=== PATIENT | male | born 1960 | race Caucasian/White ===

== ENCOUNTER → 2016-04-21 | Outpatient (CLI) | payer BC ==
[~2016-04-21] MED LIST: ADVAI100I PO; JEVILIQ12 PEG; KANGAROO JOEY P1 MIS; NICO14DI TD; OXYC1TAB36 PO; PROT40TA G-TUBE; SENN1TAB PO; SUCR1S PO; XANA1TAB2 PO; [UNRECOGNIZED DRUG - CODE]
[2016-04-21 14:05] LABS: BLOOD GAS BASE EXCESS 0.2 mmol/L (-2-2); BLOOD GAS HCO3 24 mmol/L (22-26); BLOOD GAS METHEMOGLOBIN 0.9 % (0-2); BLOOD GAS O2 HGB SATURATION 91 % (90-100); BLOOD GAS OXYGEN CONTENT 15.3 Vol % (12.0-20.0); BLOOD GAS PCO2 35 mmHg (38-42); BLOOD GAS PO2 86 mmHg (61-120); BLOOD GAS TOTAL HGB 11.9 G/DL (12.0-16.0); CRITICAL VALUE YES; TEMP CORR TO 98.6
[2016-04-21 14:06] LABS: DRAW SITE RT RADIAL; FIO2 21 %; NUMBER OF ARTERIAL PUNCTURES 1; STAT NO; ULNAR PULSE PRESENT
--- NOTE | 2016-05-09 11:06 | RSPPFT ---
DATE OF PROCEDURE: 04/21/16 COMMENTS: Spirometry with FVC of 3.1 predicted 4.1, FEV1 of 1.3 predicted 3.0, FEV1/FVC ratio 43% predicted 73%. Post-bronchodilator FEV1 increases to 1.6. Severe air trapping is present with RV at 4.0 predicted 2.0. DLCO is within the predicted range. IMPRESSION: On the basis of the above, patient has an obstructive lung defect with responsiveness to acutely inhaled bronchodilator.
== END ==
LOC: HRSP 13:41
PROVIDERS: ATTEND Internal Medicine Pulmonary Disease
DX: J44.9 Chronic obstructive pulmonary disease, unspecified (principal)
CPT/HCPCS: 36600; 82805; 94620

== ENCOUNTER 2016-04-29 10:17 | Inpatient (IN) | payer BC ==
[2016-04-29] VITALS (7 sets, daily range): BP systolic 82–114; BP diastolic 50–68; PULSE 65–75; RESP 16–20; TEMP 97.3–97.7; O2SAT 93–100
[~2016-04-29] VITALS: Ht 170.2 cm; Wt 46.5 kg
[~2016-04-29 10:17] MED LIST changes: -JEVILIQ12 PEG; -KANGAROO JOEY P1 MIS; -NICO14DI TD; -OXYC1TAB36 PO; -PROT40TA G-TUBE; -SENN1TAB PO; -SUCR1S PO; -XANA1TAB2 PO; -[UNRECOGNIZED DRUG - CODE]
[2016-04-29] MEDS ORDERED: XANA1TAB2 PO (10:36)
--- NOTE | 2016-04-29 10:37 | PD ---
HPI Chief Complaint: General Weakness Time Seen by Provider: 10:27 Travel History International Travel<30 days: No Contact w/Intl Traveler<30days: No Traveled to known affect area: No History of Present Illness HPI Patient is a 55-year-old male with a history of esophageal and stomach cancer presents emergency department for evaluation of inability to tolerate by mouth. Patient has been followed by Dr. Etienne Moe who is planning to do surgery for his cancer but unfortunately has been out of town and they've not been able to reach him. They were instructed that he needs to gain weight for the procedure but unfortunately he's lost "10 pounds over the last 7 days". Patient states that is not that he is having difficulty swallowing but there is significant pain when the food reaches lower esophagus and stomach so much so that he is having trouble to eat. He denies any fever denies any diarrhea denies any blood in the stool. He has also been followed by Dr. Reyna who is planning for an endoscopy prior to having the surgery done. His oncologist is Dr. Abdief will be gotten touch with the day and stated that he probably should come in emerged Department for consideration of admission. PFSH Past Medical History Cancer: Yes (ESOPHAGEAL) Cardiovascular Problems: No Chemotherapy: Yes (2011) Diabetes: No Diminished Hearing: No Endocrine: No Genitourinary: No Hepatitis: No Immune Disorder: No Musculoskeletal: No Neurologic: No Psychiatric: No Reproductive: No Respiratory: No Thyroid Disease: No Past Surgical History Abdominal Surgery: No AICD: No Cardiac Surgery: No Endocrine Surgery: No Eye Surgery: Yes (RETINA) Genitourinary Surgery: No Joint Replacement: No Pacemaker: No Thoracic Surgery: No Other Surgery: Yes Social History Alcohol Use: No Tobacco Use: Yes (quit a week ago, still takes a few drags) Substance Use: Yes (MARIJUANA) Allergies-Medications (Allergen,Severity, Reaction): Coded Allergies: No Known Allergies (Unverified , 04/29/16) Reported Meds & Prescriptions Reported Meds & Active Scripts Active Reported Xanax (Alprazolam) 1 Mg Tab 1 Mg PO Q8H PRN Review of Systems Except as stated in HPI: all other systems reviewed are Neg Physical Exam Narrative GENERAL: Well-developed under nourished and bordering on cachectic male who is quite pleasant and in no apparent distress. SKIN: Warm and dry. HEAD: Atraumatic. Normocephalic. EYES: Pupils equal and round. No scleral icterus. No injection or drainage. ENT: No nasal bleeding or discharge. Mucous membranes pink and moist. NECK: Trachea midline. No JVD. CARDIOVASCULAR: Regular rate and rhythm. No murmur appreciated. RESPIRATORY: No accessory muscle use. Clear to auscultation. Breath sounds equal bilaterally. GASTROINTESTINAL: Abdomen soft, non-tender, nondistended. Hepatic and splenic margins not palpable. MUSCULOSKELETAL: No obvious deformities. No clubbing. No cyanosis. No edema. NEUROLOGICAL: Awake and alert. No obvious cranial nerve deficits. Motor grossly within normal limits. Normal speech. PSYCHIATRIC: Appropriate mood and affect; insight and judgment normal. Data Data Last Documented VS Vital Signs Date Time Temp Pulse Resp B/P Pulse Ox O2 Delivery O2 Flow Rate FiO2 04/29/16 12:01 71 20 91/60 93 Room Air 04/29/16 10:18 97.6 Orders Complete Blood Count With Diff (04/29/16 10:34) Comprehensive Metabolic Panel (04/29/16 10:34) Lipase (04/29/16 10:34) Lactic Acid (04/29/16 10:34) Prothrombin Time / Inr (Pt) (04/29/16 10:34) Act Partial Throm Time (Ptt) (04/29/16 10:34) Urinalysis - C+S If Indicated (04/29/16 10:34) Iv Access Insert/Monitor (04/29/16 10:34) Ecg Monitoring (04/29/16 10:34) Oximetry (04/29/16 10:34) Morphine Inj (Morphine Inj) (04/29/16 10:45) Ondansetron Inj (Zofran Inj) (04/29/16 10:45) Sodium Chloride 0.9% Flush (Ns Flush) (04/29/16 10:45) Electrocardiogram (04/29/16 10:34) Sodium Chlorid 0.9% 500 Ml Inj (Ns 500 M (04/29/16 10:45) Al-Mag Hy-Si 40-40-4 Mg/Ml Liq (Mag-Al P (04/29/16 11:15) Lidocaine 2% Viscous (Xylocaine 2% Visco (04/29/16 11:15) Hydromorphone Pf Inj (Dilaudid Pf Inj) (04/29/16 12:45) Admit Order (Ed Use Only) (04/29/16 ) Sodium Chlor 0.9% 1000 Ml Inj (Ns 1000 M (04/29/16 13:15) Labs Laboratory Tests Test 04/29/16 10:55 White Blood Count 7.3 TH/MM3 Red Blood Count 4.11 MIL/MM3 Hemoglobin 11.6 GM/DL Hematocrit 35.8 % Mean Corpuscular Volume 87.0 FL Mean Corpuscular Hemoglobin 28.3 PG Mean Corpuscular Hemoglobin 32.5 % Concent Red Cell Distribution Width 14.5 % Platelet Count 298 TH/MM3 Mean Platelet Volume 7.4 FL Neutrophils (%) (Auto) 78.1 % Lymphocytes (%) (Auto) 13.3 % Monocytes (%) (Auto) 7.1 % Eosinophils (%) (Auto) 1.0 % Basophils (%) (Auto) 0.5 % Neutrophils # (Auto) 5.7 TH/MM3 Lymphocytes # (Auto) 1.0 TH/MM3 Monocytes # (Auto) 0.5 TH/MM3 Eosinophils # (Auto) 0.1 TH/MM3 Basophils # (Auto) 0.0 TH/MM3 CBC Comment DIFF FINAL Differential Comment Prothrombin Time 10.8 SEC Prothromb Time International 1.0 RATIO Ratio Activated Partial 27.3 SEC Thromboplast Time Sodium Level 137 MEQ/L Potassium Level 4.7 MEQ/L Chloride Level 101 MEQ/L Carbon Dioxide Level 30.0 MEQ/L Anion Gap 6 MEQ/L Blood Urea Nitrogen 8 MG/DL Creatinine 0.90 MG/DL Estimat Glomerular Filtration 88 ML/MIN Rate Random Glucose 125 MG/DL Lactic Acid Level 1.2 mmol/L Calcium Level 8.6 MG/DL Total Bilirubin 0.2 MG/DL Aspartate Amino Transf 19 U/L (AST/SGOT) Alanine Aminotransferase 23 U/L (ALT/SGPT) Alkaline Phosphatase 71 U/L Total Protein 7.2 GM/DL Albumin 3.3 GM/DL Lipase 259 U/L [facility] Medical Decision Making Medical Screen Exam Complete: Yes Emergency Medical Condition: Yes Interpretation(s) EKG shows normal sinus rhythm normal axis and normal R-wave progression. No concerning ST T changes, intervals within normal limits. This normal EKG. Differential Diagnosis Malnourishment, advanced malignancy, dehydration, electrolyte imbalance, abdominal pain, acute abdomen highly unlikely. Narrative Course Patient roomed in ED, in good spirits. Abdomen is benign. He is cachetic. Patient labs are reassuring (CBC, CMP). Patient given pain medication, fluids by slow infusion, beginning to feel better. Discussed with Dr. Soriano who agrees for admission. May not be surgical candidate though.. Discussed with residents and will be admitted. Diagnosis Primary Impression: Abdominal pain Qualified Code: R10.13 - Epigastric pain Additional Impression: Esophageal cancer Admitting Information Admitting Physician Requests: Admit Condition: Stable Wilbert Pradhan MD Apr 29, 2016 10:36
[2016-04-29] MEDS ORDERED: ONDANSETRON HCL 4 MG/2 ML VIAL IVP ONE (10:45)
[2016-04-29] MEDS ORDERED: SODIUM CHLORIDE 0.9% FLUSH 5 ML FLUSH IVF PRN (10:45)
[2016-04-29] MEDS ORDERED: SODIUM CHLORID 0.9% 500 ML INJ 500 ML IV ONE ×3 (10:45→21:00)
[2016-04-29] MEDS ORDERED: MORPHINE SULFATE 4 MG/ML INJ IV PUSH ONE (10:45)
[2016-04-29 11:05] LABS: AUTOMATED NEUTROPHIL # 5.7 TH/MM3 (1.8-7.7); BASOPHIL % 0.5 % (0.0-2.0); EOSINOPHIL # 0.1 TH/MM3 (0-0.4); HEMATOCRIT 35.8 % (39.0-51.0); HEMO FLAGS DIFF FINAL; LYMPH % 13.3 % (9.0-44.0); MEAN CORPUSCULAR HEMOGLOBIN 28.3 PG (27.0-34.0); MEAN CORPUSCULAR HGB CONC 32.5 % (32.0-36.0); MONO % 7.1 % (0.0-8.0); NEUT % 78.1 % (16.0-70.0); PLATELET COUNT 298 TH/MM3 (150-450); RED BLOOD COUNT 4.11 MIL/MM3 (4.50-5.90); RED CELL DISTRIBUTION WIDTH 14.5 % (11.6-17.2); WHITE BLOOD COUNT 7.3 TH/MM3 (4.0-11.0)
[2016-04-29 11:13] LABS: APTT (PATIENT) 27.3 SEC (24.3-30.1); PROTHROMBIN TIME - PATIENT 10.8 SEC (9.8-11.6)
[2016-04-29] MEDS ORDERED: LIDOCAINE VISCOUS 2% SOLN 15 ML UDC PO ONE (11:15)
[2016-04-29] MEDS ORDERED: ALUMINUM/MAGNESIUM/SIMETH 30 ML CUP PO ONE (11:15)
[2016-04-29 11:29] LABS: ANION GAP 6 MEQ/L (5-15); AST (GOT) 19 U/L (15-37); BLOOD UREA NITROGEN 8 MG/DL (7-18); CHLORIDE 101 MEQ/L (98-107); GLOMERULAR FILTRATION RATE 88 ML/MIN (>89); POTASSIUM 4.7 MEQ/L (3.5-5.1); SODIUM (NA) 137 MEQ/L (136-145)
[2016-04-29 11:33] LABS: ALKALINE PHOSPHATASE 71 U/L (45-117); ALT (GPT) 23 U/L (12-78); TOTAL BILIRUBIN ADULT 0.2 MG/DL (0.2-1.0)
[2016-04-29] MEDS ORDERED: HYDROmorphone HCL PF 1 MG/ML VIAL IV PUSH ONE ×2 (12:45→21:00)
[2016-04-29] MEDS ORDERED: SODIUM CHLOR 0.9% 1000 ML INJ 1,000 ML IV SCH (13:15)
[2016-04-29 14:29] LABS: BACTERIA, URINE RARE /hpf; BLOOD, URINE NEG (NEG); GLUCOSE,URINE NEG (NEG); HYALINE CAST, URINE 2 /lpf (RARE); KETONE, URINE NEG (NEG); MUCUS URINE FEW /lpf (OCC); NITRITE,URINE NEG (NEG); URINE COLOR YELLOW (YELLW/STRAW)
[2016-04-29 14:30] LABS: COMMENT (UR) CULT NOT INDICATED; CULTURE IF INDICATED CULT NOT INDICATED
--- NOTE | 2016-04-29 15:16 | HHI.HP ---
[facility] Service Family Medicine Primary Care Physician No Primary Care Physician Admission Diagnosis Epigastric Pain Diagnoses: International Travel<30 Days: No Contact w/Intl Traveler<30days: No Known Affected Area: No History of Present Illness Patient is a 55-year-old male with a past medical history significant for esophageal cancer and GERD who presents to the ED due to poor by mouth intake due to abdominal pain. He states that he has been having abdominal pain after eating. Occurs approximately 15-30min after eating. The pain after onset does not stop. The pain is located is in the abdomen and radiates to the back. Lost 10 pounds in the last week due to poor intake. He was first diagnosed with esophageal cancer in July 2013. He had chemotherapy and radiation at that time. Pet scan was clear thereafter and patient went on with his life until September 2013, when PET scan showed that cancer had recurred. He then underwent chemotherapy (THC and CBD) 4 year in [place]. He returned to [facility] in November 2015. At time he established care and got a PET scan which showed that the cancer had spread outside of the esophagus and into the stomach. Said the cancer was originally located in the distal esophagus. He notes he has never had lymph node involvement. Patient is established with Dr. Bruner who per patient report has agreed to perform surgery. He is currently undergoing evaluation as an outpatient, which has included cardiac and pulmonary clearance which is completed. He'll pending the GI pre-op evaluation which is to include an endoscopy. He was seen in an outpatient GI clinic (Dr. Lagunas) today but was told to come in to hospital by his oncologist Dr. Soriano and covering nurse at Dr. Bruner's ( general surgery) office due to his poor by mouth intake and reported weight loss. He also notices Dr. Blanco (CT surgery) is aware of his case. He has nausea but no vomiting. He denies dysphasia, but notes he has abdominal pain 15-20 minutes after every meal. Has not eaten for the last 6-7 days due to the pain. Has been taking Maalox and Tums which helped some. Has gone through a couple of bottles in the last. No difficulty swallowing solids or liquids. Irritation of the stomach after eaten, pain in the stomach and back. He notes normal bowel movements. He notes he has had no sleep in the last week due to this pain and hunger (still has appetite). (Rebecca Davila MD R1) Review of Systems Constitutional: COMPLAINS OF: Weight loss, Dizziness, DENIES: Fever, Chills, Change in appetite Eyes: DENIES: Blurred vision, Diplopia, Vision loss Ears, nose, mouth, throat: DENIES: Tinnitus, Oral lesions, Throat pain, Hoarseness, Odynophagia Respiratory: DENIES: Cough, Wheezing, Shortness of breath Cardiovascular: DENIES: Chest pain, Palpitations Gastrointestinal: COMPLAINS OF: Black stools (after Pepto), Nausea, DENIES: Bloody stools, Constipation, Diarrhea, Vomiting Genitourinary: DENIES: Dysuria Musculoskeletal: DENIES: Joint pain, Neck pain Integumentary: DENIES: Rash Hematologic/lymphatic: DENIES: Lymphadenopathy Neurologic: DENIES: Headache, Localized weakness, Paresthesias (Rebecca Davila MD R1) Past Family Social History Past Medical History Denies other PMH Past Surgical History Tib-fib fracture left leg Reconstruction of ankle Detached retina left eye Reported Medications Reported Meds & Active Scripts Active Reported Xanax (Alprazolam) 1 Mg Tab 1 Mg PO Q8H PRN (Rebecca Davila MD R1) Allergies: Coded Allergies: No Known Allergies (Unverified , 04/29/16) Family History Significant family history reported Social History Cigarettes: 1 pack per week, previous 3-4 PPD until cancer diagnosis Alcohol: None Endorses Marijuana Lives with in (Rebecca Davila MD R1) Physical Exam Vital Signs Vital Signs Date Time Temp Pulse Resp B/P Pulse Ox O2 Delivery O2 Flow Rate FiO2 04/29/16 13:18 18 04/29/16 12:01 71 20 91/60 93 Room Air 04/29/16 11:04 98 Room Air 04/29/16 10:55 18 04/29/16 10:29 18 Room Air 04/29/16 10:18 97.6 74 20 114/54 100 Room Air Physical Exam GENERAL: Very thin male patient sitting up in bed. at bedside SKIN: No rashes, ecchymoses. Scattered seborrheic keratoses. Skin is warm and dry. HEAD: Atraumatic. Normocephalic. No temporal or scalp tenderness. EYES: Left eye with notable surgical abnormality of the pupil, right eye normal and pupil reactive. Extraocular motions intact. No scleral icterus. No injection or drainage. ENT: Nose without bleeding, purulent drainage or septal hematoma. Throat and mucous membranes very dry. Throat without erythema, tonsillar hypertrophy or exudate. Uvula midline. Airway patent. TMs clear with normal light reflex. NECK: Trachea midline. No JVD or lymphadenopathy. Supple, nontender, no meningeal signs. CARDIOVASCULAR: Regular rate and rhythm without murmurs, gallops, or rubs. RESPIRATORY: Clear to auscultation without wheezes or rhonchi. Breath sounds equal bilaterally GASTROINTESTINAL: Abdomen soft, thin. Patient is tender to palpation globally, worse in the right upper quadrant and epigastric area. No rebound tenderness. No distention. Spleen and liver not obviously palpable. No guarding. MUSCULOSKELETAL: Extremities without clubbing, cyanosis, or edema. No joint tenderness, effusion, or edema noted. No calf tenderness. Negative Homans sign bilaterally. NEUROLOGICAL: Awake and alert. Cranial nerves II through XII intact. Motor and sensory grossly within normal limits. Five out of 5 muscle strength in all muscle groups. Normal speech. Laboratory Laboratory Tests Test 04/29/16 04/29/16 10:55 14:15 White Blood Count 7.3 Red Blood Count 4.11 Hemoglobin 11.6 Hematocrit 35.8 Mean Corpuscular Volume 87.0 Mean Corpuscular Hemoglobin 28.3 Mean Corpuscular Hemoglobin 32.5 Concent Red Cell Distribution Width 14.5 Platelet Count 298 Mean Platelet Volume 7.4 Neutrophils (%) (Auto) 78.1 Lymphocytes (%) (Auto) 13.3 Monocytes (%) (Auto) 7.1 Eosinophils (%) (Auto) 1.0 Basophils (%) (Auto) 0.5 Neutrophils # (Auto) 5.7 Lymphocytes # (Auto) 1.0 Monocytes # (Auto) 0.5 Eosinophils # (Auto) 0.1 Basophils # (Auto) 0.0 CBC Comment DIFF FINAL Differential Comment Prothrombin Time 10.8 Prothromb Time International 1.0 Ratio Activated Partial 27.3 Thromboplast Time Sodium Level 137 Potassium Level 4.7 Chloride Level 101 Carbon Dioxide Level 30.0 Anion Gap 6 Blood Urea Nitrogen 8 Creatinine 0.90 Estimat Glomerular Filtration 88 Rate Random Glucose 125 Lactic Acid Level 1.2 Calcium Level 8.6 Total Bilirubin 0.2 Aspartate Amino Transf 19 (AST/SGOT) Alanine Aminotransferase 23 (ALT/SGPT) Alkaline Phosphatase 71 Total Protein 7.2 Albumin 3.3 Lipase 259 Urine Color YELLOW Urine Turbidity HAZY Urine pH 7.0 Urine Specific [place] 1.012 Urine Protein NEG Urine Glucose (UA) NEG Urine Ketones NEG Urine Occult Blood NEG Urine Nitrite NEG Urine Bilirubin NEG Urine Urobilinogen LESS THAN 2.0 Urine Leukocyte Esterase NEG Urine RBC 2 Urine WBC LESS THAN 1 Urine Amorphous Sediment RARE Urine Bacteria RARE Urine Hyaline Casts 2 Urine Mucus FEW Microscopic Urinalysis Comment CULT NOT INDICATED (Rebecca Davila MD R1) Result Diagram: 04/29/16 1055 04/29/16 1055 Assessment and Plan Assessment and Plan 55-year-old male is here for esophageal cancer who is admitted for cancer- related weight loss, inpatient monitoring and workup, and abdominal pain management. Admission labs showing mild anemia, otherwise unremarkable. Code Status Full code Discussed Condition With SDW Dr. Willi Ray WDW Dr. Fabian Vu (Rebecca Davila MD R1) Attending Attestation THIS CASE WAS DISCUSSED WITH THE RESIDENT PHYSICIANS. I HAVE REVIEWED THE RECORD AND AGREE WITH THE ABOVE NOTE AND PLAN OF CARE WAS DISCUSSED. I HAVE AUTHORIZED THE ORDER FOR ADMISSION TO AN IN-PATIENT STATUS. (Fabian Vu MD) Problem List: (1) Esophageal cancer Status: Acute Plan: History of esophageal cancer since 2013. He is known to Dr. Soriano ( oncology), Dr. Bruner (general surgery), and Dr. Mittal (GI). He is possibly also known to Dr. Blanco (CT surgery). He states that he has been told to come in for inpatient workup and possible surgical intervention this hospital stay. -Gen. surgery consulted, known to Dr. Bruner -GI consulted -Oncology (Dr. Soriano) consulted -Pain control with acetaminophen, Percocet, Dilaudid -On Xanax 1 mg every 8 when necessary for anxiety, continue and hold for sedation (2) Abdominal pain Status: Acute Plan: Exam is notable for epigastric tenderness without any signs of surgical abdomen. The symptoms are possibly related to GERD as well as esophageal/ stomach mass but no signs of obstruction. -GI consulted -Pain control as above -Protonix 20 mg IV daily -Add lipase and amylase -Reasonable to obtain KUB if symptoms do not improve or if they worsen (e.g., nausea, vomiting, obstructive signs) (3) Weight loss, unintentional Status: Acute Plan: Related to poor intake. Possibly related to cancer pain. No dysphagia or indications that there is an obstruction. Patient continues to have appetite but has pain with eating. Weight on admission 45 kg Plan: GI consulted Daily weights Regular diet as tolerated Zofran and Reglan when necessary Add Boost if patient desires (4) Fluids/Electrolytes/Nutrition/Prophylaxis Status: Acute Plan: Fluids: NS @ 75ml/hr Electrolytes: monitor and replete as needed Nutrition: Regular diet DVT Prophylaxis: Lovenox 40mg subQ q24hr/bilateral SCDs GI Prophylaxis: Protonix 40 mg IV daily (Rebecca Davila MD R1) Problem Qualifiers (1) Abdominal pain: Qualified Code: R10.13 - Epigastric pain Rebecca Davila MD R1 Apr 29, 2016 15:16 Fabian Vu MD Apr 30, 2016 09:42
[2016-04-29] MEDS ORDERED: METOCLOPRAMIDE HCL 10 MG/2 ML VIAL IV PUSH PRN (15:30)
[2016-04-29] MEDS ORDERED: ONDANSETRON HCL 4 MG/2 ML VIAL IVP PRN (15:30)
[2016-04-29] MEDS ORDERED: ACETAMINOPHEN 325 MG TAB PO PRN (15:30)
[2016-04-29] MEDS ORDERED: SODIUM CHLORIDE 0.9% FLUSH 5 ML FLUSH FLUSH PRN (15:30)
[2016-04-29] MEDS ORDERED: NALOXONE HCL 0.4 MG/ML AMP IV PRN (15:30)
[2016-04-29] MEDS ORDERED: oxyCODONE/ACETAMINOPHEN 5 MG/325 MG TAB PO PRN (15:45)
[2016-04-29] MEDS: SODIUM CHLOR 0.45% 1000 ML INJ 1,000 ML IV SCH (16:36)
[2016-04-29] MEDS: PANTOPRAZOLE SODIUM 40 MG VIAL IV PUSH SCH (16:36)
[2016-04-29] MEDS: ENOXAPARIN SODIUM 40 MG/0.4 ML SYRINGE SQ SCH (16:37)
[2016-04-29] MEDS: HYDROmorphone HCL PF 1 MG/ML VIAL IV PRN ×3 (16:37→23:52)
--- NOTE | 2016-04-29 18:02 | EKG ---
Date Performed: 04/29/2016 Time Performed: 08:48:06 PTAGE: 55 years EKG: Sinus rhythm NORMAL ECG NO SIGNIFICANT CHANGE FROM PRIOR ELECTROCARDIOGRAM. PREVIOUS TRACING : 10/03/2014 16.46 DOCTOR: Chan Jacobson Interpretating Date/Time 04/29/2016 18:00:27
[2016-04-29] MEDS: ALPRAZolam 1 MG TAB PO PRN (20:39)
[2016-04-29] MEDS: SODIUM CHLORIDE 0.9% FLUSH 5 ML FLUSH FLUSH SCH (21:00)
[2016-04-30] VITALS (8 sets, daily range): BP systolic 89–100; BP diastolic 50–66; PULSE 48–71; RESP 16–19; TEMP 96.5–97.7; O2SAT 94–96
[2016-04-30] MEDS: HYDROmorphone HCL PF 1 MG/ML VIAL IV PRN ×8 (01:56→21:21)
[2016-04-30 07:46] LABS: AUTOMATED NEUTROPHIL # 3.2 TH/MM3 (1.8-7.7); BASOPHIL # 0.1 TH/MM3 (0-0.2); BASOPHIL % 1.9 % (0.0-2.0); EOSINOPHIL # 0.2 TH/MM3 (0-0.4); HEMATOCRIT 36.7 % (39.0-51.0); HEMO FLAGS DIFF FINAL; LYMPH % 24.8 % (9.0-44.0); LYMPHOCYTE # 1.4 TH/MM3 (1.0-4.8); MEAN CELL VOLUME 87.8 FL (80.0-100.0); MEAN CORPUSCULAR HEMOGLOBIN 28.6 PG (27.0-34.0); MEAN CORPUSCULAR HGB CONC 32.6 % (32.0-36.0); MONO % 13.2 % (0.0-8.0); NEUT % 56.1 % (16.0-70.0); PLATELET COUNT 301 TH/MM3 (150-450); RED BLOOD COUNT 4.18 MIL/MM3 (4.50-5.90); RED CELL DISTRIBUTION WIDTH 14.4 % (11.6-17.2); WHITE BLOOD COUNT 5.8 TH/MM3 (4.0-11.0)
[2016-04-30 08:03] LABS: POTASSIUM 4.1 MEQ/L (3.5-5.1)
--- NOTE | 2016-04-30 08:04 | PD.CONS ---
HPI History of Present Illness This is a 55 year old who we were asked to see for abdominal pain and inability to eat. He was diagnosed with distal esophageal/gastroesophageal junctional adenocarcinoma in 2013. It was recommended that he undergo preoperative concurrent chemoradiotherapy followed by surgical resection. He underwent the concurrent chemoradiotherapy, but refused surgery. He initially had a good response to this and his endoscopic biopsies and PET scans after treatment did not show any evidence of disease. In 2014, he relocated to [place], where her participated in holistic/herbal medication. He had a relapse in his disease in spring. He recieved a couple of doses of FOLFOX but discontinued this because of his side effects. He then relocated to this area in the summer. He had signs of recurrent disease without evidence of metastases at that time. Surgery was discussed, but the patient again refused. He was seen at the [facility] and cryoablation/laser therapy was discussed, but the patient did not pursue this. He was also seen at the [facility] as a third opinion regarding surgical resection and it was recommended that he undergo salvage surgical resection. He has decided to undergo this surgery with Dr. Bruner. He was seen in the office yesterday to have EGD prior to his surgery. He complained of gas, bloating, abdominal pressure x 1 week and reported that he has not been able to eat for the past 3 days, with a 10 lb weight loss in 1 week. He also reported some dark stools, although he has been taking pepto bismol for his symptoms. He was started on a trial of prilosec and was in the process of being scheduled for an EGD with possible dilatation vs. stent placement. However, because of his symptoms and his inability to eat , he was sent to the ER for further evaluation and treatment. He tells me that he has been having difficulty eating for the past 7-10 days because every time he eats, he has severe reflux with burning up his esophagus. He has tried Maalox, Pepto Bismol, and TUMS without any relief. He denies any nausea and vomiting. He states that he has not been able to take anything by mouth for a few days prior to this hospitalization. He has been smoking marijuana and states this really helps with his appetite, although he has not had this recently because it became too expensive. He denies any constipation, diarrhea , or red blood in his stool. He does report that he had some black stool, but only when he was taking pepto bismol. EGD/Colonoscopy (10/07/14)----> Single ulcer measuring 10 x 15 mm in size was found in the upper third of the esophagus , LA Class C esophagitis noted, long stricture in the distal esophagus, s/p dilatation using 16 mm savary dilator over guidewire, retroflexed views revealed no abnormalities; small pedunculated polyp was found in the rectum, polypectomy was performed with cold forceps, retroflexed views revealed no abnormalities, rectal exam revealed no abnormalities of the anus. Pathology revealed poorly differentiated adenocarcinoma in distal and proximal esophagus, serrated adenoma (rectal polyp). (Jessica Marie) PFSH Past Medical History Esophageal cancer Colon polyps GERD Atherosclerosis of abdominal aorta Dysphagia Lesion of spleen Vitamin D insufficiency Kidney stones Past Surgical History EGD/Colonoscopy ORIF Tib/Fib fx (Jessica Marie) Coded Allergies: No Known Allergies (Unverified , 04/29/16) Medications Allergies Coded Allergies Type Severity Reaction Last Updated Verified No Known Allergies 04/29/16 No Active Scripts Medications Dose Route/Sig Days Date Category Xanax (Alprazolam) 1 Mg Tab 1 Mg PO Q8H PRN 04/29/16 Reported Family History Father with hx of cardiac disease Social History No tobacco, ETOH (Jessica Marie) Review of Systems Constitutional: COMPLAINS OF: Fatigue, Weight loss, Change in appetite Respiratory: COMPLAINS OF: Cough Cardiovascular: DENIES: Chest pain Gastrointestinal: COMPLAINS OF: Abdominal pain, Anorexia, Odynophagia, Heartburn, DENIES: Black stools, Bloody stools, Constipation, Diarrhea, Nausea , Difficulty Swallowing Musculoskeletal: DENIES: Joint pain Hematologic/lymphatic: COMPLAINS OF: Bruising Neurologic: DENIES: Headache Psychiatric: COMPLAINS OF: Anxiety, DENIES: Confusion (Jessica Marie) GI Exam Vitals I&O Vital Signs Date Time Temp Pulse Resp B/P Pulse Ox O2 Delivery O2 Flow Rate FiO2 04/30/16 05:02 20 04/30/16 04:00 96.7 62 16 100/59 95 04/30/16 03:18 19 04/30/16 00:00 96.5 61 17 93/60 96 04/29/16 20:00 97.3 65 16 93/68 97 04/29/16 18:30 97.7 70 16 82/50 96 04/29/16 17:00 65 20 105/58 97 Room Air 04/29/16 14:00 75 20 98/67 93 Room Air 04/29/16 13:18 18 04/29/16 12:01 71 20 91/60 93 Room Air 04/29/16 11:04 98 Room Air 04/29/16 10:55 18 04/29/16 10:29 18 Room Air 04/29/16 10:18 97.6 74 20 114/54 100 Room Air I/O 04/29/16 04/29/16 04/29/16 04/30/16 04/30/16 04/30/16 07:00 15:00 23:00 07:00 15:00 23:00 Intake Total 480 ml 480 ml Balance 480 ml 480 ml Intake Oral 480 ml 480 ml # Voids 2 2 Laboratory Test 04/29/16 04/29/16 04/30/16 10:55 14:15 06:55 White Blood Count 7.3 TH/MM3 5.8 TH/MM3 Red Blood Count 4.11 MIL/MM3 4.18 MIL/MM3 Hemoglobin 11.6 GM/DL 11.9 GM/DL Hematocrit 35.8 % 36.7 % Mean Corpuscular Volume 87.0 FL 87.8 FL Mean Corpuscular Hemoglobin 28.3 PG 28.6 PG Mean Corpuscular Hemoglobin 32.5 % 32.6 % Concent Red Cell Distribution Width 14.5 % 14.4 % Platelet Count 298 TH/MM3 301 TH/MM3 Mean Platelet Volume 7.4 FL 8.1 FL Neutrophils (%) (Auto) 78.1 % 56.1 % Lymphocytes (%) (Auto) 13.3 % 24.8 % Monocytes (%) (Auto) 7.1 % 13.2 % Eosinophils (%) (Auto) 1.0 % 4.0 % Basophils (%) (Auto) 0.5 % 1.9 % Neutrophils # (Auto) 5.7 TH/MM3 3.2 TH/MM3 Lymphocytes # (Auto) 1.0 TH/MM3 1.4 TH/MM3 Monocytes # (Auto) 0.5 TH/MM3 0.8 TH/MM3 Eosinophils # (Auto) 0.1 TH/MM3 0.2 TH/MM3 Basophils # (Auto) 0.0 TH/MM3 0.1 TH/MM3 CBC Comment DIFF FINAL DIFF FINAL Differential Comment Prothrombin Time 10.8 SEC Prothromb Time International 1.0 RATIO Ratio Activated Partial 27.3 SEC Thromboplast Time Sodium Level 137 MEQ/L Potassium Level 4.7 MEQ/L Chloride Level 101 MEQ/L Carbon Dioxide Level 30.0 MEQ/L Anion Gap 6 MEQ/L Blood Urea Nitrogen 8 MG/DL Creatinine 0.90 MG/DL Estimat Glomerular Filtration 88 ML/MIN Rate Random Glucose 125 MG/DL Lactic Acid Level 1.2 mmol/L Calcium Level 8.6 MG/DL Total Bilirubin 0.2 MG/DL Aspartate Amino Transf 19 U/L (AST/SGOT) Alanine Aminotransferase 23 U/L (ALT/SGPT) Alkaline Phosphatase 71 U/L Total Protein 7.2 GM/DL Albumin 3.3 GM/DL Amylase Level 85 U/L Lipase 259 U/L Urine Color YELLOW Urine Turbidity HAZY Urine pH 7.0 Urine Specific [place] 1.012 Urine Protein NEG mg/dL Urine Glucose (UA) NEG mg/dL Urine Ketones NEG mg/dL Urine Occult Blood NEG Urine Nitrite NEG Urine Bilirubin NEG Urine Urobilinogen LESS THAN 2.0 MG/DL Urine Leukocyte Esterase NEG Urine RBC 2 /hpf Urine WBC LESS THAN 1 /hpf Urine Amorphous Sediment RARE Urine Bacteria RARE /hpf Urine Hyaline Casts 2 /lpf Urine Mucus FEW /lpf Microscopic Urinalysis Comment CULT NOT INDICATED Physical Examination GEN: Malnourished appearing HEENT: Normocephalic; atraumatic; no jaundice. CHEST: CTA CARDIAC: RRR ABDOMEN: Soft, nondistended, nontender; no hepatosplenomegaly; bowel sounds are present in all four quadrants. EXTREMITIES: No clubbing, cyanosis, or edema. SKIN: Normal; no rash; no jaundice. 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 (Jessica Marie) Assessment and Plan Plan ASSESSMENT: - Severe GERD, Odynophagia, Inability to tolerate po. PT reports that he was able to control this with marijuana until recently. He has tried Maalox, Pepto Bismol, and TUMs but has not had any relief and states that this has worsened to the point that he has not been able to eat in a few days. This is much improved here in hospital while on PPI. - Esophageal Cancer. Dx with distal esophageal/gastroesophageal junctional adenocarcinoma in 2013. It was recommended that he undergo preoperative concurrent chemoradiotherapy followed by surgical resection. He underwent the concurrent chemoradiotherapy, but refused surgery. He initially had a good response to this and his endoscopic biopsies and PET scans after treatment did not show any evidence of disease. In 2014, he relocated to [place], where her participated in holistic/herbal medication. He had a relapse in his disease in spring. He received a couple of doses of FOLFOX but discontinued this because of his side effects. He then relocated to this area in the summer. He had signs of recurrent disease without evidence of metastases at that time. Surgery was discussed, but the patient again refused. He was seen at the [facility] and cryoablation/ laser therapy was discussed, but the patient did not pursue this. He was also seen at the [facility] as a third opinion regarding surgical resection and it was recommended that he undergo salvage surgical resection. He has decided to undergo this surgery with Dr. Bruner. EGD was recommended. - Malnutrition, Wt. Loss. Pt reports one week hx of difficulty eating- more from severe odynophagia, gerd. Denies dysphagia. This has improved with PPI here in hospital. Did d/w if PEG tube was mentioned and he states that he was told at some point, he will likely need one, but that would be addressed later. - Anemia. 11.9/36.7. Last EGD/Colonoscopy (10/06/14)----> Single ulcer measuring 10 x 15 mm in size was found in the upper third of the esophagus, LA Class C esophagitis noted, long stricture in the distal esophagus, s/p dilatation using 16 mm savary dilator over guidewire, retroflexed views revealed no abnormalities; small pedunculated polyp was found in the rectum, polypectomy was performed with cold forceps, retroflexed views revealed no abnormalities, rectal exam revealed no abnormalities of the anus. Pathology revealed poorly differentiated adenocarcinoma in distal and proximal esophagus, serrated adenoma (rectal polyp). PLAN: - Plan for EGD on Monday - Obtain consents - DUANE - NPO after MN Monday night - Ensure with all meals - Hold Lovenox after MN - Cont. PPI - Monitor labs - Supportive care - Further recommendations to follow based on results of above - Pt seen and examined by Dr. Naqvi and myself and this note is written on his behalf (Jessica Marie) Physician Comments Patient seen and examined Agree with above Continue with current supportive care Monitor labs EGD on Monday with possible EUS we will clarify with surgical oncology ([place] Naqvi MD) Jessica Marie Apr 30, 2016 08:04 [place] Naqvi MD Apr 30, 2016 17:27
--- NOTE | 2016-04-30 08:57 | HHI.FPPN ---
Subjective Remarks No acute events overnight and patient feels relatively well this morning. His pain has been well-controlled with Dilaudid and he has been able to eat/drink without significant pain. The Magic mouthwash and IV Protonix seemed to be controlling his abdominal discomfort. He has been up and walking around without difficulty and has no complaints this morning. He was seen by GI this morning and plan is for EGD on Monday. In summary this is a 55-year-old male with history significant for esophageal cancer who was sent in for further management by the GI doctors. He was seen in the GI office for progressive abdominal pain and pain with eating yesterday prior to being sent to the emergency department. At that time it was found out that he has not eaten or drinking anything for the last 3 days and had a significant drop in weight. He has been being worked up as an outpatient for definitive management of his distal esophageal cancer with likely surgical resection, however with his progressive decline and he was sent to the hospital for further management. Past Medical History Esophageal cancer GERD Past Surgical History Tib-fib fracture left leg Reconstruction of ankle Detached retina left eye Family History Significant family history reported Social History Cigarettes: 1 pack per week, previous 3-4 PPD until cancer diagnosis Alcohol: None Endorses Marijuana Lives with in RV Objective Vitals Vital Signs Date Time Temp Pulse Resp B/P Pulse Ox O2 Delivery O2 Flow Rate FiO2 04/30/16 08:49 96.6 48 16 96/51 96 04/30/16 05:02 20 04/30/16 04:00 96.7 62 16 100/59 95 04/30/16 03:18 19 04/30/16 00:00 96.5 61 17 93/60 96 04/29/16 20:00 97.3 65 16 93/68 97 04/29/16 18:30 97.7 70 16 82/50 96 04/29/16 17:00 65 20 105/58 97 Room Air 04/29/16 14:00 75 20 98/67 93 Room Air 04/29/16 13:18 18 04/29/16 12:01 71 20 91/60 93 Room Air 04/29/16 11:04 98 Room Air 04/29/16 10:55 18 04/29/16 10:29 18 Room Air 04/29/16 10:18 97.6 74 20 114/54 100 Room Air I/O 04/29/16 04/29/16 04/29/16 04/30/16 04/30/16 04/30/16 07:00 15:00 23:00 07:00 15:00 23:00 Intake Total 480 ml 480 ml Balance 480 ml 480 ml Intake Oral 480 ml 480 ml # Voids 2 2 Result Diagram: 04/30/16 0655 04/30/16 0655 Objective Remarks GENERAL: Cachectic appearing male, appears comfortable and in good spirits SKIN: No rashes, ecchymoses. Scattered seborrheic keratoses. Skin is warm and dry. NECK: Trachea midline. No JVD or lymphadenopathy. CARDIOVASCULAR: Regular rate and rhythm without murmurs, gallops, or rubs. RESPIRATORY: Clear to auscultation without wheezes or rhonchi. Breath sounds equal bilaterally GASTROINTESTINAL: Abdomen soft, thin. Nontender to palpation with some firmness in the left upper quadrant. No rebound or guarding. MUSCULOSKELETAL: Extremities without clubbing, cyanosis, or edema. A/P Assessment and Plan 55-year-old male is here for esophageal cancer who is admitted for cancer- related weight loss, inpatient monitoring and workup, and abdominal pain management. Problem List: (1) Esophageal cancer Status: Acute Plan: GI has evaluated the patient and plans for EGD on Monday - Gen. surgery consult to Dr. Bruner and oncology consult to Dr. Soriano pending Symptom control with medications as below: - Magic mouthwash by mouth as needed - Dilaudid 1 mg IV every 3 hours as needed for pain - Protonix 40 mg IV every 24 hours Continue home Xanax 1 mg every 8 hours by mouth Continue regular diet as tolerated (2) Abdominal pain Status: Acute Plan: Abdominal pain secondary to distal esophageal cancer that has spread to the stomach - PET/CT done in 01/2016 shows evidence of local recurrence of esophageal tumor extending in excess of 6 cm in length and crossing the diaphragmatic hiatus involving a portion of the gastric fundus. No evidence of metastatic disease. Workup for other sources of pain were negative: Lipase and amylase within normal limits Liver function testing is normal Lactic acid within normal limits at 1.2 (3) Weight loss, unintentional Status: Acute Plan: Related to poor intake. Possibly related to cancer pain. No dysphagia or indications that there is an obstruction. Weight on admission 45 kg Plan: GI consulted Daily weights Regular diet as tolerated Zofran and Reglan when necessary Add Boost if patient desires (4) Fluids/Electrolytes/Nutrition/Prophylaxis Status: Acute Plan: Fluids: NS @ 75ml/hr Electrolytes: monitor and replete as needed Nutrition: Regular diet DVT Prophylaxis: Lovenox 40mg subQ q24hr/bilateral SCDs GI Prophylaxis: Protonix 40 mg IV daily Problem Qualifiers (1) Abdominal pain: Qualified Code: R10.13 - Epigastric pain Fabian Vu MD Apr 30, 2016 08:57
[2016-04-30] MEDS: DOCUSATE SODIUM 50 MG/SENNA 8.6 MG TAB PO SCH (09:00)
[2016-04-30] MEDS: SODIUM CHLOR 0.45% 1000 ML INJ 1,000 ML IV SCH ×2 (09:00→17:46)
[2016-04-30] MEDS: ALPRAZolam 1 MG TAB PO PRN ×2 (09:06→18:26)
[2016-04-30] MEDS: SODIUM CHLORIDE 0.9% FLUSH 5 ML FLUSH FLUSH SCH ×2 (09:07→21:00)
--- NOTE | 2016-04-30 10:53 | MB ---
cc: VAMSHI CASTILLO MD DATE OF CONSULTATION: 04/30/2016 Consult requested by the hospitalist service. 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 Initially diagnosed in September of 2013. STAGE AT THE TIME OF DIAGNOSIS T3 N2 M0, stage III disease. TREATMENT HISTORY TO DATE The patient underwent concurrent chemoradiotherapy with weekly carboplatin and Taxol which was initiated in October of 2013, he completed treatment in late November of 2013. He has essentially been off treatment ever since then, he declined immediate surgical resection in 2014 even though he was evaluated extensively by our surgical oncologist. He did receive a short course of palliative systemic therapy with FOLFOX when the patient left this area and traveled to [place], FOLFOX was delivered in the spring. CURRENT DISEASE STATUS Locally recurrent disease. CHIEF COMPLAINT Increasing difficulty swallowing which had been ongoing for the past one week. The patient reports having a concomitant 8-10 pound weight loss over the past 10 days. HISTORY OF PRESENT ILLNESS Mr. Momin is a very pleasant 55-year-old male who is well-known to me from my outpatient practice. Mr. Momin was initially diagnosed in the summer with a distal esophageal/gastroesophageal junctional adenocarcinoma. He underwent initial staging with PET-CT imaging as well as endoscopic ultrasound and was assessed to have a T3 N2 adenocarcinoma of the distal esophagus. He was recommended preoperative concurrent chemoradiotherapy followed by surgical resection. He underwent the concurrent chemoradiotherapy part but declined surgery. He initially had a complete response to treatment with post chemoradiotherapy endoscopic biopsies negative for residual malignancy. He continued to follow with me consistently up until 2014 and had been undergoing PET-CT imaging while on observation. He had no evidence of disease recurrence. He at that point chose to relocate to [place] where he participated in holistic medicine and herbal medication including cannabinoid use. He became a firm believer in the anticancer effects of cannabinoids. Unfortunately, his disease began to relapse in the spring and he was seen by an oncologist in the [place], [place] area. He received two or three cycles of FOLFOX but the side effects were too great and he discontinued treatment. In the summer, he chose to relocate to [place]. He reestablished followup with me. Restaging imaging scans indicated recurrent disease. He had no evidence of metastases. We revisited the option of undergoing surgical resection at that time but the patient declined. He wanted to go seek out additional opinions with regards to endoscopic management with laser ablation versus cryoablation. I did send him to the [facility] where he met with a GI specialist in interventional procedures such as cryoablation and laser therapy but he chose not to pursue this. He has also been seen at the [facility] as a third opinion or perhaps even a fourth opinion regarding surgical resection and was recommended salvage surgical resection. He has ultimately chosen to undergo this procedure if it is feasible at [facility]. His surgeon if this is possible will be Dr. Bruner. Over the course of hospitalization, Mr. Momin's dysphagia has improved. He tells me the Maalox and lidocaine suspension has helped. PAST MEDICAL HISTORY 1. Distal esophageal/gastroesophageal junctional adenocarcinoma. 2. Protein calorie malnutrition. 3. Kidney stones. 4. Personal history of tobaccoism. 5. Solitary pulmonary nodule. PAST SURGICAL HISTORY 6. Left leg surgery. 7. Colonoscopy and EGD. 8. Infusion port placement. 9. Resection of multiple nonmelanoma skin carcinomas. SOCIAL HISTORY The patient is , lives at home with his Maria Isabel. He has children of his own. 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 Please note this patient has been an on and off smoker much of his life. He also reports recreational and medicinal use of marijuana. FAMILY HISTORY Mom is alive, father of coronary artery disease at 54. ALLERGIES NO KNOWN DRUG ALLERGIES. CURRENT INPATIENT MEDICATIONS 1. Half-normal saline 75 cc/hr. 2. Tylenol 650 mg p.o. q.4 hours as needed for fever. 3. Alprazolam 1 mg p.o. q.8 hours as needed for anxiety. 4. Colace/Senna one tablet p.o. daily. 5. Lovenox 40 mg subcu q.24. 6. Dilaudid IV 1 mg IV q.3 hours as needed for pain. 7. Metoclopramide 5 mg IV q.6 hours as needed for nausea and vomiting. 8. Zofran 4 mg IV q.6 hours 9. Oxycodone 5/325 one tablet p.o. q.6 hours as needed for pain scale 3-5. 10. Pantoprazole 40 mg IV q.24. REVIEW OF SYSTEMS A 13-point review of systems were obtained, the following are the pertinent positives and negatives: CONSTITUTIONAL: The patient reports fatigue, weight loss and a decreased appetite. HEENT: Denies headaches, blurry vision, difficulty swallowing or soreness in the throat. RESPIRATORY: Denies difficulty breathing, has a chronic cough producing scant phlegm. Denies hemoptysis or pleuritic chest pain. CARDIOVASCULAR: Denies angina-like chest pain, PND, orthopnea or lower extremity swelling. GASTROINTESTINAL: Reports dysphagia, tells me his food "gets stuck" before it goes in the stomach. He reports vomiting. Denies hematochezia or melena. UROGENITAL: No complaints. MANAGER OF CORPORATE: No complaints. MUSCULOSKELETAL: Chronic hip and back pain. PHYSICAL EXAMINATION VITAL SIGNS: Temperature 96.6 degrees Fahrenheit, heart rate 48 beats per minute, blood pressure 96/51, O2 sats 96% on room air. GENERAL PHYSICAL APPEARANCE: Mr. Momin is a middle-aged male, he is short, thin built and appears to be near cachectic. He is however not acutely distressed. He has a pleasant disposition. HEENT: Head is atraumatic, normocephalic. Conjunctivae are non-pale. Sclerae are anicteric. EOMI. PERRLA. He has a fixed pupil in the left eye, I believe this eye was subject to trauma in the past and he is blind out of it. Oral exam - no pharyngeal erythema. NECK EXAM: No palpable cervical or supraclavicular lymphadenopathy. RESPIRATORY EXAM: Good air movement bilaterally. No added breath sounds. CARDIOVASCULAR EXAM: Regular rate and rhythm. S1, S2. No obvious murmurs, rubs or gallops. ABDOMINAL EXAM: Thin belly, soft, nontender, nondistended. No palpable organ enlargement. LOWER EXTREMITIES: No pretibial edema. No calf tenderness. MANAGER OF CORPORATE: No focal sensory or motor deficits. MUSCULOSKELETAL: Decreased muscle mass, tone and strength. LABORATORY FINDINGS Blood work dated 04/30/2016: WBC count 5.8, hemoglobin 11.9 g/dL, hematocrit 36.7%, platelet count 301, absolute neutrophil count 3.2. Chemistries: Sodium 138, potassium 4.1, chloride 103, bicarb 30, BUN 7, creatinine 0.77, EGFR 105, random glucose 93, calcium 8.3. ASSESSMENT Mr. Momin is a very pleasant 55-year-old male who was diagnosed in the summer of 2013 with a locally advanced adenocarcinoma of the gastroesophageal junction. He was treated with concurrent chemoradiotherapy with the expectation that he would proceed with surgical resection immediately afterwards. He however declined surgical resection in favor of observation and indeed remained in remission up until the early part of 2015. He at that point developed recurrent disease and did receive palliative systemic therapy with FOLFOX while living in [place]. He then relocated to [place] in the summer and reestablished followup with me as I had coordinated his initial treatment. He underwent restaging imaging scans and was noted to have clear local progression of disease without evidence of distal metastases. He chose to delay surgical resection and unfortunately the disease has progressed along its natural course and has resulted in distal esophageal obstruction. This has caused dysphagia. The patient came into the hospital with complaints of dysphagia, weight loss and dehydration. He is currently being evaluated by our surgical oncology team for possible surgical resection. He is scheduled to undergo an endoscopic ultrasound early next week to identify the depth of invasion of the tumor so we can discuss the possibility of resection. The patient tells me that he has reluctantly come to terms with the need for surgical resection. RECOMMENDATIONS Distal esophageal adenocarcinoma: Mr. Momin's options are to undergo surgical resection if this is feasible. If he undergoes surgical resection, he may have a long-term survival rate of approximately 15% at five years. The only other option for him would be to undergo palliative systemic chemotherapy. It seems he is reluctant to accept any additional systemic palliative therapy and I am limited by what I can offer this man. He certainly is a very pleasant and well-informed individual but he has a very unique world view and tells me he wishes to proceed with treatment on his own terms rather than to follow predetermined algorithms. I have on many previous occasions talked to the patient about standard of care. However, the patient has chosen his own path as far as treatment is concerned and as a medical professional I have tried to support him as much as I can. From an oncologic standpoint, I would like to highlight the importance of proper nutrition and good nutritional status prior to undergoing a distal esophagectomy with gastric pull-through. I anticipate he will have significant postoperative complications in the absence of optimal nutrition. Additionally, I anticipate his surgery will be more complicated than most because of the time that has elapsed since completion of radiation and surgical intervention due to the likely development of adhesions and scar tissue in the distal esophageal area. The oncology service will follow along with you. Please let me know if I can help in any which way. Again, the therapeutic options I can offer this man will include palliative systemic chemotherapy but because he declines this I am unable to really offer disease directed therapy at this time. MD NORMAN Alexander/BJOumou /9:06 AM /9:36 AM
[2016-04-30] MEDS: PANTOPRAZOLE SODIUM 40 MG VIAL IV PUSH SCH (15:24)
[2016-04-30] MEDS: ENOXAPARIN SODIUM 40 MG/0.4 ML SYRINGE SQ SCH (15:25)
--- NOTE | 2016-04-30 16:04 | HHI.PR ---
Subjective Subjective Notes Late entry note; patient seen MondayApril 29 at 5:15pm Patient resting in bed; at bedside Objective Vitals/I&O Vital Signs Date Time Temp Pulse Resp B/P Pulse Ox O2 Delivery O2 Flow Rate FiO2 04/30/16 15:07 95 21 04/30/16 12:04 96.6 56 16 96/62 04/29/16 17:00 Room Air Labs Laboratory Tests Test 04/30/16 06:55 White Blood Count 5.8 Red Blood Count 4.18 Hemoglobin 11.9 Hematocrit 36.7 Mean Corpuscular Volume 87.8 Mean Corpuscular Hemoglobin 28.6 Mean Corpuscular Hemoglobin 32.6 Concent Red Cell Distribution Width 14.4 Platelet Count 301 Mean Platelet Volume 8.1 Neutrophils (%) (Auto) 56.1 Lymphocytes (%) (Auto) 24.8 Monocytes (%) (Auto) 13.2 Eosinophils (%) (Auto) 4.0 Basophils (%) (Auto) 1.9 Neutrophils # (Auto) 3.2 Lymphocytes # (Auto) 1.4 Monocytes # (Auto) 0.8 Eosinophils # (Auto) 0.2 Basophils # (Auto) 0.1 CBC Comment DIFF FINAL Differential Comment Sodium Level 138 Potassium Level 4.1 Chloride Level 103 Carbon Dioxide Level 30.0 Anion Gap 5 Blood Urea Nitrogen 7 Creatinine 0.77 Estimat Glomerular Filtration 105 Rate Random Glucose 93 Calcium Level 8.2 Cardiovascular: Regular Lungs: Clear Abdomen: Non-distended, Non-tender Extremities: No edema A/P Assessment and Plan 55 year old male with esophagus cancer; patient known to Dr. Bruner and completing outpatient work up -Diet as tolerated -Pain control -GI following -Dr. Bruner to see Monday and dictate consult at that time Dahlia Sanford Apr 30, 2016 16:04 Wilner Martin MD May 04, 2016 14:36
[2016-05-01] VITALS (11 sets, daily range): BP systolic 85–103; BP diastolic 54–67; PULSE 49–78; RESP 18–20; TEMP 96.1–98.7; O2SAT 95–99
[2016-05-01] MEDS ORDERED: ALPRAZolam 1 MG TAB PO ONE
[2016-05-01] MEDS ORDERED: SODIUM CHLORID 0.9% 500 ML INJ 500 ML IV ONE (00:15)
[2016-05-01] MEDS: HYDROmorphone HCL PF 1 MG/ML VIAL IV PRN ×4 (00:34→11:42)
[2016-05-01] MEDS: SODIUM CHLOR 0.45% 1000 ML INJ 1,000 ML IV SCH ×2 (07:26→21:20)
[2016-05-01] MEDS: SODIUM CHLORIDE 0.9% FLUSH 5 ML FLUSH FLUSH SCH ×2 (08:03→21:47)
[2016-05-01] MEDS: ALPRAZolam 1 MG TAB PO PRN (08:03)
[2016-05-01] MEDS: DOCUSATE SODIUM 50 MG/SENNA 8.6 MG TAB PO SCH ×3 (08:05→21:41)
[2016-05-01] MEDS ORDERED: oxyCODONE/ACETAMINOPHEN 10 MG/325 MG TAB PO PRN (08:15)
[2016-05-01] MEDS ORDERED: fentaNYL 50 MCG/HR PATCH TD SCH (08:15)
[2016-05-01] MEDS ORDERED: ALPRAZolam 1 MG TAB PO PRN (08:15)
--- NOTE | 2016-05-01 08:56 | HHI.FPPN ---
Subjective Remarks Patient very upset this morning and threatening to leave. RN found him propping open the door to sneak down the stairwell to "meet up with friends". He reports that at home his Xanax is 1 mg PRN "whenever I want" and is upset that he has only been getting this q 8 hr PRN anxiety. On admission he told us that his dose was q 8 hrs. He also is reporting pain in his epigastric region that is worse than yesterday and unbearable. The Dilaudid q 3 hrs only last for 1-2 hrs and he is has not been taking his oral pain medication 2/2 indigestion and dysphagia. Objective Vitals Vital Signs Date Time Temp Pulse Resp B/P Pulse Ox O2 Delivery O2 Flow Rate FiO2 05/01/16 04:00 97.1 66 19 98/61 97 05/01/16 00:00 97.6 77 20 93/59 95 04/30/16 20:00 97.5 71 19 90/62 96 04/30/16 17:13 90/50 04/30/16 16:00 97.7 66 16 89/66 96 04/30/16 15:07 95 21 04/30/16 12:04 96.6 56 16 96/62 94 I/O 04/30/16 04/30/16 04/30/16 05/01/16 05/01/16 05/01/16 07:00 15:00 23:00 07:00 15:00 23:00 Intake Total 480 ml 480 ml 720 ml Balance 480 ml 480 ml 720 ml Intake Oral 480 ml 480 ml 720 ml # Voids 2 2 2 Result Diagram: 04/30/16 0655 04/30/16 0655 Objective Remarks GENERAL: Cachectic appearing male, appears agitated and in pain. There was a primer charging tool setter in his hand. SKIN: No rashes, ecchymoses. Scattered seborrheic keratoses. Skin is warm and dry. NECK: Trachea midline. No JVD or lymphadenopathy. CARDIOVASCULAR: Regular rate and rhythm without murmurs, gallops, or rubs. RESPIRATORY: Clear to auscultation without wheezes or rhonchi. Breath sounds equal bilaterally GASTROINTESTINAL: Abdomen soft, thin. Nontender to palpation with some firmness in the left upper quadrant. No rebound or guarding. MUSCULOSKELETAL: Extremities without clubbing, cyanosis, or edema. A/P Assessment and Plan 55-year-old male is here for esophageal cancer who is admitted for cancer- related weight loss, inpatient monitoring and workup, and abdominal pain management. Problem List: (1) Hypotension Status: Acute Plan: BP consistently low since admission: 90s/50s. Lowest BP was 89/66 on 04/30. Careful with pain medications. Recieved IVF bolus 500 on 04/30 without much improvement of BP. Continue to monitor given high doses of narcotic pain medications. (2) Esophageal cancer Status: Acute Plan: GI has evaluated the patient and plans for EGD on Monday - Gen. surgery consult to Dr. Bruner and oncology consult to Dr. Soriano pending Symptom control with medications as below: - Magic mouthwash by mouth as needed - Add carafate q ACHS -Pain control as below: - Fentanyl patch 50 mcg q 3 days started 05/01 - Percocet 10/325 mg 1 tab pain 1-5, Percocet 10/325 mg 2 tabs 6-10 - Dilaudid 1 mg IV every 3 hours as needed for breakthrough pain - Protonix 40 mg IV every 24 hours Increase home Xanax from 1 mg every 8 hours by mouth to every 4 hrs by mouth. Continue regular diet as tolerated - yesterday ate eggs without difficulty. (3) Abdominal pain Status: Acute Plan: Abdominal pain secondary to distal esophageal cancer that has spread to the stomach - PET/CT done in 01/2016 shows evidence of local recurrence of esophageal tumor extending in excess of 6 cm in length and crossing the diaphragmatic hiatus involving a portion of the gastric fundus. No evidence of metastatic disease. Workup for other sources of pain were negative: Lipase and amylase within normal limits Liver function testing is normal Lactic acid within normal limits at 1.2 (4) Weight loss, unintentional Status: Acute Plan: Related to poor intake. Possibly related to cancer pain. No dysphagia or indications that there is an obstruction. Weight on admission 45 kg Plan: GI consulted Daily weights Regular diet as tolerated Zofran and Reglan when necessary Add Boost if patient desires (5) Fluids/Electrolytes/Nutrition/Prophylaxis Status: Acute Plan: Fluids: NS @ 75ml/hr for hypotension. Electrolytes: monitor and replete as needed Nutrition: Regular diet DVT Prophylaxis: Lovenox 40mg subQ q24hr/bilateral SCDs GI Prophylaxis: Protonix 40 mg IV daily wdw Dr. Vu Problem Qualifiers (1) Abdominal pain: Qualified Code: R10.13 - Epigastric pain Willi Ray MD R2 May 01, 2016 08:56
--- NOTE | 2016-05-01 10:08 | HHI.GIFU ---
Subjective Remarks Pt reports that currently his pain is better controlled. This morning he had increased pain and anxiety and his medication regimen was changed around. (Danni Sepulveda) Objective Vitals I&O Vital Signs Date Time Temp Pulse Resp B/P Pulse Ox O2 Delivery O2 Flow Rate FiO2 05/01/16 09:28 97 21 05/01/16 04:00 97.1 66 19 98/61 97 05/01/16 00:00 97.6 77 20 93/59 95 04/30/16 20:00 97.5 71 19 90/62 96 04/30/16 17:13 90/50 04/30/16 16:00 97.7 66 16 89/66 96 04/30/16 15:07 95 21 04/30/16 12:04 96.6 56 16 96/62 94 I/O 04/30/16 04/30/16 04/30/16 05/01/16 05/01/16 05/01/16 07:00 15:00 23:00 07:00 15:00 23:00 Intake Total 480 ml 480 ml 720 ml Balance 480 ml 480 ml 720 ml Intake Oral 480 ml 480 ml 720 ml # Voids 2 2 2 Laboratory Laboratory Tests Test 04/29/16 04/29/16 04/30/16 10:55 14:15 06:55 White Blood Count 7.3 TH/MM3 5.8 TH/MM3 Red Blood Count 4.11 MIL/MM3 4.18 MIL/MM3 Hemoglobin 11.6 GM/DL 11.9 GM/DL Hematocrit 35.8 % 36.7 % Mean Corpuscular Volume 87.0 FL 87.8 FL Mean Corpuscular Hemoglobin 28.3 PG 28.6 PG Mean Corpuscular Hemoglobin 32.5 % 32.6 % Concent Red Cell Distribution Width 14.5 % 14.4 % Platelet Count 298 TH/MM3 301 TH/MM3 Mean Platelet Volume 7.4 FL 8.1 FL Neutrophils (%) (Auto) 78.1 % 56.1 % Lymphocytes (%) (Auto) 13.3 % 24.8 % Monocytes (%) (Auto) 7.1 % 13.2 % Eosinophils (%) (Auto) 1.0 % 4.0 % Basophils (%) (Auto) 0.5 % 1.9 % Neutrophils # (Auto) 5.7 TH/MM3 3.2 TH/MM3 Lymphocytes # (Auto) 1.0 TH/MM3 1.4 TH/MM3 Monocytes # (Auto) 0.5 TH/MM3 0.8 TH/MM3 Eosinophils # (Auto) 0.1 TH/MM3 0.2 TH/MM3 Basophils # (Auto) 0.0 TH/MM3 0.1 TH/MM3 CBC Comment DIFF FINAL DIFF FINAL Differential Comment Prothrombin Time 10.8 SEC Prothromb Time International 1.0 RATIO Ratio Activated Partial 27.3 SEC Thromboplast Time Sodium Level 137 MEQ/L 138 MEQ/L Potassium Level 4.7 MEQ/L 4.1 MEQ/L Chloride Level 101 MEQ/L 103 MEQ/L Carbon Dioxide Level 30.0 MEQ/L 30.0 MEQ/L Anion Gap 6 MEQ/L 5 MEQ/L Blood Urea Nitrogen 8 MG/DL 7 MG/DL Creatinine 0.90 MG/DL 0.77 MG/DL Estimat Glomerular Filtration 88 ML/MIN 105 ML/MIN Rate Random Glucose 125 MG/DL 93 MG/DL Lactic Acid Level 1.2 mmol/L Calcium Level 8.6 MG/DL 8.2 MG/DL Total Bilirubin 0.2 MG/DL Aspartate Amino Transf 19 U/L (AST/SGOT) Alanine Aminotransferase 23 U/L (ALT/SGPT) Alkaline Phosphatase 71 U/L Total Protein 7.2 GM/DL Albumin 3.3 GM/DL Amylase Level 85 U/L Lipase 259 U/L Urine Color YELLOW Urine Turbidity HAZY Urine pH 7.0 Urine Specific [place] 1.012 Urine Protein NEG mg/dL Urine Glucose (UA) NEG mg/dL Urine Ketones NEG mg/dL Urine Occult Blood NEG Urine Nitrite NEG Urine Bilirubin NEG Urine Urobilinogen LESS THAN 2.0 MG/DL Urine Leukocyte Esterase NEG Urine RBC 2 /hpf Urine WBC LESS THAN 1 /hpf Urine Amorphous Sediment RARE Urine Bacteria RARE /hpf Urine Hyaline Casts 2 /lpf Urine Mucus FEW /lpf Microscopic Urinalysis Comment CULT NOT INDICATED Physical Exam HEENT: Pupils round and reactive to light; normocephalic; atraumatic; no jaundice. Throat is clear. NECK: Neck is supple, no JVD, no lymphadenopathy. CHEST: CTA CARDIAC: Regular ABDOMEN: +BS, soft, nondistended, nontender EXTREMITIES: No clubbing, cyanosis, or edema. SKIN: Normal; no rash; no jaundice. HANDSTITCHING MACHINE ARMHOLE FELLER: No focal deficits; alert and oriented times three. (Danni Sepulveda) Assessment and Plan Plan ASSESSMENT: - Severe GERD, Odynophagia, Inability to tolerate po. PT reports that he was able to control this with marijuana until recently. He has tried Maalox, Pepto Bismol, and TUMs but has not had any relief and states that this has worsened to the point that he has not been able to eat in a few days. This is much improved here in hospital while on PPI. - Esophageal Cancer. Dx with distal esophageal/gastroesophageal junctional adenocarcinoma in 2013. It was recommended that he undergo preoperative concurrent chemoradiotherapy followed by surgical resection. He underwent the concurrent chemoradiotherapy, but refused surgery. He initially had a good response to this and his endoscopic biopsies and PET scans after treatment did not show any evidence of disease. In 2014, he relocated to [place], where he participated in holistic/herbal medication. He had a relapse in his disease in spring. He received a couple of doses of FOLFOX but discontinued this because of his side effects. He then relocated to this area in the summer. He had signs of recurrent disease without evidence of metastases at that time. Surgery was discussed, but the patient again refused. He was seen at the [facility] and cryoablation/ laser therapy was discussed, but the patient did not pursue this. He was also seen at the [facility] as a third opinion regarding surgical resection and it was recommended that he undergo salvage surgical resection. He has decided to undergo this surgery with Dr. Bruner. EGD was recommended. - Malnutrition, Wt. Loss. Pt reports one week hx of difficulty eating- more from severe odynophagia, GERD. Denies dysphagia. This has improved with PPI here in hospital. Did d/w if PEG tube was mentioned and he states that he was told at some point, he will likely need one, but that would be addressed later. - Anemia. 11.9/36.7. Last EGD/Colonoscopy (10/06/14)----> Single ulcer measuring 10 x 15 mm in size was found in the upper third of the esophagus, LA Class C esophagitis noted, long stricture in the distal esophagus, s/p dilatation using 16 mm Savary dilator over guidewire, retroflexed views revealed no abnormalities; small pedunculated polyp was found in the rectum, polypectomy was performed with cold forceps, retroflexed views revealed no abnormalities, rectal exam revealed no abnormalities of the anus. Pathology revealed poorly differentiated adenocarcinoma in distal and proximal esophagus, serrated adenoma (rectal polyp). PLAN: - Plan for EGD with possible EUS tomorrow, to be determined by Dr. Naqvi later today pending conversation with surgical oncology - Consents obtained - DUANE today, Ensure with all meals - NPO after MN - Hold Lovenox after MN tonight - Cont. PPI - Carafate added on 05/01 - Monitor labs - Supportive care - Further recommendations to follow based on results of above - Pt seen and examined by Dr. Naqvi and myself and this note is written on his behalf (Danni Sepulveda) Physician Comments Patient seen and examined Agree with above Continue with current supportive care Monitor labs Plan for an EGD tomorrow with possible EUS this case will be discussed further with surgical oncology ([place] Naqvi MD) Danni Sepulveda May 01, 2016 10:07 [place] Naqvi MD May 01, 2016 19:15
[2016-05-01] MEDS: SUCRALFATE 1 GM/10 ML CUP PO SCH ×4 (11:41→23:21)
[2016-05-01] MEDS: PANTOPRAZOLE SODIUM 40 MG VIAL IV PUSH SCH (15:56)
[2016-05-01] MEDS: ENOXAPARIN SODIUM 40 MG/0.4 ML SYRINGE SQ SCH (15:56)
[2016-05-01] MEDS: NICOTINE 14 MG/24 HR PATCH TD SCH (21:42)
[2016-05-02] VITALS: BP 121/72; PULSE 67; RESP 18; TEMP 98; O2SAT 95
[2016-05-02] MEDS: SODIUM CHLOR 0.45% 1000 ML INJ 1,000 ML IV SCH ×3 (00:07→21:03)
[2016-05-02 04:00] VITALS: BP 103/62; PULSE 70; RESP 20; TEMP 97.9; O2SAT 97
[2016-05-02] MEDS: HYDROmorphone HCL PF 1 MG/ML VIAL IV PRN ×6 (05:40→23:07)
[2016-05-02] MEDS: LACTATED RINGER'S 1000 ML IV SCH (06:12)
[2016-05-02] MEDS: SODIUM CHLORID 0.9% 500 ML IV SCH ×2 (06:12→21:05)
[2016-05-02] MEDS ORDERED: INSULIN HUMAN REGULAR 1,000 UNITS/10 ML VIAL SQ PRN (06:15)
[2016-05-02] MEDS ORDERED: METOPROLOL TARTRATE 25 MG TAB PO PRN (06:15)
[2016-05-02 06:52] LABS: APTT (PATIENT) 28.3 SEC (24.3-30.1); PROTHROMBIN TIME - PATIENT 10.6 SEC (9.8-11.6)
[2016-05-02 07:21] LABS: ALKALINE PHOSPHATASE 62 U/L (45-117); ALT (GPT) 17 U/L (12-78); ANION GAP 10 MEQ/L (5-15); AST (GOT) 13 U/L (15-37); BICARBONATE 26.3 MEQ/L (21.0-32.0); BLOOD UREA NITROGEN 5 MG/DL (7-18); CHLORIDE 105 MEQ/L (98-107); GLOMERULAR FILTRATION RATE 121 ML/MIN (>89); POTASSIUM 3.9 MEQ/L (3.5-5.1); SODIUM (NA) 141 MEQ/L (136-145); TOTAL BILIRUBIN ADULT 0.3 MG/DL (0.2-1.0)
[2016-05-02 08:00] VITALS: BP 106/71; PULSE 74; RESP 18; TEMP 98.4; O2SAT 97
[2016-05-02] MEDS: DOCUSATE SODIUM 50 MG/SENNA 8.6 MG TAB PO SCH ×2 (08:17→20:31)
[2016-05-02] MEDS: SODIUM CHLORIDE 0.9% FLUSH 5 ML FLUSH FLUSH SCH ×2 (08:17→20:30)
[2016-05-02] MEDS: NICOTINE 14 MG/24 HR PATCH TD SCH (08:29)
[2016-05-02] MEDS: REMOVE OLD PATCH TD SCH (08:29)
--- NOTE | 2016-05-02 09:29 | HHI.FPPN ---
Subjective Remarks Patient reports that overnight he felt confused and agitated. Before meals went to another patient's room thinking that his that called him from there. He apologized for any issues he caused overnight. The fentanyl patch was discontinued overnight. He states his pain is well controlled with the IV Dilaudid he is receiving. Then nothing by mouth pending possible EGD this morning pending GI and general surgery planning. He denies any nausea or vomiting but states that he does have epigastric pain when he moves around. He is urinating without difficulty. He does pass some gas but has not had bowel movements this hospital stay. Objective Vitals Vital Signs Date Time Temp Pulse Resp B/P Pulse Ox O2 Delivery O2 Flow Rate FiO2 05/02/16 04:00 97.9 70 20 103/62 97 05/02/16 00:00 98.0 67 18 121/72 95 05/01/16 20:00 96.9 49 18 90/64 96 05/01/16 17:24 96 21 05/01/16 15:00 96.8 74 20 103/64 96 05/01/16 13:55 50 96/67 05/01/16 13:45 96.1 56 20 85/64 99 05/01/16 11:00 96.7 60 20 92/54 97 05/01/16 09:28 97 21 I/O 05/01/16 05/01/16 05/01/16 05/02/16 05/02/16 05/02/16 07:00 15:00 23:00 07:00 15:00 23:00 Intake Total 720 ml 802 ml 480 ml 450 ml Balance 720 ml 802 ml 480 ml 450 ml Intake Oral 720 ml 802 ml 480 ml IV Total 450 ml # Voids 2 2 3 # Bowel Movements 0 Result Diagram: 04/30/16 0655 05/02/16 0510 Objective Remarks GENERAL: Cachectic appearing male, lying in bed in no acute distress. He is pleasant this morning. SKIN: No rashes, ecchymoses. Scattered seborrheic keratoses. Skin is warm and dry. NECK: Trachea midline. No JVD or lymphadenopathy. CARDIOVASCULAR: Regular rate and rhythm without murmurs, gallops, or rubs. RESPIRATORY: Clear to auscultation without wheezes or rhonchi. Breath sounds equal bilaterally GASTROINTESTINAL: Abdomen soft, thin. Some tenderness to palpation in the epigastric area. Bowel sounds present and normal. No rebound or guarding. MUSCULOSKELETAL: Extremities without clubbing, cyanosis, or edema. No calf tenderness. Medications and IVs Inpatient Medications Acetaminophen (Tylenol) 650 mg Q4H PRN PO TEMP > 100.4; Start 04/29/16 at 15:30 Al Hydrox/Mg Hydrox/Simethicone (Mag-Al Plus Susp Liq) 30 ml ONCE ONCE PO Last administered on 04/29/16 11:12; Start 04/29/16 at 11:15; Stop 04/29/16 at 11:16; Status DC Alprazolam (Xanax) 1 mg Q4H PRN PO ANXIETY Last administered on 05/01/16 15:39 ; Start 05/01/16 at 08:15 Enoxaparin Sodium (Lovenox Inj) 40 mg Q24H SQ Last administered on 05/01/16 15 :56; Start 04/29/16 at 16:00; Status Hold Fentanyl (Duragesic 50 Mcg Patch.72 Hr) 1 patch Q3D TD Last administered on 08:56; Start 05/01/16 at 08:15; Stop 05/01/16 at 18:44; Status DC Hydromorphone HCl (Dilaudid Pf Inj) 0.5 mg ONCE ONCE IV PUSH ; Start 04/29/16 at 21:00; Stop 04/29/16 at 21:01; Status DC Hydromorphone HCl 1 mg 1 mg ONCE ONCE IV PUSH Last administered on 04/29/16 12:47; Start 04/29/16 at 12:45; Stop 04/29/16 at 12:46; Status DC Insulin Human Regular (NovoLIN R INJ) See Protocol Table ... UNSCH X1 PRN SQ SEE PROTOCOL; Start 05/02/16 at 06:15; Stop 05/03/16 at 06:14 IV Flush (NS Flush) 2 ml BID FLUSH Last administered on 05/01/16 21:47; Start 04/29/16 at 21:00 Lactated Ringer's 1,000 ml @ 30 mls/hr Q24H IV ; Start 05/02/16 at 06:15 Lidocaine HCl (Xylocaine 2% Viscous) 15 ml ONCE ONCE PO Last administered on 11:12; Start 04/29/16 at 11:15; Stop 04/29/16 at 11:16; Status DC Metoclopramide HCl (Reglan Inj) 5 mg Q6H PRN IV PUSH NAUSEA OR VOMITING; Start 04/29/16 at 15:30 Metoprolol Tartrate (Lopressor) 25 mg UNSCH X1 PRN PO SEE LABEL COMMENTS; Start 05/02/16 at 06:15; Stop 05/03/16 at 06:14 Miscellaneous Information 1 Q3D T-DERMAL ; Start 05/04/16 at 08:15; Stop at 08:15; Status DC Miscellaneous Information 1 1 DAILY TD Last administered on 05/02/16 08:29; Start 05/02/16 at 09:00 Morphine Sulfate (Morphine Inj) 4 mg ONCE ONCE IV PUSH Last administered on 10:47; Start 04/29/16 at 10:45; Stop 04/29/16 at 10:46; Status DC Naloxone HCl (Narcan Inj) 0.4 mg UNSCH PRN IV SEE LABEL COMMENTS; Start at 15:30 Nicotine (Habitrol 14 Mg Patch.24 Hr) 1 patch DAILY TD Last administered on 08:29; Start 05/01/16 at 19:00 Ondansetron HCl (Zofran Inj) 4 mg Q6H PRN IVP NAUSEA OR VOMITING; Start at 15:30 Oxycodone/ Acetaminophen (Percocet 5-325 Mg) 1 tab Q6H PRN PO PAIN SCALE 3 TO 5; Start 04/29/16 at 15:45 Oxycodone/ Acetaminophen (Percocet 10-325 Mg) 2 tab Q6H PRN PO PAIN 6-10; Start 05/01/16 at 08:15 Pantoprazole Sodium (Protonix Inj) 40 mg Q24H IV PUSH Last administered on 05/01 15:56; Start 04/29/16 at 16:00 Senna/Docusate Sodium (Devorah-Colace) 1 tab BID PO Last administered on 21:41; Start 05/01/16 at 09:00 Sodium Chloride (1/2 NS 1000 ml Inj) 1,000 ml @ 75 mls/hr [id number] IV Last administered on 05/02/16t 00:07; Start 04/29/16 at 16:00 Sodium Chloride (NS 500 ml Inj) 500 ml @ 30 mls/hr [id number] IV ; Start 05/02/16 at 06:15; Stop 05/03/16 at 06:14 Sucralfate (Carafate Liq) 1 gm ACHS PO Last administered on 05/01/16 21:41; Start 05/01/16 at 11:00 Urinary Catheter: No Vascular Central Line Catheter: No A/P Assessment and Plan 55-year-old male with esophageal cancer admitted with nausea, severe abdominal pain, weight loss. He was admitted for inpatient monitoring and further workup of symptoms, as well as pain management. Discharge Planning Discharge planning is pending further workup and management per GI and general surgery Problem List: (1) Hypotension Status: Acute Plan: BP consistently low since admission: 90s-120s/50s-70s. Lowest BP was 85/64 on 05/01. We will be cautious with sedating pain medications. Fentanyl patch was discontinued overnight. He continues to receive Dilaudid 3 mg IV as needed, Percocet 10/325mg every 6 hours by mouth as needed IVF currently at 75 mL per hour Continue to monitor given high doses of narcotic pain medications. (2) Esophageal cancer Status: Acute Plan: GI has evaluated the patient and plans for EGD on Monday, 05/02. - Gen. surgery consult to Dr. Bruner and oncology consult to Dr. Soriano, appreciate recs - plan is for EGD with possible EUS today pending coordination between surgical oncology and GI, [facility] held Symptom control with medications as below: - Magic mouthwash by mouth as needed - Add Carafate q ACHS -Pain control as below: - Fentanyl patch 50 mcg q 3 days started 05/01 and DC'd same day due to symptoms of confusion - Percocet 10/325 mg 1 tab pain 1-5, Percocet 10/325 mg 2 tabs 6-10 - Dilaudid 1 mg IV every 3 hours as needed for breakthrough pain - Protonix 40 mg IV every 24 hours Increase home Xanax from 1 mg every 8 hours by mouth to every 4 hrs by mouth, hold for sedation Continue regular diet as tolerated outside of preop, currently nothing by mouth (3) Abdominal pain Status: Acute Plan: Abdominal pain secondary to distal esophageal cancer that has spread to the stomach - PET/CT done in 01/2016 shows evidence of local recurrence of esophageal tumor extending in excess of 6 cm in length and crossing the diaphragmatic hiatus involving a portion of the gastric fundus. No evidence of metastatic disease. Workup for other sources of pain were negative: Lipase and amylase within normal limits Liver function testing is normal Lactic acid within normal limits at 1.2 (4) Weight loss, unintentional Status: Acute Plan: Related to poor intake. Possibly related to cancer pain. No dysphagia or indications that there is an obstruction. Weight on admission 45 kg Plan: GI consulted Daily weights Regular diet as tolerated Zofran and Reglan when necessary Add Boost if patient desires (5) Fluids/Electrolytes/Nutrition/Prophylaxis Status: Acute Plan: Fluids: NS @ 75ml/hr for hypotension. Electrolytes: monitor and replete as needed Nutrition: nothing by mouth after midnight on 05/01 for procedure DVT Prophylaxis: Lovenox 40mg subQ q24hr/bilateral SCDs - hold Lovenox for procedure 05/02 GI Prophylaxis: Protonix 40 mg IV daily wdw Dr. Vu Problem Qualifiers (1) Abdominal pain: Qualified Code: R10.13 - Epigastric pain Rebecca Davila MD R1 May 02, 2016 09:29
[2016-05-02] MEDS: SUCRALFATE 1 GM/10 ML CUP PO SCH ×3 (11:26→20:27)
[2016-05-02 14:04] VITALS: BP 106/67; PULSE 74; RESP 18; TEMP 98.4; O2SAT 97
[2016-05-02] MEDS: PANTOPRAZOLE SODIUM 40 MG VIAL IV PUSH SCH (16:00)
--- NOTE | 2016-05-02 17:11 | GIPROC ---
[facility] [address] [facility]. [facility], [id number] EGD PROCEDURE REPORT EXAM DATE: 05/02/2016 PATIENT NAME: Salbador Momin MR #: [id number] BIRTHDATE: 1960 ATTENDING: Laura Lund MD ORDER #: [id number] STEWARD/STEWARDESS DECK: Pravin Avila CST and Eliane Jim STATUS: inpatient INDICATIONS: The patient is a 55 yr old male here for an EGD due to esophageal cancer evalution before surgery PROCEDURE PERFORMED: EGD w/ biopsy MEDICATIONS: Per Anesthesia and None. TOPICAL ANESTHETIC: none CONSENT: The patient understands the risks and benefits of the procedure and understands that these risks include, but are not limited to: sedation, allergic reaction, infection, perforation and/or bleeding. Alternative means of evaluation and treatment include, among others: physical exam, x-rays, and/or surgical intervention. The patient elects to proceed with this endoscopic procedure. medical equipment was checked for proper function. Hand hygiene and appropriate measures for infection prevention was taken. After the risks, benefits and alternatives of the procedure were thoroughly explained, Informed consent was verified, confirmed and timeout was successfully executed by the treatment team. The patient was anesthetized with topical anesthesia and the endoscope was introduced through the mouth and advanced to the second portion of the duodenum. Retroflexed views revealed a hiatal hernia The gastroscope was then slowly withdrawn and removed. Ulcerated mas extending around gastroesophaeal junction-gastric site in circular fasion-over 1 cm ulcerated mass, fraible, easily bleeding in esophagus expanding from 40 cm-38 cm -biopsy from both sides esophagitis at 35 cm-biopsy. ADVERSE EVENTS: There were no complications. IMPRESSIONS: 1. Ulcerated mas extending around gastroesophaeal junction-gastric site in circular fasion-over 1 cm ulcerated mass, fraible, easily bleeding in esophagus expanding from 40 cm-38 cm -biopsy from both sides esophagitis at 35 cm-biopsy 2. Retroflexed views revealed a hiatal hernia RECOMMENDATIONS: 1. Await biopsy results. Biopsy results will not be ready for 7-10 days. If you don't hear from us in two weeks, call our office for biopsy results. 2. Anti-reflux regimen 3. Continue PPI 4. Start PPI 5. Avoid NSAIDS PATIENT CONDITION: stable DISPOSITION: Inpatient REPEAT EXAM: EGD pending biopsy results Laura Lund MD eSigned: Laura Lund MD 05/02/2016 5:11 PM cc: PATIENT NAME: Salbador Momin MR#: [id number]
[2016-05-02] MEDS ORDERED: DO NOT ADM ANY ANTICOAGULANT DRUGS XX PRN (17:45)
[2016-05-02] MEDS ORDERED: PROPOFOL 200 MG/20 ML AMP IV ONE (18:00)
[2016-05-02 18:32] VITALS: O2SAT 97
[2016-05-02 20:00] VITALS: BP 102/61; PULSE 72; RESP 17; TEMP 98.2; O2SAT 96
[2016-05-02] MEDS ORDERED: FLUCONAZOLE 400 MG PREMIX BAG 200 ML IV ONE (20:00)
[2016-05-02] MEDS: oxyCODONE/ACETAMINOPHEN 10 MG/325 MG TAB PO PRN (20:30)
[2016-05-03] VITALS (7 sets, daily range): BP systolic 93–103; BP diastolic 57–73; PULSE 61–95; RESP 16–18; TEMP 96.7–98.1; O2SAT 96–99
[2016-05-03] MEDS: HYDROmorphone HCL PF 1 MG/ML VIAL IV PRN ×8 (01:07→23:10)
[2016-05-03] MEDS: oxyCODONE/ACETAMINOPHEN 10 MG/325 MG TAB PO PRN ×3 (02:33→18:50)
[2016-05-03] MEDS: LACTATED RINGER'S 1000 ML IV SCH (06:15)
[2016-05-03 06:58] LABS: PROTHROMBIN TIME - PATIENT 10.8 SEC (9.8-11.6)
[2016-05-03 07:21] LABS: ANION GAP 7 MEQ/L (5-15); AST (GOT) 11 U/L (15-37); BLOOD UREA NITROGEN 4 MG/DL (7-18); CHLORIDE 107 MEQ/L (98-107); POTASSIUM 3.7 MEQ/L (3.5-5.1); SODIUM (NA) 142 MEQ/L (136-145)
[2016-05-03 07:24] LABS: ALKALINE PHOSPHATASE 59 U/L (45-117); ALT (GPT) 15 U/L (12-78); GLOMERULAR FILTRATION RATE 130 ML/MIN (>89); TOTAL BILIRUBIN ADULT 0.3 MG/DL (0.2-1.0)
--- NOTE | 2016-05-03 07:51 | MB ---
cc: MARIBELLMADIDG CARUSO DATE OF CONSULTATION 05/02/2016. REQUESTING PHYSICIAN Dr. Fabian Vu REASON FOR CONSULTATION Abdominal pain and weight loss with history of recurrent esophageal cancer. 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 The patient had recurrent, persistent diagnosis within a year after treatment in 2014 and pursued nontraditional therapies. The patient unfortunately developed increasing symptoms from his recurrent malignancy and was evaluated at [facility] as well as at multiple facilities. He did undergo PET scan which did show hypermetabolic activity and a distal esophageal mass without any evidence of metastatic disease. The patient is currently undergoing evaluation for possible salvage esophagectomy. The patient unfortunately developed approximately two weeks of increasing epigastric/abdominal pain, bloating and inability to eat due to pain. The patient continued to have some weight loss as well when he had previously been stable with just oral intake. The patient was admitted to [facility] for pain control and further evaluation. The patient underwent endoscopy by Dr. Lund which did show some esophagitis as well as a recurrent tumor in the distal esophageal GE junction and into the fundus. Biopsies were taken but are pending. Of note, Dr. Lund also saw esophagitis for which she started him on treatment with Carafate and proton pump inhibitor. REVIEW OF SYSTEMS A 12-point review of systems is discussed with the patient and is negative except for the pertinent positives mentioned above in the History of Present Illness. PAST MEDICAL HISTORY 1. This esophageal cancer, locally advanced, status post chemoradiation as above. 2. History of kidney stones. PAST SURGICAL HISTORY 1. Multiple endoscopies. 2. Iqlsoc-J-Rxzy placement. ALLERGIES No known drug allergies. MEDICATIONS 1. Proton pump inhibitor daily. 2. Carafate. 3. IV Dilaudid. 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 History of tobacco as well as alcohol and marijuana use. FAMILY HISTORY No GI malignancy. PHYSICAL EXAMINATION VITAL SIGNS: Blood pressure 103/59, temperature 98.1, heart rate 88, heart rate 44, O2 saturation 98% room air. GENERAL: The patient is a thin, cachectic-appearing male in no acute distress. HEAD: Normocephalic, atraumatic. Pupils round, reactive to accommodate and light. Sclerae anicteric. Mucous membranes are moist. NECK: Supple. No JVD. LUNGS: Decreased breath sounds bilaterally. Nonlabored breathing pattern. No crackles or wheezes. HEART: Regular rate and rhythm. No murmurs. ABDOMEN: Soft, nondistended. No organomegaly. No ascites. No masses. Some subjective tenderness in the epigastric area with no rebound tenderness. BACK: No CVA tenderness. EXTREMITIES: No clubbing, cyanosis or edema. NEUROLOGIC EXAM: The patient is awake, alert, appropriately and oriented x 4. Moving all extremities equally, non-focally. Cranial nerves II through XII are grossly intact. LABORATORY FINDINGS Hemoglobin is 11.9. Albumin 2.6. IMAGING STUDIES None recently. ASSESSMENT AND PLAN The patient is a 55-year-old male with recurrent distal esophageal adenocarcinoma and esophagitis with subjective significant pain. The patient has recent PET scan which is negative for metastatic disease. I do feel the patient is a potential candidate for salvage esophagectomy Dr. Blanco of thoracic surgery and myself and is planned. However, the patient does have significant protein calorie malnutrition and esophagitis. I have recommended the patient undergo treatment for esophagitis with Carafate, proton pump inhibitor and pain medications. Would also recommend feeding tube placement for continued nutritional support and discussed this with him, the risks, benefits and alternatives and he does agree to undergo laparoscopic jejunostomy feeding tube placement and we will schedule this depending on operating room availability in the next 24 hours. At the time of the feeding tube placement, we will also perform diagnostic laparoscopy to fully stage the patient to rule out any intraabdominal or metastatic disease which could be causing his symptoms. Thank you very much for consultation. MD AYSHA Zhou/HERBER /8:01 PM /7:32 AM MTDJonathon
[2016-05-03] MEDS: NICOTINE 14 MG/24 HR PATCH TD SCH (08:51)
[2016-05-03] MEDS: SUCRALFATE 1 GM/10 ML CUP PO SCH ×4 (08:51→20:11)
[2016-05-03] MEDS: DOCUSATE SODIUM 50 MG/SENNA 8.6 MG TAB PO SCH ×2 (08:52→20:11)
[2016-05-03] MEDS: SODIUM CHLORIDE 0.9% FLUSH 5 ML FLUSH FLUSH SCH ×2 (08:52→20:12)
--- NOTE | 2016-05-03 08:52 | HHI.FPPN ---
Subjective Remarks Patient is more comfortable today. Pain well controlled and anxiety. Plan for possible feeding tube placement today, he has been NPO since midnight. Denies CP or SOB. (Willi Ray MD R2) Objective Vitals Vital Signs Date Time Temp Pulse Resp B/P Pulse Ox O2 Delivery O2 Flow Rate FiO2 05/03/16 04:00 97.0 61 16 102/71 98 05/03/16 00:12 96 05/03/16 00:00 96.9 65 16 98/58 99 05/02/16 20:00 98.2 72 17 102/61 96 05/02/16 18:32 97 21 05/02/16 17:40 98.1 88 14 103/59 98 Room Air 05/02/16 17:30 77 14 101/55 99 Nasal Cannula 2 05/02/16 17:15 98.1 98 14 104/63 99 Nasal Cannula 2 05/02/16 14:04 98.4 74 18 106/67 97 I/O 05/02/16 05/02/16 05/02/16 05/03/16 05/03/16 05/03/16 07:00 15:00 23:00 07:00 15:00 23:00 Intake Total 450 ml 480 ml 500 ml Balance 450 ml 480 ml 500 ml Intake Oral 480 ml IV Total 450 ml 500 ml # Voids 2 2 (Willi Ray MD R2) Result Diagram: 04/30/16 0655 05/03/16 0620 Objective Remarks GENERAL: Cachectic appearing male, lying in bed in no acute distress. He is pleasant this morning. SKIN: No rashes, ecchymoses. Scattered seborrheic keratoses. Skin is warm and dry. NECK: Trachea midline. No JVD or lymphadenopathy. CARDIOVASCULAR: Regular rate and rhythm without murmurs, gallops, or rubs. RESPIRATORY: Clear to auscultation without wheezes or rhonchi. Breath sounds equal bilaterally GASTROINTESTINAL: Abdomen soft, thin. Some tenderness to palpation in the epigastric area. Bowel sounds present and normal. No rebound or guarding. MUSCULOSKELETAL: Extremities without clubbing, cyanosis, or edema. No calf tenderness. (Willi Ray MD R2) A/P Assessment and Plan 55-year-old male with esophageal cancer admitted with nausea, severe abdominal pain, weight loss. He was admitted for inpatient monitoring and further workup of symptoms, as well as pain management. Discharge Planning Discharge planning is pending further workup and management per GI and general surgery (Willi Ray MD R2) Attending Attestation Patient examined and case discussed with resident physicians I have read the above note and agree with the assessment/plan is discussed with me I was involved in all medical decision making for this patient Fabian Vu M.D. (Fabian Vu MD) Problem List: (1) Hypotension Status: Acute Plan: BP consistently low since admission: 90s-120s/50s-70s. Lowest BP was 85/64 on 05/01. We will be cautious with sedating pain medications. Fentanyl patch was discontinued. He continues to receive Dilaudid 1 mg IV as needed, Percocet 10/ 325mg every 6 hours by mouth as needed IVF currently at 75 mL per hour Continue to monitor given high doses of narcotic pain medications. (2) Esophageal cancer Status: Acute Plan: GI has evaluated, we appreciate their assistance: Upper Endoscopy on 05/02 revealed: "Ulcerated mas extending around the GE junction, 1 cm ulcerated mass, friable, easily bleeding in esophagus" Biopsies were taken from both sides of lesion. Gen Surgery, has also evaluated the patient: Plan is for feeding tube for continued nutritional support, prior to salvage esophagectomy. We appreciate their assistance and will continue to follow along with care plan. 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 No evidence of metastatic disease. See above. (4) Weight loss, unintentional Status: Acute Plan: Related to poor intake. Possibly related to cancer pain. No dysphagia or indications that there is an obstruction. Weight on admission 45 kg --> 47 kg on 05/03/16 Plan: Daily weights, will get feeding tube in future Regular diet as tolerated Zofran and Reglan when necessary Add Boost (5) Fluids/Electrolytes/Nutrition/Prophylaxis Status: Acute Plan: Fluids: NS @ 75ml/hr for hypotension. Electrolytes: monitor and replete as needed Nutrition: nothing by mouth after midnight on 05/01 for procedure DVT Prophylaxis: Lovenox 40mg subQ q24hr/bilateral SCDs - hold Lovenox for procedure 05/02 GI Prophylaxis: Protonix 40 mg IV daily wdw Dr. Vu (Willi Ray MD R2) Problem Qualifiers (1) Abdominal pain: Qualified Code: R10.13 - Epigastric pain Willi Ray MD R2 May 03, 2016 08:52 Fabian Vu MD May 03, 2016 09:49
[2016-05-03] MEDS: REMOVE OLD PATCH TD SCH (08:53)
[2016-05-03] MEDS: SODIUM CHLOR 0.45% 1000 ML INJ 1,000 ML IV SCH (13:20)
--- NOTE | 2016-05-03 16:02 | HHI.PR ---
Subjective Subjective Notes Resting in bed Feels better today Was able to eat some soup and ice cream Objective Vitals/I&O Vital Signs Date Time Temp Pulse Resp B/P Pulse Ox O2 Delivery O2 Flow Rate FiO2 05/03/16 12:00 97.2 61 18 98/57 96 05/02/16 18:32 21 05/02/16 17:40 Room Air 05/02/16 17:30 2 Labs Laboratory Tests Test 05/03/16 06:20 Prothrombin Time 10.8 Prothromb Time International 1.0 Ratio Sodium Level 142 Potassium Level 3.7 Chloride Level 107 Carbon Dioxide Level 28.0 Anion Gap 7 Blood Urea Nitrogen 4 Creatinine 0.64 Estimat Glomerular Filtration 130 Rate Random Glucose 81 Calcium Level 8.1 Total Bilirubin 0.3 Aspartate Amino Transf 11 (AST/SGOT) Alanine Aminotransferase 15 (ALT/SGPT) Alkaline Phosphatase 59 Total Protein 5.8 Albumin 2.6 Cardiovascular: Regular Lungs: Clear Abdomen: Non-distended, Non-tender Extremities: No edema A/P Assessment and Plan 55 year old male with recurrent esophagus cancer -Plan for lap G tube placement tomorrow -Obtain consents -Regular diet today; NPO after MN -Pain control -GI following Attending Statement The exam, history, and the medical decision-making described in the above note were completed with the assistance of the mid-level provider. I reviewed and agree with the findings presented. I attest that I had a [id number] encounter with the patient on the same day, and personally performed and documented my assessment and findings in the medical record. abdominal exam benign for lap j-tube tomorrow continue medical management for radiation esophagitis Dahlia Sanford May 03, 2016 16:02 Armando Bruner MD May 04, 2016 10:03
--- NOTE | 2016-05-03 16:31 | HHI.GIFU ---
GI Follow-up Note Consult Follow-up Subjective: Patient laying in bed comfortably, awaiting to go to or for j tube placement.He complains mostly of blaoting and flatulence after eating , not that much dysphagia .Discussed with patient , surgery and results of egd Objective: PHYSICAL EXAMINATION: Vitals signs stable No fever Vital Signs Date Time Temp Pulse Resp B/P Pulse Ox O2 Delivery O2 Flow Rate FiO2 05/03/16 12:00 97.2 61 18 98/57 96 HEENT: Pupils round and reactive to light; normocephalic; atraumatic; no jaundice. Throat is clear. NECK: Neck is supple, no JVD, no lymphadenopathy. CHEST: Chest is clear to auscultation and percussion. CARDIAC: Regular rate and rhythm with no murmur gallop or rubs. ABDOMEN: Soft, nondistended, nontender; no hepatosplenomegaly; bowel sounds are present in all four quadrants. EXTREMITIES: No clubbing, cyanosis, or edema. SKIN: Normal; no rash; no jaundice. RAMP SERVICE MAN: No focal deficits; alert and oriented times three. Available Data (labs, X- Rays, Procedues) : Laboratory Tests Test 05/02/16 05/02/16 05/03/16 05:10 05:55 06:20 Sodium Level 141 MEQ/L 142 MEQ/L Potassium Level 3.9 MEQ/L 3.7 MEQ/L Chloride Level 105 MEQ/L 107 MEQ/L Carbon Dioxide Level 26.3 MEQ/L 28.0 MEQ/L Anion Gap 10 MEQ/L 7 MEQ/L Blood Urea Nitrogen 5 MG/DL 4 MG/DL Creatinine 0.68 MG/DL 0.64 MG/DL Estimat Glomerular Filtration 121 ML/MIN 130 ML/MIN Rate Random Glucose 86 MG/DL 81 MG/DL Calcium Level 8.4 MG/DL 8.1 MG/DL Total Bilirubin 0.3 MG/DL 0.3 MG/DL Aspartate Amino Transf 13 U/L 11 U/L (AST/SGOT) Alanine Aminotransferase 17 U/L 15 U/L (ALT/SGPT) Alkaline Phosphatase 62 U/L 59 U/L Total Protein 5.9 GM/DL 5.8 GM/DL Albumin 2.6 GM/DL 2.6 GM/DL Prothrombin Time 10.6 SEC 10.8 SEC Prothromb Time International 1.0 RATIO 1.0 RATIO Ratio Activated Partial 28.3 SEC Thromboplast Time ASSESSMENT/PLAN: recurrent esophageal cancer-s/p egd awaiting biopsies failure to thrive -j tube placement today Recommendations continue ppi fu pathology j tube today rest of plan as per surgery It was a pleasure seeing Salbador Momin. Thank you for this consult. Entered by: Laura Marrero MD May 03, 2016 16:31
[2016-05-03] MEDS: PANTOPRAZOLE SODIUM 40 MG VIAL IV PUSH SCH (16:47)
[2016-05-04] VITALS (8 sets, daily range): BP systolic 105–130; BP diastolic 61–84; PULSE 56–86; RESP 16–20; TEMP 97–97.8; O2SAT 91–100
[2016-05-04] MEDS: oxyCODONE/ACETAMINOPHEN 10 MG/325 MG TAB PO PRN ×3 (00:49→20:12)
[2016-05-04] MEDS: HYDROmorphone HCL PF 1 MG/ML VIAL IV PRN ×9 (01:32→22:42)
[2016-05-04] MEDS: SODIUM CHLOR 0.45% 1000 ML INJ 1,000 ML IV SCH ×2 (03:36→18:06)
[2016-05-04] MEDS: LACTATED RINGER'S 1000 ML IV SCH (06:15)
[2016-05-04 07:27] LABS: AUTOMATED NEUTROPHIL # 3.2 TH/MM3 (1.8-7.7); BASOPHIL % 0.6 % (0.0-2.0); EOSINOPHIL # 0.3 TH/MM3 (0-0.4); EOSINOPHIL % 5.4 % (0.0-4.0); HEMATOCRIT 31.1 % (39.0-51.0); HEMO FLAGS DIFF FINAL; LYMPH % 20.8 % (9.0-44.0); LYMPHOCYTE # 1.1 TH/MM3 (1.0-4.8); MEAN CELL VOLUME 86.1 FL (80.0-100.0); MEAN CORPUSCULAR HEMOGLOBIN 27.8 PG (27.0-34.0); MEAN CORPUSCULAR HGB CONC 32.3 % (32.0-36.0); MONO % 10.7 % (0.0-8.0); NEUT % 62.5 % (16.0-70.0); PLATELET COUNT 275 TH/MM3 (150-450); RED BLOOD COUNT 3.61 MIL/MM3 (4.50-5.90); RED CELL DISTRIBUTION WIDTH 14.7 % (11.6-17.2); WHITE BLOOD COUNT 5.1 TH/MM3 (4.0-11.0)
[2016-05-04 08:05] LABS: ALT (GPT) 15 U/L (12-78); ANION GAP 7 MEQ/L (5-15); AST (GOT) 12 U/L (15-37); BICARBONATE 27.7 MEQ/L (21.0-32.0); BLOOD UREA NITROGEN 5 MG/DL (7-18); CHLORIDE 108 MEQ/L (98-107); GLOMERULAR FILTRATION RATE 137 ML/MIN (>89); POTASSIUM 3.8 MEQ/L (3.5-5.1); SODIUM (NA) 143 MEQ/L (136-145)
[2016-05-04 08:07] LABS: ALKALINE PHOSPHATASE 55 U/L (45-117); TOTAL BILIRUBIN ADULT 0.1 MG/DL (0.2-1.0)
[2016-05-04] MEDS: DOCUSATE SODIUM 50 MG/SENNA 8.6 MG TAB PO SCH ×2 (08:13→20:12)
[2016-05-04] MEDS: SUCRALFATE 1 GM/10 ML CUP PO SCH ×4 (08:14→20:12)
[2016-05-04] MEDS ORDERED: REMOVE OLD PATCH T-DERMAL SCH (08:15)
[2016-05-04] MEDS: NICOTINE 14 MG/24 HR PATCH TD SCH (08:17)
[2016-05-04] MEDS: REMOVE OLD PATCH TD SCH (08:17)
[2016-05-04] MEDS: SODIUM CHLORIDE 0.9% FLUSH 5 ML FLUSH FLUSH SCH ×2 (08:21→20:12)
[2016-05-04] MEDS ORDERED: PHENYLEPH/NS 1000 MCG/10 ML SYR IV ONE (12:00)
[2016-05-04] MEDS ORDERED: LACTATED RINGER'S 1000 ML INJ 1,000 ML IV ONE (12:00)
[2016-05-04] MEDS ORDERED: PROPOFOL 200 MG/20 ML AMP IV ONE (12:00)
[2016-05-04] MEDS ORDERED: ePHEDrine/NS 25 MG/5 ML SYR IV ONE (12:00)
[2016-05-04] MEDS ORDERED: NEOSTIGMINE 3 MG/3 ML SYR IV ONE (12:00)
--- NOTE | 2016-05-04 12:14 | HHI.FPPN ---
Subjective Remarks Patient states that he continues to have pain in the same spot in the upper abdomen despite getting medications every 2 hours. He is going down for his G- tube placement at 1 PM, currently nothing by mouth. Not any other symptoms today. He is passing flatus but no bowel movements documented or reported. Objective Vitals Vital Signs Date Time Temp Pulse Resp B/P Pulse Ox O2 Delivery O2 Flow Rate FiO2 05/04/16 08:00 97.0 56 18 114/65 94 05/04/16 04:00 97.1 64 16 106/61 99 05/04/16 02:32 98 Auto Vent 05/04/16 00:14 97.6 68 16 105/69 100 05/03/16 20:00 98.1 95 16 94/72 98 05/03/16 16:00 98.0 76 16 103/73 98 I/O 05/03/16 05/03/16 05/03/16 05/04/16 05/04/16 05/04/16 07:00 15:00 23:00 07:00 15:00 23:00 Intake Total 500 ml 480 ml 350 ml 1661 ml Balance 500 ml 480 ml 350 ml 1661 ml Intake Oral 480 ml 350 ml 0 ml IV Total 500 ml 1661 ml # Voids 2 3 2 2 # Bowel Movements 0 0 Result Diagram: 05/04/1612 05/04/16 0612 Objective Remarks GENERAL: Cachectic appearing male, lying in bed in no acute distress. He is pleasant this morning. SKIN: No rashes, ecchymoses. Scattered seborrheic keratoses. Skin is warm and dry. NECK: Trachea midline. No JVD or lymphadenopathy. CARDIOVASCULAR: Regular rate and rhythm without murmurs, gallops, or rubs. RESPIRATORY: Clear to auscultation without wheezes or rhonchi. Breath sounds equal bilaterally GASTROINTESTINAL: Abdomen soft, thin. Some tenderness to palpation in the epigastric area. Bowel sounds present and normal. No rebound or guarding. MUSCULOSKELETAL: Extremities without clubbing, cyanosis, or edema. No calf tenderness. Medications and IVs Inpatient Medications Acetaminophen (Tylenol) 650 mg Q4H PRN PO TEMP > 100.4; Start 04/29/16 at 15:30 Al Hydrox/Mg Hydrox/Simethicone (Mag-Al Plus Susp Liq) 30 ml ONCE ONCE PO Last administered on 04/29/16 11:12; Start 04/29/16 at 11:15; Stop 04/29/16 at 11:16; Status DC Alprazolam (Xanax) 1 mg Q4H PRN PO ANXIETY Last administered on 05/01/16 15:39 ; Start 05/01/16 at 08:15 Enoxaparin Sodium (Lovenox Inj) 40 mg Q24H SQ Last administered on 05/01/16 15 :56; Start 04/29/16 at 16:00; Status Hold Fentanyl (Duragesic 50 Mcg Patch.72 Hr) 1 patch Q3D TD Last administered on 08:56; Start 05/01/16 at 08:15; Stop 05/01/16 at 18:44; Status DC Fluconazole/ Sodium Chloride (Diflucan 400 Mg Premix Bag) 200 ml @ 100 mls/hr ONCE ONCE IV Last administered on 05/02/16 20:31; Start 05/02/16 at 20:00; Stop 05/02/16 at 21:59; Status DC Hydromorphone HCl (Dilaudid Pf Inj) 1 mg Q2HR PRN IV BREAKTHROUGH PAIN Last administered on 05/04/16 10:17; Start 05/02/16 at 20:00 Hydromorphone HCl 1 mg 1 mg ONCE ONCE IV PUSH Last administered on 04/29/16 12:47; Start 04/29/16 at 12:45; Stop 04/29/16 at 12:46; Status DC Insulin Human Regular (NovoLIN R INJ) See Protocol Table ... UNSCH X1 PRN SQ SEE PROTOCOL; Start 05/02/16 at 06:15; Stop 05/03/16 at 06:14; Status DC IV Flush (NS Flush) 2 ml BID FLUSH Last administered on 05/04/16 08:21; Start 04/29/16 at 21:00 Lactated Ringer's 1,000 ml @ 30 mls/hr Q24H IV ; Start 05/02/16 at 06:15 Lidocaine HCl (Xylocaine 2% Viscous) 15 ml ONCE ONCE PO Last administered on 11:12; Start 04/29/16 at 11:15; Stop 04/29/16 at 11:16; Status DC Metoclopramide HCl (Reglan Inj) 5 mg Q6H PRN IV PUSH NAUSEA OR VOMITING; Start 04/29/16 at 15:30 Metoprolol Tartrate (Lopressor) 25 mg UNSCH X1 PRN PO SEE LABEL COMMENTS; Start 05/02/16 at 06:15; Stop 05/03/16 at 06:14; Status DC Miscellaneous Information ALL NURSING DEPARTME... UNSCH PRN XX SEE LABEL COMMENTS; Start 05/02/16 at 17:45; Stop 05/03/16 at 17:44; Status DC Miscellaneous Information 1 1 DAILY TD Last administered on 05/04/16 08:17; Start 05/02/16 at 09:00 Morphine Sulfate (Morphine Inj) 4 mg ONCE ONCE IV PUSH Last administered on 10:47; Start 04/29/16 at 10:45; Stop 04/29/16 at 10:46; Status DC Naloxone HCl (Narcan Inj) 0.4 mg UNSCH PRN IV SEE LABEL COMMENTS; Start at 15:30 Nicotine (Habitrol 14 Mg Patch.24 Hr) 1 patch DAILY TD Last administered on 08:17; Start 05/01/16 at 19:00 Ondansetron HCl (Zofran Inj) 4 mg Q6H PRN IVP NAUSEA OR VOMITING; Start at 15:30 Oxycodone/ Acetaminophen (Percocet 5-325 Mg) 1 tab Q6H PRN PO PAIN SCALE 3 TO 5; Start 04/29/16 at 15:45; Stop 05/02/16 at 09:27; Status DC Oxycodone/ Acetaminophen (Percocet 10-325 Mg) 2 tab Q6H PRN PO PAIN 6-10 Last administered on 05/04/16 06:45; Start 05/01/16 at 08:15 Pantoprazole Sodium (Protonix Inj) 40 mg Q24H IV PUSH Last administered on 05/03 16:47; Start 04/29/16 at 16:00 Senna/Docusate Sodium (Devorah-Colace) 1 tab BID PO Last administered on 08:13; Start 05/01/16 at 09:00 Sodium Chloride (1/2 NS 1000 ml Inj) 1,000 ml @ 75 mls/hr [id number] IV Last administered on 05/04/16 03:36; Start 04/29/16 at 16:00 Sodium Chloride (NS 500 ml Inj) 500 ml @ 30 mls/hr [id number] IV ; Start 05/02/16 at 06:15; Stop 05/03/16 at 06:14; Status DC Sucralfate (Carafate Liq) 1 gm ACHS PO Last administered on 05/02/16 11:26; Start 05/01/16 at 11:00; Stop 05/02/16 at 19:58; Status DC Sucralfate 1 gm 1 gm QID PO Last administered on 05/04/16 08:14; Start at 21:00 Urinary Catheter: No Vascular Central Line Catheter: No A/P Assessment and Plan 55-year-old male with esophageal cancer admitted with nausea, severe abdominal pain, weight loss. He was admitted for inpatient monitoring and further workup of symptoms, as well as pain management. Discharge Planning Discharge planning is pending further workup and management per GI and general surgery Problem List: (1) Hypotension Status: Acute Plan: BP consistently low since admission: 90s-120s/50s-70s. Lowest BP was 85/64 on 05/01. We will be cautious with sedating pain medications. Fentanyl patch was discontinued. He continues to receive Dilaudid 1 mg IV qhr 2h PRN, Percocet 10/ 325mg every 6 hours by mouth as needed IVF currently at 75 mL per hour Continue to monitor given high doses of narcotic pain medications. (2) Esophageal cancer Status: Acute Plan: GI has evaluated, we appreciate their assistance: Upper Endoscopy on 05/02 revealed: "Ulcerated mas extending around the GE junction, 1 cm ulcerated mass, friable, easily bleeding in esophagus" Biopsies were taken from both sides of lesion. Gen Surgery, has also evaluated the patient: Plan is for feeding tube 05/04 for continued nutritional support, prior to salvage esophagectomy. We appreciate their assistance and will continue to follow along with care plan. 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 No evidence of metastatic disease. See above. (4) Weight loss, unintentional Status: Acute Plan: Related to poor intake. Possibly related to cancer pain. No dysphagia or indications that there is an obstruction. Weight on admission 45 kg --> 47 kg on 05/03/16 Plan: Daily weights, will get feeding tube in future Regular diet as tolerated Zofran and Reglan when necessary Add Boost (5) Fluids/Electrolytes/Nutrition/Prophylaxis Status: Acute Plan: Fluids: NS @ 75ml/hr for hypotension. Electrolytes: monitor and replete as needed Nutrition: nothing by mouth after midnight on 05/01 for procedure DVT Prophylaxis: Lovenox 40mg subQ q24hr/bilateral SCDs - hold Lovenox for procedure 05/04 GI Prophylaxis: Protonix 40 mg IV daily wdw Dr. Vu Problem Qualifiers (1) Abdominal pain: Qualified Code: R10.13 - Epigastric pain Rebecca Davila MD R1 May 04, 2016 12:14
[2016-05-04] MEDS ORDERED: AMPICILLIN-SULBACTAM INJ 3 GM VIAL ONE (14:25)
[2016-05-04] MEDS ORDERED: SODIUM CHLORIDE 0.9% INJ 100 ML ONE (14:28)
[2016-05-04] MEDS ORDERED: BUPIVACAINE/EPINEPHRINE 0.5% 50 ML VIAL ONE (14:29)
[2016-05-04] MEDS ORDERED: BUPIVACAINE/EPINEPHRINE 0.25% 50 ML VIAL ONE (14:30)
[2016-05-04] MEDS ORDERED: AMPICILLIN/SULBAC 3 GM/NS 100 ML IV SCH ×2 (14:45)
[2016-05-04] MEDS: PANTOPRAZOLE SODIUM 40 MG VIAL IV PUSH SCH (16:00)
[2016-05-04] MEDS ORDERED: MIDAZOLAM HCL 2 MG/2 ML VIAL ONE (16:41)
[2016-05-04] MEDS ORDERED: fentaNYL CITRATE 250 MCG/5 ML AMP ONE (16:41)
--- NOTE | 2016-05-04 16:53 | HHI.PR ---
Immediate Post Op Note Procedure Date: May 04, 2016 Pre Op Diagnosis: (1) Esophageal cancer (2) Weight loss, unintentional Post Op Diagnosis: (1) Esophageal cancer (2) Weight loss, unintentional Surgeon: Armando Bruner Material Scheduler(s): none Procedure: Staging laparoscopy laparoscopic jejunostomy tube placement Findings: no metastatic disease Complications: none Specimen(s) removed: none Estimated blood loss: 10ml Anesthesia: General, Local Drains: None IVF Patient to: PACU Patient Condition: Good Armando Bruner MD May 04, 2016 16:53
[2016-05-04] MEDS ORDERED: DO NOT ADM ANY ANTICOAGULANT DRUGS XX PRN (17:45)
[2016-05-05] VITALS (8 sets, daily range): BP systolic 109–128; BP diastolic 69–92; PULSE 61–78; RESP 16–18; TEMP 96.2–98.1; O2SAT 94–95
[2016-05-05] MEDS: HYDROmorphone HCL PF 1 MG/ML VIAL IV PRN ×8 (00:48→18:15)
[2016-05-05] MEDS: oxyCODONE/ACETAMINOPHEN 10 MG/325 MG TAB PO PRN ×4 (02:11→21:31)
[2016-05-05 07:46] LABS: BASOPHIL % 0.7 % (0.0-2.0); EOSINOPHIL # 0.2 TH/MM3 (0-0.4); EOSINOPHIL % 2.6 % (0.0-4.0); HEMATOCRIT 35.9 % (39.0-51.0); HEMO FLAGS DIFF FINAL; LYMPH % 12.9 % (9.0-44.0); LYMPHOCYTE # 0.8 TH/MM3 (1.0-4.8); MEAN CELL VOLUME 85.9 FL (80.0-100.0); MEAN CORPUSCULAR HEMOGLOBIN 27.6 PG (27.0-34.0); MEAN CORPUSCULAR HGB CONC 32.1 % (32.0-36.0); MONO % 8.1 % (0.0-8.0); NEUT % 75.7 % (16.0-70.0); PLATELET COUNT 310 TH/MM3 (150-450); RED BLOOD COUNT 4.18 MIL/MM3 (4.50-5.90); RED CELL DISTRIBUTION WIDTH 14.3 % (11.6-17.2); WHITE BLOOD COUNT 6.5 TH/MM3 (4.0-11.0)
[2016-05-05] MEDS: DOCUSATE SODIUM 50 MG/SENNA 8.6 MG TAB PO SCH ×2 (08:06→20:30)
[2016-05-05] MEDS: SUCRALFATE 1 GM/10 ML CUP PO SCH ×4 (08:06→20:30)
[2016-05-05] MEDS: SODIUM CHLORIDE 0.9% FLUSH 5 ML FLUSH FLUSH SCH ×2 (08:07→20:31)
[2016-05-05] MEDS: REMOVE OLD PATCH TD SCH (08:07)
[2016-05-05] MEDS: NICOTINE 14 MG/24 HR PATCH TD SCH (08:07)
[2016-05-05 08:08] LABS: BICARBONATE 25.7 MEQ/L (21.0-32.0); POTASSIUM 3.4 MEQ/L (3.5-5.1)
--- NOTE | 2016-05-05 11:47 | HHI.FPPN ---
Subjective Remarks Doing well today. Pain well controlled. Eating PO as well as through PEG tube. Plan to d/c in 1 day after getting education on tube feeds. (Willi Ray MD R2 ) Objective Vitals Vital Signs Date Time Temp Pulse Resp B/P Pulse Ox O2 Delivery O2 Flow Rate FiO2 05/05/16 11:28 94 05/05/16 08:00 97.0 62 18 121/81 94 05/05/16 04:00 96.2 61 17 121/92 94 05/05/16 00:00 97.4 65 17 112/77 95 05/04/16 20:00 97.6 86 18 130/84 91 05/04/16 17:40 98.3 69 20 103/66 99 Nasal Cannula 2 05/04/16 17:30 97.1 70 20 117/74 95 05/04/16 17:30 69 20 103/66 99 Nasal Cannula 2 05/04/16 17:15 60 20 106/69 99 Nasal Cannula 2 05/04/16 17:00 63 20 105/65 98 Nasal Cannula 2 05/04/16 16:45 87 20 105/65 98 Nasal Cannula 2 05/04/16 16:30 68 20 110/73 98 Nasal Cannula 2 05/04/16 16:25 98.4 66 20 107/67 99 Nasal Cannula 2 05/04/16 13:43 96 21 05/04/16 12:00 97.8 60 16 115/72 97 I/O 05/04/16 05/04/16 05/04/16 05/05/16 05/05/16 05/05/16 07:00 15:00 23:00 07:00 15:00 23:00 Intake Total 1661 ml 410 ml 1538 ml 240 ml Output Total 5 ml 600 ml Balance 1661 ml 410 ml 1533 ml -360 ml Intake Oral 0 ml 0 ml 480 ml 240 ml IV Total 1661 ml 410 ml 58 ml Other 1000 ml Output Urine Total 600 ml Estimated Blood Loss 5 ml # Voids 2 2 # Bowel Movements 0 (Willi Ray MD R2) Result Diagram: 05/05/16 0557 05/05/16 0557 Objective Remarks GENERAL: Cachectic appearing male, lying in bed in no acute distress. He is pleasant this morning. SKIN: No rashes, ecchymoses. Scattered seborrheic keratoses. Skin is warm and dry. NECK: Trachea midline. No JVD or lymphadenopathy. CARDIOVASCULAR: Regular rate and rhythm without murmurs, gallops, or rubs. RESPIRATORY: Clear to auscultation without wheezes or rhonchi. Breath sounds equal bilaterally GASTROINTESTINAL: Abdomen soft, thin. Some tenderness to palpation in the epigastric area. Bowel sounds present and normal. No rebound or guarding. MUSCULOSKELETAL: Extremities without clubbing, cyanosis, or edema. No calf tenderness. (Willi Ray MD R2) A/P Assessment and Plan 55-year-old male with esophageal cancer admitted with nausea, severe abdominal pain, weight loss. He was admitted for inpatient monitoring and further workup of symptoms, as well as pain management. Discharge Planning Discharge planning is pending further workup and management per GI and general surgery (Willi Ray MD R2) Attending Attestation Pt. examined and case discussed with resident physician I have read the above note and agree with the assessment/plan as discussed with me I was involved in all medical decision making for this patient Fabian Vu MD (Fabian Vu MD) Problem List: (1) Hypotension Status: Acute Plan: BP consistently low since admission: 90s-120s/50s-70s. Lowest BP was 85/64 on 05/01. We will be cautious with sedating pain medications. Fentanyl patch was discontinued. He continues to receive Dilaudid 1 mg IV qhr 2h PRN, Percocet 10/ 325mg every 6 hours by mouth as needed IVF currently at 75 mL per hour Continue to monitor given high doses of narcotic pain medications. (2) Esophageal cancer Status: Acute Plan: GI has evaluated, we appreciate their assistance: Upper Endoscopy on 05/02 revealed: "Ulcerated mas extending around the GE junction, 1 cm ulcerated mass, friable, easily bleeding in esophagus" Biopsies were taken from both sides of lesion. Gen Surgery, has also evaluated the patient: Plan is for feeding tube 05/04 for continued nutritional support, prior to salvage esophagectomy. We appreciate their assistance and will continue to follow along with care plan. 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 No evidence of metastatic disease. See above. (4) Weight loss, unintentional Status: Acute Plan: Related to poor intake. Possibly related to cancer pain. No dysphagia or indications that there is an obstruction. Weight on admission 45 kg --> 47 kg on 05/03/16 Plan: Daily weights, will get feeding tube in future Regular diet as tolerated Zofran and Reglan when necessary Add Boost (5) Fluids/Electrolytes/Nutrition/Prophylaxis Status: Acute Plan: Fluids: NS @ 75ml/hr for hypotension. Electrolytes: monitor and replete as needed Nutrition: nothing by mouth after midnight on 05/01 for procedure DVT Prophylaxis: Lovenox 40mg subQ q24hr/bilateral SCDs - hold Lovenox for procedure 05/04 GI Prophylaxis: Protonix 40 mg IV daily wdw Dr. Vu (Willi Ray MD R2) Problem Qualifiers (1) Abdominal pain: Qualified Code: R10.13 - Epigastric pain Willi Ray MD R2 May 05, 2016 11:47 Fabian Vu MD May 05, 2016 20:42
--- NOTE | 2016-05-05 14:39 | HHI.GIFU ---
Subjective Remarks Patient resting in bed. Reports that he had his J-tube placed yesterday. He is tolerating liquids. He reports that his pain is controlled (Jessica Marie) Objective Vitals I&O Vital Signs Date Time Temp Pulse Resp B/P Pulse Ox O2 Delivery O2 Flow Rate FiO2 05/05/16 14:00 97.1 62 18 128/76 95 05/05/16 11:28 94 05/05/16 08:00 97.0 62 18 121/81 94 05/05/16 04:00 96.2 61 17 121/92 94 05/05/16 00:00 97.4 65 17 112/77 95 05/04/16 20:00 97.6 86 18 130/84 91 05/04/16 17:40 98.3 69 20 103/66 99 Nasal Cannula 2 05/04/16 17:30 97.1 70 20 117/74 95 05/04/16 17:30 69 20 103/66 99 Nasal Cannula 2 05/04/16 17:15 60 20 106/69 99 Nasal Cannula 2 05/04/16 17:00 63 20 105/65 98 Nasal Cannula 2 05/04/16 16:45 87 20 105/65 98 Nasal Cannula 2 05/04/16 16:30 68 20 110/73 98 Nasal Cannula 2 05/04/16 16:25 98.4 66 20 107/67 99 Nasal Cannula 2 I/O 05/04/16 05/04/16 05/04/16 05/05/16 05/05/16 05/05/16 07:00 15:00 23:00 07:00 15:00 23:00 Intake Total 1661 ml 410 ml 1538 ml 240 ml 765 ml Output Total 5 ml 600 ml 400 ml Balance 1661 ml 410 ml 1533 ml -360 ml 365 ml Intake Oral 0 ml 0 ml 480 ml 240 ml 240 ml IV Total 1661 ml 410 ml 58 ml 525 ml Other 1000 ml Output Urine Total 600 ml 400 ml Estimated Blood Loss 5 ml # Voids 2 2 # Bowel Movements 0 Laboratory Laboratory Tests Test 05/05/16 05:57 White Blood Count 6.5 Red Blood Count 4.18 Hemoglobin 11.5 Hematocrit 35.9 Mean Corpuscular Volume 85.9 Mean Corpuscular Hemoglobin 27.6 Mean Corpuscular Hemoglobin 32.1 Concent Red Cell Distribution Width 14.3 Platelet Count 310 Mean Platelet Volume 8.0 Neutrophils (%) (Auto) 75.7 Lymphocytes (%) (Auto) 12.9 Monocytes (%) (Auto) 8.1 Eosinophils (%) (Auto) 2.6 Basophils (%) (Auto) 0.7 Neutrophils # (Auto) 5.0 Lymphocytes # (Auto) 0.8 Monocytes # (Auto) 0.5 Eosinophils # (Auto) 0.2 Basophils # (Auto) 0.0 CBC Comment DIFF FINAL Differential Comment Sodium Level 138 Potassium Level 3.4 Chloride Level 102 Carbon Dioxide Level 25.7 Anion Gap 10 Blood Urea Nitrogen 4 Creatinine 0.65 Estimat Glomerular Filtration 128 Rate Random Glucose 79 Calcium Level 8.7 Physical Exam GEN: Cachetic HEENT: Normocephalic; atraumatic; no jaundice. Throat is clear. NECK: Neck is supple, no JVD, no lymphadenopathy. CHEST: CTA CARDIAC: Regular ABDOMEN: +BS, soft, nondistended, mild tenderness at j tube site EXTREMITIES: No clubbing, cyanosis, or edema. SKIN: Normal; no rash; no jaundice. SKIRT CLIPPER: No focal deficits; alert and oriented times three. (Jessica Marie) Assessment and Plan Plan ASSESSMENT: - Severe GERD, Odynophagia, Inability to tolerate po. S/P EGD (05/02/16)----> 1. Ulcerated mas extending around gastroesophageal junction-gastric site in circular fashion-over 1 cm ulcerated mass, fraible, easily bleeding in esophagus expanding from 40 cm-38 cm-biopsy from both sides, esophagitis at 35 cm-biopsy, 2. Retroflexed views revealed a hiatal hernia. Pathology Stomach antrum with mildly active chronic antral gastritis, no helical Helicobacter pylori-like organisms are present. GE junction biopsy 38 cm Invasive moderately differentiated adenocarcinoma with mucinous features, distal esophagus and gastroesophageal junction ulceration versus mass biopsy at 40 cm both with invasive moderately differentiated adenocarcinoma with mucinous features, GE junction at [address] Barth following. S/P J tube placement yesterday. Tolerating full liquids. - Esophageal Cancer. Dx with distal esophageal/gastroesophageal junctional adenocarcinoma in 2013. It was recommended that he undergo preoperative concurrent chemoradiotherapy followed by surgical resection. He underwent the concurrent chemoradiotherapy, but refused surgery. He initially had a good response to this and his endoscopic biopsies and PET scans after treatment did not show any evidence of disease. In 2014, he relocated to [place], where he participated in holistic/herbal medication. He had a relapse in his disease in spring. He received a couple of doses of FOLFOX but discontinued this because of his side effects. He then relocated to this area in the summer. He had signs of recurrent disease without evidence of metastases at that time. Surgery was discussed, but the patient again refused. He was seen at the [facility] [place] and cryoablation/ laser therapy was discussed, but the patient did not pursue this. He was also seen at the [facility] as a third opinion regarding surgical resection and it was recommended that he undergo salvage surgical resection. He has decided to undergo this surgery with Dr. Bruner. EGD as above. Dr. Barth following, s/p j tube. - Malnutrition, Wt. Loss. Pt reports one week hx of difficulty eating- more from severe odynophagia, GERD. Denies dysphagia. This has improved with PPI here in hospital. S/P J tube placement - Anemia. Last EGD/Colonoscopy (10/06/14)----> Single ulcer measuring 10 x 15 mm in size was found in the upper third of the esophagus, LA Class C esophagitis noted, long stricture in the distal esophagus, s/p dilatation using 16 mm Savary dilator over guidewire, retroflexed views revealed no abnormalities; small pedunculated polyp was found in the rectum, polypectomy was performed with cold forceps, retroflexed views revealed no abnormalities, rectal exam revealed no abnormalities of the anus. Pathology revealed poorly differentiated adenocarcinoma in distal and proximal esophagus, serrated adenoma (rectal polyp). 11.5/35.9 PLAN: - Full liquids as tolerated - S/P J tube by GS - NPO after MN - Cont. PPI - Cont. Carafate - Monitor labs - Supportive care - Further recommendations to follow based on results of above - Pt seen and examined by Dr. Lund and myself and this note is written on his behalf (Jessica Marie) Physician Comments seen, examined agree with above patient informed about pathology report not much to ad from go point we will sign off (Laura Lund MD) Jessica Marie May 05, 2016 14:39 Laura Lund MD May 05, 2016 17:18
[2016-05-05] MEDS: PANTOPRAZOLE SODIUM 40 MG VIAL IV PUSH SCH (16:03)
--- NOTE | 2016-05-05 16:25 | HHI.PR ---
Subjective Subjective Notes Resting in bed Upset pain medications have not been "on time" Objective Vitals/I&O Vital Signs Date Time Temp Pulse Resp B/P Pulse Ox O2 Delivery O2 Flow Rate FiO2 05/05/16 14:00 97.1 62 18 128/76 95 05/04/16 17:40 Nasal Cannula 2 05/04/16 13:43 21 Labs Laboratory Tests Test 05/05/16 05:57 White Blood Count 6.5 Red Blood Count 4.18 Hemoglobin 11.5 Hematocrit 35.9 Mean Corpuscular Volume 85.9 Mean Corpuscular Hemoglobin 27.6 Mean Corpuscular Hemoglobin 32.1 Concent Red Cell Distribution Width 14.3 Platelet Count 310 Mean Platelet Volume 8.0 Neutrophils (%) (Auto) 75.7 Lymphocytes (%) (Auto) 12.9 Monocytes (%) (Auto) 8.1 Eosinophils (%) (Auto) 2.6 Basophils (%) (Auto) 0.7 Neutrophils # (Auto) 5.0 Lymphocytes # (Auto) 0.8 Monocytes # (Auto) 0.5 Eosinophils # (Auto) 0.2 Basophils # (Auto) 0.0 CBC Comment DIFF FINAL Differential Comment Sodium Level 138 Potassium Level 3.4 Chloride Level 102 Carbon Dioxide Level 25.7 Anion Gap 10 Blood Urea Nitrogen 4 Creatinine 0.65 Estimat Glomerular Filtration 128 Rate Random Glucose 79 Calcium Level 8.7 Cardiovascular: Regular Lungs: Clear Abdomen: Other (J tube in place without complications ), Post-op tenderness Extremities: No edema A/P Assessment and Plan 55 year old male with recurrent esophagus cancer -POD1 J tube placement -Start trickle feed -Regular diet today -Pain control--- explained that pain medications are ordered PRN and are not scheduled Attending Statement The exam, history, and the medical decision-making described in the above note were completed with the assistance of the mid-level provider. I reviewed and agree with the findings presented. I attest that I had a [id number] encounter with the patient on the same day, and personally performed and documented my assessment and findings in the medical record. abdominal exam stable, surgical incisions clean, intact, no signs of postoperative complications Dahlia Sanford May 05, 2016 16:25 Armando Bruner MD May 12, 2016 20:24
[2016-05-05] MEDS: SODIUM CHLOR 0.45% 1000 ML INJ 1,000 ML IV SCH (20:32)
[2016-05-06] VITALS: BP 111/69; PULSE 76; RESP 16; TEMP 98.1; O2SAT 94
[2016-05-06] MEDS: HYDROmorphone HCL PF 1 MG/ML VIAL IV PRN ×6 (00:12→16:21)
[2016-05-06] MEDS: oxyCODONE/ACETAMINOPHEN 10 MG/325 MG TAB PO PRN ×3 (03:36→16:07)
[2016-05-06 05:06] VITALS: BP 114/66; PULSE 67; RESP 16; TEMP 97.8; O2SAT 94
[2016-05-06 06:56] LABS: AUTOMATED NEUTROPHIL # 5.5 TH/MM3 (1.8-7.7); BASOPHIL # 0.1 TH/MM3 (0-0.2); BASOPHIL % 0.8 % (0.0-2.0); EOSINOPHIL # 0.2 TH/MM3 (0-0.4); HEMATOCRIT 33.7 % (39.0-51.0); HEMO FLAGS DIFF FINAL; LYMPH % 9.8 % (9.0-44.0); LYMPHOCYTE # 0.7 TH/MM3 (1.0-4.8); MEAN CELL VOLUME 85.2 FL (80.0-100.0); MEAN CORPUSCULAR HEMOGLOBIN 28.1 PG (27.0-34.0); MEAN CORPUSCULAR HGB CONC 32.9 % (32.0-36.0); MONO % 7.5 % (0.0-8.0); NEUT % 78.9 % (16.0-70.0); PLATELET COUNT 273 TH/MM3 (150-450); RED BLOOD COUNT 3.95 MIL/MM3 (4.50-5.90); RED CELL DISTRIBUTION WIDTH 14.5 % (11.6-17.2)
[2016-05-06 07:22] LABS: POTASSIUM 3.7 MEQ/L (3.5-5.1)
[2016-05-06 08:00] VITALS: BP 103/62; PULSE 76; RESP 18; TEMP 97; O2SAT 92
[2016-05-06] MEDS: NICOTINE 14 MG/24 HR PATCH TD SCH (08:37)
[2016-05-06] MEDS: DOCUSATE SODIUM 50 MG/SENNA 8.6 MG TAB PO SCH (08:37)
[2016-05-06] MEDS: REMOVE OLD PATCH TD SCH (08:37)
[2016-05-06] MEDS: SODIUM CHLORIDE 0.9% FLUSH 5 ML FLUSH FLUSH SCH (08:37)
[2016-05-06] MEDS: SUCRALFATE 1 GM/10 ML CUP PO SCH ×3 (08:37→16:51)
--- NOTE | 2016-05-06 09:55 | HHI.FPPN ---
Subjective Remarks Patient was seen and examined this morning. He feels well this morning, pain well-controlled. Tube feeds 1.5kcal at 10cc/hr without complications. Stomach is tender from the procedure. (Rebecca Davila MD R1) Objective Vitals Vital Signs Date Time Temp Pulse Resp B/P Pulse Ox O2 Delivery O2 Flow Rate FiO2 05/06/16 08:00 97.0 76 18 103/62 92 05/06/16 05:07 16 05/06/16 05:06 97.8 67 16 114/66 94 05/06/16 03:35 16 05/06/16 00:00 98.1 76 16 111/69 94 05/05/16 20:00 97.3 69 16 115/69 94 05/05/16 17:31 95 21 05/05/16 17:00 98.1 78 18 109/81 95 05/05/16 14:00 97.1 62 18 128/76 95 05/05/16 11:28 94 I/O 05/05/16 05/05/16 05/05/16 05/06/16 05/06/16 05/06/16 07:00 15:00 23:00 07:00 15:00 23:00 Intake Total 240 ml 1485 ml 100 ml Output Total 600 ml 800 ml 800 ml Balance -360 ml 685 ml -700 ml Intake Oral 240 ml 960 ml 100 ml IV Total 525 ml Output Urine Total 600 ml 800 ml 800 ml (Rebecca Davila MD R1) Result Diagram: 05/06/16 0542 05/06/16 0542 Objective Remarks GENERAL: Cachectic appearing male, lying in bed in no acute distress. He is pleasant this morning. SKIN: No rashes, ecchymoses. Scattered seborrheic keratoses. Skin is warm and dry. NECK: Trachea midline. No JVD or lymphadenopathy. CARDIOVASCULAR: Regular rate and rhythm without murmurs, gallops, or rubs. RESPIRATORY: Clear to auscultation without wheezes or rhonchi. Breath sounds equal bilaterally GASTROINTESTINAL: Abdomen soft, thin. Some tenderness to palpation over trocar surgical sites. Mild tenderness in the epigastric area. Bowel sounds present and normal. No rebound or guarding. MUSCULOSKELETAL: Extremities without clubbing, cyanosis, or edema. No calf tenderness. Medications and IVs Inpatient Medications Acetaminophen (Tylenol) 650 mg Q4H PRN PO TEMP > 100.4; Start 04/29/16 at 15:30 Al Hydrox/Mg Hydrox/Simethicone (Mag-Al Plus Susp Liq) 30 ml ONCE ONCE PO Last administered on 04/29/16 11:12; Start 04/29/16 at 11:15; Stop 04/29/16 at 11:16; Status DC Alprazolam (Xanax) 1 mg Q4H PRN PO ANXIETY Last administered on 05/01/16 15:39 ; Start 05/01/16 at 08:15 Ampicillin Sodium/ Sulbactam Sodium/ Sodium Chloride (Unasyn Inj/NS Inj) 100 ml @ 200 mls/hr [employer] IV ; Start 05/04/16 at 14:45; Stop 05/04/16 at 17:30; Status DC Enoxaparin Sodium (Lovenox Inj) 40 mg Q24H SQ Last administered on 05/01/16 15 :56; Start 04/29/16 at 16:00; Status Hold Fentanyl (Duragesic 50 Mcg Patch.72 Hr) 1 patch Q3D TD Last administered on 08:56; Start 05/01/16 at 08:15; Stop 05/01/16 at 18:44; Status DC Fluconazole/ Sodium Chloride 200 ml @ 100 mls/hr ONCE ONCE IV Last administered on 05/02/16 20:31; Start 05/02/16 at 20:00; Stop 05/02/16 at 21:59 ; Status DC Hydromorphone HCl (Dilaudid Pf Inj) 1 mg Q2HR PRN IV BREAKTHROUGH PAIN Last administered on 05/06/16 08:37; Start 05/02/16 at 20:00 Hydromorphone HCl 1 mg 1 mg ONCE ONCE IV PUSH Last administered on 04/29/16 12:47; Start 04/29/16 at 12:45; Stop 04/29/16 at 12:46; Status DC Insulin Human Regular (NovoLIN R INJ) See Protocol Table ... UNSCH X1 PRN SQ SEE PROTOCOL; Start 05/02/16 at 06:15; Stop 05/03/16 at 06:14; Status DC IV Flush (NS Flush) 2 ml BID FLUSH Last administered on 05/06/16 08:37; Start 04/29/16 at 21:00 Lactated Ringer's 1,000 ml @ 30 mls/hr Q24H IV ; Start 05/02/16 at 06:15; Stop 05/04/16 at 17:30; Status DC Lidocaine HCl (Xylocaine 2% Viscous) 15 ml ONCE ONCE PO Last administered on 11:12; Start 04/29/16 at 11:15; Stop 04/29/16 at 11:16; Status DC Metoclopramide HCl (Reglan Inj) 5 mg Q6H PRN IV PUSH NAUSEA OR VOMITING; Start 04/29/16 at 15:30 Metoprolol Tartrate (Lopressor) 25 mg UNSCH X1 PRN PO SEE LABEL COMMENTS; Start 05/02/16 at 06:15; Stop 05/03/16 at 06:14; Status DC Miscellaneous Information ALL NURSING DEPARTME... UNSCH PRN XX SEE LABEL COMMENTS; Start 05/04/16 at 17:45; Stop 05/05/16 at 17:44; Status DC Miscellaneous Information 1 1 DAILY TD Last administered on 05/06/16 08:37; Start 05/02/16 at 09:00 Morphine Sulfate (Morphine Inj) 4 mg ONCE ONCE IV PUSH Last administered on 10:47; Start 04/29/16 at 10:45; Stop 04/29/16 at 10:46; Status DC Naloxone HCl (Narcan Inj) 0.4 mg UNSCH PRN IV SEE LABEL COMMENTS; Start at 15:30 Nicotine (Habitrol 14 Mg Patch.24 Hr) 1 patch DAILY TD Last administered on 08:37; Start 05/01/16 at 19:00 Ondansetron HCl (Zofran Inj) 4 mg Q6H PRN IVP NAUSEA OR VOMITING; Start at 15:30 Oxycodone/ Acetaminophen (Percocet 5-325 Mg) 1 tab Q6H PRN PO PAIN SCALE 3 TO 5; Start 04/29/16 at 15:45; Stop 05/02/16 at 09:27; Status DC Oxycodone/ Acetaminophen (Percocet 10-325 Mg) 2 tab Q6H PRN PO PAIN 6-10 Last administered on 05/06/16 03:36; Start 05/01/16 at 08:15 Pantoprazole Sodium (Protonix Inj) 40 mg Q24H IV PUSH Last administered on 05/05 16:03; Start 04/29/16 at 16:00 Senna/Docusate Sodium (Devorah-Colace) 1 tab BID PO Last administered on 08:37; Start 05/01/16 at 09:00 Sodium Chloride (1/2 NS 1000 ml Inj) 1,000 ml @ 75 mls/hr [id number] IV Last administered on 05/05/16 20:32; Start 04/29/16 at 16:00 Sodium Chloride (NS 500 ml Inj) 500 ml @ 30 mls/hr [id number] IV ; Start 05/02/16 at 06:15; Stop 05/03/16 at 06:14; Status DC Sucralfate (Carafate Liq) 1 gm ACHS PO Last administered on 05/02/16 11:26; Start 05/01/16 at 11:00; Stop 05/02/16 at 19:58; Status DC Sucralfate 1 gm 1 gm QID PO Last administered on 05/06/16 08:37; Start at 21:00 (Rebecca Davila MD R1) Urinary Catheter: No (Rebecca Davila MD R1) Vascular Central Line Catheter: No (Rebecca Davila MD R1) A/P Assessment and Plan 55-year-old male with esophageal cancer admitted with nausea, severe abdominal pain, weight loss. He was admitted for inpatient monitoring and further workup of symptoms, as well as pain management. Discharge Planning Discharge likely today pending set up with tube feeds as outpatient. Home health [id number] in chart. (Rebecca Davila MD R1) Attending Attestation Patient examined and case discussed with resident physician I have read the above note and agree with the assessment/plan as discussed with me I was involved in all medical decision making for this patient Fabian Vu M.D. (Fabian Vu MD) Problem List: (1) Hypotension Status: Acute Plan: BP consistently low since admission: 90s-120s/50s-70s. Lowest BP was 85/64 on 05/01. We will be cautious with sedating pain medications. Fentanyl patch was discontinued. He continues to receive Dilaudid 1 mg IV qhr 2h PRN, Percocet 10/ 325mg every 6 hours by mouth as needed Continue to monitor given high doses of narcotic pain medications. (2) Esophageal cancer Status: Acute Plan: GI has evaluated, we appreciate their assistance: Upper Endoscopy on 05/02 revealed: "Ulcerated mas extending around the GE junction, 1 cm ulcerated mass, friable, easily bleeding in esophagus" Biopsies were taken from both sides of lesion. Gen Surgery, has also evaluated the patient. We appreciate their assistance and will continue to follow along with care plan. Plan is for feeding tube 05/04 for continued nutritional support, prior to salvage esophagectomy. He will be on Jevity 1.5 Stan. He is on 10 mL per hour at this point, and will be increasing by 5 mL/h every day with close follow-up as outpatient. Symptom control with medications as below: - Magic mouthwash by mouth as needed - Add Carafate q ACHS -Pain control as below: - Fentanyl patch 50 mcg q 3 days started 05/01 and DC'd same day due to symptoms of confusion - Percocet 10/325 mg 1 tab pain 1-5, Percocet 10/325 mg 2 tabs 6-10 - Dilaudid 1 mg IV every 2 hours as needed for breakthrough pain - Protonix 40 mg IV every 24 hours (3) Abdominal pain Status: Acute Plan: Abdominal pain secondary to distal esophageal cancer that has spread to the stomach. - PET/CT done in 01/2016 shows evidence of local recurrence of esophageal tumor extending in excess of 6 cm in length and crossing the diaphragmatic hiatus involving a portion of the gastric fundus. No evidence of metastatic disease. - See above. (4) Weight loss, unintentional Status: Acute Plan: Related to poor intake. Possibly related to cancer pain. No dysphagia or indications that there is an obstruction. Weight on admission 45 kg --> 47 kg on 05/03/16 Plan: Daily weights, will get feeding tube in future Regular diet as tolerated Zofran and Reglan when necessary Add Boost (5) Fluids/Electrolytes/Nutrition/Prophylaxis Status: Acute Plan: Fluids: NS @ 75ml/hr for hypotension. Electrolytes: monitor and replete as needed Nutrition: nothing by mouth after midnight on 05/01 for procedure DVT Prophylaxis: Lovenox 40mg subQ q24hr/bilateral SCDs - hold Lovenox for procedure 05/04. He is DC'd 05/06 GI Prophylaxis: Protonix 40 mg IV daily wdw Dr. Vu (Rebecca Davila MD R1) Problem Qualifiers (1) Abdominal pain: Qualified Code: R10.13 - Epigastric pain Rebecca Davila MD R1 May 06, 2016 09:55 Fabian Vu MD May 06, 2016 14:02
--- NOTE | 2016-05-06 11:20 | HHI.FF ---
Face to Face Verification Diagnosis: (1) Esophageal cancer (2) Weight loss, unintentional Home Health Nursing Order: Medical education Signs/symptoms of disease process Medication education-adverse effect Nursing assessment with vital signs IV medication administration Instructions: Patient requires PEG tube feeding assistance. Will be using Jevity 1.5 livan formula, currently at 10cc/hr with daily increases to the rate of his tube feeds. He requires assistance due to limited ability to care for self, deconditioning, weakness. I have seen patient Salbador Momin on 05/06/16. My clinical findings support the need for the requested home health care services because: Deconditioned w/ increased weakness Limited ability to care for self Impaired cognition/judgement I certify that my clinical findings support that this patient is homebound because: Post-op weakness Impaired cognitive ability/safety Rebecca Davila MD R1 May 06, 2016 11:20
[2016-05-06] MEDS ORDERED: NICO14DI TD (11:27)
[2016-05-06] MEDS ORDERED: XANA1TAB2 PO (11:27)
[2016-05-06] MEDS ORDERED: SUCR1S PO (11:27)
[2016-05-06] MEDS ORDERED: PROT40TA G-TUBE (11:27)
[2016-05-06] MEDS ORDERED: SENN1TAB PO (11:27)
[2016-05-06] MEDS ORDERED: OXYC1TAB36 PO (11:28)
[2016-05-06 12:00] VITALS: BP 109/77; PULSE 78; RESP 18; TEMP 97.8; O2SAT 92
[2016-05-06] MEDS: SODIUM CHLOR 0.45% 1000 ML INJ 1,000 ML IV SCH (12:58)
[2016-05-06] MEDS ORDERED: JEVILIQ12 PEG ×2 (13:16→15:00)
[2016-05-06] MEDS ORDERED: KANGAROO JOEY P1 MIS ×2 (13:51→13:53)
[2016-05-06] MEDS ORDERED: [UNRECOGNIZED DRUG - CODE] ×2 (13:52→13:53)
--- NOTE | 2016-05-06 14:00 | MP ---
cc: DG JACQUES DATE OF SURGERY: 05/04/2016. PREOPERATIVE DIAGNOSIS: 1. Esophageal adenocarcinoma, recurrent. 2. Weight loss, unintentional. 3. Radiation esophagitis. POSTOPERATIVE DIAGNOSIS: 1. Esophageal adenocarcinoma, recurrent. 2. Weight loss, unintentional. 3. Radiation esophagitis. OPERATION: 1. Diagnostic staging laparoscopy. 2. Laparoscopic jejunostomy tube placement. SURGEON: Dg Jacques M.D. PAPER COATER: Staff. ANESTHESIA: General and local anesthetic. ESTIMATED BLOOD LOSS: Less than 10 cc. COMPLICATIONS: None. FINDINGS: 1. No evidence of carcinomatosis or metastatic disease in the abdominal cavity. 2. Jejunostomy tube in good position approximately 40 cm past the ligament of Treitz. INDICATIONS FOR THE PROCEDURE: The patient is a 55-year-old male who was diagnosed with distal esophageal adenocarcinoma in 2014. The patient underwent chemotherapy and radiation with a good response. Unfortunately the patient did develop a local recurrence with no metastatic disease. He has tried multiple alternative therapies and systemic therapies and he has persistent disease. The patient was being worked up for possible salvage esophagectomy when he developed severe abdominal pain from radiation esophagitis and significant weight loss. Due to the patient's significant pain and history of adenocarcinoma, re-staging was indicated. The patient had a negative PET/CT however staging laparoscopy is indicated due to patient's risk of recurrent intraabdominal cancer. Also the patient required a feeding tube placement due to possibility of salvage surgery jejunostomy tube is required and is preferred over a gastrostomy tube. The risks, benefits, and alternatives to this procedure were explained to the patient and his and their questions were answered to their satisfaction. DESCRIPTION OF THE PROCEDURE IN DETAIL: After informed was obtained, the patient was taken to the operating room and placed in a supine position and placed under general endotracheal anesthesia. The patient's abdomen was shaved, prepped and draped in the usual sterile fashion. Time-out was performed. The abdomen was entered through a direct entry Moreno type technique just above the umbilicus. A 10 mm balloon trocar was placed into the abdomen under direct visualization and we insufflated the abdomen with CO2. We surveyed the abdomen with the 5 mm 30-degree camera and placed two additional 5-mm ports under direct visualization with the laparoscope. We then were able to visualize the stomach, liver, colon and small bowel, abdominal wall and diaphragm quite easily. The was no evidence of any metastatic disease or deposits. There were concerning plaques or anything that required biopsy. At this point in time, we turned our attention towards the jejunostomy tube placement. We were able to identify easily the ligament of Treitz and with a bowel grasper we walked this approximately 40 cm distal to the ligament of Treitz. We found a loop bowel that was relatively mobile that would come off to the left upper abdomen without difficulty. We then used local anesthetic at this site. The PEG tube kit was used and T-bar fasteners were placed at twelve o'clock, three o'clock, six o'clock and nine o'clock positions in the antimesenteric portion of the bowel. This was a full-thickness and it was anchored into position. We then were able to use the 18 gauge needle in the kit to go percutaneously through the abdominal wall and into the small bowel lumen central to the T-bar sutures. We were able to dilate this tract and place a 12-Irish jejunostomy tube through the abdominal wall and over the wire into the lumen of the small bowel without difficulty. The wire was removed. We advanced this tube until the balloon was into the small bowel and placed fluid into the balloon. This made sure the catheter was straight without kinking. At this point in time, we were able to pull up the balloon in the small bowel and we could see the abdominal wall without tension. We sutured down the T-bars standing up the small bowel up against the abdominal wall. We did remove fluid from the balloon and ensured that there was exactly 1 mL of fluid into the balloon to prevent occlusion. We then sutured this to the flange of the jejunostomy tube. At this point in time, we removed all ports under visualization with the laparoscope and expressed the pneumoperitoneum. We were able to close the fascia at all three port sites with interrupted #3-0 Vicryl suture. We were able to close the skin with 4-0 Monocryl and Dermabond. The patient was discontinued from anesthesia taken to the post-anesthesia care unit in stable condition. The patient tolerated procedure well. No apparent complications. All counts were correct. I was present and scrubbed for the entire procedure. MD AYSHA Zhou/SHAYY /4:56 PM /1:28 PM MINESH
--- NOTE | 2016-05-06 14:49 | HHI.PR ---
Subjective Subjective Notes Hoping everything gets set up for today to go home Objective Vitals/I&O Vital Signs Date Time Temp Pulse Resp B/P Pulse Ox O2 Delivery O2 Flow Rate FiO2 05/06/16 12:00 97.8 78 18 109/77 92 05/05/16 17:31 21 05/04/16 17:40 Nasal Cannula 2 Labs Laboratory Tests Test 05/06/16 05:42 White Blood Count 7.0 Red Blood Count 3.95 Hemoglobin 11.1 Hematocrit 33.7 Mean Corpuscular Volume 85.2 Mean Corpuscular Hemoglobin 28.1 Mean Corpuscular Hemoglobin 32.9 Concent Red Cell Distribution Width 14.5 Platelet Count 273 Mean Platelet Volume 8.0 Neutrophils (%) (Auto) 78.9 Lymphocytes (%) (Auto) 9.8 Monocytes (%) (Auto) 7.5 Eosinophils (%) (Auto) 3.0 Basophils (%) (Auto) 0.8 Neutrophils # (Auto) 5.5 Lymphocytes # (Auto) 0.7 Monocytes # (Auto) 0.5 Eosinophils # (Auto) 0.2 Basophils # (Auto) 0.1 CBC Comment DIFF FINAL Differential Comment Sodium Level 137 Potassium Level 3.7 Chloride Level 103 Carbon Dioxide Level 28.0 Anion Gap 6 Blood Urea Nitrogen 6 Creatinine 0.57 Estimat Glomerular Filtration 148 Rate Random Glucose 100 Calcium Level 8.2 Cardiovascular: Regular Lungs: Clear Abdomen: Other (J tube in place without complications; lap sites c/d/i ) Extremities: No edema A/P Assessment and Plan 55 year old male with recurrent esophagus cancer -POD2 J tube placement -Tolerating TF -Regular diet today -Pain control -Follow up with Dr. Bruner in 2 few weeks Attending Statement The exam, history, and the medical decision-making described in the above note were completed with the assistance of the mid-level provider. I reviewed and agree with the findings presented. I attest that I had a [id number] encounter with the patient on the same day, and personally performed and documented my assessment and findings in the medical record. abdominal exam stable, surgical incisions clean, intact, no signs of postoperative complications Dahlia Sanford May 06, 2016 14:49 Armando Bruner MD May 12, 2016 20:25
[2016-05-06 16:00] VITALS: BP 114/67; PULSE 83; RESP 18; TEMP 97.8; O2SAT 93
--- NOTE | 2016-05-06 16:50 | HHI.DS ---
Discharge Summary Admission Date Apr 29, 2016 at 13:10 Discharge Date: May 06, 2016 Admitting Diagnosis Epigastric Pain (1) Esophageal cancer Diagnosis: Principal Plan: GI has evaluated, we appreciate their assistance: Upper Endoscopy on 05/02 revealed: "Ulcerated mas extending around the GE junction, 1 cm ulcerated mass, friable, easily bleeding in esophagus" Biopsies were taken from both sides of lesion. Gen Surgery, has also evaluated the patient. We appreciate their assistance and will continue to follow along with care plan. Plan is for feeding tube 05/04 for continued nutritional support, prior to salvage esophagectomy. He will be on Jevity 1.5 Stan. He is on 10 mL per hour at this point, and will be increasing by 5 mL/h every day with close follow-up as outpatient. 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 - PET/CT done in 01/2016 shows evidence of local recurrence of esophageal tumor extending in excess of 6 cm in length and crossing the diaphragmatic hiatus involving a portion of the gastric fundus. No evidence of metastatic disease. - See above. (3) Hypotension Diagnosis: Principal Plan: BP consistently low since admission: 90s-120s/50s-70s. Lowest BP was 85/64 on 05/01. We will be cautious with sedating pain medications. Fentanyl patch was discontinued. He continues to receive Dilaudid 1 mg IV qhr 2h PRN, Percocet 10/ 325mg every 6 hours by mouth as needed Continue to monitor given high doses of narcotic pain medications. (4) Weight loss, unintentional Diagnosis: Principal Plan: Related to poor intake. Possibly related to cancer pain. No dysphagia or indications that there is an obstruction. Weight on admission 45 kg --> 47 kg on 05/03/16 Plan: Daily weights, will get feeding tube in future Regular diet as tolerated Zofran and Reglan when necessary Add [facility] Surgery, Gastroenterology Brief History Patient is a 55-year-old male with a past medical history significant for esophageal cancer and GERD who presents to the ED due to poor by mouth intake due to abdominal pain. He states that he has been having abdominal pain after eating. Occurs approximately 15-30min after eating. The pain after onset does not stop. The pain is located is in the abdomen and radiates to the back. Lost 10 pounds in the last week due to poor intake. He was first diagnosed with esophageal cancer in July 2013. He had chemotherapy and radiation at that time. Pet scan was clear thereafter and patient went on with his life until September 2013, when PET scan showed that cancer had recurred. He then underwent chemotherapy (THC and CBD) 4 year in [place]. He returned to [facility] in November 2015. At time he established care and got a PET scan which showed that the cancer had spread outside of the esophagus and into the stomach. Said the cancer was originally located in the distal esophagus. He notes he has never had lymph node involvement. Patient is established with Dr. Bruner who per patient report has agreed to perform surgery. He is currently undergoing evaluation as an outpatient, which has included cardiac and pulmonary clearance which is completed. He'll pending the GI pre-op evaluation which is to include an endoscopy. He was seen in an outpatient GI clinic (Dr. Lagunas) today but was told to come in to hospital by his oncologist Dr. Soriano and covering nurse at Dr. Bruner's ( general surgery) office due to his poor by mouth intake and reported weight loss. He also notices Dr. Blanco (CT surgery) is aware of his case. He has nausea but no vomiting. He denies dysphasia, but notes he has abdominal pain 15-20 minutes after every meal. Has not eaten for the last 6-7 days due to the pain. Has been taking Maalox and Tums which helped some. Has gone through a couple of bottles in the last. No difficulty swallowing solids or liquids. Irritation of the stomach after eaten, pain in the stomach and back. He notes normal bowel movements. He notes he has had no sleep in the last week due to this pain and hunger (still has appetite). CBC/BMP: 05/06/16 0542 05/06/16 0542 Significant Findings Laboratory Tests Test 05/04/16 05/05/16 05/06/16 06:12 05:57 05:42 Red Blood Count 3.61 MIL/MM3 4.18 MIL/MM3 3.95 MIL/MM3 (4.50-5.90) (4.50-5.90) (4.50-5.90) Hemoglobin 10.0 GM/DL 11.5 GM/DL 11.1 GM/DL (13.0-17.0) (13.0-17.0) (13.0-17.0) Hematocrit 31.1 % 35.9 % 33.7 % (39.0-51.0) (39.0-51.0) (39.0-51.0) Monocytes (%) (Auto) 10.7 % 8.1 % (0.0-8.0) (0.0-8.0) Eosinophils (%) (Auto) 5.4 % (0.0-4.0) Chloride Level 108 MEQ/L (98-107) Blood Urea Nitrogen 5 MG/DL (7-18) 4 MG/DL (7-18) 6 MG/DL (7-18) Calcium Level 8.4 MG/DL 8.2 MG/DL (8.5-10.1) (8.5-10.1) Total Bilirubin 0.1 MG/DL (0.2-1.0) Aspartate Amino Transf 12 U/L (15-37) (AST/SGOT) Total Protein 5.8 GM/DL (6.4-8.2) Albumin 2.7 GM/DL (3.4-5.0) Neutrophils (%) (Auto) 75.7 % 78.9 % (16.0-70.0) (16.0-70.0) Lymphocytes # (Auto) 0.8 TH/MM3 0.7 TH/MM3 (1.0-4.8) (1.0-4.8) Potassium Level 3.4 MEQ/L (3.5-5.1) Creatinine 0.57 MG/DL (0.60-1.30) PE at Discharge GENERAL: Cachectic appearing male, lying in bed in no acute distress. He is pleasant this morning. SKIN: No rashes, ecchymoses. Scattered seborrheic keratoses. Skin is warm and dry. NECK: Trachea midline. No JVD or lymphadenopathy. CARDIOVASCULAR: Regular rate and rhythm without murmurs, gallops, or rubs. RESPIRATORY: Clear to auscultation without wheezes or rhonchi. Breath sounds equal bilaterally GASTROINTESTINAL: Abdomen soft, thin. Some tenderness to palpation over trocar surgical sites. Mild tenderness in the epigastric area. Bowel sounds present and normal. No rebound or guarding. MUSCULOSKELETAL: Extremities without clubbing, cyanosis, or edema. No calf tenderness. Hospital Course Patient with history of gastric cancer, known to Drs. Falcon and Bella, admitted for inpatient management of poor eating due to severe abdominal pain related to his disease process. While inpatient, focus was placed on pain management with [place] and morphine as well as further workup of esophageal cancer. Uncomplicated EGD was performed by Dr. Lund with results as follows ( from procedure note): 1. Ulcerated mas extending around gastroesophaeal junction-gastric site in circular fasion-over 1 cm ulcerated mass, fraible, easily bleeding in esophagus expanding from 40 cm-38 cm-biopsy from both sides esophagitis at 35 cm-biopsy 2. Retroflexed views revealed a hiatal hernia Biopsy results pending at discharge. Patient underwent G-tube placement on 05/04 due to need for improved nutrition prior to surgical intervention (severe protein malnutrition and gastritis noted) . He was initiated on Jevity 1.5 at 10cc/hr with plans to titrate tube feed rates as follows per [employer] consultation note: * Pt at ongoing nutritional risk r/t recent unintentional wt loss w/low BMI, recent EGD findings and need for TF'ing for nutritional support. To best meet pt's assessed needs for TF'ing w/Jevity 1.5, Rec a goal rate at 55ml/hr to offer 1980 kcal, 84.2g Protein and 1003ml free water. Free water flushes per MD. Continue Ensure Enlive tid. Labs reviewed. Wt changes noted. Recommendations Comments * 1.To best meet pt's assessed needs for TF'ing w/Jevity 1.5, Rec a goal rate at 55ml/hr 2.Free water flushes per MD 3.Continue Ensure Enlive tid Patient was discharged to home on 05/06 in stable condition. He is to follow-up with Dr. Bruner within one week. Pt Condition on Discharge: Stable Discharge Disposition: Discharge Home Discharge Instructions DIET: Follow Instructions for: As Tolerated, No Restrictions, Gluten Free Diet , On Tube Feeding Activities you can perform: Weight Bearing as Luna Rebecca Davila MD R1 May 06, 2016 16:50
[2016-05-06] MEDS: PANTOPRAZOLE SODIUM 40 MG VIAL IV PUSH SCH (16:52)
[2016-05-07] MEDS ORDERED: FLUCONAZOLE 100 MG TAB PO SCH (09:00)
== END 2016-05-06 17:38 | disposition home health service (06) | DRG 988 ==
LOC: NEPA 10:17 → NEDA 13:10 → HOCA 18:19
PROVIDERS: ADMIT Family Medicine; ATTEND Family Medicine
PROC: 0DB48ZX Excision of Esophagogastric Junction, Via Natural or Artificial Opening Endoscopic, Diagnostic (ICD-10-PCS; 2016-05-02)
PROC: 0DB68ZX Excision of Stomach, Via Natural or Artificial Opening Endoscopic, Diagnostic (ICD-10-PCS; 2016-05-02)
PROC: 0DB38ZX Excision of Lower Esophagus, Via Natural or Artificial Opening Endoscopic, Diagnostic (ICD-10-PCS; 2016-05-02)
PROC: 0DHA4UZ Insertion of Feeding Device into Jejunum, Percutaneous Endoscopic Approach (ICD-10-PCS; 2016-05-04)
PROC: 0WJP4ZZ Inspection of Gastrointestinal Tract, Percutaneous Endoscopic Approach (ICD-10-PCS; principal; 2016-05-04 14:43)
DX: E43 Unspecified severe protein-calorie malnutrition (principal); R64 Cachexia; C78.89 Secondary malignant neoplasm of other digestive organs; I95.9 Hypotension, unspecified; C15.5 Malignant neoplasm of lower third of esophagus; R13.10 Dysphagia, unspecified; Z68.1 Body mass index [BMI] 19.9 or less, adult; D64.9 Anemia, unspecified; R63.4 Abnormal weight loss; G89.3 Neoplasm related pain (acute) (chronic); Z92.21 Personal history of antineoplastic chemotherapy; Z92.3 Personal history of irradiation; F17.210 Nicotine dependence, cigarettes, uncomplicated; F12.90 Cannabis use, unspecified, uncomplicated; K21.9 Gastro-esophageal reflux disease without esophagitis; E86.0 Dehydration; K44.9 Diaphragmatic hernia without obstruction or gangrene; K20.9 Esophagitis, unspecified; Z86.010 Personal history of colon polyps; R91.1 Solitary pulmonary nodule
CPT/HCPCS: 80048; 80053; 81001; 82150; 83605; 83690; 85025; 85610; 85730; 88305; 88312; 93005; 96361; 96374; 96375; C9113; J0295; J1170; J1450; J1650; J2250; J2270; J2370; J2405; J2710; J3010; J7040; J7120

== ENCOUNTER 2016-05-29 21:12 | Emergency (ER) | payer BC ==
[~2016-05-29] VITALS: Ht 170.2 cm; Wt 46.5 kg
[~2016-05-29 21:12] MED LIST changes: -ADVAI100I PO; +JEVILIQ12 PEG; +KANGAROO JOEY P1 MIS; +NICO14DI TD; +OXYC1TAB36 PO; +PROT40TA G-TUBE; +SENN1TAB PO; +SUCR1S PO; +XANA1TAB2 PO; +[UNRECOGNIZED DRUG - CODE]
[2016-05-29 21:14] VITALS: BP 69/63; PULSE 71; RESP 16; TEMP 98.7; O2SAT 98
[2016-05-29] MEDS ORDERED: SODIUM CHLOR 0.9% 1000 ML INJ 1,000 ML IV ONE (21:41)
--- NOTE | 2016-05-29 21:44 | PD ---
HPI Chief Complaint: GI Complaint Time Seen by Provider: 21:44 Travel History International Travel<30 days: No Contact w/Intl Traveler<30days: No Traveled to known affect area: No History of Present Illness HPI 55-year-old male presents to the emergency department for evaluation of vomiting , chills that started around 6:30 this evening. Patient has history of esophageal cancer. His oncologist is Dr. Soriano. He states that he is on oxycodone at home for the abdominal pain. However, he ran out of his oxycodone this morning. He thought he would be okay without them, but he started vomiting this evening. He believes that he is vomiting due to being off the pain medication. He denies any fevers. No chest pain or shortness of breath. He reports chronic abdominal pain that is not worse than normal. He denies any diarrhea or constipation. He states her was no blood in his stool when he had a bowel movement this morning. Patient states the plan is to have surgery to remove the cancer by Dr. Bruner. He is not currently undergoing chemotherapy or radiation. PFSH Past Medical History Anxiety: Yes Depression: No Cancer: Yes (ESOPHAGEAL) Cardiovascular Problems: No Chemotherapy: Yes (2013) Diabetes: No Diminished Hearing: No Endocrine: No Genitourinary: No Hepatitis: No Immune Disorder: No Musculoskeletal: No Neurologic: No Psychiatric: Yes Reproductive: No Respiratory: No Radiation Therapy: Yes Thyroid Disease: No Tetanus Vaccination: > 5 Years Past Surgical History Abdominal Surgery: No AICD: No Cardiac Surgery: No Ear Surgery: No Endocrine Surgery: No Eye Surgery: Yes (RETINA) Genitourinary Surgery: No Joint Replacement: No Oral Surgery: Yes (UPPER PORCELAIN PLATE) Pacemaker: No Thoracic Surgery: No Other Surgery: Yes Social History Alcohol Use: No Tobacco Use: No (patch) Substance Use: Yes (MARIJUANA ) Allergies-Medications (Allergen,Severity, Reaction): Coded Allergies: No Known Allergies (Unverified , 05/29/16) Reported Meds & Prescriptions Reported Meds & Active Scripts Active Jevity 1.5 Stan (Nutritional Supplements) 1 Liq Liq 10 Ml PEG PER HOUR Initial rate of 10cc/hr, increase rate by 5cc/hr daily. Goal rate 45cc/hr, to be adjusted as outpatient. Entristar Safety Peg Kit (Feeding Tubes - Sets) 1 Mis Mis Units Kangaroo Toney Feeding Tube Pump Set 1 Mis Mis 1 Ea .ROUTE DIRECTED Oxycodone-Acetaminophen 10-325 mg Tab 2 Tab PO Q6H PRN Xanax (Alprazolam) 1 Mg Tab 1 Mg PO Q4H PRN Nicotine Patch (Nicotine) 14 Mg/24 Hr Patch 1 Patch TD DAILY Protonix (Pantoprazole Sodium) 40 Mg Tab 40 Mg G-TUBE DAILY Senna Plus 8.6-50 mg (Sennosides-Docusate Sodium) 1 Tab Tab 1 Tab PO BID Sucralfate Liq (Sucralfate) 1 Gm/10 Ml Lesa 1 Gm PO QID Review of Systems Except as stated in HPI: all other systems reviewed are Neg Physical Exam Narrative GENERAL: Well-nourished, well-developed male patient, afebrile. SKIN: Focused skin assessment warm/dry. HEAD: Normocephalic. Atraumatic. EYES: No scleral icterus. No injection or drainage. NECK: Supple, trachea midline. No JVD or lymphadenopathy. CARDIOVASCULAR: Regular rate and rhythm without murmurs, gallops, or rubs. RESPIRATORY: Breath sounds equal bilaterally. No accessory muscle use. GASTROINTESTINAL: Abdomen soft and nondistended. Patient has diffuse tenderness to palpation. He states this is his chronic pain. Patient has feeding tube to the left lower quadrant. MUSCULOSKELETAL: No cyanosis, or edema. BACK: Nontender without obvious deformity. No CVA tenderness. Data Data Last Documented VS Vital Signs Date Time Temp Pulse Resp B/P Pulse Ox O2 Delivery O2 Flow Rate FiO2 05/29/16 21:14 98.7 71 16 69/63 98 Room Air Orders Electrocardiogram (05/29/16 21:41) Complete Blood Count With Diff (05/29/16 21:41) Comprehensive Metabolic Panel (05/29/16 21:41) Magnesium (Mg) (05/29/16 21:41) Urinalysis - C+S If Indicated (05/29/16 21:41) Chest, Single Ap (05/29/16 21:41) Ecg Monitoring (05/29/16 21:41) Iv Access Insert/Monitor (05/29/16 21:41) Oximetry (05/29/16 21:41) Ondansetron Inj (Zofran Inj) (05/29/16 21:45) Sodium Chloride 0.9% Flush (Ns Flush) (05/29/16 21:45) Sodium Chlor 0.9% 1000 Ml Inj (Ns 1000 M (05/29/16 21:41) Oxycodone-Acetamin 5-325 Mg (Percocet (05/29/16 22:00) Labs Laboratory Tests Test 05/29/16 22:10 White Blood Count 9.3 TH/MM3 Red Blood Count 3.73 MIL/MM3 Hemoglobin 10.3 GM/DL Hematocrit 30.5 % Mean Corpuscular Volume 81.6 FL Mean Corpuscular Hemoglobin 27.6 PG Mean Corpuscular Hemoglobin 33.9 % Concent Red Cell Distribution Width 14.3 % Platelet Count 371 TH/MM3 Mean Platelet Volume 7.8 FL Neutrophils (%) (Auto) 85.7 % Lymphocytes (%) (Auto) 7.7 % Monocytes (%) (Auto) 4.7 % Eosinophils (%) (Auto) 1.6 % Basophils (%) (Auto) 0.3 % Neutrophils # (Auto) 7.9 TH/MM3 Lymphocytes # (Auto) 0.7 TH/MM3 Monocytes # (Auto) 0.4 TH/MM3 Eosinophils # (Auto) 0.2 TH/MM3 Basophils # (Auto) 0.0 TH/MM3 CBC Comment DIFF FINAL Differential Comment MDM Medical Decision Making Medical Screen Exam Complete: Yes Emergency Medical Condition: Yes Medical Record Reviewed: Yes Interpretation(s) chest x-ray - CONCLUSION: 1. No acute findings. Rim calcified splenic lesion left upper quadrant. Previous Lkdtim-r-Vasp has been removed. Differential Diagnosis Electrolyte abnormality versus medication withdrawal versus dehydration versus infection versus hypotension Narrative Course 55-year-old male presents to the emergency department for evaluation of vomiting that started at 6:30 this evening. He believes that he is withdrawing from his oxycodone that he ran out of from this morning. Patient denies any other symptoms at this time. In triage, BP was noted to be 69/63. However, the patient got to his room, his blood pressure is 105/53. EKG, CBC, CMP, magnesium, UA are ordered and pending. Chest x-ray is ordered and pending. Patient is given normal saline 1 L IV bolus, Zofran 4 mg IV, Percocet 1 tab by mouth. Chest x-ray shows no acute findings. Dr. Porter will resume care and disposition of patient. Suzan English May 29, 2016 21:44 Suzan English May 29, 2016 21:44
[2016-05-29] MEDS ORDERED: ONDANSETRON HCL 4 MG/2 ML VIAL IVP ONE (21:45)
[2016-05-29] MEDS ORDERED: SODIUM CHLORIDE 0.9% FLUSH 10 ML FLUSH IVF PRN (21:45)
[2016-05-29] MEDS ORDERED: oxyCODONE/ACETAMINOPHEN 5 MG/325 MG TAB PO ONE (22:00)
[2016-05-29 22:18] LABS: AUTOMATED NEUTROPHIL # 7.9 TH/MM3 (1.8-7.7); BASOPHIL % 0.3 % (0.0-2.0); EOSINOPHIL # 0.2 TH/MM3 (0-0.4); EOSINOPHIL % 1.6 % (0.0-4.0); HEMATOCRIT 30.5 % (39.0-51.0); HEMO FLAGS DIFF FINAL; LYMPH % 7.7 % (9.0-44.0); LYMPHOCYTE # 0.7 TH/MM3 (1.0-4.8); MEAN CELL VOLUME 81.6 FL (80.0-100.0); MEAN CORPUSCULAR HEMOGLOBIN 27.6 PG (27.0-34.0); MEAN CORPUSCULAR HGB CONC 33.9 % (32.0-36.0); MONO % 4.7 % (0.0-8.0); NEUT % 85.7 % (16.0-70.0); PLATELET COUNT 371 TH/MM3 (150-450); RED BLOOD COUNT 3.73 MIL/MM3 (4.50-5.90); RED CELL DISTRIBUTION WIDTH 14.3 % (11.6-17.2); WHITE BLOOD COUNT 9.3 TH/MM3 (4.0-11.0)
--- NOTE | 2016-05-29 22:19 | RADRPT ---
EXAM DATE/TIME: 05/29/2016 21:43 [facility] COMPARISON: [id number]-JBCJ PLCMT, POWERPORT, W US, RIGHT, October 10, 2013, 8:40. INDICATIONS : Vomiting,Cough. MEDICAL HISTORY : None. SURGICAL HISTORY : None. ENCOUNTER: Initial ACUITY: 1 day PAIN SCORE: 0/10 LOCATION: Bilateral chest FINDINGS: A single view of the chest demonstrates no focal consolidation. No effusion. Heart size normal. No pn eumothorax. Stable rim calcified mass left upper quadrant possibly within the spleen. CONCLUSION: 1. No acute findings. Rim calcified splenic lesion left upper quadrant. Previous Abolhk-j-Pext has be en removed. Bennett Douglas MD on May 29, 2016 at 22:15 Board Certified Radiologist. This report was verified electronically.
[2016-05-29 22:45] LABS: ANION GAP 7 MEQ/L (5-15); AST (GOT) 9 U/L (15-37); BICARBONATE 29.5 MEQ/L (21.0-32.0); BLOOD UREA NITROGEN 9 MG/DL (7-18); CHLORIDE 101 MEQ/L (98-107); GLOMERULAR FILTRATION RATE 140 ML/MIN (>89); POTASSIUM 3.6 MEQ/L (3.5-5.1); SODIUM (NA) 137 MEQ/L (136-145)
[2016-05-29 22:48] LABS: ALKALINE PHOSPHATASE 80 U/L (45-117); ALT (GPT) 16 U/L (12-78); TOTAL BILIRUBIN ADULT 0.2 MG/DL (0.2-1.0)
[2016-05-29 23:00] VITALS: BP 100/63; PULSE 70; RESP 19; O2SAT 96
[2016-05-30 01:16] LABS: BLOOD, URINE MOD (NEG); GLUCOSE,URINE NEG (NEG); KETONE, URINE 10 mg/dL (NEG); MUCUS URINE FEW /lpf (OCC); NITRITE,URINE NEG (NEG); PH, URINE 8.5 (5.0-8.5); URINE COLOR YELLOW (YELLW/STRAW)
[2016-05-30 01:17] LABS: COMMENT (UR) CULT NOT INDICATED; CULTURE IF INDICATED CULT NOT INDICATED
--- NOTE | 2016-05-30 01:26 | PD ---
Data Data Last Documented VS Vital Signs Date Time Temp Pulse Resp B/P Pulse Ox O2 Delivery O2 Flow Rate FiO2 05/29/16 21:14 98.7 71 16 69/63 98 Room Air Orders Electrocardiogram (05/29/16 21:41) Complete Blood Count With Diff (05/29/16 21:41) Comprehensive Metabolic Panel (05/29/16 21:41) Magnesium (Mg) (05/29/16 21:41) Urinalysis - C+S If Indicated (05/29/16 21:41) Chest, Single Ap (05/29/16 21:41) Ecg Monitoring (05/29/16 21:41) Iv Access Insert/Monitor (05/29/16 21:41) Oximetry (05/29/16 21:41) Ondansetron Inj (Zofran Inj) (05/29/16 21:45) Sodium Chloride 0.9% Flush (Ns Flush) (05/29/16 21:45) Sodium Chlor 0.9% 1000 Ml Inj (Ns 1000 M (05/29/16 21:41) Oxycodone-Acetamin 5-325 Mg (Percocet (05/29/16 22:00) Cath For Specimen (05/30/16 00:50) Labs Laboratory Tests Test 05/29/16 05/30/16 22:10 01:01 White Blood Count 9.3 TH/MM3 Red Blood Count 3.73 MIL/MM3 Hemoglobin 10.3 GM/DL Hematocrit 30.5 % Mean Corpuscular Volume 81.6 FL Mean Corpuscular Hemoglobin 27.6 PG Mean Corpuscular Hemoglobin 33.9 % Concent Red Cell Distribution Width 14.3 % Platelet Count 371 TH/MM3 Mean Platelet Volume 7.8 FL Neutrophils (%) (Auto) 85.7 % Lymphocytes (%) (Auto) 7.7 % Monocytes (%) (Auto) 4.7 % Eosinophils (%) (Auto) 1.6 % Basophils (%) (Auto) 0.3 % Neutrophils # (Auto) 7.9 TH/MM3 Lymphocytes # (Auto) 0.7 TH/MM3 Monocytes # (Auto) 0.4 TH/MM3 Eosinophils # (Auto) 0.2 TH/MM3 Basophils # (Auto) 0.0 TH/MM3 CBC Comment DIFF FINAL Differential Comment Sodium Level 137 MEQ/L Potassium Level 3.6 MEQ/L Chloride Level 101 MEQ/L Carbon Dioxide Level 29.5 MEQ/L Anion Gap 7 MEQ/L Blood Urea Nitrogen 9 MG/DL Creatinine 0.60 MG/DL Estimat Glomerular Filtration 140 ML/MIN Rate Random Glucose 115 MG/DL Calcium Level 8.6 MG/DL Magnesium Level 2.0 MG/DL Total Bilirubin 0.2 MG/DL Aspartate Amino Transf 9 U/L (AST/SGOT) Alanine Aminotransferase 16 U/L (ALT/SGPT) Alkaline Phosphatase 80 U/L Total Protein 7.1 GM/DL Albumin 3.0 GM/DL Urine Color YELLOW Urine Turbidity CLOUDY Urine pH 8.5 Urine Specific [place] 1.018 Urine Protein 30 mg/dL Urine Glucose (UA) NEG mg/dL Urine Ketones 10 mg/dL Urine Occult Blood MOD Urine Nitrite NEG Urine Bilirubin NEG Urine Urobilinogen LESS THAN 2.0 MG/DL Urine Leukocyte Esterase NEG Urine RBC /hpf Urine WBC LESS THAN 1 /hpf Urine Amorphous Sediment RARE Urine Mucus FEW /lpf Microscopic Urinalysis Comment CULT NOT INDICATED MDM Supervised Visit with ELBA: Yes Interpretation(s) EKG shows a sinus rhythm. Poor R-wave progression. No ST segment elevation or depression. Narrative Course I, Dr. Porter, have reviewed the advance practice practitioner's documentation and am in agreement, met with the patient face to face, made the diagnosis, and the medical decision making was done by me. *My assessment and Findings: Patient presents complaining with vomiting. He relates it to missing a dose of Percocet. CBC & BMP Diagram 05/29/16 22:10 UA shows no evidence of infection. Diagnosis Primary Impression: Abdominal pain Qualified Code: R10.84 - Generalized abdominal pain Additional Impression: Nausea & vomiting Qualified Code: R11.2 - Non-intractable vomiting with nausea, unspecified vomiting type Patient Instructions: Acute Nausea and Vomiting (DC), General Instructions Disposition: 01 DISCHARGE HOME Condition: Stable Darcie Porter MD May 30, 2016 01:26
[2016-05-30 01:32] VITALS: BP 97/60; PULSE 67; RESP 14; O2SAT 96
--- NOTE | 2016-05-30 11:34 | EKG ---
Date Performed: 05/29/2016 Time Performed: 22:31:05 PTAGE: 55 years EKG: Sinus rhythm WITH SINUS ARRHYTHMIA SEPTAL MYOCARDIAL INFARCTION ABNORMAL ECG PREVIOUS TRACING : 04/29/2016 08.48 Compared to prior tracing no significant change DOCTOR: Vincent Chiu Interpretating Date/Time 05/30/2016 11:32:06
== END 2016-05-30 02:32 | disposition home or self-care (01) ==
LOC: NEPC 21:12
DX: R10.9 Unspecified abdominal pain (principal); G89.29 Other chronic pain; R05 Cough; R11.2 Nausea with vomiting, unspecified; I49.8 Other specified cardiac arrhythmias; R94.31 Abnormal electrocardiogram [ECG] [EKG]
CPT/HCPCS: 71010; 80053; 81001; 83735; 85025; 93005; 96361; 96374; 99284; J2405; J7030

== ENCOUNTER 2016-06-14 16:48 | Inpatient (IN) | payer BC ==
[~2016-06-14] VITALS: Ht 165.1 cm; Wt 49.1 kg
[2016-06-15] VITALS (9 sets, daily range): BP systolic 98–118; BP diastolic 62–70; PULSE 72–82; RESP 16–18; TEMP 98.1–98.6; O2SAT 98–100
[2016-06-15] MEDS ORDERED: ceFAZolin 2 GM PREMIX 50 ML ONE (06:29)
[2016-06-15] MEDS ORDERED: POVIDONE IODINE 5% (ANTISEPSIS KIT) 4 APPLICATIONS EACH NARE PRN (06:30)
[2016-06-15] MEDS ORDERED: SODIUM CHLORID 0.9% 500 ML IV PRN (06:30)
[2016-06-15] MEDS ORDERED: METOPROLOL TARTRATE 25 MG TAB PO PRN (06:30)
[2016-06-15] MEDS ORDERED: INSULIN HUMAN REGULAR 1,000 UNITS/10 ML VIAL SQ PRN (06:30)
[2016-06-15] MEDS ORDERED: CHLORHEXIDINE GLUCONATE 2 % 1 PACK (2 CLOTHS) TOPICAL PRN (06:30)
[2016-06-15] MEDS ORDERED: LACTATED RINGER'S 1000 ML IV PRN (06:30)
[2016-06-15 07:12] LABS: AUTOMATED NEUTROPHIL # 5.7 TH/MM3 (1.8-7.7); BASOPHIL % 0.5 % (0.0-2.0); EOSINOPHIL # 0.2 TH/MM3 (0-0.4); EOSINOPHIL % 2.4 % (0.0-4.0); HEMATOCRIT 34.3 % (39.0-51.0); HEMO FLAGS DIFF FINAL; LYMPH % 14.5 % (9.0-44.0); LYMPHOCYTE # 1.1 TH/MM3 (1.0-4.8); MEAN CELL VOLUME 80.5 FL (80.0-100.0); MEAN CORPUSCULAR HEMOGLOBIN 25.4 PG (27.0-34.0); MEAN CORPUSCULAR HGB CONC 31.5 % (32.0-36.0); MONO % 9.5 % (0.0-8.0); NEUT % 73.1 % (16.0-70.0); PLATELET COUNT 295 TH/MM3 (150-450); RED BLOOD COUNT 4.26 MIL/MM3 (4.50-5.90); RED CELL DISTRIBUTION WIDTH 15.1 % (11.6-17.2); WHITE BLOOD COUNT 7.7 TH/MM3 (4.0-11.0)
[2016-06-15 07:19] LABS: APTT (PATIENT) 24.7 SEC (24.3-30.1); PROTHROMBIN TIME - PATIENT 10.7 SEC (9.8-11.6)
[2016-06-15 07:33] LABS: BICARBONATE 28.7 MEQ/L (21.0-32.0); POTASSIUM 3.9 MEQ/L (3.5-5.1)
[2016-06-15] MEDS ORDERED: FAMOTIDINE 20 MG/2 ML VIAL ONE (07:57)
[2016-06-15] MEDS ORDERED: DEXAMETHASONE SOD PHOS 4 MG/ML VIAL ONE (07:57)
[2016-06-15] MEDS ORDERED: MIDAZOLAM HCL 2 MG/2 ML VIAL ONE (07:57)
[2016-06-15] MEDS ORDERED: FAMOTIDINE 20 MG/2 ML VIAL IV ONE (07:59)
[2016-06-15] MEDS ORDERED: ONABOTULINUMTOXINA INJ 100 UNITS/VIAL SCH (08:00)
[2016-06-15] MEDS ORDERED: DEXAMETHASONE SOD PHOS 4 MG/ML VIAL IV ONE (08:00)
[2016-06-15] MEDS ORDERED: MIDAZOLAM HCL 2 MG/2 ML VIAL IV ONE (08:02)
[2016-06-15] MEDS ORDERED: RESP: LEVALBUTEROL HYDROCHLORIDE 1.25 MG/3 ML NEB (SCH) NEB ONE (08:15)
[2016-06-15] MEDS ORDERED: LACTATED RINGER'S 1000 ML INJ 2,000 ML IV ONE (08:20)
[2016-06-15] MEDS ORDERED: PROPOFOL 200 MG/20 ML AMP IV ONE (08:20)
[2016-06-15] MEDS ORDERED: NORMOSOL R INJ 2,000 ML IV ONE (08:21)
[2016-06-15] MEDS ORDERED: ceFAZolin INJ 1,000 MG VIAL IV ONE (11:00)
[2016-06-15] MEDS ORDERED: HYDROmorphone HCL PF 2 MG/ML VIAL ONE (11:26)
[2016-06-15] MEDS ORDERED: BUPIVACAINE HCL PF 0.5% 30 ML VIAL ONE (12:24)
[2016-06-15] MEDS: PCA - TOTAL MG MORPHINE DELIVERED PER SHIFT SCH ×2 (14:15→22:00)
[2016-06-15] MEDS ORDERED: diphenhydrAMINE HCL 50 MG/ML VIAL IV PRN (14:15)
[2016-06-15] MEDS ORDERED: Post-op Orders (for Pharmacy) MISC XX ONE (14:15)
[2016-06-15] MEDS ORDERED: MORPHINE SULFATE 30 MG/30 ML PCA IV SCH (14:15)
[2016-06-15] MEDS ORDERED: NALOXONE HCL 0.4 MG/ML AMP IV PRN ×2 (14:15)
[2016-06-15] MEDS ORDERED: ONDANSETRON HCL 4 MG/2 ML VIAL IV PRN (14:15)
[2016-06-15] MEDS ORDERED: BENZOCAINE 20% ORAL SPR 60 ML CAN MT PRN (14:15)
[2016-06-15] MEDS ORDERED: SODIUM CHLORIDE 0.9% FLUSH 10 ML FLUSH IV FLUSH PRN (14:15)
--- NOTE | 2016-06-15 14:17 | HHI.PR ---
Immediate Post Op Note Procedure Date: June 15, 2016 Pre Op Diagnosis: (1) Esophageal cancer Post Op Diagnosis: (1) Esophageal cancer Surgeon: Armando Bruner MD and Eloina Blanco MD Yarn Spinner(s): staff Procedure: open [place] Moustapha Esophagectomy Findings: large 9cm tumor involving diaphragm Complications: none Specimen(s) removed: proximal stomach and distal esophagus Estimated blood loss: 300ml Anesthesia: General Drains: Chest tube IVF Patient to: PACU Patient Condition: Good Armando Bruner MD June 15, 2016 14:16
[2016-06-15] MEDS ORDERED: DO NOT ADM ANY ANTICOAGULANT DRUGS PRN (14:45)
[2016-06-15] MEDS: SODIUM CHLORIDE 0.9% FLUSH 10 ML FLUSH IV FLUSH SCH ×2 (14:50→21:00)
[2016-06-15] MEDS: LACTATED RINGER'S 1000 ML INJ 1,000 ML IV SCH (14:50)
[2016-06-15] MEDS ORDERED: PROPOFOL 1000 MG/100 ML INJ 100 ML ONE (14:55)
--- NOTE | 2016-06-15 14:58 | PD.OP ---
cc: Armando Bruner MD; Raman Banuelos MD; Yifan Soriano MD; Mayra Blanco MD; Irineo Escobar MD Operative Report Date of Surgery: June 15, 2016 Preoperative Diagnosis: (1) Esophageal cancer Postoperative Diagnosis: same Procedure: [place]-Moustapha esophagectomy Anesthesia: Dr. Tafoya Surgeon: Mayra Blanco Crew Leader(s): RENO Bruner MD Operation and Findings: After completing the abdominal portion of the procedure which was dictated by Dr. Bruner was completed, the patient was placed in the left lateral decubitus position and the right chest was prepped and draped in usual manner. A small posterolateral thoracotomy incision was performed and electrocautery was used to obtain hemostasis and carry the dissection down through the latissimus dorsi. The serratus anterior was retracted anteriorly and the 6th intercostal space was entered under direct vision and selective single lung ventilation. A retractor was placed after shingling the 7th rib posteriorly. Exploration of the right hemithorax was significant for a dilated esophagus which appeared grossly normal at the level just below the azygos vein. The overlying pleura was opened using electrocautery and the esophagus was encircled using blunt dissection. A Iggy drain was positioned for retraction. The esophagus was dissected away from the mediastinum distally to the area of trhe GE junction where the tumor was obvious. The entire GE junction, tumor, and gastric conduit were brought into the right chest through the hiatus. There was a moderate sized perforation at the GE junction which was controlled. The esophagus was divided proximally with an [place] stapler. An anvil for the EEA stapler was placed at the proximal esophageal margin orally. The gastric conduit was divided distally at a grossly normal area using an [place] stapler. The specimen which included the distal esophagus, GE junction, and proximal stomach were submitted to Pathology. A small gastrotomy was then made in the gastric conduit and an EEA stapler was positioned and fired to create the esophagogastric anastomosis. The gastrotomy was then closed with an [place] stapler. A 32 F chest tube was positioned posteriorly and secured to the skin with a 2-0 silk suture. An ON-Q pump was used for postop analgesia. The wound was closed in layers and all sponge and instrument counts were correct at the close of the procedure. The patient was gtransferred to the PACU in stable condition. Mayra Blanco MD June 15, 2016 14:58
[2016-06-15] MEDS: ACETAMINOPHEN 1000 MG/100 ML VIAL IV SCH ×2 (15:00→20:30)
[2016-06-15] MEDS: metroNIDAZOLE 500 MG INJ 100 ML IV SCH ×2 (15:00→22:35)
[2016-06-15] MEDS: PROPOFOL 1000 MG/100 ML IV SCH ×2 (15:00→18:03)
[2016-06-15] MEDS ORDERED: MORPHINE SULFATE 4 MG/ML INJ ONE (15:02)
[2016-06-15] MEDS ORDERED: fentaNYL CITRATE 250 MCG/5 ML AMP ONE ×2 (15:02)
[2016-06-15] MEDS ORDERED: fentaNYL DRIP 250 ML ONE (15:05)
[2016-06-15 15:38] LABS: BLOOD GAS CARBOXYHEMOGLOBIN 1.9 % (0-4); BLOOD GAS HCO3 24 mmol/L (22-26); BLOOD GAS O2 HGB SATURATION 96 % (90-100); BLOOD GAS PCO2 55 mmHg (38-42); BLOOD GAS PO2 193 mmHg (61-120); BLOOD GAS TOTAL HGB 10.8 G/DL (12.0-16.0); CRITICAL VALUE YES; DRAW SITE ART LINE; FIO2 60 %; OXYGEN DEVICE VENTILATOR; STAT NO; TEMP CORR TO 98.6
--- NOTE | 2016-06-15 15:42 | RADRPT ---
EXAM DATE/TIME: 06/15/2016 15:00 [facility] COMPARISON: CT SIMULATION, October 21, 2013, 13:51. CHEST SINGLE AP, May 29, 2016, 21:43. INDICATIONS : Evaluate for ET tube placement. MEDICAL HISTORY : None. SURGICAL HISTORY : None. ENCOUNTER: Subsequent ACUITY: 1 day PAIN SCORE: Non-responsive. LOCATION: chest FINDINGS: There is a chest tube in good position. There is no pneumothorax. There is an endotracheal tube in go od position. There is a third to which is felt to represent a nasogastric tube which is situated with in a hiatal hernia. There are minimal atelectatic changes in the medial aspect of the left lower lobe. There is subcutane ous emphysema along the right chest wall. The visualized bony structures are intact. CONCLUSION: 1. Support equipment in good position. Doroteo Quinn MD on June 15, 2016 at 15:37 Board Certified Radiologist. This report was verified electronically.
[2016-06-15 15:55] LABS: AUTOMATED NEUTROPHIL # 11.5 TH/MM3 (1.8-7.7); BASOPHIL % 0.2 % (0.0-2.0); HEMATOCRIT 33.8 % (39.0-51.0); HEMO FLAGS DIFF FINAL; LYMPH % 4.8 % (9.0-44.0); LYMPHOCYTE # 0.6 TH/MM3 (1.0-4.8); MEAN CELL VOLUME 79.7 FL (80.0-100.0); MEAN CORPUSCULAR HEMOGLOBIN 25.5 PG (27.0-34.0); MEAN CORPUSCULAR HGB CONC 32.1 % (32.0-36.0); PLATELET COUNT 324 TH/MM3 (150-450); RED BLOOD COUNT 4.25 MIL/MM3 (4.50-5.90); RED CELL DISTRIBUTION WIDTH 14.9 % (11.6-17.2); WHITE BLOOD COUNT 12.9 TH/MM3 (4.0-11.0)
[2016-06-15] MEDS: PANTOPRAZOLE SODIUM 40 MG VIAL IV SCH (16:00)
[2016-06-15 16:28] LABS: ALT (GPT) 41 U/L (12-78); ANION GAP 6 MEQ/L (5-15); AST (GOT) 43 U/L (15-37); BICARBONATE 28.5 MEQ/L (21.0-32.0); CHLORIDE 105 MEQ/L (98-107); GLOMERULAR FILTRATION RATE 181 ML/MIN (>89); POTASSIUM 3.9 MEQ/L (3.5-5.1); SODIUM (NA) 139 MEQ/L (136-145)
[2016-06-15 16:37] LABS: ALKALINE PHOSPHATASE 67 U/L (45-117); BLOOD UREA NITROGEN 13 MG/DL (7-18); TOTAL BILIRUBIN ADULT 0.3 MG/DL (0.2-1.0)
[2016-06-15] MEDS ORDERED: NOREPINEPHRINE 4 MG/4 ML AMP ONE (16:38)
[2016-06-15] MEDS: fentaNYL DRIP 250 ML IV SCH (18:34)
--- NOTE | 2016-06-15 18:52 | PD.CONS ---
[facility] Service Critical Care Medicine Consult Requested By Primary Care Physician No Primary Care Physician History of Present Illness 55-year-old male with history of esophageal cancer previously treated with chemotherapy/radiation who underwent open eye with Moustapha esophagectomy with right sided chest tube/J-tube placement under general anesthesia by Dr. Bruner/Dr. Blanco, EBL 300 cc, tolerated procedure well and was subsequently transferred to PACU kept intubated on mechanical ventilation. Consult was requested by Dr. Bruner for critical care management. I evaluated the patient in PACU shortly following his arrival there. At that time was sedated, orally intubated on mechanical ventilation. History was obtained by reviewing records and discussion with Dr. Bruner. [facility] Past Medical History Anxiety: Yes Depression: No Cancer: Yes (ESOPHAGEAL) Cardiovascular Problems: No Chemotherapy: Yes (2013) Diabetes: No Diminished Hearing: No Endocrine: No Genitourinary: No Hepatitis: No Immune Disorder: No Musculoskeletal: No Neurologic: No Psychiatric: Yes Reproductive: No Respiratory: No Radiation Therapy: Yes Thyroid Disease: No Tetanus Vaccination: > 5 Years Past Surgical History Abdominal Surgery: No AICD: No Cardiac Surgery: No Ear Surgery: No Endocrine Surgery: No Eye Surgery: Yes (RETINA) Genitourinary Surgery: No Joint Replacement: No Oral Surgery: Yes (UPPER PORCELAIN PLATE) Pacemaker: No Thoracic Surgery: No Other Surgery: Yes Social History Alcohol Use: No Tobacco Use: No (patch) Substance Use: Yes (MARIJUANA ) Allergies-Medications (Allergen,Severity, Reaction): Coded Allergies: No Known Allergies (Unverified , 05/29/16) Reported Meds & Prescriptions Reported Meds & Active Scripts Active Jevity 1.5 Stan (Nutritional Supplements) 1 Liq Liq 10 Ml PEG PER HOUR Initial rate of 10cc/hr, increase rate by 5cc/hr daily. Goal rate 45cc/hr, to be adjusted as outpatient. Entristar Safety Peg Kit (Feeding Tubes - Sets) 1 Mis Mis Units Vicki Ziegler Feeding Tube Pump Set 1 Mis Mis 1 Ea .ROUTE DIRECTED Oxycodone-Acetaminophen 10-325 mg Tab 2 Tab PO Q6H PRN Xanax (Alprazolam) 1 Mg Tab 1 Mg PO Q4H PRN Nicotine Patch (Nicotine) 14 Mg/24 Hr Patch 1 Patch TD DAILY Protonix (Pantoprazole Sodium) 40 Mg Tab 40 Mg G-TUBE DAILY Senna Plus 8.6-50 mg (Sennosides-Docusate Sodium) 1 Tab Tab 1 Tab PO BID Sucralfate Liq (Sucralfate) 1 Gm/10 Ml Lesa 1 Gm PO QID Current Medications Medications (Trade) Dose Ordered Sig/Virgil Route Start Time Stop Time Status Last Admin Lactated Ringer's 1,000 ml @ 30 mls/hr Q24H PRN IV 06/15/16 06:30 06/18/16 06:29 (NS 500 ml Inj) 500 ml @ 30 mls/hr [id number] PRN IV 06/15/16 06:30 06/18/16 06:29 Onabotulinumtoxina 100 units 100 units UNSCH .XX 06/15/16 08:00 06/15/16 10:29 (Lr 1000 ml Inj) 1,000 ml @ 100 mls/hr Q10H IV 06/15/16 14:03 06/15/16 14:50 (NS Flush) 2 ml UNSCH PRN IV FLUSH 06/15/16 14:15 (NS Flush) 2 ml BID IV FLUSH 06/15/16 14:15 06/15/16 14:50 (Zofran Inj) 4 mg Q6H PRN IV 06/15/16 14:15 (Protonix Inj) 40 mg Q24H IV 06/15/16 16:00 06/15/16 16:00 (Benadryl Inj) 25 mg Q6H PRN IV 06/15/16 14:15 Lorazepam 0.5 mg 0.5 mg Q4H PRN IVP 06/15/16 14:15 Cefazolin Sodium 1000 mg/Sodium Chloride 100 ml @ 200 mls/hr Q8H IV 06/15/16 18:00 06/16/16 10:29 06/15/16 18:03 (Flagyl 500 Mg Inj) 100 ml @ 200 mls/hr Q8H IV 06/15/16 15:00 06/16/16 07:29 (Ofirmev Inj) 1,000 mg Q6H IV 06/15/16 15:00 06/18/16 09:01 06/15/16 15:00 (Lovenox Inj) 40 mg Q24H SQ 06/16/16 13:30 (Narcan Inj) 0.4 mg UNSCH PRN IV 06/15/16 14:15 (Morphine 1 Mg/ ml PEST CONTROL PILOT) 30 mg UNSCH IV 06/15/16 14:15 PEST CONTROL PILOT Dosage Infused (Pha) 1 1 Q8HR .XX 06/15/16 14:15 (fentaNYL DRIP) 250 ml @ 0 mls/hr TITRATE IV 06/15/16 15:30 06/15/16 18:34 Miscellaneous Information ALL NURSING DEPARTME... UNSCH PRN .XX 06/15/16 14:45 06/16/16 14:44 (Diprivan 1000 Mg/100ml Inj) 100 ml @ 0 mls/hr TITRATE IV 06/15/16 16:30 06/15/16 15:00 Review of Systems ROS Limitations: Clinical Condition, Intubated Physical Exam Vital Signs Vital Signs Date Time Temp Pulse Resp B/P Pulse Ox O2 Delivery O2 Flow Rate FiO2 06/15/16 18:23 100 50 06/15/16 18:20 74 06/15/16 18:13 50 06/15/16 18:00 98.1 81 16 98/70 100 06/15/16 15:30 14 06/15/16 14:50 98 60 06/15/16 06:40 98.1 72 18 104/62 99 Physical Exam HEENT/ Neuro: Sedated, orally intubated, Pallor present, no icterus, tongue/ mucosa moist Neck: No JVD Chest/Pulm: on mech vent, good air entry bilaterally, no wheezing or crackles. Right sided chest tube in place with minimal bloody drainage, no air leak CVS: S1-S2 regular, no murmur GI/abdomen: soft, nontender, bowel sounds not appreciated. J-tube in place. Dressing over surgical site intact Extremities: warm bilaterally, no edema Laboratory Laboratory Tests Test 06/15/16 06/15/16 06/15/16 06:35 15:27 15:35 White Blood Count 7.7 12.9 Red Blood Count 4.26 4.25 Hemoglobin 10.8 10.8 Hematocrit 34.3 33.8 Mean Corpuscular Volume 80.5 79.7 Mean Corpuscular Hemoglobin 25.4 25.5 Mean Corpuscular Hemoglobin 31.5 32.1 Concent Red Cell Distribution Width 15.1 14.9 Platelet Count 295 324 Mean Platelet Volume 7.8 7.3 Neutrophils (%) (Auto) 73.1 89.0 Lymphocytes (%) (Auto) 14.5 4.8 Monocytes (%) (Auto) 9.5 6.0 Eosinophils (%) (Auto) 2.4 0.0 Basophils (%) (Auto) 0.5 0.2 Neutrophils # (Auto) 5.7 11.5 Lymphocytes # (Auto) 1.1 0.6 Monocytes # (Auto) 0.7 0.8 Eosinophils # (Auto) 0.2 0.0 Basophils # (Auto) 0.0 0.0 CBC Comment DIFF FINAL DIFF FINAL Differential Comment Prothrombin Time 10.7 Prothromb Time International 1.0 Ratio Activated Partial 24.7 Thromboplast Time Sodium Level 139 139 Potassium Level 3.9 3.9 Chloride Level 104 105 Carbon Dioxide Level 28.7 28.5 Anion Gap 6 6 Blood Urea Nitrogen 12 13 Creatinine 0.61 0.48 Estimat Glomerular Filtration 137 181 Rate Random Glucose 97 140 Calcium Level 8.8 7.5 Blood Type A POSITIVE Antibody Screen NEGATIVE Crossmatch Leukocyte-Reduced Red Blood Cells Blood Bank Comment Blood Gas Puncture Site ART LINE Blood Gas Patient Temperature 98.6 Blood Gas HCO3 24 Blood Gas Base Excess -2.0 Blood Gas Oxygen Saturation 96 Arterial Blood pH 7.26 Arterial Blood Partial 55 Pressure CO2 Arterial Blood Partial 193 Pressure O2 Arterial Blood Oxygen Content 15.0 Arterial Blood 1.9 Carboxyhemoglobin Arterial Blood Methemoglobin 1.0 Blood Gas Hemoglobin 10.8 Oxygen Delivery Device VENTILATOR Blood Gas Ventilator Setting AC,10,450,PEEP5 Blood Gas Inspired Oxygen 60 Total Bilirubin 0.3 Aspartate Amino Transf 43 (AST/SGOT) Alanine Aminotransferase 41 (ALT/SGPT) Alkaline Phosphatase 67 Total Protein 5.6 Albumin 2.6 Result Diagram: 06/15/16 1535 06/15/16 1535 Imaging Last Impressions Chest X-Ray 06/15/16 0000 Signed Impressions: Service Date/Time: Wednesday, June 15, 2016 15:00 - CONCLUSION: 1. Support equipment in good position. Doroteo Quinn MD Assessment and Plan Assessment and Plan 55-year-old male with Esophageal cancer status post open [place] Moustapha esophagectomy, J-tube placement () Acute respiratory failure on mechanical ventilation Hypotension Plan: Neuro: Sedation with propofol/fentanyl while intubated. Daily sedation vacation. Once extubated initiate fentanyl PEST CONTROL PILOT. Has an On-Q pump in place for local anesthetic around chest tube insertion site. He is a significant narcotics and benzodiazepines at home for pain control as well as bleed. May require higher doses than usual of narcotics. Cardiovascular: 2 L normal saline bolus ordered for borderline blood pressure. If he remains hypotensive start Levophed for pressor support. Pulmonary: Continue mechanical ventilation, vent bundle, bronchodilators as needed. Initiate C Pap trials tomorrow to decide extubation. Adjusted vent for respiratory acidosis. GI/liver: Nothing by mouth for now. Start G-tube feeds and okay with general surgery Renal/: IV hydration, strict intake output, monitor and replete electrolytes, follow BUN/creatinine. Heme: Follow CBC. Transfuse to keep hemoglobin greater than 8 g percent. ID: Empiric Flagyl as patient appeared to have a contained esophageal perforation. Ancef for prophylactic antibiotic perioperatively. Endocrine: SSI for glycemic control as needed. Prophylaxis: PPI/SCDs. Subcutaneous Lovenox when okay with general surgery. Condition critical Transferred on critical care excluding procedures 60 minutes Ashok Hidalgo MD June 15, 2016 18:52
[2016-06-15] MEDS: SODIUM CHLOR 0.9% 1000 ML INJ 1,000 ML IV SCH (22:31)
[2016-06-16] VITALS (20 sets, daily range): BP systolic 102–119; BP diastolic 56–76; PULSE 58–80; RESP 13–16; TEMP 97.3–98.4; O2SAT 89–100
[2016-06-16] MEDS: LACTATED RINGER'S 1000 ML INJ 1,000 ML IV SCH ×3 (00:03→20:06)
[2016-06-16] MEDS: ACETAMINOPHEN 1000 MG/100 ML VIAL IV SCH ×4 (03:32→20:08)
[2016-06-16 04:33] LABS: AUTOMATED NEUTROPHIL # 9.3 TH/MM3 (1.8-7.7); BASOPHIL % 0.4 % (0.0-2.0); EOSINOPHIL % 0.1 % (0.0-4.0); HEMATOCRIT 29.4 % (39.0-51.0); HEMO FLAGS DIFF FINAL; LYMPH % 6.9 % (9.0-44.0); LYMPHOCYTE # 0.7 TH/MM3 (1.0-4.8); MEAN CELL VOLUME 80.4 FL (80.0-100.0); MEAN CORPUSCULAR HEMOGLOBIN 26.2 PG (27.0-34.0); MEAN CORPUSCULAR HGB CONC 32.5 % (32.0-36.0); MONO % 5.4 % (0.0-8.0); NEUT % 87.2 % (16.0-70.0); PLATELET COUNT 240 TH/MM3 (150-450); RED BLOOD COUNT 3.66 MIL/MM3 (4.50-5.90); WHITE BLOOD COUNT 10.7 TH/MM3 (4.0-11.0)
[2016-06-16 04:55] LABS: BICARBONATE 24.5 MEQ/L (21.0-32.0); POTASSIUM 4.5 MEQ/L (3.5-5.1)
[2016-06-16] MEDS: PCA - TOTAL MG MORPHINE DELIVERED PER SHIFT SCH ×3 (06:00→22:57)
[2016-06-16] MEDS: metroNIDAZOLE 500 MG INJ 100 ML IV SCH (06:14)
[2016-06-16] MEDS: PROPOFOL 1000 MG/100 ML IV SCH (06:23)
--- NOTE | 2016-06-16 07:10 | MP ---
cc: DG JACQUES DATE OF SURGERY 06/15/2016 PREOPERATIVE DIAGNOSIS Recurrent distal esophageal adenocarcinoma. POSTOPERATIVE DIAGNOSIS Recurrent distal esophageal adenocarcinoma. PROCEDURE 1. Salvage open [place] Moustapha esophagectomy 2. Injection of both of Botox in the pylorus 3. Exchange of J tube ATTENDING SURGEON FOR THE ABDOMINAL PORTION Dg Jacques MD CO-SURGEON Mayra Blanco MD, thoracic surgery was co-surgeon for the thoracic portion of the procedure. ANESTHESIA General BLOOD LOSS Total for abdominal and thoracic portion of the procedure was approximately 300 cc. COMPLICATIONS None FINDINGS A 9 cm tumor with grossly negative margins on pathological evaluation intraoperatively. The large amount of chronic scarring and inflammation due to previous radiation at the GE junction with a focal perforation of the anterior distal portion of the esophagus contained chronic. INDICATIONS FOR PROCEDURE The patient is a 55-year-old male who approximately two years ago was diagnosed with distal esophageal adenocarcinoma. The patient underwent chemoradiation with a questionable complete response versus a near complete response at that time. The patient did decline surgery and wanted to continue followup as well as alternative therapies. Unfortunately, the patient did develop a significantly large recurrence and had pain with eating and dysphagia, as well as radiation esophagitis associated with recurrent adenocarcinoma. Repeat staging showed no evidence of metastatic disease on the PET scan, but recurrent disease in the distal esophagus. Due to his significant symptoms, as well as no evidence of metastatic disease was a candidate for salvage esophagectomy and this was offered to him. The risks, benefits, and alternatives were discussed with the patient by myself as well as Dr. Mayra Blanco prior to the open [place] Moustapha esophagectomy. He agreed to undergo the procedure. PROCEDURE After informed consent was obtained, the patient was taken to the operating room, placed in the supine position and placed under general endotracheal anesthesia. The patient's abdomen was shaved, prepped and draped in a sterile fashion. Time-out was performed. A small upper midline incision was made with a 15 blade scalpel above the umbilicus. Bovie electrocautery was used to dissect the subcutaneous tissue and open the midline fascia completely. We then enter the peritoneal cavity directly, placed a hand retractor and surveyed the abdomen. There is no evidence of any complication from our entry and there is no evidence of any carcinomatosis. Tumor was at the GE junction, but was a few centimeters in width probably 3-4 cm and appeared to be resectable, so at this point in time, we turned to our dissection. We opened the incision from the subxiphoid down to the umbilicus with the Bovie electrocautery. We placed a Bookwalter type retractor to gain better exposure. We then were able to use the Ethicon Enseal device to open a lesser sac, as well the gastrohepatic ligaments. We were able to mobilize this down. He had a large floppy stomach. We then injected the pylorus with proximal 100 units of Botox 360 degrees to avoid possible emptying problems. We then turned our attention towards the GE junction. We used Enseal as well as Bovie electrocautery as well as blunt dissection to dissect the specimen. We divided the right and left randolph with the Enseal device and gained access to the mediastinum to the chest. Once we had completely mobilized this, we were able to bluntly dissect up into the right chest and access the right chest as well. There was noted to be a small linear type perforation of the anterior portion of the esophagus and the NG tube was visible and this appeared to be chronic, but it contained a perforation and there is significant desmoplastic reaction at this point in particular. We then obtain immobilization, we placed a Iggy drain around this and placed this into the chest. We then used a green load on the [place] stapling device to divide the incisura and create a conduit using the gastroepiploic vessel as our blood supply. This technically looked well with a floppy conduit and with viable tissue and intact staple line. At this point in time, we did exchange the patient's J-tube for our new 16 [place] jejunostomy tube as the patient had previously had a J-tube that was clogged. This was done without difficulty. We then turn our attention towards closure. We irrigated the abdomen with sterile saline until all suctioning was clear. We closed the midline with a #1 looped PDS suture. We then closed the skin with skin shruthi. We sutured the J-tube in place with a nylon suture. Sterile dressings were applied. At this point in time, we turned our attention towards the thoracic portion. The patient was changed to a left lateral decubitus position. Dr. Mayra Blanco at this point entered the room and performed the thoracic portion of the procedure and the reanastomosis. I did assist him for this procedure throughout as well, but please refer to his separate dictated portion as he is the co-surgeon for this procedure. The patient tolerated the above procedures well. No apparent complications. All counts correct. I was present and scrubbed for the above procedure. MD AYSHA Zhou/STEVE /3:14 PM /6:43 AM
[2016-06-16] MEDS: SODIUM CHLORIDE 0.9% FLUSH 10 ML FLUSH IV FLUSH SCH ×2 (08:41→22:56)
[2016-06-16] MEDS: fentaNYL DRIP 250 ML IV SCH (10:13)
--- NOTE | 2016-06-16 12:16 | HHI.CCPN ---
Subjective Remarks/Hospital Course 55-year-old male with history of esophageal cancer previously treated with chemotherapy/radiation who underwent open eye with Moustapha esophagectomy with right sided chest tube/J-tube placement under general anesthesia by Dr. Bruner/Dr. Blanco, EBL 300 cc, tolerated procedure well and was subsequently transferred to PACU kept intubated on mechanical ventilation. Consult was requested by Dr. Bruner for critical care management. I evaluated the patient in PACU shortly following his arrival there. At that time was sedated, orally intubated on mechanical ventilation. History was obtained by reviewing records and discussion with Dr. Bruner. 04: Awake and alert. Push for extubation. Objective Vital Signs Date Time Temp Pulse Resp B/P Pulse Ox O2 Delivery O2 Flow Rate FiO2 06/16/16 12:00 35 06/16/16 12:00 64 06/16/16 11:56 98 06/16/16 08:00 98.4 16 118/71 06/15/16 19:00 Mechanical Ventilator Intake and Output 06/15/16 06/15/16 06/16/16 08:00 16:00 00:00 Intake Total 5550 ml 5415 ml Output Total 950 ml 1803 ml Balance 4600 ml 3612 ml Result Diagram: 06/16/16 0359 06/16/16 0359 Other Results Laboratory Tests Test 06/15/16 15:27 Blood Gas Puncture Site ART LINE Blood Gas Patient Temperature 98.6 Blood Gas HCO3 24 mmol/L (22-26) Blood Gas Base Excess -2.0 mmol/L (-2-2) Blood Gas Oxygen Saturation 96 % (90-100) Arterial Blood pH 7.26 (7.380-7.420) Arterial Blood Partial 55 mmHg (38-42) Pressure CO2 Arterial Blood Partial 193 mmHg Pressure O2 (61-120) Arterial Blood Oxygen Content 15.0 Vol % (12.0-20.0) Arterial Blood 1.9 % (0-4) Carboxyhemoglobin Arterial Blood Methemoglobin 1.0 % (0-2) Blood Gas Hemoglobin 10.8 G/DL (12.0-16.0) Oxygen Delivery Device VENTILATOR Blood Gas Ventilator Setting AC,10,450,PEEP5 Blood Gas Inspired Oxygen 60 % Imaging Last Impressions Chest X-Ray 06/15/16 0000 Signed Impressions: Service Date/Time: Wednesday, June 15, 2016 15:00 - CONCLUSION: 1. Support equipment in good position. Doroteo Quinn MD Objective Remarks HEENT/ Neuro: Sedated, orally intubated. Opens eyes to voice, moves 4 limbs. Neck: Orally intubated. Chest/Pulm: Good air entry bilaterally, no wheezing or crackles. Right sided chest tube in place with minimal bloody drainage, no air leak CVS: S1-S2 regular, no murmur. No JVD. GI/abdomen: soft, nontender, bowel sounds not appreciated. J-tube in place. Extremities: warm bilaterally, no edema A/P Assessment and Plan Assessment: Esophageal cancer status post open [place] Moustapha esophagectomy, J-tube placement () Acute respiratory failure on mechanical ventilation Hypotension Plan: Neuro: taper off sedation with propofol/fentanyl while intubated. Daily sedation vacation. Once extubated initiate fentanyl [employer]. Has an On-Q pump in place for local anesthetic around chest tube insertion site. He requires significant narcotics and benzodiazepines at home for pain control as well as bleed. May require higher doses than usual of narcotics. Cardiovascular: 2 L normal saline bolus ordered for borderline blood pressure. If he remains hypotensive start Levophed for pressor support. Pulmonary: Wean mechanical ventilation, vent bundle, bronchodilators as needed. Initiate C Pap trials tomorrow to decide extubation. Adjusted vent for respiratory acidosis. GI/liver: Nothing by mouth for now. Start G-tube feeds and okay with general surgery Renal/: IV hydration, strict intake output, monitor and replete electrolytes, follow BUN/creatinine. Heme: Follow CBC. Transfuse to keep hemoglobin greater than 8 g percent. ID: Empiric Flagyl as patient appeared to have a contained esophageal perforation. Ancef for prophylactic antibiotic perioperatively. Endocrine: SSI for glycemic control as needed. Prophylaxis: PPI/SCDs. Subcutaneous Lovenox when okay with general surgery. Overall impression: Good progress s/p esophagectomy yesterday. Try to get extubated. Lenny White MD June 16, 2016 12:16
[2016-06-16] MEDS: ENOXAPARIN SODIUM 40 MG/0.4 ML SYRINGE SQ SCH (13:30)
--- NOTE | 2016-06-16 14:45 | HHI.PR ---
Subjective Subjective Notes Intubated/Sedated LAUREN Padilla at bedside Objective Vitals/I&O Vital Signs Date Time Temp Pulse Resp B/P Pulse Ox O2 Delivery O2 Flow Rate FiO2 06/16/16 14:00 66 06/16/16 13:12 98 Nasal Cannula 4 06/16/16 12:00 35 06/16/16 12:00 98.2 14 119/73 Labs Laboratory Tests Test 06/15/16 06/15/16 06/15/16 06/16/16 15:27 15:35 18:45 03:59 Blood Gas Puncture Site ART LINE Blood Gas Patient Temperature 98.6 Blood Gas HCO3 24 Blood Gas Base Excess -2.0 Blood Gas Oxygen Saturation 96 Arterial Blood pH 7.26 Arterial Blood Partial 55 Pressure CO2 Arterial Blood Partial 193 Pressure O2 Arterial Blood Oxygen Content 15.0 Arterial Blood 1.9 Carboxyhemoglobin Arterial Blood Methemoglobin 1.0 Blood Gas Hemoglobin 10.8 Oxygen Delivery Device VENTILATOR Blood Gas Ventilator Setting AC,10,450,PEEP5 Blood Gas Inspired Oxygen 60 White Blood Count 12.9 10.7 Red Blood Count 4.25 3.66 Hemoglobin 10.8 9.6 Hematocrit 33.8 29.4 Mean Corpuscular Volume 79.7 80.4 Mean Corpuscular Hemoglobin 25.5 26.2 Mean Corpuscular Hemoglobin 32.1 32.5 Concent Red Cell Distribution Width 14.9 15.0 Platelet Count 324 240 Mean Platelet Volume 7.3 8.0 Neutrophils (%) (Auto) 89.0 87.2 Lymphocytes (%) (Auto) 4.8 6.9 Monocytes (%) (Auto) 6.0 5.4 Eosinophils (%) (Auto) 0.0 0.1 Basophils (%) (Auto) 0.2 0.4 Neutrophils # (Auto) 11.5 9.3 Lymphocytes # (Auto) 0.6 0.7 Monocytes # (Auto) 0.8 0.6 Eosinophils # (Auto) 0.0 0.0 Basophils # (Auto) 0.0 0.0 CBC Comment DIFF FINAL DIFF FINAL Differential Comment Sodium Level 139 141 Potassium Level 3.9 4.5 Chloride Level 105 111 Carbon Dioxide Level 28.5 24.5 Anion Gap 6 6 Blood Urea Nitrogen 13 10 Creatinine 0.48 0.54 Estimat Glomerular Filtration 181 158 Rate Random Glucose 140 94 Calcium Level 7.5 7.6 Total Bilirubin 0.3 Aspartate Amino Transf 43 (AST/SGOT) Alanine Aminotransferase 41 (ALT/SGPT) Alkaline Phosphatase 67 Total Protein 5.6 Albumin 2.6 Nasal Screen MRSA (PCR) MRSA NOT DETECTED Cardiovascular: Regular Lungs: Clear Abdomen: Other (midline incision with dressing in place---c/d/i; J tube to drainage bag; Pain pump in place) Extremities: No edema Narrative Exam RIGHT chest tube in place to wall suction; no air leak A/P Assessment and Plan 55 year old male with esophageal cancer POD1 open [place] Moustapha Esophagectomy -Vent per CCM; wean to extubate -Pain control -CT to wall suction -CXR in AM -Labs in AM Attending Statement The exam, history, and the medical decision-making described in the above note were completed with the assistance of the mid-level provider. I reviewed and agree with the findings presented. I attest that I had a [id number] encounter with the patient on the same day, and personally performed and documented my assessment and findings in the medical record. patient extubated, confused, good cough, stable postop Dahlia Sanford June 16, 2016 14:44 Armando Bruner MD June 17, 2016 11:06
[2016-06-16] MEDS: PANTOPRAZOLE SODIUM 40 MG VIAL IV SCH (15:53)
[2016-06-17] VITALS (21 sets, daily range): BP systolic 97–123; BP diastolic 58–77; PULSE 65–110; RESP 16–24; TEMP 98.3–101.3; O2SAT 90–100
[2016-06-17 00:32] LABS: BLOOD GAS BASE EXCESS 2.2 mmol/L (-2-2); BLOOD GAS CARBOXYHEMOGLOBIN 1.5 % (0-4); BLOOD GAS HCO3 26 mmol/L (22-26); BLOOD GAS METHEMOGLOBIN 0.7 % (0-2); BLOOD GAS O2 HGB SATURATION 88 % (90-100); BLOOD GAS OXYGEN CONTENT 11.1 Vol % (12.0-20.0); BLOOD GAS PCO2 39 mmHg (38-42); BLOOD GAS PO2 60 mmHg (61-120); BLOOD GAS TOTAL HGB 8.9 G/DL (12.0-16.0); TEMP CORR TO 98.6
[2016-06-17 00:33] LABS: CRITICAL VALUE YES; DRAW SITE RT RADIAL; FIO2 100 %; LITER FLOW 15 L/M; NUMBER OF ARTERIAL PUNCTURES 1; STAT YES
[2016-06-17] MEDS: LORazepam 2 MG/ML VIAL IVP PRN (00:48)
[2016-06-17] MEDS: ACETAMINOPHEN 1000 MG/100 ML VIAL IV SCH ×4 (03:28→20:25)
[2016-06-17] MEDS: RESP: ALBUTEROL 2.5 MG/IPRATROPIUM 0.5 MG NEB (PRN) NEB (04:28)
[2016-06-17] MEDS ORDERED: ETOMIDATE 20 MG/10 ML VIAL ONE (05:15)
[2016-06-17] MEDS ORDERED: SUCCINYLCHOLINE CHLORIDE 200 MG/10 ML VIAL ONE (05:19)
[2016-06-17] MEDS ORDERED: MIDAZOLAM HCL 5 MG/ML VIAL (1 ML) ONE (05:52)
[2016-06-17 05:55] LABS: AUTOMATED NEUTROPHIL # 12.2 TH/MM3 (1.8-7.7); BASOPHIL % 0.2 % (0.0-2.0); HEMATOCRIT 30.1 % (39.0-51.0); HEMO FLAGS DIFF FINAL; LYMPH % 3.9 % (9.0-44.0); LYMPHOCYTE # 0.5 TH/MM3 (1.0-4.8); MEAN CORPUSCULAR HEMOGLOBIN 25.3 PG (27.0-34.0); MEAN CORPUSCULAR HGB CONC 31.6 % (32.0-36.0); MONO % 4.6 % (0.0-8.0); NEUT % 91.3 % (16.0-70.0); PLATELET COUNT 235 TH/MM3 (150-450); RED BLOOD COUNT 3.77 MIL/MM3 (4.50-5.90); RED CELL DISTRIBUTION WIDTH 14.6 % (11.6-17.2); WHITE BLOOD COUNT 13.4 TH/MM3 (4.0-11.0)
[2016-06-17] MEDS: PCA - TOTAL MG MORPHINE DELIVERED PER SHIFT SCH ×3 (06:00→22:00)
--- NOTE | 2016-06-17 06:02 | PD.PROCEDR ---
Procedure Note Procedure Endotracheal Intubation A time-out was completed verifying correct patient, procedure, site, positioning , and special equipment if applicable. The patient was placed in a flat position. Sedation was obtained using Etomidate 20mg. The patient was easily ventilated using an ambu bag. The [employer]/ MAC 4 BLADE was used and inserted into the oropharynx at which time there was a Grade 1 view of the vocal cords. A 8-spanish endotracheal tube was inserted and visualized going through the vocal cords. The stylette was removed. Colorimetric change was visualized on the CO2 meter. Breath sounds were heard in both lung lopez equally. The endotracheal tube was placed at 23 cm, measured at the teeth. A chest x-ray was ordered to assess for pneumothorax and verify endotrachealtube placement. Estimated Blood Loss: 0 The patient tolerated the procedure well and there were no complications. Jermaine Elias MD June 17, 2016 06:02
[2016-06-17] MEDS: LACTATED RINGER'S 1000 ML INJ 1,000 ML IV SCH (06:03)
--- NOTE | 2016-06-17 06:03 | PD.PROCEDR ---
Procedure Note Procedure Bronchoscopy The bronchoscope was advanced through the ETT into lu, which was sharp. Then advanced into the left main stem and each segment, subsegement in the left upper lingula and lower lobe was visualized. There was mild tracheobronchitis with mild friability throughout. There was large amounts of white secretion completely obstructing the left main bronchus. There were no other findings including evidence of mass, anatomic distortions, or hemorrhage. The right upper lobe anatomy showed some segmental distortion with dilation and irregularities both at the apical region as well as in the subsegments of the anteroapical and posterior segments. No specific masses or other lesions were identified throughout the tracheobronchial tree on the right. There was mild tracheal bronchitis with friability. Upon coughing, there was punctate hemorrhage. The bronchoscope was then advanced through the bronchus intermedius and the right middle lobe and right lower lobe. These again had no other anatomic lesions identified. The bronchoscope was then wedged in the right middle lobe and bronchoalveolar samples were obtained. The bronchoscope was withdrawn and the area was suctioned clear. The bronchoscope was then advanced into the apical segment of the right upper lobe and the bronchioalveolar lavage again performed. Samples were taken and the bronchoscope was removed suctioned the area clear. The bronchoscope was then withdrawn. The patient tolerated the procedure well without evidence of desaturation or complications. Jermaine Elias MD June 17, 2016 06:03
[2016-06-17 06:12] LABS: ALKALINE PHOSPHATASE 55 U/L (45-117); ALT (GPT) 21 U/L (12-78); ANION GAP 8 MEQ/L (5-15); AST (GOT) 32 U/L (15-37); BICARBONATE 25.6 MEQ/L (21.0-32.0); BLOOD UREA NITROGEN 8 MG/DL (7-18); CHLORIDE 101 MEQ/L (98-107); GLOMERULAR FILTRATION RATE 205 ML/MIN (>89); POTASSIUM 3.7 MEQ/L (3.5-5.1); SODIUM (NA) 135 MEQ/L (136-145); TOTAL BILIRUBIN ADULT 0.4 MG/DL (0.2-1.0)
--- NOTE | 2016-06-17 06:15 | RADRPT ---
EXAM DATE/TIME: 06/17/2016 04:29 [facility] COMPARISON: No previous studies available for comparison. INDICATIONS : Shortness of breath. MEDICAL HISTORY : None. SURGICAL HISTORY : None. ENCOUNTER: Subsequent ACUITY: 3 days PAIN SCORE: Non-responsive. LOCATION: Bilateral chest FINDINGS: A single view of the chest demonstrates right-sided chest tube without pneumothorax. There does appea r to BE pneumomediastinum. There is new complete opacification left hemithorax and volume loss. Nasog astric tube with tip in the distal esophagus. It should be advanced.. Osseous structures are intact. CONCLUSION: 1. Right-sided chest tube without pneumothorax. 2. New opacification left hemithorax with volume loss suggesting mucous plugging. Bronchoscopy may be warranted. 3. Pneumomediastinum. 4. Nasogastric tube with tip in distal esophagus. Elliott Ho MD on June 17, 2016 at 6:11 Board Certified Radiologist. This report was verified electronically.
--- NOTE | 2016-06-17 06:21 | RADRPT ---
EXAM DATE/TIME: 06/17/2016 05:22 [facility] COMPARISON: CHEST SINGLE AP, June 17, 2016, 4:29. INDICATIONS : Post intubation. MEDICAL HISTORY : None. SURGICAL HISTORY : None. ENCOUNTER: Subsequent ACUITY: 3 days PAIN SCORE: Non-responsive. LOCATION: Bilateral chest FINDINGS: A single view of the chest demonstrates right-sided chest tube without pneumothorax. Right-sided ches t tube with a slightly across midline. There is diffuse opacification left hemithorax with volume los s. There is air outlining the mediastinum and heart consistent with pneumomediastinum. Nasogastric tu be with tip in the distal esophagus. Osseous structures are intact. CONCLUSION: 1. Complete opacification left hemithorax with volume loss. This is likely from mucous plugging. 2. Pneumomediastinum. 3. Nasogastric tube tip in distal esophagus. 4. Right-sided chest tube without pneumothorax. Elliott Ho MD on June 17, 2016 at 6:18 Board Certified Radiologist. This report was verified electronically.
--- NOTE | 2016-06-17 06:29 | RADRPT ---
EXAM DATE/TIME: 06/17/2016 06:05 [facility] COMPARISON: CHEST SINGLE AP, June 17, 2016, 4:29. CHEST SINGLE AP, June 17, 2016, 5:22. INDICATIONS : Post bronchoscopy. MEDICAL HISTORY : None. SURGICAL HISTORY : None. ENCOUNTER: Subsequent ACUITY: 3 days PAIN SCORE: Non-responsive. LOCATION: Bilateral chest FINDINGS: A single view of the chest demonstrates aeration of the left lung with patchy densities throughout th e left upper lobe and left lower lobe. Small left pleural effusion. Pneumomediastinum. Nasogastric tu be is in the mid to distal trachea. Right-sided chest tube crosses midline, no pneumothorax.. Osseou s structures are intact. CONCLUSION: 1. Reexpansion left lung. 2. Patchy density throughout the left lung with small left pleural effusion. 3. Nasogastric tube with tip in the mid to distal esophagus. Elliott Ho MD on June 17, 2016 at 6:25 Board Certified Radiologist. This report was verified electronically.
[2016-06-17 06:35] LABS: BLOOD GAS CARBOXYHEMOGLOBIN 1.2 % (0-4); BLOOD GAS HCO3 27 mmol/L (22-26); BLOOD GAS METHEMOGLOBIN 0.8 % (0-2); BLOOD GAS O2 HGB SATURATION 98 % (90-100); BLOOD GAS PCO2 41 mmHg (38-42); BLOOD GAS PO2 293 mmHg (61-120); BLOOD GAS TOTAL HGB 8.2 G/DL (12.0-16.0); TEMP CORR TO 98.6
[2016-06-17 06:36] LABS: CRITICAL VALUE NO; DRAW SITE LT RADIAL; FIO2 100 %; NUMBER OF ARTERIAL PUNCTURES 1; OXYGEN DEVICE VENTILATOR; STAT NO; ULNAR PULSE PRESENT; VENT SETTINGS PRVC/AC
[2016-06-17] MEDS: NOREPINEPHRINE 4 MG/D5W 250 ML IV SCH ×2 (06:38→11:51)
[2016-06-17] MEDS ORDERED: ETOMIDATE 20 MG/10 ML VIAL IV PUSH ONE (07:00)
[2016-06-17] MEDS ORDERED: MIDAZOLAM HCL 2 MG/2 ML VIAL IV ONE (07:00)
[2016-06-17] MEDS ORDERED: SUCCINYLCHOLINE CHLORIDE 200 MG/10 ML VIAL IV ONE (07:00)
--- NOTE | 2016-06-17 07:18 | HHI.PR ---
Subjective Subjective Notes Respiratory distress overnight Intubated and bronchoscopy done around 06 today Objective Vitals/I&O Vital Signs Date Time Temp Pulse Resp B/P Pulse Ox O2 Delivery O2 Flow Rate FiO2 06/17/16 06:44 45 06/17/16 06:39 100 06/17/16 06:00 22 06/17/16 06:00 110 06/17/16 04:00 98.5 116/58 06/17/16 03:00 Non-Rebreather 15.00 Labs Laboratory Tests Test 06/17/16 06/17/16 06/17/16 00:20 04:50 06:22 Blood Gas Puncture Site RT RADIAL LT RADIAL Blood Gas Patient Temperature 98.6 98.6 Blood Gas HCO3 26 27 Blood Gas Base Excess 2.2 3.0 Blood Gas Oxygen Saturation 88 98 Arterial Blood pH 7.44 7.44 Arterial Blood Partial 39 41 Pressure CO2 Arterial Blood Partial 60 293 Pressure O2 Arterial Blood Oxygen Content 11.1 12.0 Arterial Blood 1.5 1.2 Carboxyhemoglobin Arterial Blood Methemoglobin 0.7 0.8 Blood Gas Hemoglobin 8.9 8.2 Oxygen Delivery Device Non-Rebreathing VENTILATOR Mask Blood Gas Liter Flow 15 Blood Gas Inspired Oxygen 100 100 White Blood Count 13.4 Red Blood Count 3.77 Hemoglobin 9.5 Hematocrit 30.1 Mean Corpuscular Volume 80.0 Mean Corpuscular Hemoglobin 25.3 Mean Corpuscular Hemoglobin 31.6 Concent Red Cell Distribution Width 14.6 Platelet Count 235 Mean Platelet Volume 8.3 Neutrophils (%) (Auto) 91.3 Lymphocytes (%) (Auto) 3.9 Monocytes (%) (Auto) 4.6 Eosinophils (%) (Auto) 0.0 Basophils (%) (Auto) 0.2 Neutrophils # (Auto) 12.2 Lymphocytes # (Auto) 0.5 Monocytes # (Auto) 0.6 Eosinophils # (Auto) 0.0 Basophils # (Auto) 0.0 CBC Comment DIFF FINAL Differential Comment Sodium Level 135 Potassium Level 3.7 Chloride Level 101 Carbon Dioxide Level 25.6 Anion Gap 8 Blood Urea Nitrogen 8 Creatinine 0.43 Estimat Glomerular Filtration 205 Rate Random Glucose 103 Calcium Level 7.8 Total Bilirubin 0.4 Aspartate Amino Transf 32 (AST/SGOT) Alanine Aminotransferase 21 (ALT/SGPT) Alkaline Phosphatase 55 Total Protein 5.4 Albumin 2.2 Blood Gas Ventilator Setting PRVC/AC Cardiovascular: Regular Lungs: Clear Abdomen: Other (midline incision with dry dressing in place; J tube in bedside drainage bag; non distended ) Extremities: No edema Narrative Exam RIGHT chest tube in place to wall suction; no air leak A/P Assessment and Plan 55 year old male with esophageal cancer POD1 open [place] Moustapha Esophagectomy -CXR shows complete LEFT opacification -CCM re-intubated and performed bronchoscopy this AM -On Levophed 9 mcg due to sedation medications given during bronchoscopy -Pain control -Continue CT to wall suction -Repeat CXR in AM -Labs in AM -Spoke with LAUREN Dee and LAUREN Garcia at bedside Attending Statement The exam, history, and the medical decision-making described in the above note were completed with the assistance of the mid-level provider. I reviewed and agree with the findings presented. I attest that I had a [id number] encounter with the patient on the same day, and personally performed and documented my assessment and findings in the medical record. patient extubated yesterday but reintubated, d/w family, d/w Dr. Goodwin, continue pulmonary and CC support, may start TF when more stable Dahlia Sanford June 17, 2016 07:18 Armando Bruner MD June 17, 2016 11:07
[2016-06-17] MEDS: SODIUM CHLORIDE 0.9% FLUSH 10 ML FLUSH IV FLUSH SCH ×2 (08:48→20:32)
[2016-06-17] MEDS: RESP: ALBUTEROL 2.5 MG/IPRATROPIUM 0.5 MG NEB (SCH) NEB ×5 (09:19→23:52)
[2016-06-17] MEDS: RESP: ACETYLCYSTEINE 10% 30 ML NEB NEB SCH ×5 (09:19→23:53)
--- NOTE | 2016-06-17 10:42 | RADRPT ---
EXAM DATE/TIME: 06/17/2016 10:09 [facility] COMPARISON: CHEST SINGLE AP, June 17, 2016, 6:05. INDICATIONS : Central line placement MEDICAL HISTORY : Opacity left lung SURGICAL HISTORY : Unknown ENCOUNTER: Subsequent ACUITY: 2 days PAIN SCORE: Non-responsive. LOCATION: Left chest FINDINGS: Single AP view of the chest demonstrates a normal-sized cardiac silhouette. A right subclavian centra l line has been placed and extends cephalad off the superior aspect of the image and likely extends i nto the internal jugular vein. Distal tip is not visualized. No pneumothorax is visualized. There is stable left basilar pleural-parenchymal opacity. Right chest tube remains present. Nasogastric tube a lso remains present with distal tip overlying the inferior mediastinum. CONCLUSION: 1. The right subclavian central line extends into the right neck and distal tip is not visualized. It is likely somewhere in the internal jugular vein. 2. Otherwise, the remaining findings are stable. Fabio Luis MD on June 17, 2016 at 10:38 Board Certified Radiologist. This report was verified electronically.
--- NOTE | 2016-06-17 10:47 | HHI.CCPN ---
Subjective Remarks/Hospital Course 55-year-old male with history of esophageal cancer previously treated with chemotherapy/radiation who underwent open eye with Moustapha esophagectomy with right sided chest tube/J-tube placement under general anesthesia by Dr. Bruner/Dr. Blanco, EBL 300 cc, tolerated procedure well and was subsequently transferred to PACU kept intubated on mechanical ventilation. Consult was requested by Dr. Bruner for critical care management. I evaluated the patient in PACU shortly following his arrival there. At that time was sedated, orally intubated on mechanical ventilation. History was obtained by reviewing records and discussion with Dr. Bruner. 06/16: Awake and alert. Push for extubation. 06/17: Required re-intubation last night for excessive secretions and hypoxemic failure. Objective Vital Signs Date Time Temp Pulse Resp B/P Pulse Ox O2 Delivery O2 Flow Rate FiO2 06/17/16 09:24 97 45 06/17/16 07:32 Mechanical Ventilator 06/17/16 06:00 22 06/17/16 06:00 110 06/17/16 04:00 98.5 116/58 06/17/16 03:00 15.00 Intake and Output 06/16/16 06/16/16 06/17/16 08:00 16:00 00:00 Intake Total 1013 ml 1073 ml 673 ml Output Total 681 ml 1124 ml 655 ml Balance 332 ml -51 ml 18 ml Result Diagram: 06/17/16 0450 06/17/16 0450 Other Results Laboratory Tests Test 06/17/16 06/17/16 00:20 06:22 Blood Gas Puncture Site RT RADIAL LT RADIAL Blood Gas Patient Temperature 98.6 98.6 Blood Gas HCO3 26 mmol/L 27 mmol/L (22-26) (22-26) Blood Gas Base Excess 2.2 mmol/L 3.0 mmol/L (-2-2) (-2-2) Blood Gas Oxygen Saturation 88 % (90-100) 98 % (90-100) Arterial Blood pH 7.44 7.44 (7.380-7.420) (7.380-7.420) Arterial Blood Partial 39 mmHg (38-42) 41 mmHg (38-42) Pressure CO2 Arterial Blood Partial 60 mmHg 293 mmHg Pressure O2 (61-120) (61-120) Arterial Blood Oxygen Content 11.1 Vol % 12.0 Vol % (12.0-20.0) (12.0-20.0) Arterial Blood 1.5 % (0-4) 1.2 % (0-4) Carboxyhemoglobin Arterial Blood Methemoglobin 0.7 % (0-2) 0.8 % (0-2) Blood Gas Hemoglobin 8.9 G/DL 8.2 G/DL (12.0-16.0) (12.0-16.0) Oxygen Delivery Device Non-Rebreathing VENTILATOR Mask Blood Gas Liter Flow 15 L/M Blood Gas Inspired Oxygen 100 % 100 % Blood Gas Ventilator Setting PRVC/AC Imaging Last Impressions Chest X-Ray 06/15/16 0000 Signed Impressions: Service Date/Time: Wednesday, June 15, 2016 15:00 - CONCLUSION: 1. Support equipment in good position. Doroteo Quinn MD Objective Remarks HEENT/ Neuro: Sedated, orally intubated. Opens eyes to voice, moves 4 limbs. Neck: Orally intubated. Chest/Pulm: Good air entry bilaterally, but diffuse wheezes. Right sided chest tube in place with minimal bloody drainage, no air leak CVS: S1-S2 regular, no murmur. No JVD. GI/abdomen: soft, nontender, bowel sounds not appreciated. J-tube in place. Extremities: warm bilaterally, no edema A/P Assessment and Plan Assessment: Esophageal cancer status post open [place] Moustapha esophagectomy, J-tube placement () Acute respiratory failure on mechanical ventilation Hypotension Plan: Neuro: taper off sedation with propofol/fentanyl while intubated. Daily sedation vacation. Once extubated initiate fentanyl SINGER SONGWRITER. Has an On-Q pump in place for local anesthetic around chest tube insertion site. He requires significant narcotics and benzodiazepines at home for pain control as well as bleed. May require higher doses than usual of narcotics. Cardiovascular: 2 L normal saline bolus ordered for borderline blood pressure. If he remains hypotensive start Levophed for pressor support. Pulmonary: Wean mechanical ventilation, vent bundle, bronchodilators as needed. Initiate C Pap trials tomorrow to decide extubation. Adjusted vent for respiratory acidosis. GI/liver: Nothing by mouth for now. Start G-tube feeds and okay with general surgery Renal/: IV hydration, strict intake output, monitor and replete electrolytes, follow BUN/creatinine. Heme: Follow CBC. Transfuse to keep hemoglobin greater than 8 g percent. ID: Empiric Flagyl as patient appeared to have a contained esophageal perforation. Ancef for prophylactic antibiotic perioperatively. Endocrine: SSI for glycemic control as needed. Prophylaxis: PPI/SCDs. Subcutaneous Lovenox when okay with general surgery. Discussed in detail with Dr. Vallejo. Overall impression: Severe underlying COPD complicates care. He is critically ill requiring mechanical ventilation. Critical Care 40 mins aside from procedure Lenny White MD June 17, 2016 10:47
[2016-06-17] MEDS: SODIUM CHLOR 0.9% 1000 ML INJ 1,000 ML IV SCH ×2 (11:00→20:25)
[2016-06-17] MEDS ORDERED: TERBUTALINE INJ 1 MG/ML AMP SQ PRN (11:00)
[2016-06-17] MEDS: PROPOFOL 1000 MG/100 ML IV SCH ×2 (11:30→22:33)
[2016-06-17] MEDS: PHENYLEPHRINE HCL 80 MG/D5W 492 ML ADMIX IV SCH ×4 (11:30→23:06)
[2016-06-17] MEDS: ENOXAPARIN SODIUM 40 MG/0.4 ML SYRINGE SQ SCH (13:30)
--- NOTE | 2016-06-17 14:41 | MP ---
cc: DG JACQUES DATE OF SURGERY: 06/17/2016. PREOPERATIVE DIAGNOSIS: 1. Ventilator-dependent respiratory failure. 2. Esophageal cancer. POSTOPERATIVE DIAGNOSIS: 1. Ventilator-dependent respiratory failure. 2. Esophageal cancer. OPERATIVE PROCEDURE PERFORMED: Right subclavian vein central line triple lumen placement. ATTENDING SURGEON: Dg Jacques M.D. BRAND LEAD: None. ANESTHESIA: Local anesthetic 1% lidocaine. COMPLICATIONS: None. ESTIMATED BLOOD LOSS: Less than 10 cc. INDICATIONS FOR THE PROCEDURE: The patient is a 55-year-old male status post esophagectomy who requires significant respiratory support due to chronic lung disease. The patient also requires significant fluid and medication support including pressure support at this time and requires central line placement. The patient urgently requires this need and I was called stat by nurse for venous access. [facility] consent was signed by the physician. DESCRIPTION OF THE PROCEDURE IN DETAIL: The patient was sedated on the ventilator. The patient's right chest wall and neck were prepped and draped in sterile fashion. Time-out was performed. We accessed the right subclavian vein on first attempt with an 18 gauge finder needle without difficulty. We passed the wire without difficulty down distally. We did not get ectopy but the wire passed a great distance consistent with going into the inferior vena cava. At this point in time, we dilated the tract and placed a 20 cm triple-lumen catheter into the right subclavian vein without difficulty. This was done using normal sterile Seldinger technique. We sutured this in place with 3-0 silk suture. A Biopatch and a sterile dressing was applied. This was aspirated and flushed over sterile saline. A stat chest x-ray was ordered. The patient tolerated the procedure well. There were no apparent complications. I was present and scrubbed for the entire procedure. MD AYSHA Zhou/SHAYY /10:11 AM /2:36 PM
[2016-06-17] MEDS: PANTOPRAZOLE SODIUM 40 MG VIAL IV SCH (16:34)
[2016-06-17] MEDS: fentaNYL DRIP 250 ML IV SCH (20:25)
[2016-06-18] VITALS (19 sets, daily range): BP systolic 11–111; BP diastolic 53–65; PULSE 59–106; RESP 14–16; TEMP 97.3–100.1; O2SAT 94–100
[2016-06-18] MEDS: RESP: ALBUTEROL 2.5 MG/IPRATROPIUM 0.5 MG NEB (SCH) NEB ×6 (03:19→23:29)
[2016-06-18] MEDS: RESP: ACETYLCYSTEINE 10% 30 ML NEB NEB SCH ×6 (03:19→23:29)
[2016-06-18] MEDS: ACETAMINOPHEN 1000 MG/100 ML VIAL IV SCH ×2 (03:44→09:18)
[2016-06-18 05:05] LABS: AUTOMATED NEUTROPHIL # 13.8 TH/MM3 (1.8-7.7); BASOPHIL # 0.1 TH/MM3 (0-0.2); BASOPHIL % 0.4 % (0.0-2.0); HEMATOCRIT 26.3 % (39.0-51.0); HEMO FLAGS DIFF FINAL; LYMPH % 1.3 % (9.0-44.0); LYMPHOCYTE # 0.2 TH/MM3 (1.0-4.8); MEAN CELL VOLUME 79.3 FL (80.0-100.0); MEAN CORPUSCULAR HEMOGLOBIN 25.4 PG (27.0-34.0); MEAN CORPUSCULAR HGB CONC 32.1 % (32.0-36.0); MONO % 5.7 % (0.0-8.0); NEUT % 92.6 % (16.0-70.0); PLATELET COUNT 232 TH/MM3 (150-450); RED BLOOD COUNT 3.32 MIL/MM3 (4.50-5.90); RED CELL DISTRIBUTION WIDTH 14.8 % (11.6-17.2); WHITE BLOOD COUNT 14.9 TH/MM3 (4.0-11.0)
[2016-06-18 05:25] LABS: POTASSIUM 3.2 MEQ/L (3.5-5.1)
[2016-06-18] MEDS: PCA - TOTAL MG MORPHINE DELIVERED PER SHIFT SCH ×3 (05:46→20:06)
[2016-06-18] MEDS: PROPOFOL 1000 MG/100 ML IV SCH ×2 (06:07→12:58)
[2016-06-18 06:10] LABS: BLOOD GAS BASE EXCESS 0.6 mmol/L (-2-2); BLOOD GAS CARBOXYHEMOGLOBIN 1.4 % (0-4); BLOOD GAS HCO3 25 mmol/L (22-26); BLOOD GAS METHEMOGLOBIN 0.5 % (0-2); BLOOD GAS O2 HGB SATURATION 89 % (90-100); BLOOD GAS OXYGEN CONTENT 10.4 Vol % (12.0-20.0); BLOOD GAS PCO2 45 mmHg (38-42); BLOOD GAS PO2 62 mmHg (61-120); BLOOD GAS TOTAL HGB 8.3 G/DL (12.0-16.0); TEMP CORR TO 98.6
[2016-06-18 06:13] LABS: CRITICAL VALUE YES; OXYGEN DEVICE VENTILATOR
[2016-06-18 06:14] LABS: DRAW SITE LT BRACHIAL; FIO2 45 %; NUMBER OF ARTERIAL PUNCTURES 1; STAT NO; ULNAR PULSE PRESENT; VENT SETTINGS SEE COMMENTS
[2016-06-18] MEDS: SODIUM CHLOR 0.9% 1000 ML INJ 1,000 ML IV SCH ×2 (07:00→16:25)
[2016-06-18] MEDS: SODIUM CHLORIDE 0.9% FLUSH 10 ML FLUSH IV FLUSH SCH ×2 (08:32→21:00)
[2016-06-18] MEDS: fentaNYL DRIP 250 ML IV SCH ×2 (09:18→20:06)
[2016-06-18] MEDS: ENOXAPARIN SODIUM 40 MG/0.4 ML SYRINGE SQ SCH (12:58)
--- NOTE | 2016-06-18 14:25 | RADRPT ---
EXAM DATE/TIME: 06/18/2016 13:28 [facility] COMPARISON: CHEST SINGLE AP, June 17, 2016, 10:09. INDICATIONS : Shortness of breath. MEDICAL HISTORY : None. SURGICAL HISTORY : None. ENCOUNTER: Subsequent ACUITY: 3 days PAIN SCORE: Non-responsive. LOCATION: Bilateral chest FINDINGS: A single AP semierect view of the chest was obtained and again demonstrates an endotracheal tube in p lace with the tip approximately 5 cm above the lu. The nasogastric tube remains in place with the tip in the distal esophagus. There is a right subclavian central venous catheter again noted which e xtends cephalad into the neck. Hazy opacity remains in the lung bases left greater than right. There is blunting of the left costophrenic angle. The heart size is at the upper limits of normal. There is no pneumothorax. There overlying electrocardiogram leads and oxygen tubing. CONCLUSION: 1. Hazy opacity remains at the lung bases left greater than right with definite left effusion. 2. The nasogastric tube remains in place with the tip in the distal stomach and could be advanced at least 10 cm. 3. The right subclavian central venous line is again noted to extend up into the neck and likely is i n the internal jugular vein. Ryan Barros MD on June 18, 2016 at 14:20 Board Certified Radiologist. This report was verified electronically.
[2016-06-18] MEDS ORDERED: ICU - SODIUM PHOSPHATE 30 MMOL/NS 250 ML IV PRN ×2 (15:00)
[2016-06-18] MEDS ORDERED: ICU - CALL ORDERING PHYSICIAN PRN (15:00)
[2016-06-18] MEDS ORDERED: ICU - POTASSIUM PHOSPHATE MONOBASIC 500 MG TAB PO PRN (15:00)
[2016-06-18] MEDS ORDERED: ICU - MAGNESIUM OXIDE 400 MG TAB PO PRN (15:00)
[2016-06-18] MEDS ORDERED: ICU - MAGNESIUM SULFATE 4 GM/NS 100 ML IV PRN ×2 (15:00)
[2016-06-18] MEDS ORDERED: ICU - MAGNESIUM SULFATE 2 GM/NS 100 ML IV PRN ×2 (15:00)
[2016-06-18] MEDS ORDERED: POTASSIUM CHLORIDE 25 MEQ EFFERVESCENT TAB PO PRN (15:00)
[2016-06-18] MEDS ORDERED: ICU - D/C ICU ELECTROLYTE ORDERS PRN (15:00)
[2016-06-18] MEDS: PANTOPRAZOLE SODIUM 40 MG VIAL IV SCH (15:23)
[2016-06-18] MEDS: ICU - POTASSIUM CHLORIDE/AQUEOUS SOLN 40 MEQ/100 ML IVPB IV PRN ×2 (15:23→17:27)
[2016-06-18 16:19] LABS: BLOOD GAS BASE EXCESS 0.1 mmol/L (-2-2); BLOOD GAS CARBOXYHEMOGLOBIN 1.3 % (0-4); BLOOD GAS HCO3 25 mmol/L (22-26); BLOOD GAS METHEMOGLOBIN 0.7 % (0-2); BLOOD GAS O2 HGB SATURATION 96 % (90-100); BLOOD GAS OXYGEN CONTENT 11.1 Vol % (12.0-20.0); BLOOD GAS PCO2 44 mmHg (38-42); BLOOD GAS PO2 97 mmHg (61-120); BLOOD GAS TOTAL HGB 8.2 G/DL (12.0-16.0); CRITICAL VALUE NO; DRAW SITE ART LINE; FIO2 50 %; OXYGEN DEVICE VENTILATOR; STAT NO; TEMP CORR TO 98.6; VENT SETTINGS PRVC/AC
[2016-06-18] MEDS: PHENYLEPHRINE HCL 80 MG/D5W 492 ML ADMIX IV SCH ×2 (16:26)
--- NOTE | 2016-06-18 16:45 | PD.PROCEDR ---
Procedure Note Procedure DX: Respiratory Failure (J96.01) OP: Insertion Left Common Femoral Arterial Line (88380) Procedure: Unable to cannulate either side radial artery. Left groin prepped and draped. Using ultrasound guidance, the left common femoral artery was cannulated with a 22 guage needle and the wire easily advanced. Cannula threaded over wire to 12 cm. Good waveform observed. Dressing applied. Posterior tibial pulse left leg palpable after procedure. Lenny White MD June 18, 2016 16:45
--- NOTE | 2016-06-18 17:04 | HHI.PR ---
Subjective Subjective Notes Intubated, sedated Objective Vitals/I&O Vital Signs Date Time Temp Pulse Resp B/P Pulse Ox O2 Delivery O2 Flow Rate FiO2 06/18/16 16:26 99 45 06/18/16 16:00 64 06/18/16 16:00 98.4 14 109/58 06/18/16 07:00 Mechanical Ventilator 06/17/16 03:00 15.00 Labs Laboratory Tests Test 06/18/16 06/18/16 06/18/16 03:11 06:00 16:11 White Blood Count 14.9 Red Blood Count 3.32 Hemoglobin 8.4 Hematocrit 26.3 Mean Corpuscular Volume 79.3 Mean Corpuscular Hemoglobin 25.4 Mean Corpuscular Hemoglobin 32.1 Concent Red Cell Distribution Width 14.8 Platelet Count 232 Mean Platelet Volume 8.2 Neutrophils (%) (Auto) 92.6 Lymphocytes (%) (Auto) 1.3 Monocytes (%) (Auto) 5.7 Eosinophils (%) (Auto) 0.0 Basophils (%) (Auto) 0.4 Neutrophils # (Auto) 13.8 Lymphocytes # (Auto) 0.2 Monocytes # (Auto) 0.9 Eosinophils # (Auto) 0.0 Basophils # (Auto) 0.1 CBC Comment DIFF FINAL Differential Comment Sodium Level 138 Potassium Level 3.2 Chloride Level 104 Carbon Dioxide Level 26.0 Anion Gap 8 Blood Urea Nitrogen 6 Creatinine 0.37 Estimat Glomerular Filtration 244 Rate Random Glucose 69 Calcium Level 7.6 Blood Gas Puncture Site LT BRACHIAL ART LINE Blood Gas Patient Temperature 98.6 98.6 Blood Gas HCO3 25 25 Blood Gas Base Excess 0.6 0.1 Blood Gas Oxygen Saturation 89 96 Arterial Blood pH 7.37 7.37 Arterial Blood Partial 45 44 Pressure CO2 Arterial Blood Partial 62 97 Pressure O2 Arterial Blood Oxygen Content 10.4 11.1 Arterial Blood 1.4 1.3 Carboxyhemoglobin Arterial Blood Methemoglobin 0.5 0.7 Blood Gas Hemoglobin 8.3 8.2 Oxygen Delivery Device VENTILATOR VENTILATOR Blood Gas Ventilator Setting SEE COMMENTS PRVC/AC Blood Gas Inspired Oxygen 45 50 Lungs: Clear Abdomen: Non-distended Narrative Exam CT output serosanguinous No air leak On-Q pump empty A/P Assessment and Plan Assessment and Plan 55 year old male with esophageal cancer POD2 open [place] Moustapha Esophagectomy -On Levophed 9 mcg due to sedation medications given during bronchoscopy -Pain control -Continue CT to wall suction -Repeat CXR in AM -Labs in AM Ryan Azevedo MD June 18, 2016 17:04
[2016-06-19] VITALS (18 sets, daily range): BP systolic 97–123; BP diastolic 53–69; PULSE 65–136; RESP 14; TEMP 97.2–99.3; O2SAT 91–100
[2016-06-19] MEDS: PROPOFOL 1000 MG/100 ML IV SCH ×2 (00:13→22:14)
[2016-06-19] MEDS: SODIUM CHLOR 0.9% 1000 ML INJ 1,000 ML IV SCH ×3 (03:00→22:15)
[2016-06-19] MEDS: RESP: ACETYLCYSTEINE 10% 30 ML NEB NEB SCH ×5 (03:35→20:17)
[2016-06-19] MEDS: RESP: ALBUTEROL 2.5 MG/IPRATROPIUM 0.5 MG NEB (SCH) NEB ×5 (03:35→20:17)
[2016-06-19 04:19] LABS: AUTOMATED NEUTROPHIL # 18.1 TH/MM3 (1.8-7.7); BASOPHIL # 0.1 TH/MM3 (0-0.2); BASOPHIL % 0.3 % (0.0-2.0); EOSINOPHIL % 0.1 % (0.0-4.0); LYMPH % 1.1 % (9.0-44.0); LYMPHOCYTE # 0.2 TH/MM3 (1.0-4.8); MEAN CELL VOLUME 80.4 FL (80.0-100.0); MEAN CORPUSCULAR HEMOGLOBIN 24.8 PG (27.0-34.0); MEAN CORPUSCULAR HGB CONC 30.9 % (32.0-36.0); MONO % 4.1 % (0.0-8.0); NEUT % 94.4 % (16.0-70.0); PLATELET COUNT 246 TH/MM3 (150-450); RED BLOOD COUNT 3.36 MIL/MM3 (4.50-5.90); RED CELL DISTRIBUTION WIDTH 14.5 % (11.6-17.2); WHITE BLOOD COUNT 19.2 TH/MM3 (4.0-11.0)
[2016-06-19 04:23] LABS: HEMO FLAGS AUTO DIFF
[2016-06-19] MEDS: PCA - TOTAL MG MORPHINE DELIVERED PER SHIFT SCH ×3 (04:29→22:00)
[2016-06-19 04:32] LABS: BICARBONATE 26.5 MEQ/L (21.0-32.0); POTASSIUM 3.5 MEQ/L (3.5-5.1)
[2016-06-19] MEDS: PHENYLEPHRINE HCL 80 MG/D5W 492 ML ADMIX IV SCH ×4 (06:37→15:33)
[2016-06-19 07:28] LABS: BLOOD GAS BASE EXCESS 0.5 mmol/L (-2-2); BLOOD GAS CARBOXYHEMOGLOBIN 1.3 % (0-4); BLOOD GAS HCO3 26 mmol/L (22-26); BLOOD GAS METHEMOGLOBIN 0.6 % (0-2); BLOOD GAS O2 HGB SATURATION 86 % (90-100); BLOOD GAS OXYGEN CONTENT 10.6 Vol % (12.0-20.0); BLOOD GAS PCO2 51 mmHg (38-42); BLOOD GAS PO2 58 mmHg (61-120); BLOOD GAS TOTAL HGB 8.7 G/DL (12.0-16.0); CRITICAL VALUE YES; TEMP CORR TO 98.6
[2016-06-19 07:29] LABS: DRAW SITE ART LINE; FIO2 45 %; OXYGEN DEVICE VENTILATOR; STAT YES; VENT SETTINGS PRVC/AC
[2016-06-19] MEDS: ICU - POTASSIUM CHLORIDE/AQUEOUS SOLN 40 MEQ/100 ML IVPB IV PRN (07:32)
[2016-06-19] MEDS: SODIUM CHLORIDE 0.9% FLUSH 10 ML FLUSH IV FLUSH SCH ×2 (07:32→22:00)
[2016-06-19] MEDS: fentaNYL DRIP 250 ML IV SCH ×2 (07:32→16:11)
--- NOTE | 2016-06-19 08:01 | RADRPT ---
EXAM DATE/TIME: 06/19/2016 07:12 [facility] COMPARISON: CHEST SINGLE AP, June 18, 2016, 13:28. INDICATIONS : Respiratory failure. Patient is intubated. Followup infiltrates.. MEDICAL HISTORY : None. SURGICAL HISTORY : None. ENCOUNTER: Initial ACUITY: 1 day PAIN SCORE: Non-responsive. LOCATION: Bilateral chest FINDINGS: 2 AP semierect views of the chest were obtained and again demonstrate the endotracheal tube in place with tip approximately 4 cm above the lu. The nasogastric tube remains in place with the tip proj ected over the distal esophagus. The right internal jugular central venous line remains in place is a gain seen heading cephalad into the internal jugular vein. The tip is not visualized. Hazy opacity re danial in the lung bases left greater than right. Left costophrenic angle is blunted. The heart size r emains within normal limits. There are multiple overlying electrocardiogram leads and oxygen tubing. CONCLUSION: 1. Stable appearance of the abnormal opacity at both lung bases left greater than right. 2. Right subclavian central venous line remains in place with abnormal course and extent cephalad int o the internal jugular vein. 3. The nasogastric tube remains in place with the tip in the distal esophagus. This could be advanced at least 10 cm. Ryan Barros MD on June 19, 2016 at 7:55 Board Certified Radiologist. This report was verified electronically.
[2016-06-19 08:34] LABS: BANDS 34 % (0-6); NEUTROPHIL # MANUAL DIFF 18.8 TH/MM3 (1.8-7.7); POLYS (SEG NEUTROPHILS) 64 % (16-70); WBC DIFF SAMPLE 100
[2016-06-19 08:35] LABS: PLATELET ESTIMATE SMEAR NORMAL (NORMAL); PLATELET MORPHOLOGY NORMAL (NORMAL); SCAN/DIFF FINAL DIFF MANUAL
[2016-06-19] MEDS: ENOXAPARIN SODIUM 40 MG/0.4 ML SYRINGE SQ SCH (12:12)
[2016-06-19] MEDS: PANTOPRAZOLE SODIUM 40 MG VIAL IV SCH (16:11)
--- NOTE | 2016-06-19 16:31 | HHI.CCPN ---
Subjective Remarks/Hospital Course 55-year-old male with history of esophageal cancer previously treated with chemotherapy/radiation who underwent open eye with Moustapha esophagectomy with right sided chest tube/J-tube placement under general anesthesia by Dr. Bruner/Dr. Blanco, EBL 300 cc, tolerated procedure well and was subsequently transferred to PACU kept intubated on mechanical ventilation. Consult was requested by Dr. Bruner for critical care management. I evaluated the patient in PACU shortly following his arrival there. At that time was sedated, orally intubated on mechanical ventilation. History was obtained by reviewing records and discussion with Dr. Bruner. 06/16: Awake and alert. Push for extubation. 06/17: Required re-intubation last night for excessive secretions and hypoxemic failure. 06/18: Gas exchange improved. Awaiting cultures. Objective Vital Signs Date Time Temp Pulse Resp B/P Pulse Ox O2 Delivery O2 Flow Rate FiO2 06/19/16 14:00 136 06/19/16 12:00 50 06/19/16 12:00 98.4 14 110/69 97 06/18/16 07:00 Mechanical Ventilator 06/17/16 03:00 15.00 Intake and Output 06/18/16 06/18/16 06/19/16 08:00 16:00 00:00 Intake Total 1257 ml 1434 ml 1544 ml Output Total 600 ml 960 ml 475 ml Balance 657 ml 474 ml 1069 ml Result Diagram: 06/19/16 0350 06/19/16 1510 Other Results Laboratory Tests Test 06/19/16 07:20 Blood Gas Puncture Site ART LINE Blood Gas Patient Temperature 98.6 Blood Gas HCO3 26 mmol/L (22-26) Blood Gas Base Excess 0.5 mmol/L (-2-2) Blood Gas Oxygen Saturation 86 % (90-100) Arterial Blood pH 7.33 (7.380-7.420) Arterial Blood Partial 51 mmHg (38-42) Pressure CO2 Arterial Blood Partial 58 mmHg Pressure O2 (61-120) Arterial Blood Oxygen Content 10.6 Vol % (12.0-20.0) Arterial Blood 1.3 % (0-4) Carboxyhemoglobin Arterial Blood Methemoglobin 0.6 % (0-2) Blood Gas Hemoglobin 8.7 G/DL (12.0-16.0) Oxygen Delivery Device VENTILATOR Blood Gas Ventilator Setting [facility]/AC Blood Gas Inspired Oxygen 45 % Imaging Last Impressions Chest X-Ray 06/15/16 0000 Signed Impressions: Service Date/Time: Wednesday, June 15, 2016 15:00 - CONCLUSION: 1. Support equipment in good position. Doroteo Quinn MD Objective Remarks HEENT/ Neuro: Sedated, orally intubated. Opens eyes to voice, moves 4 limbs. Neck: Orally intubated. Chest/Pulm: Good air entry bilaterally, but light wheezes. Right sided chest tube in place with minimal bloody drainage, no air leak CVS: S1-S2 regular, no murmur. No JVD. GI/abdomen: soft, nontender, bowel sounds not appreciated. J-tube in place. Extremities: warm bilaterally, no edema A/P Assessment and Plan Assessment: Esophageal cancer status post open [place] Moustapha esophagectomy, J-tube placement () Acute respiratory failure on mechanical ventilation Hypotension Plan: Neuro: taper off sedation with propofol/fentanyl while intubated. Daily sedation vacation. 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 Has an On-Q pump in place for local anesthetic around chest tube insertion site. He requires significant narcotics and benzodiazepines at home for pain control as well as bleed. May require higher doses than usual of narcotics. Cardiovascular: 2 L normal saline bolus ordered for borderline blood pressure. If he remains hypotensive start Levophed for pressor support. Pulmonary: Wean mechanical ventilation, vent bundle, bronchodilators as needed. Initiate C Pap trials tomorrow to decide extubation. Adjusted vent for respiratory acidosis. GI/liver: Nothing by mouth for now. Start G-tube feeds and okay with general surgery Renal/: IV hydration, strict intake output, monitor and replete electrolytes, follow BUN/creatinine. Heme: Follow CBC. Transfuse to keep hemoglobin greater than 8 g percent. ID: Empiric Flagyl as patient appeared to have a contained esophageal perforation. Ancef for prophylactic antibiotic perioperatively. Endocrine: SSI for glycemic control as needed. Prophylaxis: PPI/SCDs. Subcutaneous Lovenox when okay with general surgery. Discussed in detail with Dr. Vallejo. Overall impression: Severe underlying COPD complicates care. He is critically ill requiring mechanical ventilation. Cultures from lungs pending. Critical Care 39 mins aside from procedure Lenny White MD June 19, 2016 16:31
[2016-06-19] MEDS: PIPERACIL-TAZO 3.375 GM PREMIX 50 ML IV SCH ×2 (16:46→23:51)
[2016-06-19] MEDS: METOPROLOL TARTRATE 5 MG/5 ML VIAL IV PUSH SCH ×2 (16:46→23:52)
[2016-06-19] MEDS: LEVOFLOXACIN 750 MG PREMIX INJ 150 ML IV SCH (16:46)
[2016-06-19] MEDS ORDERED: BENEPROTEIN POWDER 1 PACK G-TUBE SCH (18:00)
--- NOTE | 2016-06-19 18:28 | HHI.PR ---
Subjective Subjective Notes pt remains critical on patsy, leukocytosis, sedated Objective Vitals/I&O Vital Signs Date Time Temp Pulse Resp B/P Pulse Ox O2 Delivery O2 Flow Rate FiO2 06/19/16 18:00 125 06/19/16 16:27 94 50 06/19/16 16:00 99.3 14 123/58 06/18/16 07:00 Mechanical Ventilator 06/17/16 03:00 15.00 Labs Laboratory Tests Test 06/18/16 06/19/16 06/19/16 06/19/16 21:59 03:50 07:20 15:10 Potassium Level 3.7 3.5 3.7 White Blood Count 19.2 Red Blood Count 3.36 Hemoglobin 8.3 Hematocrit 27.0 Mean Corpuscular Volume 80.4 Mean Corpuscular Hemoglobin 24.8 Mean Corpuscular Hemoglobin 30.9 Concent Red Cell Distribution Width 14.5 Platelet Count 246 Mean Platelet Volume 8.3 Neutrophils (%) (Auto) 94.4 Lymphocytes (%) (Auto) 1.1 Monocytes (%) (Auto) 4.1 Eosinophils (%) (Auto) 0.1 Basophils (%) (Auto) 0.3 Neutrophils # (Auto) 18.1 Lymphocytes # (Auto) 0.2 Monocytes # (Auto) 0.8 Eosinophils # (Auto) 0.0 Basophils # (Auto) 0.1 CBC Comment AUTO DIFF Differential Total Cells 100 Counted Neutrophils % (Manual) 64 Band Neutrophils % 34 Lymphocytes % 1 Monocytes % 1 Neutrophils # (Manual) 18.8 Differential Comment FINAL DIFF MANUAL Platelet Estimate NORMAL Platelet Morphology Comment NORMAL Sodium Level 141 Chloride Level 108 Carbon Dioxide Level 26.5 Anion Gap 7 Blood Urea Nitrogen 6 Creatinine 0.27 Estimat Glomerular Filtration 352 Rate Random Glucose 88 Calcium Level 7.6 Blood Gas Puncture Site ART LINE Blood Gas Patient Temperature 98.6 Blood Gas HCO3 26 Blood Gas Base Excess 0.5 Blood Gas Oxygen Saturation 86 Arterial Blood pH 7.33 Arterial Blood Partial 51 Pressure CO2 Arterial Blood Partial 58 Pressure O2 Arterial Blood Oxygen Content 10.6 Arterial Blood 1.3 Carboxyhemoglobin Arterial Blood Methemoglobin 0.6 Blood Gas Hemoglobin 8.7 Oxygen Delivery Device VENTILATOR Blood Gas Ventilator Setting PRVC/AC Blood Gas Inspired Oxygen 45 Date/Time Procedure Status Source Growth 06/18/16 20:49 Gram Stain - Final Resulted Sputum Endotracheal 06/18/16 20:49 Sputum Culture - Preliminary Resulted Gram Negative Basilio Cardiovascular: Regular Lungs: Upper airway course sound Abdomen: Non-distended A/P Assessment and Plan 55 year old male with esophageal cancer POD3 open Donald Moustapha Esophagectomy -On patsy, intubated- mgnt per isc -Pain control -Continue CT to wall suction -Repeat CXR in AM -Labs in AM - consider UGI in a few days Mino Molina MD June 19, 2016 18:28
[2016-06-20] VITALS (20 sets, daily range): BP systolic 86–120; BP diastolic 54–71; PULSE 100–122; RESP 14–15; TEMP 98–99.2; O2SAT 92–100
[2016-06-20] MEDS: RESP: ALBUTEROL 2.5 MG/IPRATROPIUM 0.5 MG NEB (SCH) NEB ×7 (00:57→23:27)
[2016-06-20] MEDS: RESP: ACETYLCYSTEINE 10% 30 ML NEB NEB SCH ×7 (00:57→23:28)
[2016-06-20] MEDS: fentaNYL DRIP 250 ML IV SCH ×2 (03:17→15:41)
[2016-06-20 04:39] LABS: AUTOMATED NEUTROPHIL # 17.3 TH/MM3 (1.8-7.7); BASOPHIL % 0.2 % (0.0-2.0); EOSINOPHIL % 0.2 % (0.0-4.0); HEMATOCRIT 24.5 % (39.0-51.0); LYMPH % 0.8 % (9.0-44.0); LYMPHOCYTE # 0.2 TH/MM3 (1.0-4.8); MEAN CELL VOLUME 79.7 FL (80.0-100.0); MEAN CORPUSCULAR HEMOGLOBIN 24.9 PG (27.0-34.0); MEAN CORPUSCULAR HGB CONC 31.2 % (32.0-36.0); MONO % 3.3 % (0.0-8.0); NEUT % 95.5 % (16.0-70.0); PLATELET COUNT 205 TH/MM3 (150-450); RED BLOOD COUNT 3.08 MIL/MM3 (4.50-5.90); WHITE BLOOD COUNT 18.2 TH/MM3 (4.0-11.0)
[2016-06-20 04:43] LABS: HEMO FLAGS AUTO DIFF
[2016-06-20 05:12] LABS: POTASSIUM 3.3 MEQ/L (3.5-5.1)
[2016-06-20 05:32] LABS: CALCIUM-PROTEIN CORRECTED 8.7 MG/DL (8.5-10.1)
[2016-06-20] MEDS: PIPERACIL-TAZO 3.375 GM PREMIX 50 ML IV SCH ×2 (05:49→12:47)
[2016-06-20] MEDS: METOPROLOL TARTRATE 5 MG/5 ML VIAL IV PUSH SCH ×3 (05:49→18:23)
[2016-06-20] MEDS: ICU - POTASSIUM CHLORIDE/AQUEOUS SOLN 40 MEQ/100 ML IVPB IV PRN (05:50)
[2016-06-20] MEDS: PCA - TOTAL MG MORPHINE DELIVERED PER SHIFT SCH ×3 (06:00→22:00)
[2016-06-20 07:05] LABS: BANDS 35 % (0-6); NEUTROPHIL # MANUAL DIFF 17.3 TH/MM3 (1.8-7.7); PLATELET ESTIMATE SMEAR NORMAL (NORMAL); PLATELET MORPHOLOGY NORMAL (NORMAL); POLYS (SEG NEUTROPHILS) 60 % (16-70); SCAN/DIFF FINAL DIFF MANUAL; WBC DIFF SAMPLE 100
[2016-06-20] MEDS: PHENYLEPHRINE HCL 80 MG/D5W 492 ML ADMIX IV SCH ×2 (08:20)
[2016-06-20] MEDS: SODIUM CHLOR 0.9% 1000 ML INJ 1,000 ML IV SCH ×2 (08:21→18:23)
[2016-06-20] MEDS: SODIUM CHLORIDE 0.9% FLUSH 10 ML FLUSH IV FLUSH SCH ×2 (09:59→21:00)
--- NOTE | 2016-06-20 13:37 | PD.CAR.PN ---
CVT Progress Note CVT: POD #: 5 Subjective/Hospital Course: Above events noted. Intubated, sedated. I reviewed his course with Dr. Bruner, Dr. Mccarthy, and his recent PFTs. Objective: Vital Signs Date Time Temp Pulse Resp B/P Pulse Ox O2 Delivery O2 Flow Rate FiO2 06/20/16 11:56 92 40 06/20/16 10:00 114 06/20/16 08:00 98.2 112 14 97/54 98 06/20/16 08:00 40 06/20/16 08:00 112 06/20/16 07:49 95 40 06/20/16 06:00 103 06/20/16 04:34 100 50 06/20/16 04:00 118 06/20/16 04:00 50 06/20/16 04:00 98.0 118 14 100/58 97 06/20/16 02:00 111 06/20/16 00:57 93 50 06/20/16 00:00 50 06/20/16 00:00 101 06/20/16 00:00 98.2 101 14 86/57 99 06/19/16 22:00 127 06/19/16 20:17 95 50 06/19/16 20:00 99.0 126 14 101/59 93 06/19/16 20:00 126 06/19/16 20:00 50 06/19/16 18:00 125 06/19/16 16:27 94 50 06/19/16 16:00 50 06/19/16 16:00 118 06/19/16 16:00 99.3 132 14 123/58 96 06/19/16 14:00 136 Labs: Laboratory Tests Test 06/20/16 03:28 White Blood Count 18.2 TH/MM3 (4.0-11.0) Red Blood Count 3.08 MIL/MM3 (4.50-5.90) Hemoglobin 7.7 GM/DL (13.0-17.0) Hematocrit 24.5 % (39.0-51.0) Mean Corpuscular Volume 79.7 FL (80.0-100.0) Mean Corpuscular Hemoglobin 24.9 PG (27.0-34.0) Mean Corpuscular Hemoglobin 31.2 % Concent (32.0-36.0) Red Cell Distribution Width 15.0 % (11.6-17.2) Platelet Count 205 TH/MM3 (150-450) Mean Platelet Volume 7.9 FL (7.0-11.0) Neutrophils (%) (Auto) 95.5 % (16.0-70.0) Lymphocytes (%) (Auto) 0.8 % (9.0-44.0) Monocytes (%) (Auto) 3.3 % (0.0-8.0) Eosinophils (%) (Auto) 0.2 % (0.0-4.0) Basophils (%) (Auto) 0.2 % (0.0-2.0) Neutrophils # (Auto) 17.3 TH/MM3 (1.8-7.7) Lymphocytes # (Auto) 0.2 TH/MM3 (1.0-4.8) Monocytes # (Auto) 0.6 TH/MM3 (0-0.9) Eosinophils # (Auto) 0.0 TH/MM3 (0-0.4) Basophils # (Auto) 0.0 TH/MM3 (0-0.2) CBC Comment AUTO DIFF Differential Total Cells 100 Counted Neutrophils % (Manual) 60 % (16-70) Band Neutrophils % 35 % (0-6) Lymphocytes % 2 % (9-44) Monocytes % 3 % (0-8) Neutrophils # (Manual) 17.3 TH/MM3 (1.8-7.7) Differential Comment FINAL DIFF MANUAL Platelet Estimate NORMAL (NORMAL) Platelet Morphology Comment NORMAL (NORMAL) Sodium Level 140 MEQ/L (136-145) Potassium Level 3.3 MEQ/L (3.5-5.1) Chloride Level 105 MEQ/L (98-107) Carbon Dioxide Level 29.0 MEQ/L (21.0-32.0) Anion Gap 6 MEQ/L (5-15) Blood Urea Nitrogen 7 MG/DL (7-18) Creatinine 0.33 MG/DL (0.60-1.30) Estimat Glomerular Filtration 279 ML/MIN Rate (>89) Random Glucose 115 MG/DL (74-106) Calcium Level 7.4 MG/DL (8.5-10.1) Protein Corrected Calcium 8.7 MG/DL (8.5-10.1) Total Protein 4.8 GM/DL (6.4-8.2) Result Diagram: 06/20/16 0328 06/20/16 0328 Imaging: Last Impressions Chest X-Ray 06/19/16 0000 Signed Impressions: Service Date/Time: Sunday, June 19, 2016 07:12 - CONCLUSION: 1. Stable appearance of the abnormal opacity at both lung bases left greater than right. 2. Right subclavian central venous line remains in place with abnormal course and extent cephalad into the internal jugular vein. 3. The nasogastric tube remains in place with the tip in the distal esophagus. This could be advanced at least 10 cm. Ryan Barros MD Cardiovascular: RRR Telemetry: ST Pulmonary: Decreased BS on left. GI/: Decreased BS Incision: dry and intact Plan: Recommend transfuse 2 units pRBC and diurese. Wean vent per Dr. Mccarthy. Thin barium swallow when clinically appropriate. continue chest tube for now Continue enteral nutrition Very high-risk for aspiration - must be as upright as possible for PO intake at all times Consider swallow study once he is extubated as many of these patients have dysfunction postop. Mayra Blanco MD June 20, 2016 13:37
--- NOTE | 2016-06-20 14:29 | PD.PROCEDR ---
Procedure Note Procedure Indication: Moderate to large right pleural effusion Description of the Procedure: The patient was placed in the right lateral decubitus position position. The left posterior lateral chest was prepped and draped sterilely. US was used to locate site of needle insertion 1% Lidocaine was infiltrated subcutaneously and into the tissues down to the periosteum of the rib. A small incision was made using a #11 blade. 8 Fr thoracentesis needle was advanced superior to the adjacent rib until fluid was obtained. The catheter was threaded over the needle easily and without resistance. 30 cc were removed and sent for culture, cell count, laboratory studies. Catheter was connected to Vacutainer and total 650 ml of mildly cloudy, blood tinged pleural fluid was obtained . There were no immediate complications noted. There was minimal EBL. The patient tolerated the procedure well. Procedure was possibly performed by me after obtaining informed consent from Edi Mccarthy MD June 20, 2016 14:29
--- NOTE | 2016-06-20 14:43 | HHI.CCPN ---
Subjective Remarks/Hospital Course 55-year-old male with history of esophageal cancer previously treated with chemotherapy/radiation who underwent open eye with Moustapha esophagectomy with right sided chest tube/J-tube placement under general anesthesia by Dr. Bruner/Dr. Blanco, EBL 300 cc, tolerated procedure well and was subsequently transferred to PACU kept intubated on mechanical ventilation. Consult was requested by Dr. Bruner for critical care management. I evaluated the patient in PACU shortly following his arrival there. At that time was sedated, orally intubated on mechanical ventilation. History was obtained by reviewing records and discussion with Dr. Bruner. 06/16: Awake and alert. Push for extubation. 06/17: Required re-intubation last night for excessive secretions and hypoxemic failure. 06/18: Gas exchange improved. Awaiting cultures. 06/20: Remains intubated sedated, intermittently follows commands. Mod-large effusion L side. Hemoglobin down to 7.8, transfuse 1 unit PRBC. Remains on Ric -Synephrine Objective Vital Signs Date Time Temp Pulse Resp B/P Pulse Ox O2 Delivery O2 Flow Rate FiO2 06/20/16 11:56 92 40 06/20/16 10:00 114 06/20/16 08:00 98.2 14 97/54 06/18/16 07:00 Mechanical Ventilator 06/17/16 03:00 15.00 Intake and Output 06/19/16 06/19/16 06/20/16 08:00 16:00 00:00 Intake Total 1367 ml 1593 ml 1704 ml Output Total 350 ml 450 ml 350 ml Balance 1017 ml 1143 ml 1354 ml Result Diagram: 06/20/16 0328 06/20/16 0328 Imaging Last Impressions Chest X-Ray 06/15/16 0000 Signed Impressions: Service Date/Time: Wednesday, June 15, 2016 15:00 - CONCLUSION: 1. Support equipment in good position. Doroteo Quinn MD Objective Remarks HEENT/ Neuro: Sedated, orally intubated. Opens eyes to voice, moves 4 limbs. Follows commands UE Neck: Orally intubated. Chest/Pulm: Good air entry bilaterally, but light wheezes. Right sided chest tube in place with minimal bloody drainage, no air leak. large l pl effusion CVS: S1-S2 regular, no murmur. No JVD. GI/abdomen: soft, nontender, bowel sounds not appreciated. J-tube in place. Extremities: warm bilaterally, no edema Urinary Catheter: Yes Assessment to: Continue A/P Assessment and Plan Assessment: Esophageal cancer status post open Donald Moustapha esophagectomy, J-tube placement () Acute respiratory failure on mechanical ventilation Hypotension Large left effusion Plan: Neuro: -Taper off sedation with propofol/fentanyl while intubated. Daily sedation vacation. -Once extubated initiate fentanyl [employer]. Has an On-Q pump in place for local anesthetic around chest tube insertion site. -He requires significant narcotics and benzodiazepines at home for pain control as well as bleed. May require higher doses than usual of narcotics. Cardiovascular: -Continue fluid resuscitation, give 1 unit of PRBC. Currently on Ric-Synephrine to keep map above 65 Pulmonary: -SBT daily, vent bundle, bronchodilators as needed. -Plan for left thoracentesis today -Optimize COPD treatment GI/liver: -Started on J-tube feeds. -IV Protonix Renal/: -IV hydration, strict intake output, monitor and replete electrolytes, follow BUN/creatinine. Heme: -Follow CBC. Transfuse to keep hemoglobin greater than 8 g percent. Give 1 U PRBC today ID: -Continue Empiric Flagyl and Levaquin as patient appeared to have a contained esophageal perforation. Ancef for prophylactic antibiotic perioperatively. -DC Zosyn, Start on Cefepime also 06/20/16 Endocrine: -SSI for glycemic control as needed. -Electrolyte replacement per protocol Prophylaxis: -PPI/SCDs. Subcutaneous Lovenox when okay with general surgery. Discussed in detail with today 06/20/16 Overall impression: Underlying COPD complicates care. He is critically ill requiring mechanical ventilation, vasopressors. Cultures pending. Critical Care 34 mins aside from procedure Edi Mccarthy MD June 20, 2016 14:43
[2016-06-20] MEDS: ENOXAPARIN SODIUM 40 MG/0.4 ML SYRINGE SQ SCH (15:04)
[2016-06-20] MEDS: PANTOPRAZOLE SODIUM 40 MG VIAL IV SCH (15:04)
--- NOTE | 2016-06-20 15:07 | RADRPT ---
EXAM DATE/TIME: 06/20/2016 14:30 [facility] COMPARISON: CHEST SINGLE AP, June 19, 2016, 7:12. INDICATIONS : S/P Thoracentesis. MEDICAL HISTORY : None. SURGICAL HISTORY : None. ENCOUNTER: Subsequent ACUITY: 4 - 6 days PAIN SCORE: Non-responsive. LOCATION: Bilateral chest FINDINGS: ET tube is above the lu. Left chest tube in good position. Nasogastric tube is not across the G E junction. There is developing airspace disease in the lung, new from the comparison study. There is no pneumot horax. CONCLUSION: 1. Interval development of patchy airspace disease in the left upper lobe. 2. There is no evidence for pneumothorax. 3. Nasogastric tube is not across the GE junction. Clarence Quinn MD FACR on June 20, 2016 at 15:02 Board Certified Radiologist. This report was verified electronically.
[2016-06-20 15:50] LABS: PLEURAL FLUID LYMPHS 2 %
[2016-06-20 16:06] LABS: PLEURAL FLUID PH 8.5
--- NOTE | 2016-06-20 17:34 | HHI.PR ---
Subjective Subjective Notes Intubated/Sedated Objective Vitals/I&O Vital Signs Date Time Temp Pulse Resp B/P Pulse Ox O2 Delivery O2 Flow Rate FiO2 06/20/16 16:30 98.4 110 15 109/71 94 06/20/16 16:16 40 06/18/16 07:00 Mechanical Ventilator 06/17/16 03:00 15.00 Labs Laboratory Tests Test 06/20/16 06/20/16 03:28 13:00 White Blood Count 18.2 Red Blood Count 3.08 Hemoglobin 7.7 Hematocrit 24.5 Mean Corpuscular Volume 79.7 Mean Corpuscular Hemoglobin 24.9 Mean Corpuscular Hemoglobin 31.2 Concent Red Cell Distribution Width 15.0 Platelet Count 205 Mean Platelet Volume 7.9 Neutrophils (%) (Auto) 95.5 Lymphocytes (%) (Auto) 0.8 Monocytes (%) (Auto) 3.3 Eosinophils (%) (Auto) 0.2 Basophils (%) (Auto) 0.2 Neutrophils # (Auto) 17.3 Lymphocytes # (Auto) 0.2 Monocytes # (Auto) 0.6 Eosinophils # (Auto) 0.0 Basophils # (Auto) 0.0 CBC Comment AUTO DIFF Differential Total Cells 100 Counted Neutrophils % (Manual) 60 Band Neutrophils % 35 Lymphocytes % 2 Monocytes % 3 Neutrophils # (Manual) 17.3 Differential Comment FINAL DIFF MANUAL Platelet Estimate NORMAL Platelet Morphology Comment NORMAL Sodium Level 140 Potassium Level 3.3 Chloride Level 105 Carbon Dioxide Level 29.0 Anion Gap 6 Blood Urea Nitrogen 7 Creatinine 0.33 Estimat Glomerular Filtration 279 Rate Random Glucose 115 Calcium Level 7.4 Protein Corrected Calcium 8.7 Total Protein 4.8 Pleural Fluid pH 8.5 Pleural Fluid WBC 8135 Pleural Fluid RBC 81287 Pleural Fluid Neutrophils 85 Pleural Fluid Lymphocytes 2 Pleural Fluid Monocytes 8 Pleural Fluid Histiocytes 1 Pleural Fluid Mesothelial 4 Cells Pleural Fluid Comment Pleural Fluid Total Protein 2.0 Pleural Fluid LDH 130 Pleural Fluid Glucose 152 Pleural Fluid Amylase 27 Blood Type A POSITIVE Antibody Screen NEGATIVE Crossmatch Leukocyte-Reduced Red Blood Cells Blood Bank Comment Date/Time Procedure Status Source Growth 06/20/16 13:00 Gram Stain Received Fluid Pleural Fluid Pending 06/20/16 13:00 Body Fluid Culture Received Fluid Pleural Fluid Pending 06/20/16 13:00 Fungal Smear Received Fluid Pleural Fluid Pending 06/20/16 13:00 Fungal Culture Received Fluid Pleural Fluid Pending 06/20/16 13:00 Acid Fast Stain Received Fluid Pleural Fluid Pending 06/20/16 13:00 Mycobacterial Culture Received Fluid Pleural Fluid Pending 06/18/16 20:49 Gram Stain - Final Resulted Sputum Endotracheal 06/18/16 20:49 Sputum Culture - Preliminary Resulted Pseudomonas Species Cardiovascular: Regular Lungs: Clear Abdomen: Other (midline incision open to air---c/d/i; J tube with TF without complications; thin flat abdomen ) Extremities: No edema Narrative Exam RIGHT chest tube in place to wall suction; no air leak A/P Assessment and Plan 55 year old male with esophageal cancer s/p open [place] Moustapha Esophagectomy -CCM following---vent management and s/p LEFT thoracentesis -Pressor support as needed -Tolerating TF through J tube -Pain control -Continue CT to wall suction -Repeat CXR in AM -Labs in AM Attending Statement The exam, history, and the medical decision-making described in the above note were completed with the assistance of the mid-level provider. I reviewed and agree with the findings presented. I attest that I had a [id number] encounter with the patient on the same day, and personally performed and documented my assessment and findings in the medical record. Abdominal exam stable, patient with chronic lung disease, will need continued vent support/critical care support/weaning Dahlia Sanford June 20, 2016 17:34 Armando Bruner MD July 12, 2016 16:14
[2016-06-20] MEDS: LEVOFLOXACIN 750 MG PREMIX INJ 150 ML IV SCH (18:23)
[2016-06-20] MEDS: CEFEPIME INJ 2,000 MG in SODIUM CHLORIDE 0.9% INJ 100 ML IV SCH (18:23)
[2016-06-21] VITALS (17 sets, daily range): BP systolic 101–139; BP diastolic 6–71; PULSE 82–132; RESP 15–24; TEMP 98.9–99.9; O2SAT 92–99
[2016-06-21] MEDS: METOPROLOL TARTRATE 5 MG/5 ML VIAL IV PUSH SCH ×4 (00:02→17:16)
[2016-06-21] MEDS: CEFEPIME INJ 2,000 MG in SODIUM CHLORIDE 0.9% INJ 100 ML IV SCH ×3 (02:42→17:14)
[2016-06-21] MEDS: RESP: ALBUTEROL 2.5 MG/IPRATROPIUM 0.5 MG NEB (SCH) NEB ×5 (03:36→19:58)
[2016-06-21] MEDS: RESP: ACETYLCYSTEINE 10% 30 ML NEB NEB SCH ×5 (03:36→19:58)
[2016-06-21] MEDS: fentaNYL DRIP 250 ML IV SCH ×2 (04:25→17:24)
[2016-06-21] MEDS: PCA - TOTAL MG MORPHINE DELIVERED PER SHIFT SCH ×3 (06:00→22:00)
[2016-06-21] MEDS: SODIUM CHLOR 0.9% 1000 ML INJ 1,000 ML IV SCH ×2 (06:16→15:00)
[2016-06-21] MEDS: PROPOFOL 1000 MG/100 ML IV SCH (06:16)
[2016-06-21 07:25] LABS: BLOOD GAS CARBOXYHEMOGLOBIN 1.5 % (0-4); BLOOD GAS HCO3 28 mmol/L (22-26); BLOOD GAS METHEMOGLOBIN 0.6 % (0-2); BLOOD GAS O2 HGB SATURATION 95 % (90-100); BLOOD GAS OXYGEN CONTENT 11.1 Vol % (12.0-20.0); BLOOD GAS PCO2 38 mmHg (38-42); BLOOD GAS PO2 78 mmHg (61-120); BLOOD GAS TOTAL HGB 8.2 G/DL (12.0-16.0); TEMP CORR TO 98.6
[2016-06-21 07:26] LABS: CRITICAL VALUE NO; DRAW SITE ART LINE; FIO2 40 %; OXYGEN DEVICE VENTILATOR; STAT NO; VENT SETTINGS AC 14/500/PEEP8
[2016-06-21] MEDS: SODIUM CHLORIDE 0.9% FLUSH 10 ML FLUSH IV FLUSH SCH ×2 (08:42→21:00)
[2016-06-21] MEDS: LORazepam 2 MG/ML VIAL IVP PRN (08:46)
[2016-06-21] MEDS: DEXMEDETOMIDINE 200 MCG in NS 50 ML IV SCH ×2 (11:29→20:47)
[2016-06-21] MEDS ORDERED: BUMETANIDE INJ 1 MG/4 ML VIAL IV PUSH ONE (12:45)
--- NOTE | 2016-06-21 12:49 | HHI.CCPN ---
Subjective Remarks/Hospital Course 55-year-old male with history of esophageal cancer previously treated with chemotherapy/radiation who underwent open eye with Moustapha esophagectomy with right sided chest tube/J-tube placement under general anesthesia by Dr. Bruner/Dr. Blanco, EBL 300 cc, tolerated procedure well and was subsequently transferred to PACU kept intubated on mechanical ventilation. Consult was requested by Dr. Bruner for critical care management. I evaluated the patient in PACU shortly following his arrival there. At that time was sedated, orally intubated on mechanical ventilation. History was obtained by reviewing records and discussion with Dr. Bruner. 06/16: Awake and alert. Push for extubation. 06/17: Required re-intubation last night for excessive secretions and hypoxemic failure. 06/18: Gas exchange improved. Awaiting cultures. 06/20: Remains intubated sedated, intermittently follows commands. Mod-large effusion L side. Hemoglobin down to 7.8, transfuse 1 unit PRBC. Remains on Ric -Synephrine 06/21: s/p thoracentesis with 650 ml removed yesterday. Slightly blood tinged effusion. Chemistry consistent with transudative effusion. Tolerates CPAP but became tachycardic. CBC and chest x-ray pending today. Chest x-ray yesterday showed developing left upper lobe infiltrate-sputum PSAE S to cefepime Objective Vital Signs Date Time Temp Pulse Resp B/P Pulse Ox O2 Delivery O2 Flow Rate FiO2 06/21/16 11:22 94 40 06/21/16 08:00 110 06/21/16 08:00 99.5 19 113/67 06/18/16 07:00 Mechanical Ventilator Intake and Output 06/20/16 06/20/16 06/21/16 08:00 16:00 00:00 Intake Total 1724 ml 1567 ml 1812 ml Output Total 525 ml 1430 ml 640 ml Balance 1199 ml 137 ml 1172 ml Result Diagram: 06/20/16 0328 06/20/16 0328 Other Results Microbiology Date/Time Procedure Status Source Growth 06/18/16 20:49 Gram Stain - Final Complete Sputum Endotracheal 06/18/16 20:49 Sputum Culture - Final Complete Pseudomonas Aeruginosa Laboratory Tests Test 06/21/16 07:12 Blood Gas Puncture Site ART LINE Blood Gas Patient Temperature 98.6 Blood Gas HCO3 28 mmol/L (22-26) Blood Gas Base Excess 5.0 mmol/L (-2-2) Blood Gas Oxygen Saturation 95 % (90-100) Arterial Blood pH 7.49 (7.380-7.420) Arterial Blood Partial 38 mmHg (38-42) Pressure CO2 Arterial Blood Partial 78 mmHg Pressure O2 (61-120) Arterial Blood Oxygen Content 11.1 Vol % (12.0-20.0) Arterial Blood 1.5 % (0-4) Carboxyhemoglobin Arterial Blood Methemoglobin 0.6 % (0-2) Blood Gas Hemoglobin 8.2 G/DL (12.0-16.0) Oxygen Delivery Device VENTILATOR Blood Gas Ventilator Setting AC 14/500/PEEP8 Blood Gas Inspired Oxygen 40 % Imaging Last Impressions Chest X-Ray 06/15/16 0000 Signed Impressions: Service Date/Time: Wednesday, June 15, 2016 15:00 - CONCLUSION: 1. Support equipment in good position. Doroteo Quinn MD Objective Remarks HEENT/ Neuro: Sedated, orally intubated. Opens eyes to voice, moves 4 limbs. Follows commands UE Neck: Orally intubated. Chest/Pulm: Good air entry bilaterally, but light wheezes. Right sided chest tube in place with minimal bloody drainage, no air leak. /sp L thoracentesis 06/20 with 650 ml fluid removed CVS: S1-S2 regular, no murmur. No JVD. GI/abdomen: soft, nontender, bowel sounds not appreciated. J-tube in place. Extremities: warm bilaterally, no edema A/P Assessment and Plan Assessment: Esophageal cancer status post open Hana Moustapha esophagectomy, J-tube placement () Acute respiratory failure on mechanical ventilation MARSHALL pneumonia with Pseudomonas Septic shock Large left effusion Plan: Neuro: -Taper off sedation with propofol/fentanyl. Start Precedex to facilitate ventilator weaning, continue fentanyl -Once extubated initiate fentanyl [employer]. Has an On-Q pump in place for local anesthetic around chest tube insertion site. -He requires significant narcotics and benzodiazepines at home for pain control. May require higher doses than usual of narcotics. Cardiovascular: -Continue fluid resuscitation, s/p 1 unit of PRBC. -Off ric-synephrine -Give Bumex 1 mg IV x1 Pulmonary: -SBT daily, vent bundle, bronchodilators as needed. -s/p L thoracentesis with 650 mL of fluid removed -Optimize COPD treatment -Chest x-ray shows left upper lobe infiltrate and Pseudomonas in sputum. Sensitive to cefepime GI/liver: -Started on J-tube feeds. -IV Protonix Renal/: -IV hydration, strict intake output, monitor and replete electrolytes, follow BUN/creatinine. Heme: -Repeat CBC. Transfuse to keep hemoglobin greater than 8 g percent. s/p 1 U PRBC today ID: -Continue Cefepime Flagyl and Levaquin as patient appeared to have a contained esophageal perforation, and now MARSHALL PSAE pneumonia. Ancef for prophylactic antibiotic perioperatively. -DC Zosyn, Start on Cefepime also 06/20/16 Endocrine: -SSI for glycemic control as needed. -Electrolyte replacement per protocol Prophylaxis: -PPI/SCDs. Subcutaneous Lovenox when okay with general surgery. Discussed in detail with today 06/20/16 Overall impression: Underlying COPD complicates care, now with Pseudomonas pneumonia. He is critically ill requiring mechanical ventilation, vasopressors. Critical Care 38 mins aside from procedure Edi Mccarthy MD June 21, 2016 12:49
[2016-06-21 13:18] LABS: AUTOMATED NEUTROPHIL # 22.4 TH/MM3 (1.8-7.7); BASOPHIL % 0.1 % (0.0-2.0); HEMATOCRIT 24.1 % (39.0-51.0); HEMO FLAGS AUTO DIFF; LYMPH % 0.8 % (9.0-44.0); LYMPHOCYTE # 0.2 TH/MM3 (1.0-4.8); MEAN CELL VOLUME 77.7 FL (80.0-100.0); MEAN CORPUSCULAR HEMOGLOBIN 25.3 PG (27.0-34.0); MEAN CORPUSCULAR HGB CONC 32.6 % (32.0-36.0); MONO % 2.5 % (0.0-8.0); NEUT % 96.6 % (16.0-70.0); PLATELET COUNT 156 TH/MM3 (150-450); RED CELL DISTRIBUTION WIDTH 14.9 % (11.6-17.2); WHITE BLOOD COUNT 23.2 TH/MM3 (4.0-11.0)
[2016-06-21 13:35] LABS: BICARBONATE 32.4 MEQ/L (21.0-32.0); CALCIUM-PROTEIN CORRECTED 8.8 MG/DL (8.5-10.1); TOTAL BILIRUBIN ADULT 0.7 MG/DL (0.2-1.0)
[2016-06-21 13:39] LABS: POTASSIUM 2.6 MEQ/L (3.5-5.1)
[2016-06-21 13:47] LABS: BANDS 36 % (0-6); METAMYELOCYTES 2 % (0-1); POLYS (SEG NEUTROPHILS) 61 % (16-70); WBC DIFF SAMPLE 100
[2016-06-21 13:50] LABS: TARGET CELLS 1+ (NORMAL)
[2016-06-21 13:51] LABS: PLATELET ESTIMATE SMEAR LOW (NORMAL)
[2016-06-21] MEDS: ENOXAPARIN SODIUM 40 MG/0.4 ML SYRINGE SQ SCH (13:53)
[2016-06-21 13:54] LABS: ACANTHOCYTES OCC (NORMAL)
[2016-06-21 13:56] LABS: PLATELET MORPHOLOGY NORMAL (NORMAL)
[2016-06-21 13:57] LABS: DOHLE BODIES PRESENT (NONE SEEN); TOXIC GRANULATION 1+ (NORMAL)
[2016-06-21 14:01] LABS: SCAN/DIFF FINAL DIFF MANUAL
--- NOTE | 2016-06-21 14:01 | RADRPT ---
EXAM DATE/TIME: 06/21/2016 12:41 [facility] COMPARISON: CHEST SINGLE AP, June 20, 2016, 14:30. INDICATIONS : Respiratory disease. MEDICAL HISTORY : None. SURGICAL HISTORY : Right thoracotomy. ENCOUNTER: Subsequent ACUITY: 1 week PAIN SCORE: Non-responsive. LOCATION: chest FINDINGS: A single view of the chest demonstrates patchy densities left upper lobe. New left basilar density. R ight-sided chest tube unchanged. No definite pneumothorax. Heart normal in size. Endotracheal tube un changed. Nasogastric tube with tip in distal esophagus. Osseous structures are intact. CONCLUSION: 1. Patchy density left upper lobe. 2. New left basilar density. 3. Nasogastric tube tip in distal esophagus, this should be advanced. Elliott Ho MD on June 21, 2016 at 13:57 Board Certified Radiologist. This report was verified electronically.
[2016-06-21] MEDS: ICU - POTASSIUM CHLORIDE/AQUEOUS SOLN 20 MEQ/100 ML IVPB IV PRN ×4 (14:13→22:51)
--- NOTE | 2016-06-21 14:14 | HHI.PR ---
Subjective Subjective Notes Intubated/Sedated LAUREN Victor at bedside Objective Vitals/I&O Vital Signs Date Time Temp Pulse Resp B/P Pulse Ox O2 Delivery O2 Flow Rate FiO2 06/21/16 12:00 99.3 112 16 113/67 95 106/60 06/21/16 12:00 40 06/18/16 07:00 Mechanical Ventilator Labs Laboratory Tests Test 06/21/16 06/21/16 06/21/16 07:12 12:50 12:52 Blood Gas Puncture Site ART LINE Blood Gas Patient Temperature 98.6 Blood Gas HCO3 28 Blood Gas Base Excess 5.0 Blood Gas Oxygen Saturation 95 Arterial Blood pH 7.49 Arterial Blood Partial 38 Pressure CO2 Arterial Blood Partial 78 Pressure O2 Arterial Blood Oxygen Content 11.1 Arterial Blood 1.5 Carboxyhemoglobin Arterial Blood Methemoglobin 0.6 Blood Gas Hemoglobin 8.2 Oxygen Delivery Device VENTILATOR Blood Gas Ventilator Setting AC 14/500/PEEP8 Blood Gas Inspired Oxygen 40 Sodium Level 142 Potassium Level 2.6 Chloride Level 104 Carbon Dioxide Level 32.4 Anion Gap 6 Blood Urea Nitrogen 11 Creatinine 0.36 Estimat Glomerular Filtration 252 Rate Random Glucose 139 Calcium Level 7.3 Protein Corrected Calcium 8.8 Total Bilirubin 0.7 Aspartate Amino Transf 24 (AST/SGOT) Alanine Aminotransferase 15 (ALT/SGPT) Alkaline Phosphatase 101 Total Protein 4.5 Albumin 1.1 White Blood Count 23.2 Red Blood Count 3.10 Hemoglobin 7.8 Hematocrit 24.1 Mean Corpuscular Volume 77.7 Mean Corpuscular Hemoglobin 25.3 Mean Corpuscular Hemoglobin 32.6 Concent Red Cell Distribution Width 14.9 Platelet Count 156 Mean Platelet Volume 8.0 Neutrophils (%) (Auto) 96.6 Lymphocytes (%) (Auto) 0.8 Monocytes (%) (Auto) 2.5 Eosinophils (%) (Auto) 0.0 Basophils (%) (Auto) 0.1 Neutrophils # (Auto) 22.4 Lymphocytes # (Auto) 0.2 Monocytes # (Auto) 0.6 Eosinophils # (Auto) 0.0 Basophils # (Auto) 0.0 CBC Comment AUTO DIFF Differential Total Cells 100 Counted Neutrophils % (Manual) 61 Band Neutrophils % 36 Lymphocytes % 1 Neutrophils # (Manual) 23.0 Metamyelocytes 2 Differential Comment FINAL DIFF MANUAL Toxic Granulation 1+ Dohle Bodies PRESENT Platelet Estimate LOW Platelet Morphology Comment NORMAL Target Cells 1+ Acanthocytes OCC Date/Time Procedure Status Source Growth 06/20/16 13:00 Gram Stain - Final Resulted Fluid Pleural Fluid 06/20/16 13:00 Body Fluid Culture Resulted Fluid Pleural Fluid Pending 06/20/16 13:00 Fungal Smear - Final Resulted Fluid Pleural Fluid NO FUNGAL ELEMENTS SEEN. 06/20/16 13:00 Fungal Culture Resulted Fluid Pleural Fluid Pending 06/20/16 13:00 Acid Fast Stain Received Fluid Pleural Fluid Pending 06/20/16 13:00 Mycobacterial Culture Received Fluid Pleural Fluid Pending Cardiovascular: Regular Lungs: Clear Abdomen: Other (midline incision ----stapled---c/d/i; abdomen thin and flat ) Extremities: No edema, Other Narrative Exam RIGHT chest tube in place to wall suction; no air leak A/P Assessment and Plan 55 year old male with esophageal cancer s/p open [place] Moustapha Esophagectomy -CCM following---vent management -Pressor support as needed -Tolerating TF through J tube -Pain control -Continue CT to wall suction -Lovenox -Replace K Attending Statement The exam, history, and the medical decision-making described in the above note were completed with the assistance of the mid-level provider. I reviewed and agree with the findings presented. I attest that I had a [id number] encounter with the patient on the same day, and personally performed and documented my assessment and findings in the medical record. Abdominal exam stable, continues to need significant pulmonary support, no signs of postoperative complications Dahlia Sanford June 21, 2016 14:14 Armando Bruner MD July 12, 2016 16:17
[2016-06-21] MEDS: POTASSIUM CHLOR 20 MEQ PREMIX 100 ML IV SCH ×3 (14:30→16:30)
[2016-06-21 15:32] LABS: BLOOD GAS CARBOXYHEMOGLOBIN 1.7 % (0-4); BLOOD GAS HCO3 28 mmol/L (22-26); BLOOD GAS METHEMOGLOBIN 0.7 % (0-2); BLOOD GAS O2 HGB SATURATION 92 % (90-100); BLOOD GAS OXYGEN CONTENT 11.1 Vol % (12.0-20.0); BLOOD GAS PCO2 32 mmHg (38-42); BLOOD GAS PO2 60 mmHg (61-120); BLOOD GAS TOTAL HGB 8.6 G/DL (12.0-16.0); TEMP CORR TO 98.6
[2016-06-21 15:33] LABS: DRAW SITE ART LINE; STAT NO
[2016-06-21 15:36] LABS: CRITICAL VALUE YES; OXYGEN DEVICE VENTILATOR
[2016-06-21 15:37] LABS: FIO2 40 %; VENT SETTINGS CPAP PS5/ PEEP5
[2016-06-21] MEDS: PANTOPRAZOLE SODIUM 40 MG VIAL IV SCH (17:15)
[2016-06-21] MEDS: LEVOFLOXACIN 750 MG PREMIX INJ 150 ML IV SCH (17:16)
[2016-06-22] VITALS (15 sets, daily range): BP systolic 99–114; BP diastolic 54–69; PULSE 77–124; RESP 17–26; TEMP 98.3–99.2; O2SAT 93–100
[2016-06-22] MEDS: RESP: ALBUTEROL 2.5 MG/IPRATROPIUM 0.5 MG NEB (SCH) NEB ×6 (00:13→20:08)
[2016-06-22] MEDS: RESP: ACETYLCYSTEINE 10% 30 ML NEB NEB SCH ×6 (00:13→20:08)
[2016-06-22] MEDS: CEFEPIME INJ 2,000 MG in SODIUM CHLORIDE 0.9% INJ 100 ML IV SCH ×3 (00:53→17:22)
[2016-06-22] MEDS: METOPROLOL TARTRATE 5 MG/5 ML VIAL IV PUSH SCH ×4 (00:53→18:00)
[2016-06-22] MEDS: ICU - POTASSIUM CHLORIDE/AQUEOUS SOLN 20 MEQ/100 ML IVPB IV PRN (00:54)
[2016-06-22] MEDS: SODIUM CHLOR 0.9% 1000 ML INJ 1,000 ML IV SCH ×3 (00:55→21:48)
[2016-06-22] MEDS: PCA - TOTAL MG MORPHINE DELIVERED PER SHIFT SCH ×3 (06:00→21:48)
[2016-06-22] MEDS: fentaNYL DRIP 250 ML IV SCH ×2 (06:18→21:49)
[2016-06-22 07:01] LABS: BICARBONATE 29.8 MEQ/L (21.0-32.0); POTASSIUM 3.1 MEQ/L (3.5-5.1)
[2016-06-22] MEDS: SODIUM CHLORIDE 0.9% FLUSH 10 ML FLUSH IV FLUSH SCH ×2 (09:00→21:48)
[2016-06-22] MEDS: ICU - POTASSIUM CHLORIDE/AQUEOUS SOLN 40 MEQ/100 ML IVPB IV PRN ×3 (09:47→21:49)
--- NOTE | 2016-06-22 10:07 | HHI.CCPN ---
Subjective Remarks/Hospital Course 55-year-old male with history of esophageal cancer previously treated with chemotherapy/radiation who underwent open eye with Moustapha esophagectomy with right sided chest tube/J-tube placement under general anesthesia by Dr. Bruner/Dr. Blanco, EBL 300 cc, tolerated procedure well and was subsequently transferred to PACU kept intubated on mechanical ventilation. Consult was requested by Dr. Bruner for critical care management. I evaluated the patient in PACU shortly following his arrival there. At that time was sedated, orally intubated on mechanical ventilation. History was obtained by reviewing records and discussion with Dr. Bruner. 06/16: Awake and alert. Push for extubation. 06/17: Required re-intubation last night for excessive secretions and hypoxemic failure. 06/18: Gas exchange improved. Awaiting cultures. 06/20: Remains intubated sedated, intermittently follows commands. Mod-large effusion L side. Hemoglobin down to 7.8, transfuse 1 unit PRBC. Remains on Ric -Synephrine 06/21: s/p thoracentesis with 650 ml removed yesterday. Slightly blood tinged effusion. Chemistry consistent with transudative effusion. Tolerates CPAP but became tachycardic. CBC and chest x-ray pending today. Chest x-ray yesterday showed developing left upper lobe infiltrate-sputum PSAE S to cefepime 06/22: Remains sedated, arousable, orally intubated on mechanical ventilation. Failed C Pap trial yesterday. Objective Vital Signs Date Time Temp Pulse Resp B/P Pulse Ox O2 Delivery O2 Flow Rate FiO2 06/22/16 08:25 40 06/22/16 07:40 100 06/22/16 06:00 90 06/22/16 04:00 99.1 23 110/67 06/18/16 07:00 Mechanical Ventilator Intake and Output 06/21/16 06/21/16 06/22/16 08:00 16:00 00:00 Intake Total 1354 ml 867 ml 1025 ml Output Total 740 ml 1080 ml 775 ml Balance 614 ml -213 ml 250 ml Result Diagram: 06/22/16 0620 06/22/16 0620 Other Results Laboratory Tests Test 06/21/16 15:19 Blood Gas Puncture Site ART LINE Blood Gas Patient Temperature 98.6 Blood Gas HCO3 28 mmol/L (22-26) Blood Gas Base Excess 5.0 mmol/L (-2-2) Blood Gas Oxygen Saturation 92 % (90-100) Arterial Blood pH 7.55 (7.380-7.420) Arterial Blood Partial 32 mmHg (38-42) Pressure CO2 Arterial Blood Partial 60 mmHg Pressure O2 (61-120) Arterial Blood Oxygen Content 11.1 Vol % (12.0-20.0) Arterial Blood 1.7 % (0-4) Carboxyhemoglobin Arterial Blood Methemoglobin 0.7 % (0-2) Blood Gas Hemoglobin 8.6 G/DL (12.0-16.0) Oxygen Delivery Device VENTILATOR Blood Gas Ventilator Setting CPAP PS5/ PEEP5 Blood Gas Inspired Oxygen 40 % Imaging Last Impressions Chest X-Ray 06/15/16 0000 Signed Impressions: Service Date/Time: Wednesday, June 15, 2016 15:00 - CONCLUSION: 1. Support equipment in good position. Doroteo Quinn MD Objective Remarks HEENT/ Neuro: Sedated, orally intubated. Opens eyes to voice, moves 4 limbs. Follows commands UE Neck: Orally intubated. Chest/Pulm: Good air entry bilaterally, but light wheezes. Right sided chest tube in place with minimal bloody drainage, no air leak. /sp L thoracentesis 06/20 with 650 ml fluid removed CVS: S1-S2 regular, no murmur. No JVD. GI/abdomen: soft, nontender, bowel sounds not appreciated. J-tube in place. Extremities: warm bilaterally, no edema A/P Assessment and Plan Assessment: Esophageal cancer status post open [place] Moustapha esophagectomy, J-tube placement () Acute respiratory failure on mechanical ventilation MARSHALL pneumonia with Pseudomonas Septic shock Large left effusion Plan: Neuro: -Taper off sedation with propofol/fentanyl. Start Precedex to facilitate ventilator weaning, continue fentanyl -Once extubated initiate fentanyl DELIVERY PERSON. Has an On-Q pump in place for local anesthetic around chest tube insertion site. -He requires significant narcotics and benzodiazepines at home for pain control. May require higher doses than usual of narcotics. Cardiovascular: -Continue fluid resuscitation, s/p 1 unit of PRBC. -Off ric-synephrine -Given Bumex 1 mg IV x1 on 06/21 Pulmonary: -SBT daily, vent bundle, bronchodilators as needed. -s/p L thoracentesis with 650 mL of fluid removed 06/20 -Optimize COPD treatment -Chest x-ray shows left upper lobe infiltrate and Pseudomonas in sputum. Sensitive to cefepime GI/liver: -Started on J-tube feeds. -IV Protonix Renal/: -IV hydration, strict intake output, monitor and replete electrolytes, follow BUN/creatinine. Heme: -Repeat CBC. Transfuse to keep hemoglobin greater than 8 g percent. s/p 1 U PRBC ID: -Continue Cefepime Flagyl and Levaquin as patient appeared to have a contained esophageal perforation, and now MARSHALL PSAE pneumonia. Ancef for prophylactic antibiotic perioperatively. -DC Zosyn, Start on Cefepime also 06/20/16 Endocrine: -SSI for glycemic control as needed. -Electrolyte replacement per protocol Prophylaxis: -PPI/SCDs. Subcutaneous Lovenox when okay with general surgery. Dr Mccarthy discussed in detail with 06/20/16 Overall impression: Underlying COPD complicates care, now with Pseudomonas pneumonia. He is critically ill requiring mechanical ventilation, vasopressors. Critical Care 35 mins aside from procedure Ashok Hidalgo MD June 22, 2016 10:07
[2016-06-22 10:58] LABS: AUTOMATED NEUTROPHIL # 16.3 TH/MM3 (1.8-7.7); BASOPHIL % 0.1 % (0.0-2.0); HEMATOCRIT 23.4 % (39.0-51.0); HEMO FLAGS DIFF FINAL; LYMPH % 1.6 % (9.0-44.0); LYMPHOCYTE # 0.3 TH/MM3 (1.0-4.8); MEAN CELL VOLUME 77.3 FL (80.0-100.0); MEAN CORPUSCULAR HEMOGLOBIN 25.1 PG (27.0-34.0); MEAN CORPUSCULAR HGB CONC 32.4 % (32.0-36.0); MONO % 4.1 % (0.0-8.0); NEUT % 94.2 % (16.0-70.0); PLATELET COUNT 123 TH/MM3 (150-450); RED BLOOD COUNT 3.07 MIL/MM3 (4.50-5.90); RED CELL DISTRIBUTION WIDTH 15.2 % (11.6-17.2); WHITE BLOOD COUNT 17.3 TH/MM3 (4.0-11.0)
[2016-06-22] MEDS: ENOXAPARIN SODIUM 40 MG/0.4 ML SYRINGE SQ SCH ×2 (13:01→13:06)
--- NOTE | 2016-06-22 13:56 | HHI.PR ---
Subjective Subjective Notes Intubated/Sedated Dr. Hidalgo and LAUREN Caro at bedside Objective Vitals/I&O Vital Signs Date Time Temp Pulse Resp B/P Pulse Ox O2 Delivery O2 Flow Rate FiO2 06/22/16 12:00 98.5 92 23 109/69 97 107/67 06/22/16 12:00 40 06/18/16 07:00 Mechanical Ventilator Labs Laboratory Tests Test 06/21/16 06/22/16 15:19 06:20 Blood Gas Puncture Site ART LINE Blood Gas Patient Temperature 98.6 Blood Gas HCO3 28 Blood Gas Base Excess 5.0 Blood Gas Oxygen Saturation 92 Arterial Blood pH 7.55 Arterial Blood Partial 32 Pressure CO2 Arterial Blood Partial 60 Pressure O2 Arterial Blood Oxygen Content 11.1 Arterial Blood 1.7 Carboxyhemoglobin Arterial Blood Methemoglobin 0.7 Blood Gas Hemoglobin 8.6 Oxygen Delivery Device VENTILATOR Blood Gas Ventilator Setting CPAP PS5/ PEEP5 Blood Gas Inspired Oxygen 40 White Blood Count 17.3 Red Blood Count 3.07 Hemoglobin 7.7 Hematocrit 23.4 Mean Corpuscular Volume 77.3 Mean Corpuscular Hemoglobin 25.1 Mean Corpuscular Hemoglobin 32.4 Concent Red Cell Distribution Width 15.2 Platelet Count 123 Mean Platelet Volume 8.2 Neutrophils (%) (Auto) 94.2 Lymphocytes (%) (Auto) 1.6 Monocytes (%) (Auto) 4.1 Eosinophils (%) (Auto) 0.0 Basophils (%) (Auto) 0.1 Neutrophils # (Auto) 16.3 Lymphocytes # (Auto) 0.3 Monocytes # (Auto) 0.7 Eosinophils # (Auto) 0.0 Basophils # (Auto) 0.0 CBC Comment DIFF FINAL Differential Comment Sodium Level 141 Potassium Level 3.1 Chloride Level 103 Carbon Dioxide Level 29.8 Anion Gap 8 Blood Urea Nitrogen 15 Creatinine 0.37 Estimat Glomerular Filtration 244 Rate Random Glucose 130 Calcium Level 7.5 Date/Time Procedure Status Source Growth 06/20/16 13:00 Gram Stain - Final Resulted Fluid Pleural Fluid 06/20/16 13:00 Body Fluid Culture - Preliminary Resulted Fluid Pleural Fluid NO GROWTH IN 48 HOURS. 06/20/16 13:00 Fungal Smear - Final Resulted Fluid Pleural Fluid NO FUNGAL ELEMENTS SEEN. 06/20/16 13:00 Fungal Culture Resulted Fluid Pleural Fluid Pending 06/20/16 13:00 Acid Fast Stain - Final Resulted Fluid Pleural Fluid NO ACID FAST BACILLI SEEN 06/20/16 13:00 Mycobacterial Culture Resulted Fluid Pleural Fluid Pending Cardiovascular: Regular Lungs: Clear Abdomen: Other (midline incision with shruthi---c/d/i; J tube in place without complications ) Narrative Exam RIGHT chest tube in place to wall suction; no air leak A/P Assessment and Plan 55 year old male with esophageal cancer s/p open [place] Moustapha Esophagectomy -CCM following---vent management -Pressor support as needed -Tolerating TF through J tube -Pain control -Continue CT to wall suction -Lovenox Attending Statement The exam, history, and the medical decision-making described in the above note were completed with the assistance of the mid-level provider. I reviewed and agree with the findings presented. I attest that I had a [id number] encounter with the patient on the same day, and personally performed and documented my assessment and findings in the medical record. significant acute on chronic lung disease...patient still with significant support, CT output benign, no signs of sepsis or complications may need tracheostomy for continued vent weaning Dahlia Sanford June 22, 2016 13:56 Armando Bruner MD July 12, 2016 16:32
[2016-06-22] MEDS: PANTOPRAZOLE SODIUM 40 MG VIAL IV SCH (17:22)
[2016-06-22] MEDS: LEVOFLOXACIN 750 MG PREMIX INJ 150 ML IV SCH (17:23)
[2016-06-22] MEDS: DEXMEDETOMIDINE 200 MCG in NS 50 ML IV SCH ×2 (18:41→21:49)
[2016-06-23] VITALS (20 sets, daily range): BP systolic 91–121; BP diastolic 52–69; PULSE 79–106; RESP 17–27; TEMP 98.1–100.1; O2SAT 91–100
[2016-06-23] MEDS: RESP: ACETYLCYSTEINE 10% 30 ML NEB NEB SCH ×6 (00:25→19:29)
[2016-06-23] MEDS: RESP: ALBUTEROL 2.5 MG/IPRATROPIUM 0.5 MG NEB (SCH) NEB ×7 (00:25→23:23)
[2016-06-23] MEDS: CEFEPIME INJ 2,000 MG in SODIUM CHLORIDE 0.9% INJ 100 ML IV SCH ×3 (02:50→18:03)
[2016-06-23] MEDS: METOPROLOL TARTRATE 5 MG/5 ML VIAL IV PUSH SCH ×4 (06:00→18:00)
[2016-06-23] MEDS: PCA - TOTAL MG MORPHINE DELIVERED PER SHIFT SCH ×3 (06:00→21:21)
[2016-06-23 06:24] LABS: AUTOMATED NEUTROPHIL # 9.1 TH/MM3 (1.8-7.7); BASOPHIL % 0.1 % (0.0-2.0); EOSINOPHIL % 0.2 % (0.0-4.0); HEMATOCRIT 23.3 % (39.0-51.0); HEMO FLAGS DIFF FINAL; LYMPH % 4.7 % (9.0-44.0); LYMPHOCYTE # 0.5 TH/MM3 (1.0-4.8); MEAN CELL VOLUME 77.5 FL (80.0-100.0); MEAN CORPUSCULAR HEMOGLOBIN 25.1 PG (27.0-34.0); MEAN CORPUSCULAR HGB CONC 32.4 % (32.0-36.0); MONO % 7.5 % (0.0-8.0); NEUT % 87.5 % (16.0-70.0); PLATELET COUNT 105 TH/MM3 (150-450); RED BLOOD COUNT 3.01 MIL/MM3 (4.50-5.90); RED CELL DISTRIBUTION WIDTH 15.3 % (11.6-17.2); WHITE BLOOD COUNT 10.4 TH/MM3 (4.0-11.0)
[2016-06-23 06:58] LABS: BICARBONATE 26.2 MEQ/L (21.0-32.0); CALCIUM-PROTEIN CORRECTED 8.4 MG/DL (8.5-10.1); POTASSIUM 3.9 MEQ/L (3.5-5.1); TOTAL BILIRUBIN ADULT 0.5 MG/DL (0.2-1.0)
[2016-06-23] MEDS: SODIUM CHLOR 0.9% 1000 ML INJ 1,000 ML IV SCH ×2 (07:00→17:00)
[2016-06-23] MEDS: PROPOFOL 1000 MG/100 ML IV SCH ×3 (07:00→23:42)
[2016-06-23] MEDS: SODIUM CHLORIDE 0.9% FLUSH 10 ML FLUSH IV FLUSH SCH ×2 (09:00→21:21)
--- NOTE | 2016-06-23 10:23 | HHI.PR ---
Subjective Subjective Notes Intubated---on CPAP trial LAUREN Shen and Vania at bedside Objective Vitals/I&O Vital Signs Date Time Temp Pulse Resp B/P Pulse Ox O2 Delivery O2 Flow Rate FiO2 06/23/16 08:42 96 40 06/23/16 08:00 98.1 79 23 94/60 Labs Laboratory Tests Test 06/22/16 06/23/16 18:30 05:30 Potassium Level 3.5 3.9 White Blood Count 10.4 Red Blood Count 3.01 Hemoglobin 7.5 Hematocrit 23.3 Mean Corpuscular Volume 77.5 Mean Corpuscular Hemoglobin 25.1 Mean Corpuscular Hemoglobin 32.4 Concent Red Cell Distribution Width 15.3 Platelet Count 105 Mean Platelet Volume 8.1 Neutrophils (%) (Auto) 87.5 Lymphocytes (%) (Auto) 4.7 Monocytes (%) (Auto) 7.5 Eosinophils (%) (Auto) 0.2 Basophils (%) (Auto) 0.1 Neutrophils # (Auto) 9.1 Lymphocytes # (Auto) 0.5 Monocytes # (Auto) 0.8 Eosinophils # (Auto) 0.0 Basophils # (Auto) 0.0 CBC Comment DIFF FINAL Differential Comment Sodium Level 141 Chloride Level 108 Carbon Dioxide Level 26.2 Anion Gap 7 Blood Urea Nitrogen 16 Creatinine 0.34 Estimat Glomerular Filtration 269 Rate Random Glucose 124 Calcium Level 7.0 Protein Corrected Calcium 8.4 Total Bilirubin 0.5 Aspartate Amino Transf 50 (AST/SGOT) Alanine Aminotransferase 37 (ALT/SGPT) Alkaline Phosphatase 156 Total Protein 4.6 Albumin 1.2 Date/Time Procedure Status Source Growth 06/20/16 13:00 Gram Stain - Final Complete Fluid Pleural Fluid 06/20/16 13:00 Body Fluid Culture - Final Complete Fluid Pleural Fluid NO GROWTH IN 72 HRS.--AEROBICALLY OR ... 06/20/16 13:00 Fungal Smear - Final Resulted Fluid Pleural Fluid NO FUNGAL ELEMENTS SEEN. 06/20/16 13:00 Fungal Culture Resulted Fluid Pleural Fluid Pending 06/20/16 13:00 Acid Fast Stain - Final Resulted Fluid Pleural Fluid NO ACID FAST BACILLI SEEN 06/20/16 13:00 Mycobacterial Culture Resulted Fluid Pleural Fluid Pending Cardiovascular: Regular Lungs: Clear Abdomen: Other (midline incision; stapled---c/d/i; thin flat abdomen ) Extremities: No edema Narrative Exam RIGHT chest tube in place to wall suction; no air leak A/P Assessment and Plan 55 year old male with esophageal cancer s/p open [place] Moustapha Esophagectomy -CCM following---vent management; on CPAP today -Pressor support as needed -Tolerating TF through J tube -Pain control -Continue CT to wall suction -Lovenox (on hold due to low ptl count) -+BM Attending Statement The exam, history, and the medical decision-making described in the above note were completed with the assistance of the mid-level provider. I reviewed and agree with the findings presented. I attest that I had a [id number] encounter with the patient on the same day, and personally performed and documented my assessment and findings in the medical record. continued vent support needed after esophagectomy will likely need mark d/amor and with critical care Dahlia Johnson June 23, 2016 10:23 Armando Bruner MD July 12, 2016 16:38
--- NOTE | 2016-06-23 10:41 | HHI.CCPN ---
Subjective Remarks/Hospital Course 55-year-old male with history of esophageal cancer previously treated with chemotherapy/radiation who underwent open eye with Moustapha esophagectomy with right sided chest tube/J-tube placement under general anesthesia by Dr. Bruner/Dr. Blanco, EBL 300 cc, tolerated procedure well and was subsequently transferred to PACU kept intubated on mechanical ventilation. Consult was requested by Dr. Bruner for critical care management. I evaluated the patient in PACU shortly following his arrival there. At that time was sedated, orally intubated on mechanical ventilation. History was obtained by reviewing records and discussion with Dr. Bruner. 06/16: Awake and alert. Push for extubation. 06/17: Required re-intubation last night for excessive secretions and hypoxemic failure. 06/18: Gas exchange improved. Awaiting cultures. 06/20: Remains intubated sedated, intermittently follows commands. Mod-large effusion L side. Hemoglobin down to 7.8, transfuse 1 unit PRBC. Remains on Ric -Synephrine 06/21: s/p thoracentesis with 650 ml removed yesterday. Slightly blood tinged effusion. Chemistry consistent with transudative effusion. Tolerates CPAP but became tachycardic. CBC and chest x-ray pending today. Chest x-ray yesterday showed developing left upper lobe infiltrate-sputum PSAE S to cefepime 06/22: Remains sedated, arousable, orally intubated on mechanical ventilation. Failed C Pap trial yesterday. 06/23: Remains sedated, arousable, orally intubated on mechanical ventilation. Tolerated C Pap trial with pressure support +15 yesterday. Objective Vital Signs Date Time Temp Pulse Resp B/P Pulse Ox O2 Delivery O2 Flow Rate FiO2 06/23/16 08:42 96 40 06/23/16 08:00 98.1 79 23 94/60 Intake and Output 06/22/16 06/22/16 06/23/16 08:00 16:00 00:00 Intake Total 1342 ml 1487 ml 1281 ml Output Total 3160 ml 1005 ml 870 ml Balance -1818 ml 482 ml 411 ml Result Diagram: 06/23/1630 06/23/16 05 Other Results Microbiology Date/Time Procedure Status Source Growth 06/20/16 13:00 Gram Stain - Final Complete Fluid Pleural Fluid 06/20/16 13:00 Body Fluid Culture - Final Complete Fluid Pleural Fluid NO GROWTH IN 72 HRS.--AEROBICALLY OR ... Imaging Last Impressions Chest X-Ray 06/15/16 0000 Signed Impressions: Service Date/Time: Wednesday, June 15, 2016 15:00 - CONCLUSION: 1. Support equipment in good position. Doroteo Quinn MD Objective Remarks HEENT/ Neuro: Sedated, orally intubated. Opens eyes to voice, moves 4 limbs. Follows commands UE Neck: Orally intubated. Chest/Pulm: Good air entry bilaterally, but light wheezes. Right sided chest tube in place with minimal bloody drainage, no air leak. /sp L thoracentesis 06/20 with 650 ml fluid removed CVS: S1-S2 regular, no murmur. No JVD. GI/abdomen: soft, nontender, bowel sounds not appreciated. J-tube in place. Extremities: warm bilaterally, no edema A/P Assessment and Plan Assessment: Esophageal cancer status post open [place] Moustapha esophagectomy, J-tube placement () Acute respiratory failure on mechanical ventilation MARSHALL pneumonia with Pseudomonas Septic shock Large left effusion Plan: Neuro: -Taper off sedation with propofol/fentanyl. Start Precedex to facilitate ventilator weaning, continue fentanyl -Once extubated initiate fentanyl BRAKE SPECIALIST. Has an On-Q pump in place for local anesthetic around chest tube insertion site. -He requires significant narcotics and benzodiazepines at home for pain control. May require higher doses than usual of narcotics. Cardiovascular: -Continue IVF, s/p 1 unit of PRBC. -Off ric-synephrine -Given Bumex 1 mg IV x1 on 06/21 Pulmonary: -SBT daily, vent bundle, bronchodilators as needed. -s/p L thoracentesis with 650 mL of fluid removed 06/20 -Optimize COPD treatment -Chest x-ray shows left upper lobe infiltrate and Pseudomonas in sputum. Sensitive to cefepime GI/liver: -Resume J-tube feeds. -IV Protonix Renal/: -IV hydration, strict intake output, monitor and replete electrolytes, follow BUN/creatinine. Heme: -Repeat CBC. Transfuse to keep hemoglobin greater than 7 g percent. s/p 1 U PRBC ID: -Continue Cefepime Flagyl and Levaquin as patient appeared to have a contained esophageal perforation, and now MARSHALL PSAE pneumonia. Ancef for prophylactic antibiotic perioperatively. -DC Zosyn, Start on Cefepime also 06/20/16 Endocrine: -SSI for glycemic control as needed. -Electrolyte replacement per protocol Prophylaxis: -PPI/SCDs. Subcutaneous Lovenox when okay with general surgery. Dr Mccarthy discussed in detail with 06/20/16 Overall impression: Underlying COPD complicates care, now with Pseudomonas pneumonia. He is critically ill requiring mechanical ventilation, vasopressors. Critical Care 35 mins aside from procedure Ashok Hidalgo MD June 23, 2016 10:41
[2016-06-23] MEDS: ENOXAPARIN SODIUM 40 MG/0.4 ML SYRINGE SQ SCH (12:00)
[2016-06-23] MEDS: fentaNYL DRIP 250 ML IV SCH (13:06)
[2016-06-23] MEDS: PANTOPRAZOLE SODIUM 40 MG VIAL IV SCH (15:35)
[2016-06-23] MEDS: LEVOFLOXACIN 750 MG PREMIX INJ 150 ML IV SCH (16:30)
[2016-06-24] VITALS (17 sets, daily range): BP systolic 99–126; BP diastolic 53–70; PULSE 77–121; RESP 14–24; TEMP 98.3–99.4; O2SAT 87–100
[2016-06-24] MEDS: CEFEPIME INJ 2,000 MG in SODIUM CHLORIDE 0.9% INJ 100 ML IV SCH ×3 (01:05→17:43)
[2016-06-24] MEDS: METOPROLOL TARTRATE 5 MG/5 ML VIAL IV PUSH SCH ×4 (01:05→17:44)
[2016-06-24] MEDS: PCA - TOTAL MG MORPHINE DELIVERED PER SHIFT SCH ×4 (03:47→19:46)
[2016-06-24] MEDS: SODIUM CHLOR 0.9% 1000 ML INJ 1,000 ML IV SCH ×3 (03:47→23:00)
[2016-06-24] MEDS: fentaNYL DRIP 250 ML IV SCH ×2 (03:56→15:17)
[2016-06-24] MEDS: PROPOFOL 1000 MG/100 ML IV SCH ×2 (03:56→19:53)
[2016-06-24] MEDS: RESP: ALBUTEROL 2.5 MG/IPRATROPIUM 0.5 MG NEB (SCH) NEB ×3 (04:23→12:00)
[2016-06-24] MEDS: RESP: ACETYLCYSTEINE 10% 30 ML NEB NEB SCH ×4 (04:24→12:00)
[2016-06-24] MEDS: SODIUM CHLORIDE 0.9% FLUSH 10 ML FLUSH IV FLUSH SCH ×2 (09:32→19:53)
--- NOTE | 2016-06-24 10:31 | HHI.PR ---
Subjective Subjective Notes Intubated/Sedated Opens eyes to stimulus Objective Vitals/I&O Vital Signs Date Time Temp Pulse Resp B/P Pulse Ox O2 Delivery O2 Flow Rate FiO2 06/24/16 08:14 93 45 06/24/16 08:00 83 06/24/16 08:00 98.6 14 110/56 Labs Date/Time Procedure Status Source Growth 06/20/16 13:00 Gram Stain - Final Complete Fluid Pleural Fluid 06/20/16 13:00 Body Fluid Culture - Final Complete Fluid Pleural Fluid NO GROWTH IN 72 HRS.--AEROBICALLY OR ... 06/20/16 13:00 Fungal Smear - Final Resulted Fluid Pleural Fluid NO FUNGAL ELEMENTS SEEN. 06/20/16 13:00 Fungal Culture Resulted Fluid Pleural Fluid Pending 06/20/16 13:00 Acid Fast Stain - Final Resulted Fluid Pleural Fluid NO ACID FAST BACILLI SEEN 06/20/16 13:00 Mycobacterial Culture Resulted Fluid Pleural Fluid Pending Cardiovascular: Regular Lungs: Clear Abdomen: Other (midline inscion with shruthi; flat thin) Extremities: No edema Narrative Exam RIGHT chest tube in place to wall suction; no air leak A/P Assessment and Plan 55 year old male with esophageal cancer s/p open [place] Moustapha Esophagectomy -CCM following---vent management -Spoke with Dr. Mccarthy today; will attempt CPAP trials today; if unable to extubate will plan bedside trach on Monday -Pressor support as needed -Tolerating TF through J tube -Pain control -Continue CT to wall suction -Lovenox (on hold due to low ptl count) -+BM Attending Statement The exam, history, and the medical decision-making described in the above note were completed with the assistance of the mid-level provider. I reviewed and agree with the findings presented. I attest that I had a [id number] encounter with the patient on the same day, and personally performed and documented my assessment and findings in the medical record. pulmonary issues ongoing, failing weaning trials, will likely need trach, no issues from esophagectomy, tolerating tube feeds Dahlia Sanford June 24, 2016 10:31 Armando Bruner MD July 12, 2016 16:48
[2016-06-24 11:22] LABS: AUTOMATED NEUTROPHIL # 10.1 TH/MM3 (1.8-7.7); BASOPHIL % 0.2 % (0.0-2.0); EOSINOPHIL # 0.1 TH/MM3 (0-0.4); EOSINOPHIL % 0.8 % (0.0-4.0); HEMATOCRIT 24.3 % (39.0-51.0); HEMO FLAGS DIFF FINAL; LYMPH % 3.1 % (9.0-44.0); LYMPHOCYTE # 0.3 TH/MM3 (1.0-4.8); MEAN CELL VOLUME 77.4 FL (80.0-100.0); MEAN CORPUSCULAR HEMOGLOBIN 25.7 PG (27.0-34.0); MEAN CORPUSCULAR HGB CONC 33.2 % (32.0-36.0); MONO % 4.5 % (0.0-8.0); NEUT % 91.4 % (16.0-70.0); PLATELET COUNT 115 TH/MM3 (150-450); RED BLOOD COUNT 3.15 MIL/MM3 (4.50-5.90); RED CELL DISTRIBUTION WIDTH 15.6 % (11.6-17.2)
[2016-06-24] MEDS: ENOXAPARIN SODIUM 40 MG/0.4 ML SYRINGE SQ SCH (12:31)
[2016-06-24] MEDS ORDERED: BUMETANIDE INJ 1 MG/4 ML VIAL IV PUSH ONE (14:00)
--- NOTE | 2016-06-24 15:29 | HHI.CCPN ---
Subjective Remarks/Hospital Course 55-year-old male with history of esophageal cancer previously treated with chemotherapy/radiation who underwent open eye with Moustapha esophagectomy with right sided chest tube/J-tube placement under general anesthesia by Dr. Bruner/Dr. Blanco, EBL 300 cc, tolerated procedure well and was subsequently transferred to PACU kept intubated on mechanical ventilation. Consult was requested by Dr. Bruner for critical care management. I evaluated the patient in PACU shortly following his arrival there. At that time was sedated, orally intubated on mechanical ventilation. History was obtained by reviewing records and discussion with Dr. Bruner. 06/16: Awake and alert. Push for extubation. 06/17: Required re-intubation last night for excessive secretions and hypoxemic failure. 06/18: Gas exchange improved. Awaiting cultures. 06/20: Remains intubated sedated, intermittently follows commands. Mod-large effusion L side. Hemoglobin down to 7.8, transfuse 1 unit PRBC. Remains on Ric -Synephrine 06/21: s/p thoracentesis with 650 ml removed yesterday. Slightly blood tinged effusion. Chemistry consistent with transudative effusion. Tolerates CPAP but became tachycardic. CBC and chest x-ray pending today. Chest x-ray yesterday showed developing left upper lobe infiltrate-sputum PSAE S to cefepime 06/22: Remains sedated, arousable, orally intubated on mechanical ventilation. Failed C Pap trial yesterday. 06/23: Remains sedated, arousable, orally intubated on mechanical ventilation. Tolerated C Pap trial with pressure support +15 yesterday. 06/24: Failed CPAP trial when pressure-support reduced to 5, became tachypneic and tachycardic. If continues to fail possible tracheostomy on Monday per Dr. Bruner to facilitate ventilator weaning Objective Vital Signs Date Time Temp Pulse Resp B/P Pulse Ox O2 Delivery O2 Flow Rate FiO2 06/24/16 15:00 60 06/24/16 12:01 100 06/24/16 12:00 98.8 86 22 110/56 Intake and Output 06/23/16 06/23/16 06/24/16 08:00 16:00 00:00 Intake Total 1475 ml 1174 ml 1238 ml Output Total 900 ml 1240 ml 1335 ml Balance 575 ml -66 ml -97 ml Result Diagram: 06/24/16 1100 06/23/16 0530 Imaging Last Impressions Chest X-Ray 06/15/16 0000 Signed Impressions: Service Date/Time: Wednesday, June 15, 2016 15:00 - CONCLUSION: 1. Support equipment in good position. Doroteo Quinn MD Objective Remarks HEENT/ Neuro: Sedated, orally intubated. Opens eyes to voice, moves 4 limbs. Follows commands UE Neck: Orally intubated. Chest/Pulm: Good air entry bilaterally, mild wheezes. Right sided chest tube in place with minimal bloody drainage, no air leak. /sp L thoracentesis 06/20 with 650 ml fluid removed CVS: S1-S2 regular, no murmur. No JVD. GI/abdomen: soft, nontender, bowel sounds not appreciated. J-tube in place. Extremities: warm bilaterally, no edema A/P Assessment and Plan Assessment: Esophageal cancer status post open [place] Moustapha esophagectomy, J-tube placement () Acute respiratory failure on mechanical ventilation MARSHALL pneumonia with Pseudomonas Septic shock Large left effusion Plan: Neuro: -Precedex to facilitate ventilator weaning, continue fentanyl -Once extubated initiate fentanyl [employer]ANNED [employer]ER. Has an On-Q pump in place for local anesthetic around chest tube insertion site. -He requires significant narcotics and benzodiazepines at home for pain control. Cardiovascular: -DC IVF, repeat 1 mg IV Bumex -Off ric-synephrine -Given Bumex 1 mg IV x1 on 06/21 Pulmonary: -SBT daily, vent bundle, bronchodilators as needed. -Failed SBT today due to tachypnea, respiratory distress -s/p L thoracentesis with 650 mL of fluid removed 06/20 -Optimize COPD treatment -Chest x-ray shows left upper lobe infiltrate and Pseudomonas in sputum. Sensitive to cefepime -Tended to lead tracheostomy planned for early next week if patient continues to fail weaning GI/liver: -Continue J-tube feeds. -IV Protonix Renal/: -IV hydration, strict intake output, monitor and replete electrolytes, follow BUN/creatinine. Heme: -Repeat CBC. Transfuse to keep hemoglobin greater than 7 g percent. s/p 1 U PRBC ID: -Continue Cefepime Flagyl and Levaquin as patient appeared to have a contained esophageal perforation, and now MARSHALL PSAE pneumonia. Ancef for prophylactic antibiotic perioperatively. Endocrine: -SSI for glycemic control as needed. -Electrolyte replacement per protocol Prophylaxis: -PPI/SCDs. Subcutaneous Lovenox when okay with general surgery. Dr Mccarthy discussed in detail with 06/20/16 D/W Dr. Bruner 06/23: Possible trach Monday or Monday if he continues to fail weaning Overall impression: Underlying COPD complicates care, now with Pseudomonas pneumonia. He is critically ill requiring mechanical ventilation Critical Care 35 mins aside from procedure Edi Mccarthy MD June 24, 2016 15:29
[2016-06-24] MEDS: LEVOFLOXACIN 750 MG PREMIX INJ 150 ML IV SCH (16:35)
[2016-06-24] MEDS: PANTOPRAZOLE SODIUM 40 MG VIAL IV SCH (16:35)
[2016-06-24] MEDS ORDERED: ALBUMIN HUMAN 25% 25 GM/100 ML BAGP IV ONE (17:45)
[2016-06-25] VITALS (19 sets, daily range): BP systolic 88–116; BP diastolic 48–68; PULSE 71–106; RESP 14–21; TEMP 97.5–99.2; O2SAT 93–100
[2016-06-25] MEDS: CEFEPIME INJ 2,000 MG in SODIUM CHLORIDE 0.9% INJ 100 ML IV SCH ×3 (02:43→17:14)
[2016-06-25 04:40] LABS: AUTOMATED NEUTROPHIL # 9.8 TH/MM3 (1.8-7.7); BASOPHIL % 0.1 % (0.0-2.0); EOSINOPHIL # 0.1 TH/MM3 (0-0.4); HEMATOCRIT 22.5 % (39.0-51.0); LYMPH % 4.5 % (9.0-44.0); LYMPHOCYTE # 0.5 TH/MM3 (1.0-4.8); MEAN CELL VOLUME 76.6 FL (80.0-100.0); MEAN CORPUSCULAR HEMOGLOBIN 24.8 PG (27.0-34.0); MEAN CORPUSCULAR HGB CONC 32.4 % (32.0-36.0); MONO % 5.6 % (0.0-8.0); NEUT % 88.8 % (16.0-70.0); PLATELET COUNT 119 TH/MM3 (150-450); RED BLOOD COUNT 2.94 MIL/MM3 (4.50-5.90)
[2016-06-25 04:42] LABS: HEMO FLAGS AUTO DIFF
[2016-06-25 04:59] LABS: BICARBONATE 32.7 MEQ/L (21.0-32.0); CALCIUM-PROTEIN CORRECTED 8.4 MG/DL (8.5-10.1); MAGNESIUM 2.1 MG/DL (1.5-2.5); TOTAL BILIRUBIN ADULT 0.8 MG/DL (0.2-1.0)
[2016-06-25] MEDS: METOPROLOL TARTRATE 5 MG/5 ML VIAL IV PUSH SCH ×5 (05:02→21:00)
--- NOTE | 2016-06-25 05:49 | RADRPT ---
EXAM DATE/TIME: 06/25/2016 04:42 [facility] COMPARISON: CHEST SINGLE AP, June 19, 2016, 7:12. CHEST SINGLE AP, June 20, 2016, 14:30. CHEST SINGLE AP, June 21, 2016, 12:41. INDICATIONS : Shortness of breath. MEDICAL HISTORY : None. SURGICAL HISTORY : Right thoracotomy. ENCOUNTER: Subsequent ACUITY: 1 week PAIN SCORE: Non-responsive. LOCATION: Bilateral chest FINDINGS: The support devices remain in place. No evidence of pneumothorax. The NG tube remains in the distal e sophagus without significant change compared to the prior studies. There continues to be some scatter ed infiltrates of the left lung which are stable. There is a mild right lower lung infiltrate which i s stable. The heart size is stable. CONCLUSION: No significant interval change. Fabian Reeves MD on June 25, 2016 at 5:46 Board Certified Radiologist. This report was verified electronically.
[2016-06-25] MEDS: fentaNYL DRIP 250 ML IV SCH ×2 (05:52→20:56)
[2016-06-25] MEDS: ICU - POTASSIUM CHLORIDE/AQUEOUS SOLN 40 MEQ/100 ML IVPB IV PRN ×2 (06:39→06:41)
[2016-06-25] MEDS: SODIUM CHLORIDE 0.9% FLUSH 10 ML FLUSH IV FLUSH SCH ×2 (07:42→20:56)
[2016-06-25] MEDS: SODIUM CHLOR 0.9% 1000 ML INJ 1,000 ML IV SCH ×2 (08:43→18:13)
[2016-06-25 09:57] LABS: BANDS 31 % (0-6); NEUTROPHIL # MANUAL DIFF 10.2 TH/MM3 (1.8-7.7); POLYS (SEG NEUTROPHILS) 62 % (16-70); WBC DIFF SAMPLE 100
[2016-06-25 09:58] LABS: TARGET CELLS 1+ (NORMAL)
[2016-06-25 09:59] LABS: PLATELET ESTIMATE SMEAR LOW (NORMAL); PLATELET MORPHOLOGY NORMAL (NORMAL); SCAN/DIFF FINAL DIFF MANUAL
[2016-06-25] MEDS ORDERED: SODIUM CHLOR 0.9% 250 ML INJ 250 ML IV ONE (11:30)
--- NOTE | 2016-06-25 11:32 | HHI.CCPN ---
Subjective Remarks/Hospital Course 55-year-old male with history of esophageal cancer previously treated with chemotherapy/radiation who underwent open eye with Moustapha esophagectomy with right sided chest tube/J-tube placement under general anesthesia by Dr. Bruner/Dr. Blanco, EBL 300 cc, tolerated procedure well and was subsequently transferred to PACU kept intubated on mechanical ventilation. Consult was requested by Dr. Bruner for critical care management. I evaluated the patient in PACU shortly following his arrival there. At that time was sedated, orally intubated on mechanical ventilation. History was obtained by reviewing records and discussion with Dr. Bruner. 06/16: Awake and alert. Push for extubation. 06/17: Required re-intubation last night for excessive secretions and hypoxemic failure. 06/18: Gas exchange improved. Awaiting cultures. 06/20: Remains intubated sedated, intermittently follows commands. Mod-large effusion L side. Hemoglobin down to 7.8, transfuse 1 unit PRBC. Remains on Ric -Synephrine 06/21: s/p thoracentesis with 650 ml removed yesterday. Slightly blood tinged effusion. Chemistry consistent with transudative effusion. Tolerates CPAP but became tachycardic. CBC and chest x-ray pending today. Chest x-ray yesterday showed developing left upper lobe infiltrate-sputum PSAE S to cefepime 06/22: Remains sedated, arousable, orally intubated on mechanical ventilation. Failed C Pap trial yesterday. 06/23: Remains sedated, arousable, orally intubated on mechanical ventilation. Tolerated C Pap trial with pressure support +15 yesterday. 06/24: Failed CPAP trial when pressure-support reduced to 5, became tachypneic and tachycardic. If continues to fail possible tracheostomy on Monday per Dr. Bruner to facilitate ventilator weaning 06/25: Failed C Pap trial today. Became tachypneic and dropped O2 sats. Remains orally intubated on mechanical ventilation. Objective Vital Signs Date Time Temp Pulse Resp B/P Pulse Ox O2 Delivery O2 Flow Rate FiO2 06/25/16 09:00 45 06/25/16 08:00 94 06/25/16 07:47 97 06/25/16 04:00 97.5 14 116/66 Intake and Output 06/24/16 06/24/16 06/25/16 08:00 16:00 00:00 Intake Total 1448 ml 1566 ml 699 ml Output Total 1590 ml 2725 ml 1450 ml Balance -142 ml -1159 ml -751 ml Result Diagram: 06/25/16 0410 06/25/16 0410 Imaging Last Impressions Chest X-Ray 06/15/16 0000 Signed Impressions: Service Date/Time: Wednesday, June 15, 2016 15:00 - CONCLUSION: 1. Support equipment in good position. Doroteo Quinn MD Objective Remarks HEENT/ Neuro: Sedated, orally intubated. Opens eyes to voice, moves 4 limbs. Follows commands UE Neck: Orally intubated. Chest/Pulm: Good air entry bilaterally, mild wheezes. Right sided chest tube in place with minimal bloody drainage, no air leak. /sp L thoracentesis 06/20 with 650 ml fluid removed CVS: S1-S2 regular, no murmur. No JVD. GI/abdomen: soft, nontender, bowel sounds not appreciated. J-tube in place. Extremities: warm bilaterally, no edema A/P Assessment and Plan Assessment: Esophageal cancer status post open [place] Moustapha esophagectomy, J-tube placement () Acute respiratory failure on mechanical ventilation MARSHALL pneumonia with Pseudomonas Septic shock Large left effusion Plan: Neuro: -Precedex to facilitate ventilator weaning, continue fentanyl -Once extubated initiate fentanyl [employer]. Has an On-Q pump in place for local anesthetic around chest tube insertion site. -He requires significant narcotics and benzodiazepines at home for pain control. Cardiovascular: -DC IVF, repeat 1 mg IV Bumex -Off ric-synephrine -Given Bumex 1 mg IV x1 on 06/21 Pulmonary: -SBT daily, vent bundle, bronchodilators as needed. -Failed SBT. -s/p L thoracentesis with 650 mL of fluid removed 06/20 -Optimize COPD treatment -Chest x-ray shows left upper lobe infiltrate and Pseudomonas in sputum. Sensitive to cefepime -Tended to lead tracheostomy planned for early next week if patient continues to fail weaning GI/liver: -Continue J-tube feeds. -IV Protonix Renal/: -IV hydration, strict intake output, monitor and replete electrolytes, follow BUN/creatinine. Heme: -Repeat CBC. Transfuse to keep hemoglobin greater than 7 g percent. s/p 1 U PRBC ID: -Continue Cefepime Flagyl and Levaquin as patient appeared to have a contained esophageal perforation, and now MARSHALL PSAE pneumonia. Ancef for prophylactic antibiotic perioperatively. Endocrine: -SSI for glycemic control as needed. -Electrolyte replacement per protocol Prophylaxis: -PPI/SCDs. Subcutaneous Lovenox when okay with general surgery. Dr Mccarthy discussed in detail with 06/20/16 D/W Dr. Bruner 06/23: Possible trach Monday or Monday if he continues to fail weaning Overall impression: Underlying COPD complicates care, now with Pseudomonas pneumonia. He is critically ill requiring mechanical ventilation Critical Care 35 mins aside from procedure Ashok Hidalgo MD June 25, 2016 11:32
[2016-06-25] MEDS: PCA - TOTAL MG MORPHINE DELIVERED PER SHIFT SCH ×3 (13:06→20:56)
[2016-06-25] MEDS: ENOXAPARIN SODIUM 40 MG/0.4 ML SYRINGE SQ SCH (13:06)
[2016-06-25] MEDS: LEVOFLOXACIN 750 MG PREMIX INJ 150 ML IV SCH (16:39)
[2016-06-25] MEDS: PROPOFOL 1000 MG/100 ML IV SCH (16:39)
[2016-06-25] MEDS: PANTOPRAZOLE SODIUM 40 MG VIAL IV SCH (16:39)
[2016-06-25] MEDS: PHENYLEPHRINE HCL 80 MG/D5W 492 ML ADMIX IV SCH ×2 (21:00)
[2016-06-26] VITALS (20 sets, daily range): BP systolic 88–116; BP diastolic 60–76; PULSE 78–123; RESP 14–23; TEMP 96.4–98; O2SAT 93–100
[2016-06-26] MEDS: RESP: ALBUTEROL 2.5 MG/IPRATROPIUM 0.5 MG NEB (PRN) NEB (01:25)
[2016-06-26] MEDS: SODIUM CHLOR 0.9% 1000 ML INJ 1,000 ML IV SCH (02:30)
[2016-06-26] MEDS: CEFEPIME INJ 2,000 MG in SODIUM CHLORIDE 0.9% INJ 100 ML IV SCH ×3 (02:32→17:50)
[2016-06-26] MEDS: PROPOFOL 1000 MG/100 ML IV SCH ×2 (02:32→13:53)
[2016-06-26] MEDS: METOPROLOL TARTRATE 5 MG/5 ML VIAL IV PUSH SCH ×3 (02:33→17:50)
[2016-06-26 04:59] LABS: AUTOMATED NEUTROPHIL # 10.9 TH/MM3 (1.8-7.7); BASOPHIL % 0.3 % (0.0-2.0); EOSINOPHIL # 0.1 TH/MM3 (0-0.4); EOSINOPHIL % 1.1 % (0.0-4.0); HEMATOCRIT 29.9 % (39.0-51.0); LYMPH % 4.5 % (9.0-44.0); LYMPHOCYTE # 0.5 TH/MM3 (1.0-4.8); MEAN CELL VOLUME 77.2 FL (80.0-100.0); MEAN CORPUSCULAR HEMOGLOBIN 24.4 PG (27.0-34.0); MEAN CORPUSCULAR HGB CONC 31.6 % (32.0-36.0); MONO % 5.6 % (0.0-8.0); NEUT % 88.5 % (16.0-70.0); PLATELET COUNT 188 TH/MM3 (150-450); RED BLOOD COUNT 3.87 MIL/MM3 (4.50-5.90); WHITE BLOOD COUNT 12.3 TH/MM3 (4.0-11.0)
[2016-06-26 05:13] LABS: HEMO FLAGS AUTO DIFF
[2016-06-26 05:18] LABS: BICARBONATE 30.9 MEQ/L (21.0-32.0); CALCIUM-PROTEIN CORRECTED 8.5 MG/DL (8.5-10.1); POTASSIUM 3.6 MEQ/L (3.5-5.1); TOTAL BILIRUBIN ADULT 0.7 MG/DL (0.2-1.0)
[2016-06-26 06:26] LABS: BLOOD GAS BASE EXCESS 4.6 mmol/L (-2-2); BLOOD GAS CARBOXYHEMOGLOBIN 1.4 % (0-4); BLOOD GAS HCO3 28 mmol/L (22-26); BLOOD GAS METHEMOGLOBIN 0.6 % (0-2); BLOOD GAS O2 HGB SATURATION 95 % (90-100); BLOOD GAS OXYGEN CONTENT 12.5 Vol % (12.0-20.0); BLOOD GAS PCO2 38 mmHg (38-42); BLOOD GAS PO2 86 mmHg (61-120); BLOOD GAS TOTAL HGB 9.2 G/DL (12.0-16.0); CRITICAL VALUE NO; OXYGEN DEVICE VENTILATOR; TEMP CORR TO 98.6
[2016-06-26 06:27] LABS: DRAW SITE ALINE; FIO2 60 %; STAT YES; ULNAR PULSE PRESENT; VENT SETTINGS AC14/500/+5
--- NOTE | 2016-06-26 06:42 | RADRPT ---
EXAM DATE/TIME: 06/26/2016 06:19 [facility] COMPARISON: CHEST SINGLE AP, June 25, 2016, 4:42. INDICATIONS : Shortness of breath. MEDICAL HISTORY : None. SURGICAL HISTORY : Right thoracotomy. ENCOUNTER: Subsequent ACUITY: 1 week PAIN SCORE: Non-responsive. LOCATION: Bilateral chest FINDINGS: The support devices remain in place and unchanged in position.. There is no evidence of pneumothorax. There continue to be some infiltrate throughout the left lung. The infiltrate in the right lower denisha g has improved. The heart size is stable. No other new changes are demonstrated. CONCLUSION: 1. Improving right lower lung infiltrate. 2. Otherwise, stable examination. Fabian Reeves MD on June 26, 2016 at 6:39 Board Certified Radiologist. This report was verified electronically.
[2016-06-26] MEDS ORDERED: LORazepam 2 MG/ML VIAL IV SCH (07:00)
[2016-06-26] MEDS: SODIUM CHLORIDE 0.9% FLUSH 10 ML FLUSH IV FLUSH SCH ×2 (08:48→20:33)
[2016-06-26 08:56] LABS: BANDS 22 % (0-6); EOSINOPHILS 1 % (0-4); NEUTROPHIL # MANUAL DIFF 10.2 TH/MM3 (1.8-7.7); PLATELET ESTIMATE SMEAR NORMAL (NORMAL); PLATELET MORPHOLOGY NORMAL (NORMAL); POLYS (SEG NEUTROPHILS) 61 % (16-70); SCAN/DIFF FINAL DIFF MANUAL; WBC DIFF SAMPLE 100
[2016-06-26] MEDS: ENOXAPARIN SODIUM 40 MG/0.4 ML SYRINGE SQ SCH (10:46)
--- NOTE | 2016-06-26 12:45 | HHI.PR ---
Subjective Subjective Notes SMILEY no acute events Objective Vitals/I&O Vital Signs Date Time Temp Pulse Resp B/P Pulse Ox O2 Delivery O2 Flow Rate FiO2 06/26/16 12:00 105 06/26/16 12:00 70 06/26/16 11:27 100 06/26/16 08:00 97.0 15 88/60 Arterial Line Labs Laboratory Tests Test 06/25/16 06/26/16 06/26/16 16:10 04:30 06:18 Potassium Level 3.7 3.6 White Blood Count 12.3 Red Blood Count 3.87 Hemoglobin 9.4 Hematocrit 29.9 Mean Corpuscular Volume 77.2 Mean Corpuscular Hemoglobin 24.4 Mean Corpuscular Hemoglobin 31.6 Concent Red Cell Distribution Width 16.0 Platelet Count 188 Mean Platelet Volume 9.4 Neutrophils (%) (Auto) 88.5 Lymphocytes (%) (Auto) 4.5 Monocytes (%) (Auto) 5.6 Eosinophils (%) (Auto) 1.1 Basophils (%) (Auto) 0.3 Neutrophils # (Auto) 10.9 Lymphocytes # (Auto) 0.5 Monocytes # (Auto) 0.7 Eosinophils # (Auto) 0.1 Basophils # (Auto) 0.0 CBC Comment AUTO DIFF Differential Total Cells 100 Counted Neutrophils % (Manual) 61 Band Neutrophils % 22 Lymphocytes % 7 Monocytes % 9 Eosinophils % 1 Neutrophils # (Manual) 10.2 Differential Comment FINAL DIFF MANUAL Platelet Estimate NORMAL Platelet Morphology Comment NORMAL Sodium Level 143 Chloride Level 106 Carbon Dioxide Level 30.9 Anion Gap 6 Blood Urea Nitrogen 12 Creatinine 0.34 Estimat Glomerular Filtration 269 Rate Random Glucose 135 Calcium Level 7.4 Protein Corrected Calcium 8.5 Total Bilirubin 0.7 Aspartate Amino Transf 32 (AST/SGOT) Alanine Aminotransferase 48 (ALT/SGPT) Alkaline Phosphatase 148 Total Protein 5.2 Albumin 1.5 Blood Gas Puncture Site JOSE Blood Gas Patient Temperature 98.6 Blood Gas HCO3 28 Blood Gas Base Excess 4.6 Blood Gas Oxygen Saturation 95 Arterial Blood pH 7.48 Arterial Blood Partial 38 Pressure CO2 Arterial Blood Partial 86 Pressure O2 Arterial Blood Oxygen Content 12.5 Arterial Blood 1.4 Carboxyhemoglobin Arterial Blood Methemoglobin 0.6 Blood Gas Hemoglobin 9.2 Oxygen Delivery Device VENTILATOR Blood Gas Ventilator Setting AC14/500/+5 Blood Gas Inspired Oxygen 60 Cardiovascular: Regular Lungs: Upper airway course sound Abdomen: Non-distended, Non-tender Extremities: No edema, Perfused A/P Assessment and Plan 55yo s/p JAMES Membreno. continue vent wean, will plan for trach tomorrow Armando Bruner MD June 26, 2016 12:45
--- NOTE | 2016-06-26 13:36 | HHI.CCPN ---
Subjective Remarks/Hospital Course 55-year-old male with history of esophageal cancer previously treated with chemotherapy/radiation who underwent open eye with Moustapha esophagectomy with right sided chest tube/J-tube placement under general anesthesia by Dr. Bruner/Dr. Blanco, EBL 300 cc, tolerated procedure well and was subsequently transferred to PACU kept intubated on mechanical ventilation. Consult was requested by Dr. Bruner for critical care management. I evaluated the patient in PACU shortly following his arrival there. At that time was sedated, orally intubated on mechanical ventilation. History was obtained by reviewing records and discussion with Dr. Bruner. 06/16: Awake and alert. Push for extubation. 06/17: Required re-intubation last night for excessive secretions and hypoxemic failure. 06/18: Gas exchange improved. Awaiting cultures. 06/20: Remains intubated sedated, intermittently follows commands. Mod-large effusion L side. Hemoglobin down to 7.8, transfuse 1 unit PRBC. Remains on Ric -Synephrine 06/21: s/p thoracentesis with 650 ml removed yesterday. Slightly blood tinged effusion. Chemistry consistent with transudative effusion. Tolerates CPAP but became tachycardic. CBC and chest x-ray pending today. Chest x-ray yesterday showed developing left upper lobe infiltrate-sputum PSAE S to cefepime 06/22: Remains sedated, arousable, orally intubated on mechanical ventilation. Failed C Pap trial yesterday. 06/23: Remains sedated, arousable, orally intubated on mechanical ventilation. Tolerated C Pap trial with pressure support +15 yesterday. 06/24: Failed CPAP trial when pressure-support reduced to 5, became tachypneic and tachycardic. If continues to fail possible tracheostomy on Monday per Dr. Bruner to facilitate ventilator weaning 06/25: Failed C Pap trial today. Became tachypneic and dropped O2 sats. Remains orally intubated on mechanical ventilation. 06/26: Remains sedated, orally intubated on mechanical ventilation. FiO2 increased to 60% this morning. Chest x-ray unchanged. Not ready for extubation based on increasing FiO2 requirement. Objective Vital Signs Date Time Temp Pulse Resp B/P Pulse Ox O2 Delivery O2 Flow Rate FiO2 06/26/16 12:00 105 06/26/16 12:00 70 06/26/16 11:27 100 06/26/16 08:00 97.0 15 88/60 Arterial Line Intake and Output 06/25/16 06/25/16 06/26/16 08:00 16:00 00:00 Intake Total 791 ml 958 ml 1121 ml Output Total 980 ml 1500 ml 1900 ml Balance -189 ml -542 ml -779 ml Result Diagram: 06/26/16 0430 06/26/16 0430 Other Results Laboratory Tests Test 06/26/16 06:18 Blood Gas Puncture Site JOSE Blood Gas Patient Temperature 98.6 Blood Gas HCO3 28 mmol/L (22-26) Blood Gas Base Excess 4.6 mmol/L (-2-2) Blood Gas Oxygen Saturation 95 % (90-100) Arterial Blood pH 7.48 (7.380-7.420) Arterial Blood Partial 38 mmHg (38-42) Pressure CO2 Arterial Blood Partial 86 mmHg Pressure O2 (61-120) Arterial Blood Oxygen Content 12.5 Vol % (12.0-20.0) Arterial Blood 1.4 % (0-4) Carboxyhemoglobin Arterial Blood Methemoglobin 0.6 % (0-2) Blood Gas Hemoglobin 9.2 G/DL (12.0-16.0) Oxygen Delivery Device VENTILATOR Blood Gas Ventilator Setting AC14/500/+5 Blood Gas Inspired Oxygen 60 % Imaging Last Impressions Chest X-Ray 06/15/16 0000 Signed Impressions: Service Date/Time: Wednesday, June 15, 2016 15:00 - CONCLUSION: 1. Support equipment in good position. Doroteo Quinn MD Objective Remarks HEENT/ Neuro: Sedated, orally intubated. Opens eyes to voice, moves 4 limbs. Follows commands UE Neck: Orally intubated. Chest/Pulm: Good air entry bilaterally, mild wheezes. Right sided chest tube in place with minimal bloody drainage, no air leak. CVS: S1-S2 regular, no murmur. No JVD. GI/abdomen: soft, nontender, bowel sounds not appreciated. J-tube in place. Extremities: warm bilaterally, no edema A/P Assessment and Plan Assessment: Esophageal cancer status post open [place] Moustapha esophagectomy, J-tube placement () Acute respiratory failure on mechanical ventilation MARSHALL pneumonia with Pseudomonas Septic shock Large left effusion Plan: Neuro: -Precedex to facilitate ventilator weaning, continue fentanyl - Has an On-Q pump in place for local anesthetic around chest tube insertion site. -He requires significant narcotics and benzodiazepines at home for pain control. Cardiovascular: -off IVF -Off ric-synephrine -Given Bumex 1 mg IV x1 on 06/21 Pulmonary: -SBT daily, vent bundle, bronchodilators as needed. -Failed SBT. -s/p L thoracentesis with 650 mL of fluid removed 06/20 -Optimize COPD treatment -Chest x-ray shows left upper lobe infiltrate and Pseudomonas in sputum. Sensitive to cefepime - tracheostomy planned for 06/27 as patient continues to fail weaning GI/liver: -Continue J-tube feeds. -IV Protonix Renal/: -IV hydration, strict intake output, monitor and replete electrolytes, follow BUN/creatinine. Heme: -Repeat CBC. Transfuse to keep hemoglobin greater than 7 g percent. s/p 1 U PRBC ID: -Continue Cefepime Flagyl and Levaquin as patient appeared to have a contained esophageal perforation, and now MARSHALL PSAE pneumonia. Ancef for prophylactic antibiotic perioperatively. Endocrine: -SSI for glycemic control as needed. -Electrolyte replacement per protocol Prophylaxis: -PPI/SCDs. Subcutaneous Lovenox when okay with general surgery. Dr Mccarthy discussed in detail with 06/20/16 D/W Dr. Bruner 06/23: Possible trach Monday or Monday if he continues to fail weaning Overall impression: Underlying COPD complicates care, now with Pseudomonas pneumonia. He is critically ill requiring mechanical ventilation Critical Care 35 mins aside from procedure Ashok Hidalgo MD June 26, 2016 13:36
[2016-06-26] MEDS: PCA - TOTAL MG MORPHINE DELIVERED PER SHIFT SCH ×2 (14:00→22:00)
[2016-06-26] MEDS: LEVOFLOXACIN 750 MG PREMIX INJ 150 ML IV SCH (16:39)
[2016-06-26] MEDS: PANTOPRAZOLE SODIUM 40 MG VIAL IV SCH (16:40)
[2016-06-26] MEDS: PHENYLEPHRINE HCL 80 MG/D5W 492 ML ADMIX IV SCH ×2 (17:56)
[2016-06-26] MEDS ORDERED: NOREPINEPHRINE-DEXTROSE DRIP 250 ML IV SCH (22:30)
[2016-06-26] MEDS ORDERED: TERBUTALINE INJ 1 MG/ML AMP SQ PRN (22:30)
--- NOTE | 2016-06-26 22:54 | RADRPT ---
EXAM DATE/TIME: 06/26/2016 22:32 [facility] COMPARISON: No previous studies available for comparison. INDICATIONS : Altered mental status. RADIATION DOSE: 56.35 CTDIvol (mGy) MEDICAL HISTORY : Carcinoma, esophageal. SURGICAL HISTORY : None. ENCOUNTER: Initial ACUITY: 1 day PAIN SCALE: Non-responsive LOCATION: cranial TECHNIQUE: Multiple contiguous axial images were obtained of the head. Using automated exposure control and adj ustment of the mA and/or kV according to patient size, radiation dose was kept as low as reasonably a chievable to obtain optimal diagnostic quality images. FINDINGS: The study is abnormal. There is hydrocephalus with enlarged cystic mass causing moderate obstruction . There are no extra-axial fluid collections appreciated. There is parenchymal hemorrhage. CONCLUSION: Cystic mass posterior fossa right side causing significant hydrocephalus. Clarence Quinn MD FACR on June 26, 2016 at 22:45 Board Certified Radiologist. This report was verified electronically.
[2016-06-26] MEDS ORDERED: MANNITOL 12.5 GM/50 ML VIAL IV SCH (23:15)
[2016-06-26] MEDS ORDERED: DEXAMETHASONE SOD PHOS 20 MG/5 ML VIAL IV SCH (23:15)
[2016-06-26] MEDS ORDERED: SODIUM CHLOR 0.9% 1000 ML INJ 2,000 ML IV SCH (23:30)
--- NOTE | 2016-06-26 23:54 | PD.CONS ---
History of Present Illness Service Neurosurgery Consult Requested By Outside Machinist Apprentice Dr. Elias Reason for Consult Obstructive hydrocephalus Primary Care Physician No Primary Care Physician Diagnoses: History of Present Illness 55-year-old gentleman who underwent esophagectomy for esophageal cancer and subsequent surgery has been ventilator dependent. He was opening his eyes and the following some simple commands but this evening became unresponsive with fixed and dilated pupils and no gag or corneal reflex or motor response with acute deterioration. CT scan of the head obtained reveals the right cerebellar hemisphere cystic abnormality with obstructive hydrocephalus. I was called by Dr. Elias casket coverer to see if the patient would benefit from a ventriculostomy placement. There is no family available and attempts to contact his power of associate attorney in the chart went straight to voicemail and a message was left for her to call back. Review of Systems ROS Limitations: Unresponsive Past Family Social History Allergies: Coded Allergies: No Known Allergies (Unverified , 06/15/16) Physical Exam Vital Signs Vital Signs Date Time Temp Pulse Resp B/P Pulse Ox O2 Delivery O2 Flow Rate FiO2 06/26/16 22:25 100 100 06/26/16 19:28 94 60 06/26/16 18:00 102 06/26/16 16:00 60 06/26/16 16:00 98.0 106 14 104/64 96 06/26/16 16:00 102 06/26/16 15:03 98 60 06/26/16 14:00 90 06/26/16 12:00 105 06/26/16 12:00 70 06/26/16 12:00 97.3 106 23 109/76 99 06/26/16 11:27 100 70 06/26/16 10:00 99 06/26/16 08:00 100 06/26/16 08:00 97.0 96 15 88/60 98 Arterial Line 06/26/16 08:00 90 06/26/16 07:24 100 100 06/26/16 06:42 100 06/26/16 06:00 101 06/26/16 04:30 99 60 06/26/16 04:00 96.7 94 22 116/62 95 06/26/16 04:00 83 06/26/16 04:00 60 06/26/16 02:00 60 06/26/16 02:00 80 06/26/16 00:12 95 45 06/26/16 00:00 95 06/26/16 00:00 45 06/26/16 00:00 96.4 92 23 110/67 93 Physical Exam GENERAL: This is a cachectic male who is unresponsive and on a ventilator. SKIN: No rashes, ecchymoses or lesions. Cool and dry. HEAD: Atraumatic. Normocephalic. No temporal or scalp tenderness. EYES: Pupils equal round and reactive. Extraocular motions intact. No scleral icterus. No injection or drainage. ENT: Nose without bleeding, purulent drainage or septal hematoma. Endotracheal tube in place. NECK: Supple, nontender, no meningeal signs. CARDIOVASCULAR: Regular rate and rhythm without murmurs, gallops, or rubs. RESPIRATORY: Clear to auscultation. Breath sounds equal bilaterally. No wheezes , rales, or rhonchi. GASTROINTESTINAL: Abdomen soft, non-tender, nondistended. No hepato-splenomegaly , or palpable masses. No guarding. MUSCULOSKELETAL: Extremities without clubbing, cyanosis, or edema. No joint tenderness, effusion, or edema noted. No calf tenderness. Negative Homans sign bilaterally. 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 No spontaneous respiration over the ventilator. [place] Coma Score is a 3 with loss of brain stem reflexes. Laboratory Laboratory Tests Test 06/26/16 06/26/16 04:30 06:18 White Blood Count 12.3 Red Blood Count 3.87 Hemoglobin 9.4 Hematocrit 29.9 Mean Corpuscular Volume 77.2 Mean Corpuscular Hemoglobin 24.4 Mean Corpuscular Hemoglobin 31.6 Concent Red Cell Distribution Width 16.0 Platelet Count 188 Mean Platelet Volume 9.4 Neutrophils (%) (Auto) 88.5 Lymphocytes (%) (Auto) 4.5 Monocytes (%) (Auto) 5.6 Eosinophils (%) (Auto) 1.1 Basophils (%) (Auto) 0.3 Neutrophils # (Auto) 10.9 Lymphocytes # (Auto) 0.5 Monocytes # (Auto) 0.7 Eosinophils # (Auto) 0.1 Basophils # (Auto) 0.0 CBC Comment AUTO DIFF Differential Total Cells 100 Counted Neutrophils % (Manual) 61 Band Neutrophils % 22 Lymphocytes % 7 Monocytes % 9 Eosinophils % 1 Neutrophils # (Manual) 10.2 Differential Comment FINAL DIFF MANUAL Platelet Estimate NORMAL Platelet Morphology Comment NORMAL Sodium Level 143 Potassium Level 3.6 Chloride Level 106 Carbon Dioxide Level 30.9 Anion Gap 6 Blood Urea Nitrogen 12 Creatinine 0.34 Estimat Glomerular Filtration 269 Rate Random Glucose 135 Calcium Level 7.4 Protein Corrected Calcium 8.5 Total Bilirubin 0.7 Aspartate Amino Transf 32 (AST/SGOT) Alanine Aminotransferase 48 (ALT/SGPT) Alkaline Phosphatase 148 Total Protein 5.2 Albumin 1.5 Blood Gas Puncture Site JOSE Blood Gas Patient Temperature 98.6 Blood Gas HCO3 28 Blood Gas Base Excess 4.6 Blood Gas Oxygen Saturation 95 Arterial Blood pH 7.48 Arterial Blood Partial 38 Pressure CO2 Arterial Blood Partial 86 Pressure O2 Arterial Blood Oxygen Content 12.5 Arterial Blood 1.4 Carboxyhemoglobin Arterial Blood Methemoglobin 0.6 Blood Gas Hemoglobin 9.2 Oxygen Delivery Device VENTILATOR Blood Gas Ventilator Setting AC14/500/+5 Blood Gas Inspired Oxygen 60 Result Diagram: 06/26/16 0430 06/26/16 0430 Imaging Last Impressions Head CT 06/26/16 0000 Signed Impressions: Service Date/Time: Sunday, June 26, 2016 22:32 - CONCLUSION: Cystic mass posterior fossa right side causing significant hydrocephalus. Clarence Quinn MD FACR Chest X-Ray 06/26/16 0000 Signed Impressions: Service Date/Time: Sunday, June 26, 2016 06:19 - CONCLUSION: 1. Improving right lower lung infiltrate. 2. Otherwise, stable examination. Fabian Reeves MD Assessment and Plan Assessment and Plan 55 [id number] with esophageal cancer status post esophagectomy with subsequent ventilator dependency. Acute neurologic decline early this evening with loss of all brainstem reflexes unfortunately. He has developed obstructive hydrocephalus likely from a cystic mass in the right cerebellar hemisphere. At this point prognosis is very grim but I will go ahead and place a ventriculostomy to treat the obstructive hydrocephalus and see if there is any improvement in his neurologic examination. No family is available therefore the procedure will be taken on an emergent basis taking the patient's best interest into account. Todd Heath MD June 26, 2016 23:54
--- NOTE | 2016-06-26 23:54 | PD.OP ---
Operative Report Date of Surgery: June 26, 2016 Preoperative Diagnosis: Obstructive hydrocephalus with right cerebellar hemisphere cystic abnormality Postoperative Diagnosis: Same Procedure: Right frontal twist drill hole ventriculostomy placement Anesthesia: Local Surgeon: Todd Heath M.D. Emd Special Education Teacher(s): None Operation and Findings: Procedure was undertaken at the bedside on an emergent basis with oxygen saturation and hemodynamic monitoring in the intensive care unit, the right frontal region was shaved and the prep with chlor prep and sterilely draped. Using landmarks of 11 cm behind the nasion and 3 cm to the right of the midline , a 1 cm scalp incision was made after infiltrating with 1% lidocaine with epinephrine solution. With a handheld drill a twist drill hole was made in the underlying dura penetrated with a blunt probe. The bactiseal ventriculostomy catheter was then passed into the lateral ventricle at a depth of 7 cm clear CSF encountered with an opening pressure around 35 cm H20. After drainage of CSF the pressures were down to 10 cm H20. The distal end of the ventriculostomy was then tunneled under the scalp with a trocar and secured to the exit site with a 3-0 nylon thigh and connected to a drainage bag. Scalp incision site was approximated with 3-0 nylon interrupted stitches A sterile dressing was applied. There were no complications and blood loss was less than 5 cc. Todd Heath MD June 26, 2016 23:54
[2016-06-27] VITALS (20 sets, daily range): BP systolic 104–112; BP diastolic 56–64; PULSE 80–99; RESP 14; TEMP 96.7–99; O2SAT 94–100
[2016-06-27] MEDS ORDERED: NOREPINEPHRINE 4 MG/4 ML AMP ONE (00:12)
[2016-06-27] MEDS ORDERED: TERBUTALINE INJ 1 MG/ML AMP SQ PRN (00:15)
[2016-06-27] MEDS ORDERED: fentaNYL CITRATE 250 MCG/5 ML AMP IV PUSH PRN (00:15)
[2016-06-27] MEDS ORDERED: NOREPINEPHRINE INJ 4 MG in SODIUM CHLOR 0.9% 250 ML INJ 246 ML IV SCH (00:15)
[2016-06-27 00:39] LABS: BLOOD GAS BASE EXCESS 2.2 mmol/L (-2-2); BLOOD GAS CARBOXYHEMOGLOBIN 1.2 % (0-4); BLOOD GAS HCO3 27 mmol/L (22-26); BLOOD GAS METHEMOGLOBIN 0.7 % (0-2); BLOOD GAS O2 HGB SATURATION 96 % (90-100); BLOOD GAS PCO2 43 mmHg (38-42); BLOOD GAS PO2 109 mmHg (61-120); BLOOD GAS TOTAL HGB 8.7 G/DL (12.0-16.0); CRITICAL VALUE NO; OXYGEN DEVICE VENTILATOR; TEMP CORR TO 98.6
[2016-06-27 00:40] LABS: DRAW SITE ART LINE; FIO2 60 %; STAT NO; VENT SETTINGS AC/14/500/PEEP8
[2016-06-27] MEDS: SODIUM CHLOR 0.9% 1000 ML INJ 1,000 ML IV SCH (01:18)
[2016-06-27] MEDS: CEFEPIME INJ 2,000 MG in SODIUM CHLORIDE 0.9% INJ 100 ML IV SCH ×3 (01:58→18:48)
[2016-06-27 03:47] LABS: BLOOD GAS BASE EXCESS 2.8 mmol/L (-2-2); BLOOD GAS CARBOXYHEMOGLOBIN 1.2 % (0-4); BLOOD GAS HCO3 27 mmol/L (22-26); BLOOD GAS METHEMOGLOBIN 0.6 % (0-2); BLOOD GAS O2 HGB SATURATION 95 % (90-100); BLOOD GAS OXYGEN CONTENT 14.1 Vol % (12.0-20.0); BLOOD GAS PCO2 46 mmHg (38-42); BLOOD GAS PO2 93 mmHg (61-120); BLOOD GAS TOTAL HGB 10.5 G/DL (12.0-16.0); CRITICAL VALUE NO; OXYGEN DEVICE VENTILATOR; TEMP CORR TO 98.6
[2016-06-27 03:48] LABS: DRAW SITE ART LINE; FIO2 60 %; STAT YES; VENT SETTINGS AC/14/500/PEEP5
[2016-06-27 04:15] LABS: HEMATOCRIT 32.5 % (39.0-51.0); MEAN CELL VOLUME 78.1 FL (80.0-100.0); MEAN CORPUSCULAR HEMOGLOBIN 24.8 PG (27.0-34.0); MEAN CORPUSCULAR HGB CONC 31.7 % (32.0-36.0); PLATELET COUNT 289 TH/MM3 (150-450); RED BLOOD COUNT 4.17 MIL/MM3 (4.50-5.90); RED CELL DISTRIBUTION WIDTH 16.8 % (11.6-17.2); WHITE BLOOD COUNT 16.5 TH/MM3 (4.0-11.0)
--- NOTE | 2016-06-27 04:18 | RADRPT ---
EXAM DATE/TIME: 06/27/2016 03:46 [facility] COMPARISON: CHEST SINGLE AP, June 25, 2016, 4:42. CHEST SINGLE AP, June 26, 2016, 6:19. INDICATIONS : Shortness of breath. MEDICAL HISTORY : None. SURGICAL HISTORY : Right thoracotomy. ENCOUNTER: Subsequent ACUITY: 1 week PAIN SCORE: Non-responsive. LOCATION: Bilateral chest FINDINGS: A single AP semierect view of the chest was obtained. The endotracheal tube remains in place with the tip approximately 4 cm above the lu. The nasogastric tube remains with the tip in the distal eso phagus. Coarse infiltrate in the left upper lobe is mildly improved. Hazy opacity remains at both denisha g bases with blunting of the left costophrenic angle. The heart size remains within normal limits. Th e right subclavian central venous line and extends cephalad into the internal jugular vein. CONCLUSION: 1. Mild improvement in left upper lobe infiltrate. 2. Hazy opacity remains at both lung bases with left effusion. 3. The nasogastric tube remains in place with the tip in the distal esophagus. 4. The right subclavian central venous line again extends cephalad into the internal jugular vein. Ryan Barros MD on June 27, 2016 at 4:14 Board Certified Radiologist. This report was verified electronically.
[2016-06-27 04:23] LABS: REVIEW FLAG FINAL
[2016-06-27 04:57] LABS: BICARBONATE 29.4 MEQ/L (21.0-32.0); POTASSIUM 3.9 MEQ/L (3.5-5.1)
[2016-06-27] MEDS: METOPROLOL TARTRATE 5 MG/5 ML VIAL IV PUSH SCH ×5 (06:00→23:44)
[2016-06-27] MEDS: PCA - TOTAL MG MORPHINE DELIVERED PER SHIFT SCH ×3 (06:00→22:00)
[2016-06-27] MEDS: SODIUM CHLORIDE 0.9% FLUSH 10 ML FLUSH IV FLUSH SCH ×2 (09:53→21:00)
--- NOTE | 2016-06-27 10:14 | HHI.NSPN ---
(Elliott Herman) History Chief Complaint: hydrocephalus. (Elliott Herman) Interval History 55-year-old gentleman who underwent esophagectomy for esophageal cancer and subsequent surgery has been ventilator dependent. He was opening his eyes and the following some simple commands but this evening became unresponsive with fixed and dilated pupils and no gag or corneal reflex or motor response with acute deterioration. CT scan of the head obtained reveals the right cerebellar hemisphere cystic abnormality with obstructive hydrocephalus. I was called by Dr. Elias cadastral surveyor to see if the patient would benefit from a ventriculostomy placement. There is no family available and attempts to contact his power of consumer attorney in the chart went straight to voicemail and a message was left for her to call back. 06/27/16: Chart reviewed. Patient is not on any sedative drips per RN. Patient not opening eyes. Right pupil is 6 mm nonreactive. There is no corneal reflex bilaterally. No cough or gag reflex. No response to pain. Family is at bedside and was updated. (Elliott Herman) System Review Comments Not able to obtain given clinical status. (Elliott Herman) Exam Results Vital Signs Date Time Temp Pulse Resp B/P Pulse Ox O2 Delivery O2 Flow Rate FiO2 06/27/16 08:48 100 50 06/27/16 08:00 98 06/27/16 04:00 98.4 14 106/62 Intake and Output 06/26/16 06/26/16 06/26/16 07:59 15:59 23:59 Intake Total 889 ml 972 ml 858 ml Output Total 1556 ml 1020 ml 1210 ml Balance -667 ml -48 ml -352 ml (Elliott Herman) Physical Examination Resp: Intubated. CTA bilaterally. No breaths over vent noted. Heart: NSR no murmurs. He is on pressor for BP support. Abd: Soft. Absent bs. Skin: No cyanosis or erythema Muscle: No response to deep pain in upper chest. Neuro: Right pupil 6mm NR left eye blind. No corneal response. No cough or gag to ET suctioning. Ventriculostomy drain in place at 10cm H20. ICP 12. ( Elliott Herman) Lab, Micro, Other Results Last Impressions Chest X-Ray 06/27/16 0000 Signed Impressions: Service Date/Time: Monday, June 27, 2016 03:46 - CONCLUSION: 1. Mild improvement in left upper lobe infiltrate. 2. Hazy opacity remains at both lung bases with left effusion. 3. The nasogastric tube remains in place with the tip in the distal esophagus. 4. The right subclavian central venous line again extends cephalad into the internal jugular vein. Ryan Barros MD Head CT 06/26/16 0000 Signed Impressions: Service Date/Time: Sunday, June 26, 2016 22:32 - CONCLUSION: Cystic mass posterior fossa right side causing significant hydrocephalus. Clarence Quinn MD FACR Laboratory Tests Test 06/27/16 06/27/16 06/27/16 00:28 03:35 03:45 Blood Gas Puncture Site ART LINE ART LINE Blood Gas Patient Temperature 98.6 98.6 Blood Gas HCO3 27 mmol/L 27 mmol/L Blood Gas Base Excess 2.2 mmol/L 2.8 mmol/L Blood Gas Oxygen Saturation 96 % 95 % Arterial Blood pH 7.41 7.39 Arterial Blood Partial 43 mmHg 46 mmHg Pressure CO2 Arterial Blood Partial 109 mmHg 93 mmHg Pressure O2 Arterial Blood Oxygen Content 12.0 Vol % 14.1 Vol % Arterial Blood 1.2 % 1.2 % Carboxyhemoglobin Arterial Blood Methemoglobin 0.7 % 0.6 % Blood Gas Hemoglobin 8.7 G/DL 10.5 G/DL Oxygen Delivery Device VENTILATOR VENTILATOR Blood Gas Ventilator Setting AC/14/500/PEEP8 AC/14/500/PEEP5 Blood Gas Inspired Oxygen 60 % 60 % White Blood Count 16.5 TH/MM3 Red Blood Count 4.17 MIL/MM3 Hemoglobin 10.3 GM/DL Hematocrit 32.5 % Mean Corpuscular Volume 78.1 FL Mean Corpuscular Hemoglobin 24.8 PG Mean Corpuscular Hemoglobin 31.7 % Concent Red Cell Distribution Width 16.8 % Platelet Count 289 TH/MM3 Mean Platelet Volume 9.1 FL Sodium Level 152 MEQ/L Potassium Level 3.9 MEQ/L Chloride Level 117 MEQ/L Carbon Dioxide Level 29.4 MEQ/L Anion Gap 6 MEQ/L Blood Urea Nitrogen 12 MG/DL Creatinine 0.32 MG/DL Estimat Glomerular Filtration 289 ML/MIN Rate Random Glucose 153 MG/DL Calcium Level 7.9 MG/DL 06/26/16 06/26/16 06/27/16 14:59 22:59 06:59 Intake Total 972 ml 858 ml 2898 ml Output Total 1020 ml 1210 ml 4365 ml Balance -48 ml -352 ml -1467 ml Intake Oral 0 ml IV Total 603 ml 445 ml 2898 ml Tube Feeding 369 ml 233 ml 0 ml Tube Irrigant 180 ml 0 ml Output Urine Total 1000 ml 1200 ml 4200 ml Gastric Drainage Total 10 ml 10 ml 90 ml Chest Tube Drainage Total 10 ml 10 ml Drainage Total 65 ml # Bowel Movements 0 0 (Elliott Herman) Medical Decision Making Impression and Plan A: 55 [id number] with esophageal cancer status post esophagectomy with subsequent ventilator dependency. Acute neurologic decline last night 06/26/16 with loss of all brainstem reflexes unfortunately. He has developed obstructive hydrocephalus likely from a cystic mass in the right cerebellar hemisphere. s/p ventriculostomy for his hydrocephalus. Exam does not reveal any improvement s/p ventriculostomy drain. P: Continue with supportive care. I have discussed with family at bedside my exam findings and they are updated on his condition. Discussed with critical care and GS MAGNETO ELECTRICIAN. Palliative care has been consulted. (Elliott Herman) Attending Statement The exam, history, and the medical decision-making described in the above note were completed with the assistance of the mid-level provider. I reviewed and agree with the findings presented. I attest that I had a [id number] encounter with the patient on the same day, and personally performed and documented my assessment and findings in the medical record. Unfortunately despite the ventriculostomy drainage and currently normal ICPs his neurologic examination remains poor with no brainstem reflexes. Discussed at length with the patient's mother and sister and other family members at bedside. Prognosis is very poor and they understand. We will obtain an EEG to assess cortical activity. (Todd Heath MD) Elliott Herman June 27, 2016 10:14 Todd Heath MD June 27, 2016 10:42
--- NOTE | 2016-06-27 10:53 | PD.CONS ---
Consult Service Palliative Care Consult Requested By Vinny ALLEN . Primary Care Physician No Primary Care Physician Reason for Consultation a. To assist with evaluation and management of symptoms including: b. To assist medical decision maker(s) with: better understanding of current medical conditions; weighing benefits/burdens of medical treatment options; making medical treatment decisions. HPI History of Present Illness This patient was admitted 06/15/16 for [place]-Moustapha esophagectomy, J-tube placement by Dr. Fernández and Dr. Bruner. He has known history of esophageal cancer previously treated with chemotherapy and radiation. He remained on mechanical vent postoperatively and was transferred to the ICU. He was sedated with propofol and fentanyl, had an On-Q pump for local anesthetic noted to require significant narcotics and benzodiazepines at home for pain control may require higher doses than usual of narcotics. [He recently underwent diagnostic staging laparoscopy, laparoscopic J-tube placement 05/04/16-that time he was discharged home on tube feeding, with home health] * 06/16 recovering well, stable, extubated. * 06/17 reintubated for excess secretions and hypoxemic failure. Bronchoscopy done washings obtained, large amounts of secretions noted obstructing left main bronchus. Started on Levophed due to hypotension secondary to sedation for bronchoscopy. Continues to have operative chest tube. * 06/20/16 additional chest tube placed for large right pleural effusion. 650 mL removed. On Ric-Synephrine drip. Hemoglobin trending down transfusing as needed, 1 unit RBC. +sputum PSAE; CXR with left upper lobe infiltrate. + Tube feeds via J-tube. * 06/22 remains on mechanical vent, sedated, failed CPAP trials. * 06/24 remains on mechanical vent, continued CPAP trials, becomes tachypneic and tachycardic when pressure support reduced, discussions regarding possible tracheostomy on Monday/Monday. * 06/26 patient became unresponsive with fixed and dilated pupils no gag or corneal reflex; CT brain= right cerebellar hemisphere cystic abnormality with obstructive hydrocephalus. Neurosurgery was consulted for possible ventriculostomy. Neurosurgery notes "at this point prognosis very grim but will placed ventriculostomy to treat obstructive hydrocephalus and see if there is any improvement in neurologic exam "--unable to reach patient proceeded with procedure on emergent basis. * 06/27 palliative care was consulted to assist with their furcation of goals of treatment. Patient not on sedation, not opening eyes. Right pupil is 6 mm nonreactive. There is no corneal reflex bilaterally. No cough or gag reflex. No response to pain. [dual visit amor ALLEN] Pt seen in room, multiple family members at bedside. Nonresponsive to exam. Met at length with family, Dr Bruner, see [facility] conference. Oncology history: Per review of available records. Apparently in June 2013 patient developed difficulty swallowing solids, approximately 30 pounds weight loss over 3 months. He initially presented to GI for evaluation; EGD noted distal esophageal mass, biopsy pathology consistent with adenocarcinoma. --He completed chemoradiotherapy November 2013, without evidence of residual disease planned initially for surgical resection though this was postponed due to excellent response of therapy as well as general frail condition --In 2014 he moved to [place] to pursue medicinal marijuana and cannabinoid therapy; 2016 oncology notes he reported feeling well. He did endorse continued weight loss. --January 2016 oncology note: PET scan from [facility] dated 05/2015 revealed persistent hypermetabolic activity involving distal thoracic esophagus concerning for residual viable malignancy no evidence of metastatic disease. Oncology recommends restaging and additional follow-up pending results. --February 2016-oncology notes based on imaging disease is progressing but is not yet metastasize. Oncology notes discussion about possibilities of ablative therapy local therapy, further notes patient indicated "he would frankly rather than to undergo any surgical interventions which would require any significant amount of resection " --In March he was referred to Dr. Bruner for possible esophagectomy 2 years post chemoradiotherapy. Function/Cognitive Trajectory Prior to this admission independent with all ADLs, [place]. He was discharged home with home health after diagnostic laparoscopy 05/06/16 Review of Systems ROS Limitations: Clinical Condition (sedated, on mechanical vent), Intubated, Altered Mental Status Past Family Social History Coded Allergies: No Known Allergies (Unverified , 06/15/16) Past Medical History GERD Kidney stones Distal esophageal/GE J adenocarcinoma DX June 2013 Nonmelanoma skin cancer . Past Surgical History Resection multiple nonmelanoma skin cancers EGD 2013 Bone reconstruction left leg 2009 Reported Medications Xanax 1 mg every 4 prn Jevity Senna one twice a day Oxycodone 10/325 2 every 6 as needed Nicotine patch . Current Medications Medications (Trade) Dose Ordered Sig/Virgil Route Start Time Stop Time Status Last Admin (Botox Inj) 100 units UNSCH .XX 06/15/16 08:00 06/15/16 10:29 (NS Flush) 2 ml UNSCH PRN IV FLUSH 06/15/16 14:15 (NS Flush) 2 ml BID IV FLUSH 06/15/16 14:15 06/27/16 09:53 (Zofran Inj) 4 mg Q6H PRN IV 06/15/16 14:15 (Protonix Inj) 40 mg Q24H IV 06/15/16 16:00 06/26/16 16:40 (Benadryl Inj) 25 mg Q6H PRN IV 06/15/16 14:15 (Ativan Inj) 0.5 mg Q4H PRN IVP 06/15/16 14:15 06/21/16 08:46 (Lovenox Inj) 40 mg Q24H SQ 06/16/16 13:30 06/26/16 10:46 (Narcan Inj) 0.4 mg UNSCH PRN IV 06/15/16 14:15 (Morphine 1 Mg/ ml ACTION INSTALLER) 30 mg UNSCH IV 06/15/16 14:15 06/16/16 16:41 ACTION INSTALLER Dosage Infused (Pha) 1 1 Q8HR .XX 06/15/16 14:15 06/17/16 06:00 Fentanyl Citrate 250 ml @ 0 mls/hr TITRATE IV 06/15/16 15:30 06/25/16 20:56 Propofol 100 ml @ 0 mls/hr TITRATE IV 06/15/16 16:30 06/26/16 13:53 (NS 1000 ml Inj) 1,000 ml @ 10 mls/hr Q24H IV 06/17/16 11:00 06/27/16 01:18 Miscellaneous Information D/C ICU ELECTROLYTE ORDERS... UNSCH PRN .XX 06/18/16 15:00 Miscellaneous Information ICU - CALL ORDERING PHYSIC... UNSCH PRN .XX 06/18/16 15:00 (KCl 40 Meq Premix Inj) 100 ml @ 25 mls/hr UNSCH PRN IV 06/18/16 15:00 06/25/16 06:41 Potassium Bicarb/ Potassium Chloride 50 meq 50 meq UNSCH PRN PO 06/18/16 15:00 Potassium Chloride 100 ml @ 50 mls/hr UNSCH PRN IV 06/18/16 15:00 06/22/16 00:54 Magnesium Sulfate 4 gm/Sodium Chloride 108 ml @ 54 mls/hr UNSCH PRN IV 06/18/16 15:00 (Magnesium Sulfate Inj/NS Inj) 104 ml @ 52 mls/hr UNSCH PRN IV 06/18/16 15:00 Magnesium Oxide 800 mg 800 mg UNSCH PRN PO 06/18/16 15:00 (Sodium Phosphate Inj/NS 250 ml Inj) 260 ml @ 43.333 mls/ hr UNSCH PRN IV 06/18/16 15:00 Potassium Phosphate 2000 mg 2,000 mg UNSCH PRN PO 06/18/16 15:00 (Levaquin 750 Mg Premix Inj) 150 ml @ 100 mls/hr Q24H IV 06/19/16 17:00 06/26/16 16:39 Metoprolol Tartrate 5 mg 5 mg Q6HR IV PUSH 06/19/16 18:00 06/26/16 17:50 Cefepime HCl 2000 mg/Sodium Chloride 100 ml @ 200 mls/hr Q8H IV 06/20/16 18:00 06/27/16 09:54 Dexmedetomidine HCl 200 mcg/ Sodium Chloride 52 ml @ 0 mls/hr TITRATE IV 06/21/16 11:15 06/22/16 21:49 (Levophed-Dextrose Drip) 250 ml @ 0 mls/hr TITRATE IV 06/26/16 22:30 Terbutaline Sulfate 1 mg 1 mg UNSCH PRN SQ 06/26/16 22:30 (Levophed Inj/NS 250 ml Inj) 250 ml @ 0 mls/hr TITRATE IV 06/27/16 00:15 (Brethine Inj) 1 mg UNSCH PRN SQ 06/27/16 00:15 Fentanyl Citrate 100 mcg 100 mcg Q30M PRN IV PUSH 06/27/16 00:15 (Neosynephrine Inj/NS 500 ml Inj) 500 ml @ 0 mls/hr TITRATE IV 06/27/16 01:45 Family History Father age 54 secondary to [place] Substance Use Tobacco: Smokes 1 pack per day Alcohol: Prescription med abuse: Illicits: + Previously endorse marijuana use, illicit drugs used Psychosocial History , lives with his in [place]. Spent some time in [place] after cancer diagnosis. Well supported by multiple siblings, extended family, as well as his mother. Spiritual/Cultural Factors Taoism faithno local affiliation; would appreciate timber sizer visits-notify roadmaster. Living Will: Never completed Health Care Surrogate: Never completed Durable Power of Rfid Engineer: Never completed Physical Exam Vital Signs Date Time Temp Pulse Resp B/P Pulse Ox O2 Delivery O2 Flow Rate FiO2 06/27/16 08:48 100 50 06/27/16 08:00 98 06/27/16 08:00 60 06/27/16 06:00 80 06/27/16 04:02 98 60 06/27/16 04:00 60 06/27/16 04:00 82 06/27/16 04:00 98.4 82 14 106/62 97 06/27/16 02:00 90 06/27/16 01:02 98 60 06/27/16 00:30 98 60 06/27/16 00:00 96.7 94 14 110/58 98 06/27/16 00:00 60 06/27/16 00:00 94 06/26/16 22:25 100 100 06/26/16 22:00 120 06/26/16 21:20 78 06/26/16 20:00 60 06/26/16 20:00 97.7 112 14 104/64 95 06/26/16 20:00 123 06/26/16 19:28 94 60 06/26/16 18:00 102 06/26/16 16:00 60 06/26/16 16:00 98.0 106 14 104/64 96 06/26/16 16:00 102 06/26/16 15:03 98 60 06/26/16 14:00 90 06/26/16 12:00 105 06/26/16 12:00 70 06/26/16 12:00 97.3 106 23 109/76 99 06/26/16 11:27 100 70 06/26/16 06/27/16 19:00 07:00 Intake Total 972 ml 3756 ml Output Total 1020 ml 5575 ml Balance -48 ml -1819 ml Intake Oral 0 ml IV Total 603 ml 3343 ml Tube Feeding 369 ml 233 ml Tube Irrigant 180 ml Output Urine Total 1000 ml 5400 ml Gastric Drainage Total 10 ml 100 ml Chest Tube Drainage Total 10 ml 10 ml Drainage Total 65 ml # Bowel Movements 0 0 Exam CONSTITUTIONAL/GENERAL: This is a thin, frail appearing pt, on mech vent TUBES/LINES/DRAINS: rt SC central line, rt chest tube, ETT, J tube left abdomen , NGT SKIN: No jaundice, rashes, or lesions. mid abd incision shruthi intact,clean/ dry. Skin temperature appropriate. Not diaphoretic. HEAD: Atraumatic. + ventric drain top/front head-draining to bedside drain EYES: Pupils 4mm non reactive to light. No corneal response. No scleral icterus. No injection or drainage. Fundi not examined. ENT: Nose without bleeding or purulent drainage. oropharynx exam limited due to ett. NECK: Trachea midline. Supple, nontender. CARDIOVASCULAR: Regular rate and rhythm no murmur. Peripheral pulses symmetric. RESPIRATORY/CHEST: Symmetric, unlabored respirations via ett to mech vent. Clear to auscultation. Breath sounds equal bilaterally. GASTROINTESTINAL: Abdomen soft,flat, no apparent tenderness however pt nonresponsive, no palpable masses. Bowel sounds absent GENITOURINARY: Without palpable bladder distension. Edward catheter in place clear yellow urine. MUSCULOSKELETAL: Extremities without clubbing, cyanosis, or edema. + atrophy to 4 extremities. No mottling or clubbing. NEUROLOGICAL: on no sedation. Non responsive to my exam. No eye opening. Pupils 4mm nonreactive. no corneal reflex. No gag response when ETT stimulated. no withdraw to pain stimuli to extremities. PSYCHIATRIC: No obvious anxiety/depression-- limited due to clinical condition. . Diagnostic Tests Laboratory Laboratory Tests Test 06/24/16 06/25/16 06/25/16 06/25/16 11:00 04:10 12:05 16:10 White Blood Count 11.0 TH/MM3 11.0 TH/MM3 (4.0-11.0) (4.0-11.0) Red Blood Count 3.15 MIL/MM3 2.94 MIL/MM3 (4.50-5.90) (4.50-5.90) Hemoglobin 8.1 GM/DL 7.3 GM/DL (13.0-17.0) (13.0-17.0) Hematocrit 24.3 % 22.5 % (39.0-51.0) (39.0-51.0) Mean Corpuscular Volume 77.4 FL 76.6 FL (80.0-100.0) (80.0-100.0) Mean Corpuscular Hemoglobin 25.7 PG 24.8 PG (27.0-34.0) (27.0-34.0) Mean Corpuscular Hemoglobin 33.2 % 32.4 % Concent (32.0-36.0) (32.0-36.0) Red Cell Distribution Width 15.6 % 16.0 % (11.6-17.2) (11.6-17.2) Platelet Count 115 TH/MM3 119 TH/MM3 (150-450) (150-450) Mean Platelet Volume 8.8 FL 9.0 FL (7.0-11.0) (7.0-11.0) Neutrophils (%) (Auto) 91.4 % 88.8 % (16.0-70.0) (16.0-70.0) Lymphocytes (%) (Auto) 3.1 % 4.5 % (9.0-44.0) (9.0-44.0) Monocytes (%) (Auto) 4.5 % (0.0-8.0) 5.6 % (0.0-8.0) Eosinophils (%) (Auto) 0.8 % (0.0-4.0) 1.0 % (0.0-4.0) Basophils (%) (Auto) 0.2 % (0.0-2.0) 0.1 % (0.0-2.0) Neutrophils # (Auto) 10.1 TH/MM3 9.8 TH/MM3 (1.8-7.7) (1.8-7.7) Lymphocytes # (Auto) 0.3 TH/MM3 0.5 TH/MM3 (1.0-4.8) (1.0-4.8) Monocytes # (Auto) 0.5 TH/MM3 0.6 TH/MM3 (0-0.9) (0-0.9) Eosinophils # (Auto) 0.1 TH/MM3 0.1 TH/MM3 (0-0.4) (0-0.4) Basophils # (Auto) 0.0 TH/MM3 0.0 TH/MM3 (0-0.2) (0-0.2) CBC Comment DIFF FINAL AUTO DIFF Differential Comment FINAL DIFF MANUAL Differential Total Cells 100 Counted Neutrophils % (Manual) 62 % (16-70) Band Neutrophils % 31 % (0-6) Lymphocytes % 5 % (9-44) Monocytes % 2 % (0-8) Neutrophils # (Manual) 10.2 TH/MM3 (1.8-7.7) Platelet Estimate LOW (NORMAL) Platelet Morphology Comment NORMAL (NORMAL) Target Cells 1+ (NORMAL) Sodium Level 144 MEQ/L (136-145) Potassium Level 3.0 MEQ/L 3.7 MEQ/L (3.5-5.1) (3.5-5.1) Chloride Level 107 MEQ/L (98-107) Carbon Dioxide Level 32.7 MEQ/L (21.0-32.0) Anion Gap 4 MEQ/L (5-15) Blood Urea Nitrogen 13 MG/DL (7-18) Creatinine 0.31 MG/DL (0.60-1.30) Estimat Glomerular Filtration 300 ML/MIN Rate (>89) Random Glucose 109 MG/DL (74-106) Calcium Level 7.1 MG/DL (8.5-10.1) Protein Corrected Calcium 8.4 MG/DL (8.5-10.1) Magnesium Level 2.1 MG/DL (1.5-2.5) Total Bilirubin 0.8 MG/DL (0.2-1.0) Aspartate Amino Transf 38 U/L (15-37) (AST/SGOT) Alanine Aminotransferase 49 U/L (12-78) (ALT/SGPT) Alkaline Phosphatase 143 U/L (45-117) Total Protein 4.7 GM/DL (6.4-8.2) Albumin 1.5 GM/DL (3.4-5.0) Blood Type A POSITIVE Antibody Screen NEGATIVE Crossmatch Leukocyte-Reduced Red Blood Cells Blood Bank Comment Test 06/26/16 06/26/16 06/27/16 06/27/16 04:30 06:18 00:28 03:35 White Blood Count 12.3 TH/MM3 (4.0-11.0) Red Blood Count 3.87 MIL/MM3 (4.50-5.90) Hemoglobin 9.4 GM/DL (13.0-17.0) Hematocrit 29.9 % (39.0-51.0) Mean Corpuscular Volume 77.2 FL (80.0-100.0) Mean Corpuscular Hemoglobin 24.4 PG (27.0-34.0) Mean Corpuscular Hemoglobin 31.6 % Concent (32.0-36.0) Red Cell Distribution Width 16.0 % (11.6-17.2) Platelet Count 188 TH/MM3 (150-450) Mean Platelet Volume 9.4 FL (7.0-11.0) Neutrophils (%) (Auto) 88.5 % (16.0-70.0) Lymphocytes (%) (Auto) 4.5 % (9.0-44.0) Monocytes (%) (Auto) 5.6 % (0.0-8.0) Eosinophils (%) (Auto) 1.1 % (0.0-4.0) Basophils (%) (Auto) 0.3 % (0.0-2.0) Neutrophils # (Auto) 10.9 TH/MM3 (1.8-7.7) Lymphocytes # (Auto) 0.5 TH/MM3 (1.0-4.8) Monocytes # (Auto) 0.7 TH/MM3 (0-0.9) Eosinophils # (Auto) 0.1 TH/MM3 (0-0.4) Basophils # (Auto) 0.0 TH/MM3 (0-0.2) CBC Comment AUTO DIFF Differential Total Cells 100 Counted Neutrophils % (Manual) 61 % (16-70) Band Neutrophils % 22 % (0-6) Lymphocytes % 7 % (9-44) Monocytes % 9 % (0-8) Eosinophils % 1 % (0-4) Neutrophils # (Manual) 10.2 TH/MM3 (1.8-7.7) Differential Comment FINAL DIFF MANUAL Platelet Estimate NORMAL (NORMAL) Platelet Morphology Comment NORMAL (NORMAL) Sodium Level 143 MEQ/L (136-145) Potassium Level 3.6 MEQ/L (3.5-5.1) Chloride Level 106 MEQ/L (98-107) Carbon Dioxide Level 30.9 MEQ/L (21.0-32.0) Anion Gap 6 MEQ/L (5-15) Blood Urea Nitrogen 12 MG/DL (7-18) Creatinine 0.34 MG/DL (0.60-1.30) Estimat Glomerular Filtration 269 ML/MIN Rate (>89) Random Glucose 135 MG/DL (74-106) Calcium Level 7.4 MG/DL (8.5-10.1) Protein Corrected Calcium 8.5 MG/DL (8.5-10.1) Total Bilirubin 0.7 MG/DL (0.2-1.0) Aspartate Amino Transf 32 U/L (15-37) (AST/SGOT) Alanine Aminotransferase 48 U/L (12-78) (ALT/SGPT) Alkaline Phosphatase 148 U/L (45-117) Total Protein 5.2 GM/DL (6.4-8.2) Albumin 1.5 GM/DL (3.4-5.0) Blood Gas Puncture Site JOSE ART LINE ART LINE Blood Gas Patient Temperature 98.6 98.6 98.6 Blood Gas HCO3 28 mmol/L 27 mmol/L 27 mmol/L (22-26) (22-26) (22-26) Blood Gas Base Excess 4.6 mmol/L 2.2 mmol/L 2.8 mmol/L (-2-2) (-2-2) (-2-2) Blood Gas Oxygen Saturation 95 % (90-100) 96 % (90-100) 95 % (90-100) Arterial Blood pH 7.48 7.41 7.39 (7.380-7.420) (7.380-7.420) (7.380-7.420) Arterial Blood Partial 38 mmHg (38-42) 43 mmHg (38-42) 46 mmHg (38-42) Pressure CO2 Arterial Blood Partial 86 mmHg 109 mmHg 93 mmHg Pressure O2 (61-120) (61-120) (61-120) Arterial Blood Oxygen Content 12.5 Vol % 12.0 Vol % 14.1 Vol % (12.0-20.0) (12.0-20.0) (12.0-20.0) Arterial Blood 1.4 % (0-4) 1.2 % (0-4) 1.2 % (0-4) Carboxyhemoglobin Arterial Blood Methemoglobin 0.6 % (0-2) 0.7 % (0-2) 0.6 % (0-2) Blood Gas Hemoglobin 9.2 G/DL 8.7 G/DL 10.5 G/DL (12.0-16.0) (12.0-16.0) (12.0-16.0) Oxygen Delivery Device VENTILATOR VENTILATOR VENTILATOR Blood Gas Ventilator Setting AC14/500/+5 AC/500/PEEP8 AC/500/PEEP5 Blood Gas Inspired Oxygen 60 % 60 % 60 % Test 06/27/16 03:45 White Blood Count 16.5 TH/MM3 (4.0-11.0) Red Blood Count 4.17 MIL/MM3 (4.50-5.90) Hemoglobin 10.3 GM/DL (13.0-17.0) Hematocrit 32.5 % (39.0-51.0) Mean Corpuscular Volume 78.1 FL (80.0-100.0) Mean Corpuscular Hemoglobin 24.8 PG (27.0-34.0) Mean Corpuscular Hemoglobin 31.7 % Concent (32.0-36.0) Red Cell Distribution Width 16.8 % (11.6-17.2) Platelet Count 289 TH/MM3 (150-450) Mean Platelet Volume 9.1 FL (7.0-11.0) Sodium Level 152 MEQ/L (136-145) Potassium Level 3.9 MEQ/L (3.5-5.1) Chloride Level 117 MEQ/L (98-107) Carbon Dioxide Level 29.4 MEQ/L (21.0-32.0) Anion Gap 6 MEQ/L (5-15) Blood Urea Nitrogen 12 MG/DL (7-18) Creatinine 0.32 MG/DL (0.60-1.30) Estimat Glomerular Filtration 289 ML/MIN Rate (>89) Random Glucose 153 MG/DL (74-106) Calcium Level 7.9 MG/DL (8.5-10.1) Result Diagram: 06/27/16 0345 06/27/16 0345 Imaging Last Impressions Chest X-Ray 06/27/16 0000 Signed Impressions: Service Date/Time: Monday, June 27, 2016 03:46 - CONCLUSION: 1. Mild improvement in left upper lobe infiltrate. 2. Hazy opacity remains at both lung bases with left effusion. 3. The nasogastric tube remains in place with the tip in the distal esophagus. 4. The right subclavian central venous line again extends cephalad into the internal jugular vein. Ryan Barros MD Head CT 06/26/16 0000 Signed Impressions: Service Date/Time: Sunday, June 26, 2016 22:32 - CONCLUSION: Cystic mass posterior fossa right side causing significant hydrocephalus. Clarence Quinn MD FACR Procedures 06/26 ventriculostomy 06/17 reintubated /bronchoscopy 06/16 extubated. 06/15/16 [place]-Moustapha esophagectomy, J-tube placement . Patient/Family Conference Present at Family Conference: Halie, pt mother, multiple siblings, niece, inlaws Family Conference Time (mins): 50 Family Conference Location: Consult Room Issues Discussed: Met w family at length. Dr Bruner also present/participate in discussion of medical update, discussion included: * Palliative care role, purpose, approach * Additional medical, psychosocial, and spiritual history * Patients general health, functional status, leading up to the current hospitalization * Patient/family understanding of the current medical problems; overall prognosis * Patients goals of care as best understood from advance directives and/or conversations and/or values * Current medical treatment options and benefits/burdens of those options * legal decision maker per statutes * code status * Questions answered to the best of my ability * Palliative care contact information provided Met at length w family. Dr Bruner provided much review of underlying conditions, hospital course until this point, review of current condition/ recent changes, neurological findings. Exploration of prognosis r/t poor neurological status. Family tearful, appropriate. All questions answered. No decisions made today. They would like more time to process information, and are awaiting EEG findings and any further recommendations from neurosurgery. They do indicate that pt would not want to live in a vegetative state. Assessment and Plan Disease Oriented Problem List: (1) Nausea & vomiting (2) Esophageal cancer (3) Acute respiratory failure (4) Septic shock (5) Pneumonia due to Pseudomonas (6) Pleural effusion (7) H/O esophagectomy Symptom Scale: (1) Dysphagia (2) Dyspnea (3) Encephalopathy Pertinent Non-Medical Issues Psychosocial:, lives with his in [place] locally. Spent some time in [place] after cancer diagnosis. Well supported by multiple siblings, extended family, as well as his mother. Spiritual:Taoism faithno local affiliation; would appreciate timber sizer visits-notify roadmaster. Legal:Patient is not capacitated. Not expected to regain capacity. No advanced directives. Per [place] statutes his would be legal proxy. Ethical issues impacting care: Important Contacts HALIE MCKNIGHT [phone] Prognosis This patient has known esophageal carcinoma, status post [place] Moustapha esophagectomy this admission. He has had difficulty weaning off the ventilator , complicated ICU course. 06/26/16 Findings of altered mental status, acute neurologic decline last night 06/26/16 with loss of all brainstem reflexes unfortunately. He has developed obstructive hydrocephalus likely from a cystic mass in the right cerebellar hemisphere. s/p ventriculostomy for his hydrocephalus. Exam does not reveal any improvement s/p ventriculostomy drain. Poor prognosis. . Code Status: Full Code Plan * Legal decision maker: Patient is not capacitated. Not expected to regain capacity. No advanced directives. Per [place] statutes his would be legal proxy. * Goals:No decisions made today. They would like more time to process information, and are awaiting EEG findings and any further recommendations from neurosurgery before making any decisions. They do indicate that pt would not want to live in a vegetative state. Sounds as if they may consider comfort measures in the coming days. * CODE STATUS: full code * SYMPTOMS: --dysphagia - 2/2 esophageal ca, s/p esophagectomy --encephalopathy - catastrophic obstructive hydrocephalus likely from a cystic mass in the right cerebellar hemisphere. s/p ventriculostomy for his hydrocephalus. Exam does not reveal any improvement s/p ventriculostomy drain --dyspnea - remains intubated post op, failed extubation x1, reintubated. Now severe encephalopathy 2/2 obstructive hydrocephalus. * Palliative care will continue to follow during hospital course as condition evolves, to assist patient/decision-maker with understanding of medical conditions, weighing benefits/burdens of treatment options, for clarification of goals of treatment. Additionally will assist with any symptoms of palliative concern . Time Spent Total Floor Time (mins): 70 Face to Face Time (mins): 50 >50% Counseling/Coord of Care: Yes (d/w rn, critical care, surgery) Thank you for the opportunity to participate in the care of Mr. Momin. Attestation To help prompt me to consider important information that might be impacting today's encounter and assessment, information from prior notes written by myself or my colleagues may have been "brought forward" into today's note. My signature on this note, however, is an attestation that I personally performed the exam, history, and/or decision-making noted today, and, unless otherwise indicated, the interactions with patient, family, and staff as well as the review of records all occurred today. I also attest that the listed assessment and stated plan reflect my best clinical judgment today based on the combination of historical information, prior notes, and today's exam/ interactions. When time spent is documented, it refers only to time spent today by the signer, or if indicated, combined time spent today by collaborating physician/nurse practitioner. Linda Aguilera June 27, 2016 10:53
[2016-06-27] MEDS: ENOXAPARIN SODIUM 40 MG/0.4 ML SYRINGE SQ SCH (14:43)
--- NOTE | 2016-06-27 15:47 | PD.CAR.PN ---
CVT Progress Note Subjective/Hospital Course: Above events noted. Intubated, pt underwent Right frontal twist drill hole ventriculostomy placement for Obstructive hydrocephalus with right cerebellar hemisphere cystic abnormality pt on now sedation, unresponsive, right pupil 6mm no corneal reflex, no withdrawal to pain very poor prognosis Objective: GENERAL: orally intubated, unresponsive SKIN: Warm and dry. HEAD: Normocephalic. EYES: No scleral icterus. No injection or drainage. NECK: Supple, trachea midline. No JVD or lymphadenopathy. CARDIOVASCULAR: Regular rate and rhythm without murmurs, gallops, or rubs. RESPIRATORY: coarse bilateral Breath sounds , chest tube in place to suction, no air leak GASTROINTESTINAL: Abdomen soft, non-tender, nondistended. MUSCULOSKELETAL: No cyanosis, or edema. Vital Signs Date Time Temp Pulse Resp B/P Pulse Ox O2 Delivery O2 Flow Rate FiO2 06/27/16 14:00 90 06/27/16 12:00 90 06/27/16 12:00 50 06/27/16 11:28 96 50 06/27/16 11:26 96 50 06/27/16 10:00 99 06/27/16 08:48 100 50 06/27/16 08:00 98 06/27/16 08:00 99.0 90 14 112/64 99 06/27/16 08:00 60 06/27/16 06:00 80 06/27/16 04:02 98 60 06/27/16 04:00 60 06/27/16 04:00 82 06/27/16 04:00 98.4 82 14 106/62 97 06/27/16 02:00 90 06/27/16 01:02 98 60 06/27/16 00:30 98 60 06/27/16 00:00 96.7 94 14 110/58 98 06/27/16 00:00 60 06/27/16 00:00 94 06/26/16 22:25 100 100 06/26/16 22:00 120 06/26/16 21:20 78 06/26/16 20:00 60 06/26/16 20:00 97.7 112 14 104/64 95 06/26/16 20:00 123 06/26/16 19:28 94 60 06/26/16 18:00 102 06/26/16 16:00 60 06/26/16 16:00 98.0 106 14 104/64 96 06/26/16 16:00 102 Labs: Laboratory Tests Test 06/27/16 03:45 White Blood Count 16.5 TH/MM3 (4.0-11.0) Red Blood Count 4.17 MIL/MM3 (4.50-5.90) Hemoglobin 10.3 GM/DL (13.0-17.0) Hematocrit 32.5 % (39.0-51.0) Mean Corpuscular Volume 78.1 FL (80.0-100.0) Mean Corpuscular Hemoglobin 24.8 PG (27.0-34.0) Mean Corpuscular Hemoglobin 31.7 % Concent (32.0-36.0) Red Cell Distribution Width 16.8 % (11.6-17.2) Platelet Count 289 TH/MM3 (150-450) Mean Platelet Volume 9.1 FL (7.0-11.0) Sodium Level 152 MEQ/L (136-145) Potassium Level 3.9 MEQ/L (3.5-5.1) Chloride Level 117 MEQ/L (98-107) Carbon Dioxide Level 29.4 MEQ/L (21.0-32.0) Anion Gap 6 MEQ/L (5-15) Blood Urea Nitrogen 12 MG/DL (7-18) Creatinine 0.32 MG/DL (0.60-1.30) Estimat Glomerular Filtration 289 ML/MIN Rate (>89) Random Glucose 153 MG/DL (74-106) Calcium Level 7.9 MG/DL (8.5-10.1) Result Diagram: 06/27/16 0345 06/27/16 0345 (1) Encephalopathy Plan: overall very poor prognosis events noted over the weekend [facility] will sign off (2) H/O esophagectomy (3) Pneumonia due to Pseudomonas Juju Santoro June 27, 2016 15:47
--- NOTE | 2016-06-27 16:24 | HHI.CCPN ---
Subjective Remarks/Hospital Course 55-year-old male with history of esophageal cancer previously treated with chemotherapy/radiation who underwent open eye with Moustapha esophagectomy with right sided chest tube/J-tube placement under general anesthesia by Dr. Bruner/Dr. Blanco, EBL 300 cc, tolerated procedure well and was subsequently transferred to PACU kept intubated on mechanical ventilation. Consult was requested by Dr. Bruner for critical care management. I evaluated the patient in PACU shortly following his arrival there. At that time was sedated, orally intubated on mechanical ventilation. History was obtained by reviewing records and discussion with Dr. Bruner. 06/16: Awake and alert. Push for extubation. 06/17: Required re-intubation last night for excessive secretions and hypoxemic failure. 06/18: Gas exchange improved. Awaiting cultures. 06/20: Remains intubated sedated, intermittently follows commands. Mod-large effusion L side. Hemoglobin down to 7.8, transfuse 1 unit PRBC. Remains on Ric -Synephrine 06/21: s/p thoracentesis with 650 ml removed yesterday. Slightly blood tinged effusion. Chemistry consistent with transudative effusion. Tolerates CPAP but became tachycardic. CBC and chest x-ray pending today. Chest x-ray yesterday showed developing left upper lobe infiltrate-sputum PSAE S to cefepime 06/22: Remains sedated, arousable, orally intubated on mechanical ventilation. Failed C Pap trial yesterday. 06/23: Remains sedated, arousable, orally intubated on mechanical ventilation. Tolerated C Pap trial with pressure support +15 yesterday. 06/24: Failed CPAP trial when pressure-support reduced to 5, became tachypneic and tachycardic. If continues to fail possible tracheostomy on Monday per Dr. Bruner to facilitate ventilator weaning 06/25: Failed C Pap trial today. Became tachypneic and dropped O2 sats. Remains orally intubated on mechanical ventilation. 06/26: Remains sedated, orally intubated on mechanical ventilation. FiO2 increased to 60% this morning. Chest x-ray unchanged. Not ready for extubation based on increasing FiO2 requirement. 06/27: Last night patient became hypotensive, unresponsive with fixed and dilated pupils and no gag or corneal reflex or motor response with acute deterioration. CT scan of the head obtained reveals the right cerebellar hemisphere cystic abnormality with obstructive hydrocephalus for which neurosurgery was emergently consulted and patient underwent a ventriculostomy placement by Dr. Heath. Initial ICP on ventriculostomy placement was 35 cm mercury which decreased to 10 cm water pressure after drainage of CSF. Patient' s neuro status did not show any improvement following when tracheostomy placement and he remains unresponsive off all sedation with absent corneals and gag response this morning. Objective Vital Signs Date Time Temp Pulse Resp B/P Pulse Ox O2 Delivery O2 Flow Rate FiO2 06/27/16 14:00 90 06/27/16 12:00 50 06/27/16 11:28 96 06/27/16 08:00 99.0 14 112/64 Intake and Output 06/26/16 06/26/16 06/27/16 08:00 16:00 00:00 Intake Total 889 ml 972 ml 858 ml Output Total 1556 ml 1020 ml 1210 ml Balance -667 ml -48 ml -352 ml Result Diagram: 06/27/16 0345 06/27/16 0345 Other Results Laboratory Tests Test 06/27/16 06/27/16 06/27/16 00:28 03:35 03:45 Blood Gas Puncture Site ART LINE ART LINE Blood Gas Patient Temperature 98.6 98.6 Blood Gas HCO3 27 mmol/L 27 mmol/L Blood Gas Base Excess 2.2 mmol/L 2.8 mmol/L Blood Gas Oxygen Saturation 96 % 95 % Arterial Blood pH 7.41 7.39 Arterial Blood Partial 43 mmHg 46 mmHg Pressure CO2 Arterial Blood Partial 109 mmHg 93 mmHg Pressure O2 Arterial Blood Oxygen Content 12.0 Vol % 14.1 Vol % Arterial Blood 1.2 % 1.2 % Carboxyhemoglobin Arterial Blood Methemoglobin 0.7 % 0.6 % Blood Gas Hemoglobin 8.7 G/DL 10.5 G/DL Oxygen Delivery Device VENTILATOR VENTILATOR Blood Gas Ventilator Setting //500/PEEP8 /500/PEEP5 Blood Gas Inspired Oxygen 60 % 60 % White Blood Count 16.5 TH/MM3 Red Blood Count 4.17 MIL/MM3 Hemoglobin 10.3 GM/DL Hematocrit 32.5 % Mean Corpuscular Volume 78.1 FL Mean Corpuscular Hemoglobin 24.8 PG Mean Corpuscular Hemoglobin 31.7 % Concent Red Cell Distribution Width 16.8 % Platelet Count 289 TH/MM3 Mean Platelet Volume 9.1 FL Sodium Level 152 MEQ/L Potassium Level 3.9 MEQ/L Chloride Level 117 MEQ/L Carbon Dioxide Level 29.4 MEQ/L Anion Gap 6 MEQ/L Blood Urea Nitrogen 12 MG/DL Creatinine 0.32 MG/DL Estimat Glomerular Filtration 289 ML/MIN Rate Random Glucose 153 MG/DL Calcium Level 7.9 MG/DL Imaging Last 48 hours Impressions Chest X-Ray 06/27/16 0000 Signed Impressions: Service Date/Time: Monday, June 27, 2016 03:46 - CONCLUSION: 1. Mild improvement in left upper lobe infiltrate. 2. Hazy opacity remains at both lung bases with left effusion. 3. The nasogastric tube remains in place with the tip in the distal esophagus. 4. The right subclavian central venous line again extends cephalad into the internal jugular vein. Ryan Barros MD Head CT 06/26/16 0000 Signed Impressions: Service Date/Time: Sunday, June 26, 2016 22:32 - CONCLUSION: Cystic mass posterior fossa right side causing significant hydrocephalus. Clarence Quinn MD FACR Chest X-Ray 06/26/16 0000 Signed Impressions: Service Date/Time: Sunday, June 26, 2016 06:19 - CONCLUSION: 1. Improving right lower lung infiltrate. 2. Otherwise, stable examination. Fabian Reeves MD Last Impressions Chest X-Ray 06/15/16 0000 Signed Impressions: Service Date/Time: Wednesday, June 15, 2016 15:00 - CONCLUSION: 1. Support equipment in good position. Doroteo Quinn MD Objective Remarks HEENT/ Neuro: Unresponsive off sedation, GCS 3, orally intubated. Rt pupil 6mm, left eye blind, Absent corneals, conjunctival reflex, absent gag response. Neck: Orally intubated. Chest/Pulm: Good air entry bilaterally, mild wheezes. Right sided chest tube in place with minimal bloody drainage, no air leak. CVS: S1-S2 regular, no murmur. No JVD. GI/abdomen: soft, nontender, bowel sounds not appreciated. J-tube in place. Extremities: warm bilaterally, no edema A/P Assessment and Plan Assessment: Obstructive hydrocephalus with brain herniation status post ventriculostomy Encephalopathy Esophageal cancer status post open [place]com Moustapha esophagectomy, J-tube placement () Acute respiratory failure on mechanical ventilation MARSHALL pneumonia with Pseudomonas Sepsis Hypotension Large left effusion Plan: Neuro: Patient has been evaluated by neurosurgery Dr. Clemons who placed a ventriculostomy emergently last night for acute change in neurologic status with head CT showing obstructive hydrocephalus. No improvement in neurologic exam. Discussed with neurosurgery -Dr. Heath who feels patient's prognosis is extremely poor in terms of neurologic outcome. Given mannitol last night. Cardiovascular: -off IVF -Ric-Synephrine for pressor support Pulmonary: Remains on mechanical ventilation bronchodilators as needed. -Failed SBT. -s/p L thoracentesis with 650 mL of fluid removed 06/20 -Chest x-ray shows left upper lobe infiltrate and Pseudomonas in sputum. Sensitive to cefepime - tracheostomy planned for 06/27 however in view of events overnight with neurologic deterioration this has been postponed and palliative care consulted to assist with deciding goals of therapy. GI/liver: -J-tube feeds. -IV Protonix Renal/: -strict intake output, monitor and replete electrolytes, follow BUN/creatinine. Heme: - Transfuse to keep hemoglobin greater than 7 g percent. s/p 1 U PRBC postoperatively. ID: -On Cefepime Flagyl. Stopped Levaquin 06/27. Patient appeared to have a contained esophageal perforation, and now MARSHALL PSAE pneumonia. Ancef for prophylactic antibiotic perioperatively completed. Endocrine: -SSI for glycemic control as needed. -Electrolyte replacement per protocol Prophylaxis: -PPI/SCDs. Subcutaneous Lovenox if okay with general surgery. Dr Mccarthy discussed in detail with 06/20/16 D/W Dr. Bruner 06/27: Discussed events including development of obstructive hydrocephalus and neurologic deterioration with absent brain stem signs suggesting extremely poor prognosis. Palliative care consult requested to assist family with deciding goals of therapy. Critical Care 35 mins aside from procedure Ashok Hidalgo MD June 27, 2016 16:24
[2016-06-27] MEDS: PANTOPRAZOLE SODIUM 40 MG VIAL IV SCH (16:27)
[2016-06-27] MEDS: PHENYLEPHRINE INJ 80 MG in SODIUM CHLORID 0.9% 500 ML INJ 492 ML IV SCH ×2 (16:27→20:31)
--- NOTE | 2016-06-27 18:13 | HHI.PR ---
Subjective Subjective Notes Patient had mental changes last night---Dr. Heath consulted for obstructive hydrocephalus ----ventriculostomy placed Objective Vitals/I&O Vital Signs Date Time Temp Pulse Resp B/P Pulse Ox O2 Delivery O2 Flow Rate FiO2 06/27/16 16:18 94 50 06/27/16 16:00 98.3 90 14 104/56 Labs Laboratory Tests Test 06/27/16 06/27/16 06/27/16 00:28 03:35 03:45 Blood Gas Puncture Site ART LINE ART LINE Blood Gas Patient Temperature 98.6 98.6 Blood Gas HCO3 27 27 Blood Gas Base Excess 2.2 2.8 Blood Gas Oxygen Saturation 96 95 Arterial Blood pH 7.41 7.39 Arterial Blood Partial 43 46 Pressure CO2 Arterial Blood Partial 109 93 Pressure O2 Arterial Blood Oxygen Content 12.0 14.1 Arterial Blood 1.2 1.2 Carboxyhemoglobin Arterial Blood Methemoglobin 0.7 0.6 Blood Gas Hemoglobin 8.7 10.5 Oxygen Delivery Device VENTILATOR VENTILATOR Blood Gas Ventilator Setting AC//500/PEEP8 AC/500/PEEP5 Blood Gas Inspired Oxygen 60 60 White Blood Count 16.5 Red Blood Count 4.17 Hemoglobin 10.3 Hematocrit 32.5 Mean Corpuscular Volume 78.1 Mean Corpuscular Hemoglobin 24.8 Mean Corpuscular Hemoglobin 31.7 Concent Red Cell Distribution Width 16.8 Platelet Count 289 Mean Platelet Volume 9.1 Sodium Level 152 Potassium Level 3.9 Chloride Level 117 Carbon Dioxide Level 29.4 Anion Gap 6 Blood Urea Nitrogen 12 Creatinine 0.32 Estimat Glomerular Filtration 289 Rate Random Glucose 153 Calcium Level 7.9 Cardiovascular: Regular Lungs: Clear Abdomen: Other (midline incision---abd flat) Extremities: No edema Narrative Exam RIGHT chest tube in place to wall suction; no air leak ventric in place A/P Assessment and Plan 55 year old male with esophageal cancer s/p open Donald Moustapha Esophagectomy -Right frontal twist drill hole ventriculostomy placement for obstructive hydrocephalus with right cerebellar hemisphere cystic abnormality -Palliative Care consult -CCM following -Pressor support as needed -Hold TF -Continue CT to wall suction -Dr. Bruner discussed with the family today Attending Statement The exam, history, and the medical decision-making described in the above note were completed with the assistance of the mid-level provider. I reviewed and agree with the findings presented. I attest that I had a [id number] encounter with the patient on the same day, and personally performed and documented my assessment and findings in the medical record. ventric placed emergently for obstructive hydrocephalus, likely metastatic disease, significant cerebral ischemia, poor prognosis Dahlia Sanford June 27, 2016 18:13 Armando Bruner MD July 12, 2016 16:53
[2016-06-28] VITALS (14 sets, daily range): BP systolic 108–112; BP diastolic 56–65; PULSE 82–94; RESP 14; TEMP 98.1–98.4; O2SAT 88–96
[2016-06-28] MEDS: CEFEPIME INJ 2,000 MG in SODIUM CHLORIDE 0.9% INJ 100 ML IV SCH ×2 (01:07→10:00)
[2016-06-28] MEDS: SODIUM CHLOR 0.9% 1000 ML INJ 1,000 ML IV SCH (01:08)
[2016-06-28] MEDS: PHENYLEPHRINE INJ 80 MG in SODIUM CHLORID 0.9% 500 ML INJ 492 ML IV SCH (01:45)
[2016-06-28] MEDS: PCA - TOTAL MG MORPHINE DELIVERED PER SHIFT SCH ×2 (05:31→13:45)
[2016-06-28] MEDS: METOPROLOL TARTRATE 5 MG/5 ML VIAL IV PUSH SCH ×2 (05:31→11:35)
[2016-06-28 07:27] LABS: AUTOMATED NEUTROPHIL # 17.3 TH/MM3 (1.8-7.7); BASOPHIL % 0.1 % (0.0-2.0); EOSINOPHIL % 0.1 % (0.0-4.0); HEMATOCRIT 28.9 % (39.0-51.0); HEMO FLAGS DIFF FINAL; LYMPH % 2.6 % (9.0-44.0); LYMPHOCYTE # 0.5 TH/MM3 (1.0-4.8); MEAN CELL VOLUME 79.5 FL (80.0-100.0); MEAN CORPUSCULAR HEMOGLOBIN 25.4 PG (27.0-34.0); MEAN CORPUSCULAR HGB CONC 31.9 % (32.0-36.0); MONO % 5.2 % (0.0-8.0); PLATELET COUNT 375 TH/MM3 (150-450); RED BLOOD COUNT 3.63 MIL/MM3 (4.50-5.90); RED CELL DISTRIBUTION WIDTH 16.7 % (11.6-17.2); WHITE BLOOD COUNT 18.8 TH/MM3 (4.0-11.0)
--- NOTE | 2016-06-28 07:35 | MG ---
cc: LORIE BILLS Lab No: [id number] Date: 06/28/2016 Age: 55 Sex: M Race: __ INDICATIONS This is a 55 year-old male intubated, unresponsive, left ankle surgery, anxiety. Low blood pressure, some facial twitching, spontaneously moves head slightly some facial twitching. Hydrocephalous. MEDICATIONS 1. Cefepime 2. Lovenox DESCRIPTION The recording shows what appears to be no brain activity, some muscle artifact is seen at the lowest sensitivity setting 2. There may be some low amplitude beta rhythms versus just ICU artifact. A head jerk is seen which shows muscle artifact. Some mild twitching is noted again just muscle artifact. Photic stimulation was performed without significant posterior driving. IMPRESSION An extremely low amplitude recording. This could be a medication effect or consistent with severe diffuse encephalopathy. It is almost electrocerebral silence. Clinical correlation is needed. MD ALFONSO Lacy/STEVE /6:24 AM /7:31 AM
[2016-06-28 07:48] LABS: ALKALINE PHOSPHATASE 254 U/L (45-117); ALT (GPT) 48 U/L (12-78); ANION GAP 4 MEQ/L (5-15); AST (GOT) 71 U/L (15-37); BICARBONATE 32.9 MEQ/L (21.0-32.0); BLOOD UREA NITROGEN 22 MG/DL (7-18); CHLORIDE 121 MEQ/L (98-107); GLOMERULAR FILTRATION RATE 252 ML/MIN (>89); POTASSIUM 3.4 MEQ/L (3.5-5.1); TOTAL BILIRUBIN ADULT 0.3 MG/DL (0.2-1.0)
[2016-06-28 08:01] LABS: SODIUM (NA) 158 MEQ/L (136-145)
[2016-06-28] MEDS: SODIUM CHLORIDE 0.9% FLUSH 10 ML FLUSH IV FLUSH SCH (09:00)
--- NOTE | 2016-06-28 09:23 | HHI.NSPN ---
(Elliott Herman) History Chief Complaint: hydrocephalus. (Elliott Herman) Interval History 55-year-old gentleman who underwent esophagectomy for esophageal cancer and subsequent surgery has been ventilator dependent. He was opening his eyes and the following some simple commands but this evening became unresponsive with fixed and dilated pupils and no gag or corneal reflex or motor response with acute deterioration. CT scan of the head obtained reveals the right cerebellar hemisphere cystic abnormality with obstructive hydrocephalus. I was called by Dr. Elias splitting machine operator helper to see if the patient would benefit from a ventriculostomy placement. There is no family available and attempts to contact his power of commonwealth attorney in the chart went straight to voicemail and a message was left for her to call back. 06/27/16: Chart reviewed. Patient is not on any sedative drips per RN. Patient not opening eyes. Right pupil is 6 mm nonreactive. There is no corneal reflex bilaterally. No cough or gag reflex. No response to pain. Family is at bedside and was updated. 06/28/16: Not opening eyes. Right pupil 6mm NR, left eye blind no pupil. No corneal reflex bilaterally. No cough or gag reflex, no spontaneous breaths over vent. No response to pain. Ventriculostomy drain in place draining clear CSF. (Elliott Herman) System Review Comments Not able to obtain given clinical status. (Elliott Herman) Exam Results Vital Signs Date Time Temp Pulse Resp B/P Pulse Ox O2 Delivery O2 Flow Rate FiO2 06/28/16 07:50 96 50 06/28/16 06:00 86 06/28/16 05:31 14 06/28/16 04:00 98.4 108/56 Intake and Output 06/27/16 06/27/16 06/28/16 08:00 16:00 00:00 Intake Total 2898 ml 938 ml 1236 ml Output Total 4365 ml 1075 ml 1615 ml Balance -1467 ml -137 ml -379 ml (Elliott Herman) Physical Examination Resp: Intubated. CTA bilaterally. No breaths over vent noted. Heart: NSR no murmurs. He is on pressor for BP support. Abd: Soft. Absent bs. Skin: No cyanosis or erythema Muscle: No response to deep pain in upper chest. Neuro: Right pupil 6mm NR left eye blind no pupil. No corneal response. No cough or gag to ET suctioning. Ventriculostomy drain in place at 10cm H20. ( Elliott Herman) Lab, Micro, Other Results Last Impressions Chest X-Ray 06/27/16 0000 Signed Impressions: Service Date/Time: Monday, June 27, 2016 03:46 - CONCLUSION: 1. Mild improvement in left upper lobe infiltrate. 2. Hazy opacity remains at both lung bases with left effusion. 3. The nasogastric tube remains in place with the tip in the distal esophagus. 4. The right subclavian central venous line again extends cephalad into the internal jugular vein. Ryan Barros MD Head CT 06/26/16 0000 Signed Impressions: Service Date/Time: Sunday, June 26, 2016 22:32 - CONCLUSION: Cystic mass posterior fossa right side causing significant hydrocephalus. Clarence uQinn MD FACR Laboratory Tests Test 06/28/16 06:40 White Blood Count 18.8 TH/MM3 Red Blood Count 3.63 MIL/MM3 Hemoglobin 9.2 GM/DL Hematocrit 28.9 % Mean Corpuscular Volume 79.5 FL Mean Corpuscular Hemoglobin 25.4 PG Mean Corpuscular Hemoglobin 31.9 % Concent Red Cell Distribution Width 16.7 % Platelet Count 375 TH/MM3 Mean Platelet Volume 8.8 FL Neutrophils (%) (Auto) 92.0 % Lymphocytes (%) (Auto) 2.6 % Monocytes (%) (Auto) 5.2 % Eosinophils (%) (Auto) 0.1 % Basophils (%) (Auto) 0.1 % Neutrophils # (Auto) 17.3 TH/MM3 Lymphocytes # (Auto) 0.5 TH/MM3 Monocytes # (Auto) 1.0 TH/MM3 Eosinophils # (Auto) 0.0 TH/MM3 Basophils # (Auto) 0.0 TH/MM3 CBC Comment DIFF FINAL Differential Comment Sodium Level 158 MEQ/L Potassium Level 3.4 MEQ/L Chloride Level 121 MEQ/L Carbon Dioxide Level 32.9 MEQ/L Anion Gap 4 MEQ/L Blood Urea Nitrogen 22 MG/DL Creatinine 0.36 MG/DL Estimat Glomerular Filtration 252 ML/MIN Rate Random Glucose 163 MG/DL Calcium Level 7.7 MG/DL Total Bilirubin 0.3 MG/DL Aspartate Amino Transf 71 U/L (AST/SGOT) Alanine Aminotransferase 48 U/L (ALT/SGPT) Alkaline Phosphatase 254 U/L Total Protein 5.1 GM/DL Albumin 1.3 GM/DL 06/27/16 06/27/16 06/28/16 15:00 23:00 07:00 Intake Total 938 ml 1236 ml 1514 ml Output Total 1075 ml 1615 ml 577 ml Balance -137 ml -379 ml 937 ml Intake Oral 0 ml IV Total 938 ml 1151 ml 1026 ml Tube Feeding 25 ml 248 ml Tube Irrigant 60 ml 240 ml Output Urine Total 1000 ml 1550 ml 550 ml Gastric Drainage Total 10 ml 10 ml 0 ml Chest Tube Drainage Total 10 ml 15 ml 16 ml Drainage Total 55 ml 40 ml 11 ml # Bowel Movements 0 0 0 (Elliott Herman) Medical Decision Making Impression and Plan A: 55 [id number] with esophageal cancer status post esophagectomy with subsequent ventilator dependency. Acute neurologic decline on 06/26/16 at night with loss of all brainstem reflexes unfortunately. He has developed obstructive hydrocephalus likely from a cystic mass in the right cerebellar hemisphere. s/p ventriculostomy for his hydrocephalus. Exam does not reveal any improvement s/p ventriculostomy drain. P: Continue with supportive care. Discussed with family. They are aware of EEG findings. They are discussing pt wishes which would be withdrawal. (Elliott Herman) Attending Statement The exam, history, and the medical decision-making described in the above note were completed with the assistance of the mid-level provider. I reviewed and agree with the findings presented. I attest that I had a [id number] encounter with the patient on the same day, and personally performed and documented my assessment and findings in the medical record. No improvement in neurologic exam with persistent loss of brain stem reflexes. EEG with severely suppressed and almost no electrocortical activity. Prognosis is very poor. Discussed with family at bedside who are contemplating withdrawal of care. ( Todd Heath MD) Elliott Herman June 28, 2016 09:23 Todd Heath MD June 28, 2016 12:41
--- NOTE | 2016-06-28 10:31 | HHI.CCPN ---
Subjective Remarks/Hospital Course 55-year-old male with history of esophageal cancer previously treated with chemotherapy/radiation who underwent open eye with Moustapha esophagectomy with right sided chest tube/J-tube placement under general anesthesia by Dr. Bruner/Dr. Blanco, EBL 300 cc, tolerated procedure well and was subsequently transferred to PACU kept intubated on mechanical ventilation. Consult was requested by Dr. Bruner for critical care management. I evaluated the patient in PACU shortly following his arrival there. At that time was sedated, orally intubated on mechanical ventilation. History was obtained by reviewing records and discussion with Dr. Bruner. 06/16: Awake and alert. Push for extubation. 06/17: Required re-intubation last night for excessive secretions and hypoxemic failure. 06/18: Gas exchange improved. Awaiting cultures. 06/20: Remains intubated sedated, intermittently follows commands. Mod-large effusion L side. Hemoglobin down to 7.8, transfuse 1 unit PRBC. Remains on Ric -Synephrine 06/21: s/p thoracentesis with 650 ml removed yesterday. Slightly blood tinged effusion. Chemistry consistent with transudative effusion. Tolerates CPAP but became tachycardic. CBC and chest x-ray pending today. Chest x-ray yesterday showed developing left upper lobe infiltrate-sputum PSAE S to cefepime 06/22: Remains sedated, arousable, orally intubated on mechanical ventilation. Failed C Pap trial yesterday. 06/23: Remains sedated, arousable, orally intubated on mechanical ventilation. Tolerated C Pap trial with pressure support +15 yesterday. 06/24: Failed CPAP trial when pressure-support reduced to 5, became tachypneic and tachycardic. If continues to fail possible tracheostomy on Monday per Dr. Bruner to facilitate ventilator weaning 06/25: Failed C Pap trial today. Became tachypneic and dropped O2 sats. Remains orally intubated on mechanical ventilation. 06/26: Remains sedated, orally intubated on mechanical ventilation. FiO2 increased to 60% this morning. Chest x-ray unchanged. Not ready for extubation based on increasing FiO2 requirement. 06/27: Last night patient became hypotensive, unresponsive with fixed and dilated pupils and no gag or corneal reflex or motor response with acute deterioration. CT scan of the head obtained reveals the right cerebellar hemisphere cystic abnormality with obstructive hydrocephalus for which neurosurgery was emergently consulted and patient underwent a ventriculostomy placement by Dr. Heath. Initial ICP on ventriculostomy placement was 35 cm mercury which decreased to 10 cm water pressure after drainage of CSF. Patient' s neuro status did not show any improvement following when tracheostomy placement and he remains unresponsive off all sedation with absent corneals and gag response this morning. 06/28: Remains unresponsive, orally intubated on mechanical ventilation. Objective Vital Signs Date Time Temp Pulse Resp B/P Pulse Ox O2 Delivery O2 Flow Rate FiO2 06/28/16 08:00 84 06/28/16 08:00 50 06/28/16 08:00 98.1 14 111/64 95 Intake and Output 06/27/16 06/27/16 06/28/16 08:00 16:00 00:00 Intake Total 2898 ml 938 ml 1236 ml Output Total 4365 ml 1075 ml 1615 ml Balance -1467 ml -137 ml -379 ml Result Diagram: 06/28/16 0640 06/28/16 0640 Imaging Last 48 hours Impressions Chest X-Ray 06/27/16 0000 Signed Impressions: Service Date/Time: Monday, June 27, 2016 03:46 - CONCLUSION: 1. Mild improvement in left upper lobe infiltrate. 2. Hazy opacity remains at both lung bases with left effusion. 3. The nasogastric tube remains in place with the tip in the distal esophagus. 4. The right subclavian central venous line again extends cephalad into the internal jugular vein. Ryan Barros MD Head CT 06/26/16 0000 Signed Impressions: Service Date/Time: Sunday, June 26, 2016 22:32 - CONCLUSION: Cystic mass posterior fossa right side causing significant hydrocephalus. Clarence Quinn MD FACR Chest X-Ray 06/26/16 0000 Signed Impressions: Service Date/Time: Sunday, June 26, 2016 06:19 - CONCLUSION: 1. Improving right lower lung infiltrate. 2. Otherwise, stable examination. Fabian Reeves MD Last Impressions Chest X-Ray 06/15/16 0000 Signed Impressions: Service Date/Time: Wednesday, June 15, 2016 15:00 - CONCLUSION: 1. Support equipment in good position. Doroteo Quinn MD Objective Remarks HEENT/ Neuro: Unresponsive off sedation, GCS 3, orally intubated. Rt pupil 6mm, left eye blind, Absent corneals, conjunctival reflex, absent gag response. Neck: Orally intubated. Chest/Pulm: Good air entry bilaterally, mild wheezes. Right sided chest tube in place with minimal bloody drainage, no air leak. CVS: S1-S2 regular, no murmur. No JVD. GI/abdomen: soft, nontender, bowel sounds not appreciated. J-tube in place. Extremities: warm bilaterally, no edema A/P Assessment and Plan Assessment: Obstructive hydrocephalus with brain herniation status post ventriculostomy Encephalopathy Esophageal cancer status post open [place] Moustapha esophagectomy, J-tube placement () Acute respiratory failure on mechanical ventilation MARSHALL pneumonia with Pseudomonas Sepsis Hypotension Large left effusion Plan: Neuro: Patient has been evaluated by neurosurgery Dr. Heath who placed a ventriculostomy emergently on 06/26 for acute change in neurologic status with head CT showing obstructive hydrocephalus. No improvement in neurologic exam. Discussed with neurosurgery -Dr. Heath who feels patient's prognosis is extremely poor in terms of neurologic outcome. EEG shows diffuse encephalopathy and almost electrocerebral silence. Cardiovascular: -off IVF -Ric-Synephrine for pressor support Pulmonary: Remains on mechanical ventilation bronchodilators as needed. -Failed SBT. -s/p L thoracentesis with 650 mL of fluid removed 06/20 -Chest x-ray shows left upper lobe infiltrate and Pseudomonas in sputum. Sensitive to cefepime - tracheostomy planned for 06/27 however in view of events overnight with neurologic deterioration this has been postponed and palliative care consulted to assist with deciding goals of therapy. GI/liver: -J-tube feeds. -IV Protonix Renal/: -strict intake output, monitor and replete electrolytes, follow BUN/creatinine. Heme: - Transfuse to keep hemoglobin greater than 7 g percent. s/p 1 U PRBC postoperatively. ID: -On Cefepime Flagyl. Stopped Levaquin 06/27. Patient appeared to have a contained esophageal perforation, and now MARSHALL PSAE pneumonia. Ancef for prophylactic antibiotic perioperatively completed. Endocrine: -SSI for glycemic control as needed. -Electrolyte replacement per protocol Prophylaxis: -PPI/SCDs. Subcutaneous Lovenox if okay with general surgery. Dr Mccarthy discussed in detail with 06/20/16 D/W Dr. Bruner 06/27: Discussed events including development of obstructive hydrocephalus and neurologic deterioration with absent brain stem signs suggesting extremely poor prognosis. Palliative care following to assist family with deciding goals of therapy. Critical Care 35 mins aside from procedure Ashok Hidalgo MD June 28, 2016 10:31
--- NOTE | 2016-06-28 11:02 | HHI.HCPN ---
Reason for visit a. To assist with evaluation and management of symptoms including: encephalopathy, dyspnea, dysphagia b. To assist medical decision maker(s) with: better understanding of current medical conditions; weighing benefits/burdens of medical treatment options; making medical treatment decisions. Subjective/Interval History Pt seen today to follow up on comfort , goals w decision maker. Notified by nursing family meeting with neurosurgery, gen surgery this am, requesting palliative follow up. EEG completed yesterday, interpretation = severe low amplitude recording, could be medication effect or severe diffuse encephalopathy ," near electrocerebral silence". CV surgery has signed off. No change in neuro assessment. Neuro spoke with family this am RE EEG, prognosis. GS spoke with family. Remains on neosynephrine drip 200mcg/min, nursing reports BP falls rapidly with a few second interruption of drip. Pt seen in room with , multiple family members at bedside. No change in clinical exam- no gag, no corneal reflex no spont resp on mech vent. Met w family , at length, review of condition, they express desire to remove life support based on pt known wishes. Anticipatory guidance provided, all questions answered. Shipping Associate in offered spiritual support. d/w critical care Dr Hidalgo, Dr Bruner. Supportive of family wishes. Exhibits B, C signed and in chart awaiting family signature and decision of when. . Advance Directives Living Will: Never completed Health Care Surrogate: Never completed Durable Power of Elementary School Teacher'S Aide: Never completed Advance Directive Specifics Significant change in goals: elect DNR, transition to comfort focus/withdrawal of life support, have not decided on time of withdrawal yet. . Objective Vital Signs Date Time Temp Pulse Resp B/P Pulse Ox O2 Delivery O2 Flow Rate FiO2 06/28/16 08:00 84 06/28/16 08:00 50 06/28/16 08:00 98.1 84 14 111/64 95 06/28/16 07:50 96 50 06/28/16 07:46 96 50 06/28/16 06:00 86 06/28/16 05:31 14 06/28/16 04:06 96 50 06/28/16 04:00 82 06/28/16 04:00 98.4 82 14 108/56 95 06/28/16 04:00 50 06/28/16 02:00 93 06/28/16 01:08 95 50 06/28/16 01:05 50 06/28/16 00:00 98.3 94 14 110/60 94 06/28/16 00:00 94 06/28/16 00:00 50 06/27/16 22:00 96 06/27/16 20:00 50 06/27/16 20:00 98.4 84 14 110/59 95 06/27/16 20:00 84 06/27/16 19:50 97 50 06/27/16 18:00 95 06/27/16 16:18 94 50 06/27/16 16:00 50 06/27/16 16:00 98.3 90 14 104/56 94 06/27/16 16:00 96 06/27/16 14:00 90 06/27/16 12:00 98.8 92 14 110/64 96 06/27/16 12:00 90 06/27/16 12:00 50 06/27/16 11:28 96 50 06/27/16 11:26 96 50 Intake & Output 06/28/16 06/28/16 07:00 19:00 Intake Total 2750 ml Output Total 2192 ml Balance 558 ml IV Total 2177 ml Tube Feeding 273 ml Tube Irrigant 300 ml Output Urine Total 2100 ml Gastric Drainage Total 10 ml Chest Tube Drainage Total 31 ml Drainage Total 51 ml # Bowel Movements 0 Physical Exam CONSTITUTIONAL/GENERAL: This is a thin, frail appearing pt, on mech vent TUBES/LINES/DRAINS: rt SC central line, rt chest tube, ETT, J tube left abdomen , NGT SKIN: No jaundice, rashes, or lesions. mid abd incision shruthi intact,clean/ dry. Skin temperature appropriate. Not diaphoretic. HEAD: Atraumatic. + ventric drain front/top head to drainage at bedside. EYES: Pupils 4mm non reactive to light. No corneal response. CARDIOVASCULAR: Regular rate and rhythm no murmur. Peripheral pulses symmetric.+ neosynephrine drip RESPIRATORY/CHEST: Symmetric, unlabored respirations via ett to mech vent. Clear to auscultation. Breath sounds equal bilaterally. no spont resp effort NEUROLOGICAL: on no sedation. Non responsive to my exam. No eye opening. Pupils 4mm nonreactive. no corneal reflex. No gag response when ETT stimulated. no withdraw to pain stimuli to extremities. PSYCHIATRIC: No obvious anxiety/depression-- limited due to clinical condition. . Diagnostic Tests Laboratory Laboratory Tests Test 06/25/16 06/25/16 06/26/16 06/26/16 12:05 16:10 04:30 06:18 Blood Type A POSITIVE Antibody Screen NEGATIVE Crossmatch Leukocyte-Reduced Red Blood Cells Blood Bank Comment Potassium Level 3.7 MEQ/L 3.6 MEQ/L (3.5-5.1) (3.5-5.1) White Blood Count 12.3 TH/MM3 (4.0-11.0) Red Blood Count 3.87 MIL/MM3 (4.50-5.90) Hemoglobin 9.4 GM/DL (13.0-17.0) Hematocrit 29.9 % (39.0-51.0) Mean Corpuscular Volume 77.2 FL (80.0-100.0) Mean Corpuscular Hemoglobin 24.4 PG (27.0-34.0) Mean Corpuscular Hemoglobin 31.6 % Concent (32.0-36.0) Red Cell Distribution Width 16.0 % (11.6-17.2) Platelet Count 188 TH/MM3 (150-450) Mean Platelet Volume 9.4 FL (7.0-11.0) Neutrophils (%) (Auto) 88.5 % (16.0-70.0) Lymphocytes (%) (Auto) 4.5 % (9.0-44.0) Monocytes (%) (Auto) 5.6 % (0.0-8.0) Eosinophils (%) (Auto) 1.1 % (0.0-4.0) Basophils (%) (Auto) 0.3 % (0.0-2.0) Neutrophils # (Auto) 10.9 TH/MM3 (1.8-7.7) Lymphocytes # (Auto) 0.5 TH/MM3 (1.0-4.8) Monocytes # (Auto) 0.7 TH/MM3 (0-0.9) Eosinophils # (Auto) 0.1 TH/MM3 (0-0.4) Basophils # (Auto) 0.0 TH/MM3 (0-0.2) CBC Comment AUTO DIFF Differential Total Cells 100 Counted Neutrophils % (Manual) 61 % (16-70) Band Neutrophils % 22 % (0-6) Lymphocytes % 7 % (9-44) Monocytes % 9 % (0-8) Eosinophils % 1 % (0-4) Neutrophils # (Manual) 10.2 TH/MM3 (1.8-7.7) Differential Comment FINAL DIFF MANUAL Platelet Estimate NORMAL (NORMAL) Platelet Morphology Comment NORMAL (NORMAL) Sodium Level 143 MEQ/L (136-145) Chloride Level 106 MEQ/L (98-107) Carbon Dioxide Level 30.9 MEQ/L (21.0-32.0) Anion Gap 6 MEQ/L (5-15) Blood Urea Nitrogen 12 MG/DL (7-18) Creatinine 0.34 MG/DL (0.60-1.30) Estimat Glomerular Filtration 269 ML/MIN Rate (>89) Random Glucose 135 MG/DL (74-106) Calcium Level 7.4 MG/DL (8.5-10.1) Protein Corrected Calcium 8.5 MG/DL (8.5-10.1) Total Bilirubin 0.7 MG/DL (0.2-1.0) Aspartate Amino Transf 32 U/L (15-37) (AST/SGOT) Alanine Aminotransferase 48 U/L (12-78) (ALT/SGPT) Alkaline Phosphatase 148 U/L (45-117) Total Protein 5.2 GM/DL (6.4-8.2) Albumin 1.5 GM/DL (3.4-5.0) Blood Gas Puncture Site JOSE Blood Gas Patient Temperature 98.6 Blood Gas HCO3 28 mmol/L (22-26) Blood Gas Base Excess 4.6 mmol/L (-2-2) Blood Gas Oxygen Saturation 95 % (90-100) Arterial Blood pH 7.48 (7.380-7.420) Arterial Blood Partial 38 mmHg (38-42) Pressure CO2 Arterial Blood Partial 86 mmHg Pressure O2 (61-120) Arterial Blood Oxygen Content 12.5 Vol % (12.0-20.0) Arterial Blood 1.4 % (0-4) Carboxyhemoglobin Arterial Blood Methemoglobin 0.6 % (0-2) Blood Gas Hemoglobin 9.2 G/DL (12.0-16.0) Oxygen Delivery Device VENTILATOR Blood Gas Ventilator Setting AC14/500/+5 Blood Gas Inspired Oxygen 60 % Test 06/27/16 06/27/16 06/27/16 06/28/16 00:28 03:35 03:45 06:40 Blood Gas Puncture Site ART LINE ART LINE Blood Gas Patient Temperature 98.6 98.6 Blood Gas HCO3 27 mmol/L 27 mmol/L (22-26) (22-26) Blood Gas Base Excess 2.2 mmol/L 2.8 mmol/L (-2-2) (-2-2) Blood Gas Oxygen Saturation 96 % (90-100) 95 % (90-100) Arterial Blood pH 7.41 7.39 (7.380-7.420) (7.380-7.420) Arterial Blood Partial 43 mmHg (38-42) 46 mmHg (38-42) Pressure CO2 Arterial Blood Partial 109 mmHg 93 mmHg Pressure O2 (61-120) (61-120) Arterial Blood Oxygen Content 12.0 Vol % 14.1 Vol % (12.0-20.0) (12.0-20.0) Arterial Blood 1.2 % (0-4) 1.2 % (0-4) Carboxyhemoglobin Arterial Blood Methemoglobin 0.7 % (0-2) 0.6 % (0-2) Blood Gas Hemoglobin 8.7 G/DL 10.5 G/DL (12.0-16.0) (12.0-16.0) Oxygen Delivery Device VENTILATOR VENTILATOR Blood Gas Ventilator Setting AC//500/PEEP8 AC/500/PEEP5 Blood Gas Inspired Oxygen 60 % 60 % White Blood Count 16.5 TH/MM3 18.8 TH/MM3 (4.0-11.0) (4.0-11.0) Red Blood Count 4.17 MIL/MM3 3.63 MIL/MM3 (4.50-5.90) (4.50-5.90) Hemoglobin 10.3 GM/DL 9.2 GM/DL (13.0-17.0) (13.0-17.0) Hematocrit 32.5 % 28.9 % (39.0-51.0) (39.0-51.0) Mean Corpuscular Volume 78.1 FL 79.5 FL (80.0-100.0) (80.0-100.0) Mean Corpuscular Hemoglobin 24.8 PG 25.4 PG (27.0-34.0) (27.0-34.0) Mean Corpuscular Hemoglobin 31.7 % 31.9 % Concent (32.0-36.0) (32.0-36.0) Red Cell Distribution Width 16.8 % 16.7 % (11.6-17.2) (11.6-17.2) Platelet Count 289 TH/MM3 375 TH/MM3 (150-450) (150-450) Mean Platelet Volume 9.1 FL 8.8 FL (7.0-11.0) (7.0-11.0) Sodium Level 152 MEQ/L 158 MEQ/L (136-145) (136-145) Potassium Level 3.9 MEQ/L 3.4 MEQ/L (3.5-5.1) (3.5-5.1) Chloride Level 117 MEQ/L 121 MEQ/L (98-107) (98-107) Carbon Dioxide Level 29.4 MEQ/L 32.9 MEQ/L (21.0-32.0) (21.0-32.0) Anion Gap 6 MEQ/L (5-15) 4 MEQ/L (5-15) Blood Urea Nitrogen 12 MG/DL (7-18) 22 MG/DL (7-18) Creatinine 0.32 MG/DL 0.36 MG/DL (0.60-1.30) (0.60-1.30) Estimat Glomerular Filtration 289 ML/MIN 252 ML/MIN Rate (>89) (>89) Random Glucose 153 MG/DL 163 MG/DL (74-106) (74-106) Calcium Level 7.9 MG/DL 7.7 MG/DL (8.5-10.1) (8.5-10.1) Neutrophils (%) (Auto) 92.0 % (16.0-70.0) Lymphocytes (%) (Auto) 2.6 % (9.0-44.0) Monocytes (%) (Auto) 5.2 % (0.0-8.0) Eosinophils (%) (Auto) 0.1 % (0.0-4.0) Basophils (%) (Auto) 0.1 % (0.0-2.0) Neutrophils # (Auto) 17.3 TH/MM3 (1.8-7.7) Lymphocytes # (Auto) 0.5 TH/MM3 (1.0-4.8) Monocytes # (Auto) 1.0 TH/MM3 (0-0.9) Eosinophils # (Auto) 0.0 TH/MM3 (0-0.4) Basophils # (Auto) 0.0 TH/MM3 (0-0.2) CBC Comment DIFF FINAL Differential Comment Total Bilirubin 0.3 MG/DL (0.2-1.0) Aspartate Amino Transf 71 U/L (15-37) (AST/SGOT) Alanine Aminotransferase 48 U/L (12-78) (ALT/SGPT) Alkaline Phosphatase 254 U/L (45-117) Total Protein 5.1 GM/DL (6.4-8.2) Albumin 1.3 GM/DL (3.4-5.0) Result Diagram: 06/28/16 0640 06/28/16 0640 Imaging Last Impressions Chest X-Ray 06/27/16 0000 Signed Impressions: Service Date/Time: Monday, June 27, 2016 03:46 - CONCLUSION: 1. Mild improvement in left upper lobe infiltrate. 2. Hazy opacity remains at both lung bases with left effusion. 3. The nasogastric tube remains in place with the tip in the distal esophagus. 4. The right subclavian central venous line again extends cephalad into the internal jugular vein. Ryan Barros MD Head CT 06/26/16 0000 Signed Impressions: Service Date/Time: Sunday, June 26, 2016 22:32 - CONCLUSION: Cystic mass posterior fossa right side causing significant hydrocephalus. Clarence Quinn MD FACR Procedures 06/26 ventriculostomy 06/17 reintubated /bronchoscopy 06/16 extubated. 06/15/16 [place]-Moustapha esophagectomy, J-tube placement . Assessment and Plan Disease Oriented Problem List: (1) Nausea & vomiting (2) Esophageal cancer (3) Acute respiratory failure (4) Septic shock (5) Pneumonia due to Pseudomonas (6) Pleural effusion (7) H/O esophagectomy Symptom Scale: (1) Dysphagia (2) Dyspnea (3) Encephalopathy Pertinent Non-Medical Issues Psychosocial:, lives with his in an RV locally. Spent some time in [place] after cancer diagnosis. Well supported by multiple siblings, extended family, as well as his mother. Spiritual:Evangelical faithno local affiliation; would appreciate bell maker visits-notify zmt operator. Legal:Patient is not capacitated. Not expected to regain capacity. No advanced directives. Per [place] statutes his would be legal proxy. Ethical issues impacting care: Important Contacts HALIE MCKNIGHT [phone] Prognosis This patient has known esophageal carcinoma, status post [place] Moustapha esophagectomy this admission. He has had difficulty weaning off the ventilator , complicated ICU course. 06/26/16 Findings of altered mental status, acute neurologic decline last night 06/26/16 with loss of all brainstem reflexes unfortunately. He has developed obstructive hydrocephalus likely from a cystic mass in the right cerebellar hemisphere. s/p ventriculostomy for his hydrocephalus. Exam does not reveal any improvement s/p ventriculostomy drain. Poor prognosis. . Code Status: No Code Plan * Legal decision maker: Patient is not capacitated. Not expected to regain capacity. No advanced directives. Per [place] statutes his would be legal proxy. * Goals: Plan for withdrawal of life support today. Met w family , at length, review of condition, they express desire to remove life support based on pt known wishes. Anticipatory guidance provided, all questions answered. Shipping Associate provided spiritual support. * Exhibits B, C signed and in chart * CODE STATUS: full code * SYMPTOMS: plan for withdrawal of life support, 3pm today-- comfort orders to be entered by palliative at time of withdrawal --dysphagia - 2/2 esophageal ca, s/p esophagectomy --encephalopathy - catastrophic obstructive hydrocephalus likely from a cystic mass in the right cerebellar hemisphere. s/p ventriculostomy for his hydrocephalus. Exam does not reveal any improvement s/p ventriculostomy drain --dyspnea - remains intubated post op, failed extubation x1, reintubated. Now severe encephalopathy 2/2 obstructive hydrocephalus. * Palliative care will continue to follow during hospital course as condition evolves, to assist patient/decision-maker with understanding of medical conditions, weighing benefits/burdens of treatment options, for clarification of goals of treatment. Additionally will assist with any symptoms of palliative concern . Time Spent >50% Counseling/Coord of Care: Yes (d/w critical care, surgery, nursing ) Attestation To help prompt me to consider important information that might be impacting today's encounter and assessment, information from prior notes written by myself or my colleagues may have been "brought forward" into today's note. My signature on this note, however, is an attestation that I personally performed the exam, history, and/or decision-making noted today, and, unless otherwise indicated, the interactions with patient, family, and staff as well as the review of records all occurred today. I also attest that the listed assessment and stated plan reflect my best clinical judgment today based on the combination of historical information, prior notes, and today's exam/ interactions. When time spent is documented, it refers only to time spent today by the signer, or if indicated, combined time spent today by collaborating physician/nurse practitioner. Linda Aguilera June 28, 2016 11:02 Linda Aguilera June 28, 2016 11:02
--- NOTE | 2016-06-28 12:08 | HHI.PR ---
Subjective Subjective Notes Intubated Unresponsive on ventilator Patient seen with ALEJANDRO Mckeon Objective Vitals/I&O Vital Signs Date Time Temp Pulse Resp B/P Pulse Ox O2 Delivery O2 Flow Rate FiO2 06/28/16 11:50 94 50 06/28/16 10:00 87 06/28/16 08:00 98.1 14 111/64 Labs Laboratory Tests Test 06/28/16 06:40 White Blood Count 18.8 Red Blood Count 3.63 Hemoglobin 9.2 Hematocrit 28.9 Mean Corpuscular Volume 79.5 Mean Corpuscular Hemoglobin 25.4 Mean Corpuscular Hemoglobin 31.9 Concent Red Cell Distribution Width 16.7 Platelet Count 375 Mean Platelet Volume 8.8 Neutrophils (%) (Auto) 92.0 Lymphocytes (%) (Auto) 2.6 Monocytes (%) (Auto) 5.2 Eosinophils (%) (Auto) 0.1 Basophils (%) (Auto) 0.1 Neutrophils # (Auto) 17.3 Lymphocytes # (Auto) 0.5 Monocytes # (Auto) 1.0 Eosinophils # (Auto) 0.0 Basophils # (Auto) 0.0 CBC Comment DIFF FINAL Differential Comment Sodium Level 158 Potassium Level 3.4 Chloride Level 121 Carbon Dioxide Level 32.9 Anion Gap 4 Blood Urea Nitrogen 22 Creatinine 0.36 Estimat Glomerular Filtration 252 Rate Random Glucose 163 Calcium Level 7.7 Total Bilirubin 0.3 Aspartate Amino Transf 71 (AST/SGOT) Alanine Aminotransferase 48 (ALT/SGPT) Alkaline Phosphatase 254 Total Protein 5.1 Albumin 1.3 Cardiovascular: Regular Lungs: Clear Abdomen: Other (midline incision with shruthi; J tube in place ) Extremities: No edema Narrative Exam RIGHT chest tube in place to wall suction; no air leak ventric in place A/P Assessment and Plan 55 year old male with esophageal cancer s/p open [place] Moustapha Esophagectomy -Palliative Care following--- Family considering withdrawal of care; discussing timing; exhibits signed on chart -Right frontal twist drill hole ventriculostomy placement for obstructive hydrocephalus with right cerebellar hemisphere cystic abnormality ---Dr. Heath following -[facility] following -Pressor support as needed -Continue CT to wall suction Attending Statement The exam, history, and the medical decision-making described in the above note were completed with the assistance of the mid-level provider. I reviewed and agree with the findings presented. I attest that I had a [id number] encounter with the patient on the same day, and personally performed and documented my assessment and findings in the medical record. withdraw of support per family request Dahlia Sanford June 28, 2016 12:08 Armando Bruner MD July 12, 2016 16:54
[2016-06-28] MEDS: ENOXAPARIN SODIUM 40 MG/0.4 ML SYRINGE SQ SCH (12:31)
[2016-06-28] MEDS ORDERED: LORazepam 2 MG/ML VIAL IV ONE ×2 (14:30→14:45)
[2016-06-28] MEDS ORDERED: MORPHINE SULFATE 8 MG/ML INJ IV PUSH ONE (14:30)
[2016-06-28] MEDS ORDERED: MORPHINE SULFATE 4 MG/ML INJ IV ONE (14:45)
[2016-06-28] MEDS ORDERED: MORPHINE SULFATE 4 MG/ML INJ IV PRN (15:00)
[2016-06-28] MEDS ORDERED: LORazepam 2 MG/ML VIAL IVS PRN (15:00)
[2016-06-28] MEDS ORDERED: ACETAMINOPHEN 650 MG SUPP RECTAL PRN (15:00)
[2016-06-28] MEDS ORDERED: FUROSEMIDE 20 MG/2 ML VIAL IV PRN (15:00)
[2016-06-28] MEDS ORDERED: HYOSCYAMINE 0.5 MG/ML AMP IV PRN (15:00)
[2016-06-28] MEDS ORDERED: BISACODYL 10 MG SUPP RECTAL PRN (15:00)
[2016-06-28] MEDS ORDERED: MORPHINE SULFATE 8 MG/ML INJ IV PUSH PRN (15:00)
[2016-06-28] MEDS ORDERED: LORazepam 2 MG/ML VIAL IV PRN ×2 (15:00)
--- NOTE | 2016-07-12 12:53 | HHI.DS ---
Discharge Summary Admission Date June 15, 2016 at 05:50 Discharge Date: June 28, 2016 Admitting Diagnosis Brief History 55 year old male with esophageal cancer s/p open [place] Moustapha Esophagectomy PE at Discharge Patient Hospital Course This is a 55 year old male with esophageal cancer s/p open [place] Moustapha Esophagectomy. The patient remained intubated post-operatively. He was extubated but experience respiratory failure due to increased secretions and a mucous plug. The patient was intubated. 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 Dr. Heath was consulted and placed a ventriculostomy. He continued to be unresponsive. Palliative care met with the family and decided on withdrawal of care. The patient . Pt Condition on Discharge: Deteriorating () Dahlia Sanford July 12, 2016 12:53
== END 2016-06-28 16:10 | disposition expired | DRG 326 ==
LOC: HSDI 06-15 05:50 → N03B 06-15 17:30
PROVIDERS: ADMIT Surgery; ATTEND Surgery
PROC: 0DWD0UZ Revision of Feeding Device in Lower Intestinal Tract, Open Approach (ICD-10-PCS; 2016-06-15)
PROC: 3E0G7GC Introduction of Other Therapeutic Substance into Upper GI, Via Natural or Artificial Opening (ICD-10-PCS; 2016-06-15)
PROC: 0DB30ZZ Excision of Lower Esophagus, Open Approach (ICD-10-PCS; principal; 2016-06-15 08:23)
PROC: 0B9C8ZX Drainage of Right Upper Lung Lobe, Via Natural or Artificial Opening Endoscopic, Diagnostic (ICD-10-PCS; 2016-06-17)
PROC: 05H533Z Insertion of Infusion Device into Right Subclavian Vein, Percutaneous Approach (ICD-10-PCS; 2016-06-17)
PROC: 0B958ZX Drainage of Right Middle Lobe Bronchus, Via Natural or Artificial Opening Endoscopic, Diagnostic (ICD-10-PCS; 2016-06-17)
PROC: 0BH17EZ Insertion of Endotracheal Airway into Trachea, Via Natural or Artificial Opening (ICD-10-PCS; 2016-06-17)
PROC: 03HY32Z Insertion of Monitoring Device into Upper Artery, Percutaneous Approach (ICD-10-PCS; 2016-06-18)
PROC: 5A1955Z Respiratory Ventilation, Greater than 96 Consecutive Hours (ICD-10-PCS; 2016-06-20)
PROC: 0W9B30Z Drainage of Left Pleural Cavity with Drainage Device, Percutaneous Approach (ICD-10-PCS; 2016-06-20)
PROC: 30233N1 Transfusion of Nonautologous Red Blood Cells into Peripheral Vein, Percutaneous Approach (ICD-10-PCS; 2016-06-20)
PROC: 00163JB Bypass Cerebral Ventricle to Cerebral Cisterns with Synthetic Substitute, Percutaneous Approach (ICD-10-PCS; 2016-06-26)
DX: C15.5 Malignant neoplasm of lower third of esophagus (principal); K22.3 Perforation of esophagus; J96.01 Acute respiratory failure with hypoxia; G93.5 Compression of brain; R65.21 Severe sepsis with septic shock; A41.9 Sepsis, unspecified organism; G93.40 Encephalopathy, unspecified; J15.1 Pneumonia due to Pseudomonas; Z51.5 Encounter for palliative care; J90 Pleural effusion, not elsewhere classified; G91.1 Obstructive hydrocephalus; E87.2 Acidosis; Z68.1 Body mass index [BMI] 19.9 or less, adult; J44.0 Chronic obstructive pulmonary disease with (acute) lower respiratory infection; K21.0 Gastro-esophageal reflux disease with esophagitis; Y84.2 Radiological procedure and radiotherapy as the cause of abnormal reaction of the patient, or of later complication, without mention of misadventure at the time of the procedure; J40 Bronchitis, not specified as acute or chronic; G93.0 Cerebral cysts; R63.4 Abnormal weight loss; I95.2 Hypotension due to drugs; R00.0 Tachycardia, unspecified; T42.75XA Adverse effect of unspecified antiepileptic and sedative-hypnotic drugs, initial encounter; F12.90 Cannabis use, unspecified, uncomplicated; F17.210 Nicotine dependence, cigarettes, uncomplicated; F41.9 Anxiety disorder, unspecified; Z66 Do not resuscitate; Z85.828 Personal history of other malignant neoplasm of skin; Z92.21 Personal history of antineoplastic chemotherapy; Z92.3 Personal history of irradiation
CPT/HCPCS: 31500; 31624; 32554; 36430; 36556; 36600; 61210; 70450; 71010; 76937; 80048; 80053; 82150; 82805; 82945; 82948; 83615; 83735; 83986; 84132; 84155; 84157; 85007; 85025; 85027; 85610; 85730; 86850; 86900; 86901; 86920; 87015; 87070; 87077; 87102; 87116; 87186; 87205; 87206; 87641; 88112; 88305; 88309; 88331; 89051; 94002; 94003; 94150; 94640; 94664; 94667; 94770; 95819; C9113; J0131; J0330; J0585; J0690; J0692; J1100; J1170; J1650; J1956; J2060; J2250; J2270; J2370; J2543; J3010; J3480; J7030; J7040; J7050; J7060; J7120; J7608; J7614; P9016; P9047